=== PATIENT | male | born 1935 | race Caucasian/White ===

== ENCOUNTER 2016-11-27 08:00 | Outpatient (CLI) | payer MEDICARE, OTHER | END 2016-11-27 08:01 | DX: E87.6 Hypokalemia (principal) ==

== ENCOUNTER 2017-05-26 06:59 | Emergency (ER) | payer MEDICARE, OTHER ==
--- NOTE | 2017-05-26 07:04 | ED Physician Documentation ---
PD HPI CHEST PAIN - Stated complaint Stated Complaint: HEART RACING - History obtained from History obtained from: Patient, Family (spouse) - History of Present Illness Timing - onset: Last night (about 1:30 AM) Timing - onset during: Sleep Timing - duration: Hours Timing - details: Abrupt onset, Still present, Waxing and waning Quality: Aching, Other (burning feeling. Also noted BP to be high, whereas it is usually 120s-140s in the mornings.) Location: Substernal Radiation: Neck, Back Improved by: Antacids (took licorice which would help for short time). No: Rest Worsened by: No: Inspiration, Movement, Position Associated symptoms: Feeling faint / dizzy. No: Shortness of air, Diaphoresis, Nausea Similar symptoms before: Diagnosis (had CAD with stents in 2001, with normal exercise tolerance (treadmill, and weight training).) Recently seen: Not recently seen Review of Systems Constitutional: denies: Fever, Chills Nose: denies: Rhinorrhea / runny nose, Congestion Throat: denies: Sore throat Cardiac: reports: Palpitations (occasional extra beats). denies: Chest pain / pressure, Pedal edema, Calf pain Respiratory: reports: Dyspnea (minimal dyspnea with aerobic exercise the past few months, but does about 20 minutes at 3 MPH rate on treadmill and does weight strengthening.). denies: Cough GI: denies: Abdominal Pain, Nausea, Vomiting, Diarrhea : denies: Dysuria Skin: denies: Rash Musculoskeletal: denies: Extremity swelling Neurologic: denies: Generalized weakness, Near syncope Endocrine: denies: Weight loss Immunocompromised: denies: Immunocompromised PD PAST MEDICAL HISTORY - Past Medical History Cardiovascular: Hypertension, Coronary artery disease Respiratory: None Neuro: None Endocrine/Autoimmune: None GI: GERD, Hiatal hernia : Benign prostate hypertrophy, Frequency HEENT: None Psych: None Musculoskeletal: Chronic back pain Derm: None - Past Surgical History Past Surgical History: Yes General: Appendectomy, Colonoscopy Cardiovascular: Coronary stent HEENT: Tonsil/Adenoidectomy - Present Medications Home Medications: Ambulatory Orders Medication Instructions Recorded Confirmed Aspirin [Aspir 81] 81 mg PO DAILY 05/02/13 12/14/15 Red Yeast Rice 600 mg PO DAILY 05/02/13 12/14/15 Melatonin/Pyridoxine [Melatonin 3 1 each PO HS 08/08/13 12/14/15 mg Tablet] Multivitamin [Multivitamins] 1 each PO DAILY 08/08/13 12/14/15 Niacin 500 mg PO DAILY 08/22/13 12/14/15 Selenium 50 mcg PO DAILY 08/22/13 12/14/15 Zinc [Zinc Chelated] 50 mg PO DAILY 08/22/13 12/14/15 ALPRAZolam [Xanax] 0.25 mg PO .PRN PRN 09/01/13 09/01/13 Hydrochlorothiazide 12.5 mg PO DAILY 09/01/13 12/14/15 Lisinopril [Prinivil] 20 mg PO DAILY #30 tablet 07/17/14 12/14/15 Nitroglycerin [Nitrostat] 0.4 mg SL Q5MIN PRN #1 bottle 07/17/14 12/14/15 - Allergies Allergies/Adverse Reactions: Allergies Allergy/AdvReac Type Severity Reaction Status Date / Time atorvastatin calcium * Allergy Mild MUSCLE PAIN Verified 05/26/17 07:08 [From Lipitor] - Social History Does the pt smoke?: No Smoking Status: Never smoker Does the pt drink ETOH?: Yes Does the pt have substance abuse?: No - POLST Patient has POLST: No PD ED PE NORMAL - Vitals Vital signs reviewed: Yes - General General: Alert 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, No acute distress, Well developed/nourished - HEENT HEENT: Pharynx benign - Neck Neck: Supple, no meningeal sign, No adenopathy - Cardiac Cardiac: RRR, No murmur - Respiratory Respiratory: No respiratory distress, Clear bilaterally - Abdomen Abdomen: Soft, Non tender - Back Back: No CVA TTP - Derm Derm: Normal color, Warm and dry - Extremities Extremities: No tenderness to palpate, Normal ROM s pain, No edema, No calf tenderness / cord - Neuro Neuro: Alert 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, No motor deficit, Normal speech - Psych Psych: Normal mood, Normal affect Results - Vitals Vitals: Vital Signs - 24 hr 05/26/17 05/26/17 05/26/17 07:05 07:21 07:42 Temperature 36.5 C Heart Rate 85 75 Respiratory 15 18 Rate Blood Pressure 186/94 H 155/99 H Blood Pressure 186/94 H [Left] Blood Pressure 177/85 H [Right] O2 Saturation 100 100 05/26/17 05/26/17 08:16 09:02 Temperature Heart Rate 81 74 Respiratory 17 16 Rate Blood Pressure 139/88 H 158/69 H Blood Pressure [Left] Blood Pressure [Right] O2 Saturation 99 98 Oxygen O2 Source Room air - EKG (time done) 07:09 Rate: Rate (enter#) (81) Rhythm: NSR, Other (occasional PVCs) [place]: Normal Intervals: Normal [place] QRS: Normal Ischemia: Normal ST segments. No: ST elevation c/w ischemia, ST depression - Labs Labs: Laboratory Tests 05/26/17 05/26/17 05/26/17 07:34 07:34 07:34 WBC 3.9 L RBC 4.45 L Hgb 13.6 L Hct 38.5 L MCV 86.7 MCH 30.6 MCHC 35.3 RDW 13.2 Plt Count 156 MPV 6.2 L Neut # 2.5 Lymph # 0.8 L [place] # 0.5 Eos # 0.1 Baso # 0.0 Absolute Nucleated RBC 0.00 Nucleated RBCs 0.0 Sodium 131 L Potassium 3.6 Chloride 94 L Carbon Dioxide 29 Anion Gap 8.0 BUN 15 Creatinine 1.0 Estimated GFR (MDRD) 72 L Glucose 117 H Calcium 9.1 Magnesium 2.0 Total Bilirubin 1.3 H AST 22 ALT 17 Alkaline Phosphatase 64 Troponin I < 0.04 Total Protein 6.8 Albumin 4.1 Globulin 2.7 Albumin/Globulin Ratio 1.5 Lipase 33 PD MEDICAL DECISION MAKING - ED course Complexity details: reviewed results (normal labs 6 hours after onset of discomfort. Got better with GI cocktail. ), re-evaluated patient (He is feeling better with the GI cocktail. EKG and troponin are negative. His other blood tests are good. His blood pressure remains slightly high today but he says his trend is good overall with blood pressure 120s-140s even this past week. As such we would not treat this likely stress response high blood pressure but see how it does over the next week. He is understanding of that concept. He is discharged in improved condition.), considered differential, d/w patient Departure - Departure Disposition: 01 Home, Self Care Clinical Impression: Chest discomfort, Elevated blood pressure reading Clinical Impression: (Ruled Out): Myocardial infarction Condition: Stable Record reviewed to determine appropriate education?: Yes Instructions: ED Chest Pain Atypical Unkn Cause Follow-Up: Jocelynn Perez MD [Primary Care Provider] - Comments: Continue usual medications. Add antacid such as Maalox or Mylanta as needed. Watch her blood pressure over the next several days but do not take it too often. If the elevation remains as a trend, then follow-up with your primary care regarding potential further treatment. It is likely more reactive to the situation today. Recheck if worsening symptoms. Discharge Date/Time: 05/26/17 09:02
[2017-05-26] MEDS ORDERED: MAG HYDROX/AL HYDROX/SIMETH 30 ML UDC PO STA (07:21)
[2017-05-26] MEDS ORDERED: LIDOCAINE VISCOUS 2% 15 ML UDC MM STA (07:21)
[2017-05-26] MEDS ORDERED: FAMOTIDINE 20 MG TABLET PO STA (07:21)
[2017-05-26] MEDS ORDERED: FAMOTIDINE 20 MG TABLET ONE (07:37)
[2017-05-26] MEDS ORDERED: MAG HYDROX/AL HYDROX/SIMETH 30 ML UDC ONE (07:38)
[2017-05-26] MEDS ORDERED: LIDOCAINE VISCOUS 2% 15 ML UDC MM ONE (07:38)
[2017-05-26 07:41] LABS: BASOPHILS % (AUTO) 0.7 %; EOSINOPHILS # (AUTO) 0.1 10^3/uL (0.0-0.7); EOSINOPHILS % (AUTO) 1.7 %; HCT - HEMATOCRIT 38.5 % (42.0-52.0); HGB - HEMOGLOBIN 13.6 g/dL (14.0-18.0); LYMPHOCYTES # (AUTO) 0.8 10^3/uL (1.5-3.5); LYMPHOCYTES % (AUTO) 20.9 %; MEAN CORPUSCULAR HEMOGLOBIN 30.6 pg (27.0-31.0); MEAN CORPUSCULAR HGB CONC 35.3 g/dL (32.0-36.0); MEAN CORPUSCULAR VOLUME 86.7 fL (80.0-94.0); MEAN PLATELET VOLUME 6.2 fL (7.4-11.4); MONOCYTES # (AUTO) 0.5 10^3/uL (0.0-1.0); MONOCYTES % (AUTO) 13.2 %; NEUTROPHILS # (AUTO) 2.5 10^3/uL (1.5-6.6); NEUTROPHILS % (AUTO) 63.5 %; RED BLOOD COUNT 4.45 10^6/uL (4.70-6.10); RED CELL DISTRIBUTION WIDTH 13.2 % (12.0-15.0); UNCORRECTED WHITE BLOOD COUNT 3.9 x10^3/uL; WHITE BLOOD COUNT 3.9 x10^3/uL (4.8-10.8)
[2017-05-26 07:53] LABS: ALBUMIN/GLOBULIN RATIO 1.5 (1.0-2.2); BILIRUBIN,TOTAL 1.3 mg/dL (0.2-1.0); CALCIUM 9.1 mg/dL (8.5-10.3); POTASSIUM 3.6 mmol/L (3.5-5.0); TOTAL PROTEIN 6.8 g/dL (6.7-8.2)
[2017-05-26 09:03] VITALS: BP 158/69
== END 2017-05-26 09:02 | disposition home or self-care (01) ==
LOC: ED 06:59
DX: R07.9 Chest pain, unspecified (principal); I10 Essential (primary) hypertension; I25.10 Atherosclerotic heart disease of native coronary artery without angina pectoris; K21.9 Gastro-esophageal reflux disease without esophagitis; N40.0 Benign prostatic hyperplasia without lower urinary tract symptoms; Z79.82 Long term (current) use of aspirin
CPT/HCPCS: 36415; 80053; 83690; 83735; 84484; 85025; 93005; 99283; 99284; A9270

== ENCOUNTER 2017-06-15 14:50 | Outpatient (CLI) | payer MEDICARE, OTHER ==
--- NOTE | 2017-06-15 15:47 | CT Report ---
CT CHEST WITHOUT CONTRAST: 06/15/2017 CLINICAL INDICATION: Cough. TECHNIQUE: Axial CT images of the chest were obtained without intravenous contrast. COMPARISON: 12/15/2015 FINDINGS: The heart and great vessels demonstrate mild atherosclerotic calcification. No hilar or m ediastinal lymphadenopathy is present. The lungs demonstrate mild biapical scarring. Minimal basila r atelectasis persists. No new consolidation, effusion, or pneumothorax is evident. Osseous structu res demonstrate degenerative changes. Limited evaluation of upper abdominal structures demonstrates normal adrenal glands. Small hypodensity in the lateral right lobe of the liver is stable. IMPRESSION: BIAPICAL SCARRING AND MILD ATELECTASIS. NO EVIDENCE OF NEW CONSOLIDATION, EFFUSION, OR PNEUMOTHORAX. In accordance with CT protocol optimization, one or more of the following dose reduction techniques w ere utilized for this exam: automated exposure control, adjustment of mA and/or KV based on patient size, or use of iterative reconstructive technique. JOB #: [id number] EXT JOB #:[id number]
== END 2017-06-15 14:51 | disposition home or self-care (01) ==
LOC: DI 14:50
PROVIDERS: ATTEND Internal Medicine
DX: R05 Cough (principal); J98.11 Atelectasis
CPT/HCPCS: 71250

== ENCOUNTER 2017-07-22 16:33 | Inpatient (IN) | payer MEDICARE, OTHER ==
--- NOTE | 2017-07-22 17:18 | ED Physician Documentation ---
PD HPI ABD PAIN - Stated complaint Stated Complaint: STOMACH PX - Chief complaint Chief Complaint: Abd Pain - History obtained from History obtained from: Patient - History of Present Illness Timing - onset: How many hours ago (1) Timing - duration: Hours (1) Timing - details: Abrupt onset (while mowing the lawn, onset about an hour ago.) Quality: Aching, Sharp, Pain Location: Epigastric Radiation: Upper back Improved by: No: Laying still, Position Worsened by: No: Breathing, Position, Palpation Associated symptoms: Nausea. No: Fever, Vomiting, Diarrhea, Constipation Similar symptoms before: Has not had sx before Recently seen: Not recently seen Review of Systems Constitutional: denies: Fever, Chills Nose: denies: Rhinorrhea / runny nose, Congestion Throat: denies: Sore throat Cardiac: denies: Chest pain / pressure, Palpitations Respiratory: denies: Cough GI: reports: Abdominal Pain, Nausea. denies: Vomiting, Diarrhea : denies: Dysuria, Frequency Skin: denies: Rash, Lesions Neurologic: reports: Generalized weakness. denies: Focal weakness, Numbness, Near syncope, Altered mental status, Headache Endocrine: denies: Easy bruising / bleeding Immunocompromised: denies: Immunocompromised PD PAST MEDICAL HISTORY - Past Medical History Cardiovascular: Hypertension, Coronary artery disease Respiratory: None Neuro: None Endocrine/Autoimmune: None GI: GERD, Hiatal hernia : Benign prostate hypertrophy, Frequency HEENT: None Psych: None Musculoskeletal: Chronic back pain Derm: None - Past Surgical History Past Surgical History: Yes General: Appendectomy, Colonoscopy Cardiovascular: Coronary stent HEENT: Tonsil/Adenoidectomy - Present Medications Home Medications: Ambulatory Orders Medication Instructions Recorded Confirmed Aspirin [Aspir 81] 81 mg PO DAILY 05/02/13 07/22/17 Red Yeast Rice 600 mg PO DAILY 05/02/13 07/22/17 Melatonin/Pyridoxine [Melatonin 3 1 each PO HS 08/08/13 07/22/17 mg Tablet] Multivitamin [Multivitamins] 1 each PO DAILY 08/08/13 07/22/17 Niacin 500 mg PO DAILY 08/22/13 07/22/17 Selenium 50 mcg PO DAILY 08/22/13 07/22/17 Zinc [Zinc Chelated] 50 mg PO DAILY 08/22/13 07/22/17 ALPRAZolam [Xanax] 0.25 mg PO .PRN PRN 09/01/13 07/22/17 Hydrochlorothiazide 12.5 mg PO DAILY 09/01/13 07/22/17 Lisinopril [Prinivil] 20 mg PO DAILY #30 tablet 07/17/14 07/22/17 Nitroglycerin [Nitrostat] 0.4 mg SL Q5MIN PRN #1 bottle 07/17/14 07/22/17 - Allergies Allergies/Adverse Reactions: Allergies Allergy/AdvReac Type Severity Reaction Status Date / Time atorvastatin calcium * Allergy Mild MUSCLE PAIN Verified 05/26/17 07:08 [From Lipitor] - Social History Does the pt smoke?: No Smoking Status: Never smoker Does the pt drink ETOH?: Yes Does the pt have substance abuse?: No - Family History Family history: reports: Non contributory. denies: Aortic aneursym, Aortic dissection - POLST Patient has POLST: No PD ED PE NORMAL - Vitals Vital signs reviewed: Yes - General General: Alert 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, Well developed/nourished, Other (in significant pain, with some pallor. No diaphoresis. Otherwise vigorous appearing gentleman for age. ) - HEENT HEENT: Moist mucous membranes, Pharynx benign - Neck Neck: Supple, no meningeal sign, No adenopathy - Cardiac Cardiac: RRR, No murmur - Respiratory Respiratory: Clear bilaterally - Abdomen Abdomen: Normal bowel sounds, Soft, Non distended, No organomegaly, Other (some tenderness epigastric area but no guarding nor percussion tenderness. No masses. ) - Male Male : Deferred - Rectal Rectal: Deferred - Back Back: No CVA TTP, No spinal TTP - Derm Derm: Warm and dry, No rash. 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 No: ST elevation c/w ischemia, ST depression, T wave inversion - Labs Labs: Laboratory Tests 07/22/17 07/22/17 07/22/17 17:05 17:05 17:05 WBC 7.4 RBC 4.66 L Hgb 14.7 Hct 41.0 L MCV 88.0 MCH 31.5 H MCHC 35.8 RDW 13.8 Plt Count 177 MPV 6.7 L Neut # 5.8 Lymph # 0.8 L [place] # 0.7 Eos # 0.0 Baso # 0.0 Absolute Nucleated RBC 0.00 Nucleated RBC % 0.0 Sodium 128 L Potassium 2.9 L Chloride 91 L Carbon Dioxide 27 Anion Gap 10.0 BUN 13 Creatinine 0.9 Estimated GFR (MDRD) 81 L Glucose 144 H Calcium 9.1 Magnesium 2.0 Total Bilirubin 0.9 AST 26 ALT 17 Alkaline Phosphatase 65 Troponin I < 0.04 Total Protein 7.1 Albumin 4.3 Globulin 2.8 Albumin/Globulin Ratio 1.5 Lipase 29 - Rads (name of study) abd CT Radiology: Prelim report reviewed (normal aorta, no stones, no free fluid/air. ) PD MEDICAL DECISION MAKING - ED course Complexity details: reviewed results (No signs of aortic dissection/aneurysm, which was highest concern for me. And no kidney stones, free air, free fluid. Also normal labs (lipase, hgb).), re-evaluated patient (pain improved but not completely gone. It did not improve with GI cocktail but with IV pain meds. I am concerned aobut the severity of the pain without obvious cause and did not really have significant abd tenderness. Concern for cardiac cause, as would be concerning for AMI if location was just slightly higher, but can have AMI presentation with epigastric location. ), considered differential, d/w patient, d/w compensation consultant (hospitalist) Departure - Departure Disposition: ED Place in Observation Clinical Impression: Epigastric abdominal pain, Chest pain, rule out acute myocardial infarction, Hypokalemia Condition: Stable Record reviewed to determine appropriate education?: Yes Discharge Date/Time: 07/22/17 20:34
[2017-07-22] MEDS ORDERED: ONDANSETRON 4 MG/2 ML VIAL IVP STA (17:28)
[2017-07-22] MEDS ORDERED: HYDROmorphone 1 MG/ML CARPUJECT IVP STA (17:28)
[2017-07-22] MEDS ORDERED: SODIUM CHLORIDE 0.9% 500 ML IV ONE (17:28)
[2017-07-22] MEDS ORDERED: LIDOCAINE VISCOUS 2% 15 ML UDC MM STA (17:29)
[2017-07-22] MEDS ORDERED: MAG HYDROX/AL HYDROX/SIMETH 30 ML UDC PO STA (17:29)
[2017-07-22 17:35] LABS: BASOPHILS % (AUTO) 0.2 %; EOSINOPHILS % (AUTO) 0.6 %; HGB - HEMOGLOBIN 14.7 g/dL (14.0-18.0); LYMPHOCYTES # (AUTO) 0.8 10^3/uL (1.5-3.5); LYMPHOCYTES % (AUTO) 10.9 %; MEAN CORPUSCULAR HEMOGLOBIN 31.5 pg (27.0-31.0); MEAN CORPUSCULAR HGB CONC 35.8 g/dL (32.0-36.0); MEAN PLATELET VOLUME 6.7 fL (7.4-11.4); MONOCYTES # (AUTO) 0.7 10^3/uL (0.0-1.0); MONOCYTES % (AUTO) 9.3 %; NEUTROPHILS # (AUTO) 5.8 10^3/uL (1.5-6.6); RED BLOOD COUNT 4.66 10^6/uL (4.70-6.10); RED CELL DISTRIBUTION WIDTH 13.8 % (12.0-15.0); UNCORRECTED WHITE BLOOD COUNT 7.4 x10^3/uL; WHITE BLOOD COUNT 7.4 x10^3/uL (4.8-10.8)
[2017-07-22] MEDS ORDERED: ONDANSETRON 4 MG/2 ML VIAL ONE (17:40)
[2017-07-22] MEDS ORDERED: HYDROmorphone 1 MG/ML SYRINGE ONE (17:40)
[2017-07-22 17:45] LABS: ALBUMIN/GLOBULIN RATIO 1.5 (1.0-2.2); BILIRUBIN,TOTAL 0.9 mg/dL (0.2-1.0); CALCIUM 9.1 mg/dL (8.5-10.3); CREATININE 0.9 mg/dL (0.6-1.2); POTASSIUM 2.9 mmol/L (3.5-5.0); TOTAL PROTEIN 7.1 g/dL (6.7-8.2)
[2017-07-22] MEDS ORDERED: IOPAMIDOL-300 100 ML VIAL ONE (17:45)
[2017-07-22] MEDS ORDERED: LIDOCAINE VISCOUS 2% 15 ML UDC MM ONE (18:22)
[2017-07-22] MEDS ORDERED: MAG HYDROX/AL HYDROX/SIMETH 30 ML UDC ONE (18:22)
--- NOTE | 2017-07-22 18:42 | CT Preliminary Report ---
Exam: CT Abdomen/Pelvis W/ IMPRESSION: Negative contrast enhanced CT of the abdomen and pelvis. No acute solid or hollow viscus organ abnormalities to account for the patient's presentation. [facility] SITE ID: [id number]
--- NOTE | 2017-07-22 18:44 | CT Report ---
EXAM: CT ABDOMEN AND PELVIS EXAM DATE: 07/22/2017 05:59 PM. CLINICAL HISTORY: Abdominal pain. COMPARISONS: None. TECHNIQUE: Routine helical CT imaging was performed through the abdomen and pelvis. IV contrast: 80 c c [id number]. Enteric contrast: No. Reconstructions: Coronal and sagittal. In accordance with CT protocol optimization, one or more of the following dose reduction techniques w ere utilized for this exam: automated exposure control, adjustment of mA and/or KV based on patient s ize, or use of iterative reconstructive technique. FINDINGS: Lung Bases: No acute infiltrate. Liver: Normal. No masses. Gallbladder/Bile Ducts: The gallbladder is distended. No significant bile duct dilatation. Spleen: Normal. Pancreas: Normal. Adrenal Glands: Normal. Kidneys: Normal. No masses or hydronephrosis. Peritoneal Cavity/Bowel: Normal. No free fluid, free air or adenopathy. No masses or acute inflammato ry process. No evidence of appendicitis. Pelvic Organs: Normal. The bladder and visualized pelvic organs are within normal limits. Vasculature: No aneurysms or other significant abnormality. Bones: There is lumbar spine degenerative disease. Other: None. IMPRESSION: Negative contrast enhanced CT of the abdomen and pelvis. No acute solid or hollow viscus organ abnormalities to account for the patient's presentation. [facility] Referring Provider Line: [phone] SITE ID: [id number]
[2017-07-22] MEDS ORDERED: POTASSIUM BICARB 25 MEQ TABLET PO STA (19:12)
[2017-07-22] MEDS ORDERED: ASPIRIN 325 MG TABLET PO STA (19:12)
[2017-07-22] MEDS ORDERED: POTASSIUM BICARB 25 MEQ TABLET PO ONE (19:27)
[2017-07-22] MEDS ORDERED: ASPIRIN 325 MG TABLET PO ONE (19:27)
[2017-07-22] MEDS ORDERED: NITROGLYCERIN SL 0.4 MG TABLET SL PRN (19:53)
[2017-07-22] MEDS ORDERED: ONDANSETRON 4 MG/2 ML VIAL IVP PRN (19:57)
[2017-07-22] MEDS ORDERED: MORPHINE 2 MG/ML SYRINGE IVP PRN (19:57)
[2017-07-22] MEDS ORDERED: SODIUM CHLORIDE FLUSH 0.9% 10 ML SYRINGE IVP PRN (19:57)
[2017-07-22] MEDS ORDERED: hydrALAZINE INJ 20 MG/ML VIAL IVP PRN (20:17)
[2017-07-22] MEDS ORDERED: POTASSIUM CHLORIDE 20 MEQ TABLET PO SCH (20:30)
[2017-07-22] MEDS ORDERED: ATORVASTATIN 40 MG TABLET PO SCH (21:00)
[2017-07-22] MEDS ORDERED: METOPROLOL TARTRATE 25 MG TABLET PO SCH (21:00)
[2017-07-22] MEDS: SODIUM CHLORIDE 0.9% 1,000 ML IV SCH (21:32)
[2017-07-22] MEDS: SODIUM CHLORIDE FLUSH 0.9% 10 ML SYRINGE IVP SCH (21:35)
--- NOTE | 2017-07-22 22:00 | HISTORY & PHYSICAL EXAMINATION ---
DATE OF ADMISSION: 07/22/2017 CODE STATUS: DO NOT RESUSCITATE. PRIMARY CARE PHYSICIAN: Jocelynn Perez M.D. EXAMINATION LIMITATIONS: None. SOURCE OF INFORMATION: The patient. All records were reviewed. CHIEF COMPLAINT: Epigastric pain. The patient does have an advanced directive. HISTORY OF PRESENT ILLNESS: The patient, an 81-year-old white male, began having upper back pain that radiated to the epigastric region around 2 p.m. today while mowing the lawn. He went into the house and took Alprazolam 0.25 mg p.o. x1 and Prilosec 20 mg 1 tab p.o. x1, but the pain did not go away. He called his son-in-law who brought him into the ER. DRUG ALLERGIES: NONE. HOME MEDICATIONS 1. Alprazolam 0.25 mg 1 tab p.o. every day p.r.n. anxiety. 2. Melatonin-pyridoxine 1 tab p.o. at bedtime. 3. Multivitamin 1 tab p.o. every day. 4. Zinc 50 mg 1 tab p.o. every day. 5. Niacin 500 mg 1 tab p.o. every day. 6. Red yeast 600 mg 1 tab p.o. every day. 7. Selenium 50 mg 1 tab p.o. every day. 8. Testosterone cream. 9. Prilosec 20 mg 1 tab p.o. every day. 10. Hydrochlorothiazide 12.5 mg 1 tab p.o. every day. 11. Lisinopril 20 mg 1 tab p.o. every day. 12. Sublingual nitroglycerin 0.4 every 5 minutes p.r.n. chest pain. 13. Potassium chloride. 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 PAST SURGICAL HISTORY: Tonsillectomy, appendectomy, left inguinal hernia repair , TURP of the prostate, lower back surgery, Zenker's diverticulum repair, colonoscopy in November of 2012 showing a benign rectal polyp. FAMILY HISTORY: Father: Diabetes mellitus and prostate cancer. Maternal uncle: A hemorrhagic CVA. Mother: Dementia. One daughter had congenital vascular heart anomaly. SOCIAL HISTORY: He is . He has 3 children. 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 He never smoked. He drinks alcohol socially. He uses no recreational drugs. He lives at home with his . REVIEW OF SYSTEMS RESPIRATORY: Some shortness of breath. HEART: No palpitations, no chest pain. He had pain that radiated from the back to the epigastric region. ABDOMEN: No constipation, no diarrhea. No bloating, no nausea, no vomiting. Epigastric pain. GENITOURINARY: No burning urine, no frequency. HEAD: No headaches. EYES: Blurred vision secondary to right cataract. EARS: Tinnitus and decreased hearing, for which he uses hearing aids. NOSE: Runny nose. THROAT: No pain or redness. MUSCULOSKELETAL: No proximal muscle weakness at present. No back pain. JOINTS: No joint pain. NEUROLOGICAL: No aphasia. No limb weakness. Weakness and fatigue is yes and fever is no. PHYSICAL EXAMINATION VITAL SIGNS: Temperature of 36.4 degrees Celsius, pulse of 84, respiratory rate of 18, blood pressure of 182/103, O2 saturation of 100% on room air. GENERAL: Alert and cooperative. HEAD, EYES, EARS, NOSE AND THROAT: Head is atraumatic, normocephalic. Eyes are PERRLA, EOMI. NECK: Supple. No JVD, no bruits, no thyroid enlargement. No adenopathy. HEART: RRR, S1 and 2, without murmurs, or gallops. LUNGS: Clear to auscultation. ABDOMEN: Positive for bowel sounds, soft, nontender. No rebound, no guarding. EXTREMITIES: Warm. No edema, +2 pedal pulses. He has 5/5 muscle strength in upper and lower extremities. NEUROLOGIC: He is oriented x3, follows commands, moves all 4 extremities. Cranial nerves 2-12 are intact. LABORATORY DATA: His sodium is 128, potassium was 2.9, chloride is 91, bicarbonate 27, BUN 13, creatinine is 0.9, glucose is 144. White blood cells are 7.4, hemoglobin is 14.7, hematocrit is 41, platelets are 177,000. Glomerular filtration rate is 81, AST is 26, ALT is 17, alkaline phosphatase is 65. Troponin less than 0.04. Lipase is 29. EKG shows normal sinus rhythm with a prolonged CT. Abdominal CT was negative. No acute solid or hollow viscus organ abnormalities. ASSESSMENT AND PLAN 1. Chest pain, ruling out myocardial infarction. He will be on aspirin, Niacin, sublingual nitroglycerin p.r.n. chest pain., morphine sulfate p.r.n. chest pain , and Metoprolol tartrate. He will not receive a statin, because it causes muscle myopathy. 2. Epigastric pain will be treated with intravenous Protonix. 3. Hyponatremia will be treated with intravenous 0.9 normal saline. 4. Hypokalemia will be treated with potassium chloride. 5. Hypertension will be treated with hydralazine (p.r.n. systolic blood pressure greater than 160), lisinopril, hydrochlorothiazide and Metoprolol tartrate. 6. Hyperlipidemia- Niacin The patient will be placed in observation on telemetry. He will get an echocardiogram. We will get troponin levels every 6 hours x2, a CBC, a CMP, and magnesium in the morning, and he will get an EKG in a.m. He will receive Lovenox subcutaneously for DVT prophylaxis and he will be on IV Protonix to prevent stress ulcer. He will be on acetaminophen for p.r.n. pain or fever, and he will be on Xanax for p.r.n. anxiety. His anticipated length of stay will be less than 2 days. JOB #: [id number] EXT JOB #:[id number]
[2017-07-22] MEDS ORDERED: FAMOTIDINE 20 MG TABLET PO SCH (23:00)
[2017-07-22] MEDS ORDERED: SUCRALFATE 1 GM/10 ML UDC PO SCH (23:20)
[2017-07-23] MEDS: SODIUM CHLORIDE FLUSH 0.9% 10 ML SYRINGE IVP SCH ×3 (06:28→20:20)
[2017-07-23] MEDS ORDERED: PANTOPRAZOLE 40 MG VIAL IVP SCH (07:00)
[2017-07-23 08:13] LABS: ALBUMIN/GLOBULIN RATIO 1.5 (1.0-2.2); BILIRUBIN,TOTAL 1.7 mg/dL (0.2-1.0); CALCIUM 8.5 mg/dL (8.5-10.3); CREATININE 0.8 mg/dL (0.6-1.2); MAGNESIUM 1.7 mg/dL (1.7-2.8); POTASSIUM 3.5 mmol/L (3.5-5.0); TOTAL PROTEIN 5.7 g/dL (6.7-8.2)
[2017-07-23 08:22] LABS: BASOPHILS % (AUTO) 0.1 %; EOSINOPHILS % (AUTO) 0.1 %; HCT - HEMATOCRIT 37.1 % (42.0-52.0); LYMPHOCYTES # (AUTO) 0.5 10^3/uL (1.5-3.5); LYMPHOCYTES % (AUTO) 3.8 %; MEAN CORPUSCULAR HEMOGLOBIN 30.8 pg (27.0-31.0); MEAN CORPUSCULAR HGB CONC 35.1 g/dL (32.0-36.0); MEAN CORPUSCULAR VOLUME 87.7 fL (80.0-94.0); MEAN PLATELET VOLUME 6.9 fL (7.4-11.4); MONOCYTES # (AUTO) 1.5 10^3/uL (0.0-1.0); MONOCYTES % (AUTO) 11.5 %; NEUTROPHILS # (AUTO) 10.8 10^3/uL (1.5-6.6); NEUTROPHILS % (AUTO) 84.5 %; RED BLOOD COUNT 4.23 10^6/uL (4.70-6.10); RED CELL DISTRIBUTION WIDTH 13.5 % (12.0-15.0); UNCORRECTED WHITE BLOOD COUNT 12.8 x10^3/uL; WHITE BLOOD COUNT 12.8 x10^3/uL (4.8-10.8)
--- NOTE | 2017-07-23 08:53 | XRAY Report ---
TWO-VIEW CHEST: 07/23/2017 CLINICAL INDICATION: Chest pain. FINDINGS: Frontal and lateral views of the chest are compared to previous CT of 06/15/2017. The car diac silhouette is within normal limits. Biapical scarring is stable. No new infiltrate, effusion, or pneumothorax is present. IMPRESSION: STABLE BIAPICAL SCARRING. NO EVIDENCE OF ACUTE CARDIOPULMONARY DISEASE. JOB #: [id number] EXT JOB #:[id number]
[2017-07-23] MEDS ORDERED: ALPRAZolam 0.25 MG TABLET PO PRN ×2 (09:00→16:48)
[2017-07-23] MEDS ORDERED: hydroCHLOROthiazide 25 MG TABLET PO SCH (09:00)
[2017-07-23] MEDS ORDERED: LISINOPRIL 20 MG TABLET PO SCH (09:00)
--- NOTE | 2017-07-23 10:33 | PROVIDER PROGRESS NOTE ---
Subjective - Prog Note Date Prog Note Date: 07/23/17 Prog Note Time: 10:27 - Subjective Pt reports feeling: Improved (still has pain RuQ with palpation uses a treadmill 20-30 mins ~ 4x/week with no similar pain. Was mowing and got pain across the middle of his back. never had "anything like it". sat down, it moved to the front (epigastric area). Persisted ~ 2 hrs in ED Took a suppository yesterday "in case it was gas/constipation", normalBM,no melena, no hematochezia , no hematemeiss had a glas of wine yesterdday; not a heavy drinker.) Subjective: talked with patient at 7:15pm inquiring what Dr Lynne advised him He indicated cholecystectomy (likely laparascopic) planned for tomorrow Current Medications - Current Medications Current Medications: Active Medications Generic Name Dose Route Start Last Admin Trade Name Freq PRN Reason Stop Dose Admin Acetaminophen 650 mg 07/22/17 19:57 Tylenol PO Q4HR PRN Pain 1 to 4 Alprazolam 0.25 mg 07/23/17 09:00 Xanax PO QID PRN Anxiety Aspirin 81 mg 07/23/17 09:00 Ecotrin PO DAILY MAYRA Enoxaparin Sodium 40 mg 07/23/17 09:00 Lovenox SUBQ DAILY MAYRA Sodium Chloride 1,000 mls @ 70 mls/hr 07/22/17 20:00 07/22/17 21:32 Normal Saline 0.9% IV 70 mls/hr .[id number] MAYRA Administration Lisinopril 20 mg 07/23/17 09:00 Zestril PO DAILY MAYRA Metoprolol Tartrate 25 mg 07/22/17 21:00 07/22/17 21:33 Lopressor PO 07/24/17 17:01 25 mg QID MAYRA Administration Metoprolol Tartrate 100 mg 07/25/17 09:00 Lopressor PO BID MAYRA Morphine Sulfate 2 mg 07/22/17 19:57 Morphine IVP Q5M PRN Chest pain Multivitamins 1 tab 07/23/17 08:00 Theragran PO DAILYWM MAYRA Niacin 500 mg 07/23/17 21:00 Niaspan PO QPM MAYRA Nitroglycerin 0.4 mg 07/22/17 19:53 Nitrostat SL Q5MIN PRN Chest Pain Ondansetron HCl 4 mg 07/22/17 19:57 Zofran Inj IVP Q6HR PRN Nausea / Vomiting Pantoprazole Sodium 40 mg 07/23/17 07:00 07/23/17 06:27 Protonix IVP 40 mg QDAC MAYRA Administration Polyethylene Glycol 17 gm 07/23/17 09:00 Miralax PO DAILY MAYRA Sodium Chloride 10 ml 07/22/17 19:57 Normal Saline Flush 0.9% IVP PRN PRN NEEDED PER PROVIDER ORDERS Sodium Chloride 10 ml 07/22/17 22:00 07/23/17 06:28 Normal Saline Flush 0.9% IVP 10 ml Q8HR MAYRA Administration Aspirin [Aspir 81] 81 mg PO DAILY 05/02/13 Red Yeast Rice 600 mg PO DAILY 05/02/13 Melatonin/Pyridoxine [Melatonin 3 mg Tablet] 1 each PO HS 08/08/13 Multivitamin [Multivitamins] 1 each PO DAILY 08/08/13 Niacin 500 mg PO DAILY 08/22/13 Selenium 50 mcg PO DAILY 08/22/13 Zinc [Zinc Chelated] 50 mg PO DAILY 08/22/13 ALPRAZolam [Xanax] 0.25 mg PO .PRN PRN 09/01/13 Hydrochlorothiazide 12.5 mg PO DAILY 09/01/13 Objective - Vital Signs/Intake & Output Vital Signs: Vital Signs x48h Temp Pulse Resp BP Pulse Ox 07/23/17 07:55 37.0 C 86 19 123/63 96 07/23/17 03:13 36.6 C 79 16 135/71 H 100 Intake & Output: Intake & Output 07/20/17 07/21/17 07/22/17 07/23/17 23:59 23:59 23:59 23:59 Intake Total 300 200 Output Total 550 450 Balance -250 -250 - Objective General Appearance: positive: No acute distress, Other (awake, alert , looks younger than age was bothered that we were not feeding him this morning) Eyes Bilateral: positive: Normal inspection Respiratory: positive: No respiratory distress, Breath sounds nml Cardiovascular: positive: Regular rate & rhythm, No murmur Abdomen: positive: No distention, Other (quiet bowel sounds, not distended RUQ pain only with deep palpation, he had some mild Gallegos's with ultrasound probe no guarding, no RBT, no epigastric tenderness) Skin: positive: Warm, Dry Extremities: positive: No pedal edema - Lab Results Fish Bones: 07/23/17 07:38 07/23/17 07:38 Other Labs: Lab Results x24hrs 07/23/17 07/23/17 07/23/17 Range/Units 07:38 07:38 07:38 WBC 12.8 H (4.8-10.8) x10^3/uL RBC 4.23 L (4.70-6.10) 10^6/uL Hgb 13.0 L (14.0-18.0) g/dL Hct 37.1 L (42.0-52.0) % MCV 87.7 (80.0-94.0) fL MCH 30.8 (27.0-31.0) pg MCHC 35.1 (32.0-36.0) g/dL RDW 13.5 (12.0-15.0) % Plt Count 147 (130-450) 10^3/uL MPV 6.9 L (7.4-11.4) fL Neut # 10.8 H (1.5-6.6) 10^3/uL Lymph # 0.5 L (1.5-3.5) 10^3/uL [place] # 1.5 H (0.0-1.0) 10^3/uL Eos # 0.0 (0.0-0.7) 10^3/uL Baso # 0.0 (0.0-0.1) 10^3/uL Absolute Nucleated RBC 0.00 x10^3/uL Nucleated RBC % 0.0 /100WBC Sodium 127 L (135-145) mmol/L Potassium 3.5 (3.5-5.0) mmol/L Chloride 95 L (101-111) mmol/L Carbon Dioxide 24 (21-32) mmol/L Anion Gap 8.0 (6-13) BUN 12 (6-20) mg/dL Creatinine 0.8 (0.6-1.2) mg/dL Estimated GFR (MDRD) 93 (>89) Glucose 164 H (70-100) mg/dL Calcium 8.5 (8.5-10.3) mg/dL Magnesium 1.7 (1.7-2.8) mg/dL Total Bilirubin 1.7 H (0.2-1.0) mg/dL AST 24 (10-42) IU/L ALT 15 (10-60) IU/L Alkaline Phosphatase 51 (42-121) IU/L Troponin I < 0.04 (<0.49) ng/mL Total Protein 5.7 L (6.7-8.2) g/dL Albumin 3.4 (3.2-5.5) g/dL Globulin 2.3 (2.1-4.2) g/dL Albumin/Globulin Ratio 1.5 (1.0-2.2) 07/23/17 Range/Units 01:03 WBC (4.8-10.8) x10^3/uL RBC (4.70-6.10) 10^6/uL Hgb (14.0-18.0) g/dL Hct (42.0-52.0) % MCV (80.0-94.0) fL MCH (27.0-31.0) pg MCHC (32.0-36.0) g/dL RDW (12.0-15.0) % Plt Count (130-450) 10^3/uL MPV (7.4-11.4) fL Neut # (1.5-6.6) 10^3/uL Lymph # (1.5-3.5) 10^3/uL [place] # (0.0-1.0) 10^3/uL Eos # (0.0-0.7) 10^3/uL Baso # (0.0-0.1) 10^3/uL Absolute Nucleated RBC x10^3/uL Nucleated RBC % /100WBC Sodium (135-145) mmol/L Potassium (3.5-5.0) mmol/L Chloride (101-111) mmol/L Carbon Dioxide (21-32) mmol/L Anion Gap (6-13) BUN (6-20) mg/dL Creatinine (0.6-1.2) mg/dL Estimated GFR (MDRD) (>89) Glucose (70-100) mg/dL Calcium (8.5-10.3) mg/dL Magnesium (1.7-2.8) mg/dL Total Bilirubin (0.2-1.0) mg/dL AST (10-42) IU/L ALT (10-60) IU/L Alkaline Phosphatase (42-121) IU/L Troponin I < 0.04 (<0.49) ng/mL Total Protein (6.7-8.2) g/dL Albumin (3.2-5.5) g/dL Globulin (2.1-4.2) g/dL Albumin/Globulin Ratio (1.0-2.2) Assessment/Plan - Problem List (1) Epigastric abdominal pain Impression: ACS ruled out Troponins negative, no acute ischemic changes on EKG (0744 EKG unchanged from earlier EKG in ED walks on treadmill regularly w/o similar lipase negative, pain not c/w pancreatitis suspicious for early gallbladder diease; RUQ pain and distended GB on CT scan with increasing Tbili and increasing WBC -fractionate bili (add direct): pending>>>>Dbili 0.;02 -RUQ ultrasound, may need HIDA (nuc medicine down today) could have had transient choledocholithiasis (although no elevation in alk phos) Will consult surgeon pending results of above No indication for IV protonix Addendum 12p; ultrasound suggestive of acalculous choleystitis no symptoms suggestive of ascending cholangitis, but will start zosyn given leukocytosis surgical consult will give clears for now (2) Coronary artery disease Impression: history of CAD s/p stents, denies LA , on ASA he does not recall what lead to the cardiac cath at the time of the 2 individual stents (denies LA continue aCEI, ASA, ot on statin due to rported myalgia put on high dose BB here, but will d/c as not ACS, His HR is reasonable currently stop high dose beta srikanth d/c tele; has ruled out, and no change in EKG ro ED (1st degree AVB, nl axis, Flat T's III, F unchanged Addendum 7a;15 pm cardiac risk assessment for surgery Patient to have janey Stephenson Re: cardiac risk has known CAD, s/p stents , has been taking ASA regularly, exercies 20-30 minutes on treadmill ~ 4x / week w/o anginal symptoms easily over 4 METs continue ASA (not clear why RN held it this am / RN aware to give this evening Not on beta srikanth at home, not adding preop (no indication,and worse outcome if add preop there is data for better outcome w/ perioperative statin, but RCRI risk sore is intraperitoneal surgery (but laparascopic) will score this as Yes on RCRI risk score (jamel if have to convert to open surgery) + Hx of ischemic heart diseae (stented) no chf no cAD no treatment w/ insulin 0.9 % risk of major cardiac event (3) Hypertension Impression: elevated bP on presentation resolved may have been due to pain contiknue home ACEI no indication for acute lowering of BP prn with hydralazine/ no end organ damage (literature notes SE from acutely lowering BP in hosptial if no end organ damage outweights benefit, jamel w/ hydralazine (4) Hyponatremia Impression: likely r/t home thiazide holding hctz planned to send urine/serum osmos, but had already received saline urine spot urine for sodium ordered but not yet sent (i suspect elevated on thiazide rechecking serum NA now (8pm, to be sure its going in the right direction w/ the NS infusion (night x-cover will f/u on result) (5) Hypokalemia Impression: likey r/t thiazide diuretic HCTZ held got 60 meq po k, and repeat 3.5 will add 20 meq kcl to IVF
[2017-07-23] MEDS: MULTIVITAMIN TABLET PO SCH (11:01)
[2017-07-23] MEDS: POLYETHYLENE GLYCOL 3350 17 GM PACKET PO SCH (11:01)
[2017-07-23] MEDS: ENOXAPARIN 40 MG/0.4 ML SYRINGE SUBQ SCH (11:01)
[2017-07-23] MEDS: ASPIRIN EC 81 MG TABLET PO SCH ×2 (11:01→19:46)
--- NOTE | 2017-07-23 11:07 | Ultrasound Report ---
RIGHT UPPER QUADRANT ULTRASOUND: 07/23/2017 CLINICAL INDICATION: Epigastric pain. TECHNIQUE: Real-time scanning was performed with tour sales representative static images obtained. FINDINGS: The liver measures 16 cm. No solid hepatic lesion or intrahepatic biliary dilatation is s een. The common bile duct measures 5 mm. The gallbladder demonstrates asymmetric wall thickening an d pericholecystic fluid, suggestive of acalculous cholecystitis. No shadowing gallstone is identifie d. The right kidney measures 10.9 cm, and appears unremarkable. IMPRESSION: ASYMMETRIC GALLBLADDER WALL THICKENING AND PERICHOLECYSTIC FLUID, SUGGESTIVE OF ACALCULO US CHOLECYSTITIS. NO CHOLELITHIASIS OR BILIARY DILATATION. JOB #: [id number] EXT JOB #:[id number]
[2017-07-23] MEDS: PIPERACILLIN/TAZOBACTAM 3.375 GM in SODIUM CHLORIDE 0.9% MINIBAG 100 ML IV SCH ×2 (12:05→18:03)
[2017-07-23] MEDS: SODIUM CHLORIDE 0.9% 1,000 ML IV SCH (13:24)
[2017-07-23] MEDS: NS W/20 MEQ KCL 1,000 ML IV SCH (19:51)
[2017-07-23] MEDS: ACETAMINOPHEN 325 MG TABLET PO PRN (21:15)
[2017-07-23] MEDS: NIACIN ER 500 MG TABLET PO SCH (21:15)
[2017-07-24] MEDS: ACETAMINOPHEN 325 MG TABLET PO PRN (00:05)
[2017-07-24] MEDS: PIPERACILLIN/TAZOBACTAM 3.375 GM in SODIUM CHLORIDE 0.9% MINIBAG 100 ML IV SCH ×3 (00:06→12:08)
[2017-07-24] MEDS: SODIUM CHLORIDE FLUSH 0.9% 10 ML SYRINGE IVP SCH ×4 (05:13→22:19)
[2017-07-24 05:43] LABS: BASOPHILS % (AUTO) 0.1 %; HCT - HEMATOCRIT 37.7 % (42.0-52.0); HGB - HEMOGLOBIN 12.9 g/dL (14.0-18.0); LYMPHOCYTES # (AUTO) 0.6 10^3/uL (1.5-3.5); LYMPHOCYTES % (AUTO) 2.6 %; MEAN CORPUSCULAR HEMOGLOBIN 30.8 pg (27.0-31.0); MEAN CORPUSCULAR HGB CONC 34.4 g/dL (32.0-36.0); MEAN CORPUSCULAR VOLUME 89.5 fL (80.0-94.0); MEAN PLATELET VOLUME 6.8 fL (7.4-11.4); MONOCYTES # (AUTO) 1.7 10^3/uL (0.0-1.0); MONOCYTES % (AUTO) 7.5 %; NEUTROPHILS # (AUTO) 20.1 10^3/uL (1.5-6.6); NEUTROPHILS % (AUTO) 89.8 %; RED BLOOD COUNT 4.21 10^6/uL (4.70-6.10); RED CELL DISTRIBUTION WIDTH 13.5 % (12.0-15.0); UNCORRECTED WHITE BLOOD COUNT 22.4 x10^3/uL; WHITE BLOOD COUNT 22.4 x10^3/uL (4.8-10.8)
[2017-07-24 05:53] LABS: CALCIUM 8.2 mg/dL (8.5-10.3); CREATININE 0.8 mg/dL (0.6-1.2); POTASSIUM 3.3 mmol/L (3.5-5.0)
[2017-07-24 06:26] LABS: PLATELET ESTIMATE, MANUAL DECREASED (<130,000) (NORMAL); PLATELET MORPHOLOGY NORMAL APPEARANCE (NORMAL)
[2017-07-24] MEDS: ENOXAPARIN 40 MG/0.4 ML SYRINGE SUBQ SCH (07:27)
[2017-07-24] MEDS: LISINOPRIL 20 MG TABLET PO SCH (07:27)
[2017-07-24] MEDS: POLYETHYLENE GLYCOL 3350 17 GM PACKET PO SCH (07:28)
[2017-07-24] MEDS ORDERED: POTASSIUM CHLOR 10 MEQ/100 ML 10 MEQ/100 ML BAG IV ONE ×2 (09:05→10:51)
[2017-07-24] MEDS: ASPIRIN EC 81 MG TABLET PO SCH (10:19)
[2017-07-24] MEDS: MULTIVITAMIN TABLET PO SCH (10:19)
[2017-07-24] MEDS: ALPRAZolam 0.25 MG TABLET PO PRN (10:29)
[2017-07-24] MEDS ORDERED: BISACODYL 10 MG SUPP PR ONE (10:59)
[2017-07-24] MEDS: NS W/20 MEQ KCL 1,000 ML IV SCH (11:29)
--- NOTE | 2017-07-24 14:59 | PROVIDER PROGRESS NOTE ---
Objective - Vital Signs/Intake & Output Vital Signs: Vital Signs x48h Temp Pulse Resp BP Pulse Ox 07/24/17 07:33 36.4 C L 93 18 135/84 H 97 Intake & Output: Intake & Output 07/21/17 07/22/17 07/23/17 07/24/17 23:59 23:59 23:59 23:59 Intake Total 900.824 0599.75 Output Total 300 750 Balance 615.000 928.75 - Lab Results Fish Bones: 07/24/17 05:03 07/24/17 05:03 Other Labs: Lab Results x24hrs 07/24/17 07/24/17 07/24/17 Range/Units 05:03 05:03 00:25 WBC 22.4 H (4.8-10.8) x10^3/uL RBC 4.21 L (4.70-6.10) 10^6/uL Hgb 12.9 L (14.0-18.0) g/dL Hct 37.7 L (42.0-52.0) % MCV 89.5 (80.0-94.0) fL MCH 30.8 (27.0-31.0) pg MCHC 34.4 (32.0-36.0) g/dL RDW 13.5 (12.0-15.0) % Plt Count 128 L (130-450) 10^3/uL MPV 6.8 L (7.4-11.4) fL Neut # 20.1 H (1.5-6.6) 10^3/uL Lymph # 0.6 L (1.5-3.5) 10^3/uL [place] # 1.7 H (0.0-1.0) 10^3/uL Eos # 0.0 (0.0-0.7) 10^3/uL Baso # 0.0 (0.0-0.1) 10^3/uL Absolute Nucleated RBC 0.01 x10^3/uL Nucleated RBC % 0.0 /100WBC Manual Slide Review Indicated Platelet Estimate DECREASED (<130,000) (NORMAL) Platelet Morphology NORMAL APPEARANCE (NORMAL) RBC Morph Micro Appear NORMAL APPEARANCE (NORMAL) Sodium 130 L (135-145) mmol/L Potassium 3.3 L (3.5-5.0) mmol/L Chloride 100 L (101-111) mmol/L Carbon Dioxide 24 (21-32) mmol/L Anion Gap 6.0 (6-13) BUN 13 (6-20) mg/dL Creatinine 0.8 (0.6-1.2) mg/dL Estimated GFR (MDRD) 93 (>89) Glucose 107 H (70-100) mg/dL Calcium 8.2 L (8.5-10.3) mg/dL Urine Sodium 72.0 mmol/L 07/23/17 Range/Units 19:58 WBC (4.8-10.8) x10^3/uL RBC (4.70-6.10) 10^6/uL Hgb (14.0-18.0) g/dL Hct (42.0-52.0) % MCV (80.0-94.0) fL MCH (27.0-31.0) pg MCHC (32.0-36.0) g/dL RDW (12.0-15.0) % Plt Count (130-450) 10^3/uL MPV (7.4-11.4) fL Neut # (1.5-6.6) 10^3/uL Lymph # (1.5-3.5) 10^3/uL [place] # (0.0-1.0) 10^3/uL Eos # (0.0-0.7) 10^3/uL Baso # (0.0-0.1) 10^3/uL Absolute Nucleated RBC x10^3/uL Nucleated RBC % /100WBC Manual Slide Review Platelet Estimate (NORMAL) Platelet Morphology (NORMAL) RBC Morph Micro Appear (NORMAL) Sodium 127 L (135-145) mmol/L Potassium (3.5-5.0) mmol/L Chloride (101-111) mmol/L Carbon Dioxide (21-32) mmol/L Anion Gap (6-13) BUN (6-20) mg/dL Creatinine (0.6-1.2) mg/dL Estimated GFR (MDRD) (>89) Glucose (70-100) mg/dL Calcium (8.5-10.3) mg/dL Urine Sodium mmol/L Assessment/Plan - Problem List (1) Epigastric abdominal pain Impression: (1) Epigastric abdominal pain Impression: Addendum 12p; ultrasound suggestive of acalculous choleystitis Pt is NPO, will have surgery on today afternoon will follow up post-operation pain control no symptoms suggestive of ascending cholangitis, but will start zosyn given leukocytosis surgical consult will give clears for now (2) Coronary artery disease Impression: pt denies chest pain, SOB, stable, cardiac risk assessment for surgery Patient to have lap ankit Seema Re: cardiac risk has known CAD, s/p stents , has been taking ASA regularly, exercies 20-30 minutes on treadmill ~ 4x / week w/o anginal symptoms easily over 4 METs continue ASA (not clear why RN held it this am / RN aware to give this evening Not on beta srikanth at home, not adding preop (no indication,and worse outcome if add preop there is data for better outcome w/ perioperative statin, but RCRI risk sore is intraperitoneal surgery (but laparascopic) will score this as Yes on RCRI risk score (jamel if have to convert to open surgery) + Hx of ischemic heart diseae (stented) no chf no cAD no treatment w/ insulin 0.9 % risk of major cardiac event (3) Hypertension Impression: stable, closely monitor elevated bP on presentation resolved may have been due to pain contiknue home ACEI no indication for acute lowering of BP prn with hydralazine/ no end organ damage (literature notes SE from acutely lowering BP in hosptial if no end organ damage outweights benefit, jamel w/ hydralazine (4) Hyponatremia Impression: improved, continue to hold HCTZ daily lab test, closely monitor likely r/t home thiazide holding hctz planned to send urine/serum osmos, but had already received saline urine spot urine for sodium ordered but not yet sent (i suspect elevated on thiazide rechecking serum NA now (8pm, to be sure its going in the right direction w/ the NS infusion (night x-cover will f/u on result) (5) Hypokalemia Impression: still lower K= 3.3, replacement of potassium daily lab monitor likey r/t thiazide diuretic HCTZ held got 60 meq po k, and repeat 3.5 will add 20 meq kcl to IVF
--- NOTE | 2017-07-24 15:06 | PROVIDER PROGRESS NOTE ---
Subjective - Prog Note Date Prog Note Date: 07/24/17 - Subjective Pt reports feeling: Improved Subjective: pt state he feel better, denies any chest pain, SOB, abdominal pain, nausea, vomiting. Current Medications - Current Medications Current Medications: Active Medications Acetaminophen (Tylenol) 650 mg PO Q4HR PRN PRN Reason: Pain 1 to 4 Last Admin: 07/24/17 00:05 Dose: 325 mg Alprazolam (Xanax) 0.25 mg PO QID PRN PRN Reason: Anxiety Last Admin: 07/24/17 10:29 Dose: 0.125 mg Aspirin (Ecotrin) 81 mg PO DAILY [facility] Last Admin: 07/24/17 10:19 Dose: Not Given Enoxaparin Sodium (Lovenox) 40 mg SUBQ DAILY [facility] Last Admin: 07/24/17 07:27 Dose: Not Given Piperacillin Sod/Tazobactam (Sod 3.375 gm/ Sodium Chloride) 100 mls @ 200 mls/ hr IV Q6H [facility] Last Infusion: 07/24/17 12:45 Dose: Infused Potassium Chloride/Sodium Chloride (Normal Saline 0.9% W/20 Meq Kcl) 1,000 mls @ 75 mls/hr IV .[id number] [facility] Last Infusion: 07/24/17 12:45 Dose: 75 mls/hr Lisinopril (Zestril) 20 mg PO DAILY [facility] Last Admin: 07/24/17 07:27 Dose: Not Given Morphine Sulfate (Morphine) 2 mg IVP Q5M PRN PRN Reason: Chest pain Multivitamins (Theragran) 1 tab PO DAILYWM [facility] Last Admin: 07/24/17 10:19 Dose: Not Given Niacin (Niaspan) 500 mg PO QPM [facility] Last Admin: 07/23/17 21:15 Dose: Not Given Nitroglycerin (Nitrostat) 0.4 mg SL Q5MIN PRN PRN Reason: Chest Pain Ondansetron HCl (Zofran Inj) 4 mg IVP Q6HR PRN PRN Reason: Nausea / Vomiting Polyethylene Glycol (Miralax) 17 gm PO DAILY [facility] Last Admin: 07/24/17 07:28 Dose: Not Given Sodium Chloride (Normal Saline Flush 0.9%) 10 ml IVP PRN PRN PRN Reason: NEEDED PER PROVIDER ORDERS Sodium Chloride (Normal Saline Flush 0.9%) 10 ml IVP Q8HR MAYRA Last Admin: 07/24/17 07:28 Dose: Not Given Aspirin [Aspir 81] 81 mg PO DAILY 05/02/13 Red Yeast Rice 600 mg PO DAILY 05/02/13 Melatonin/Pyridoxine [Melatonin 3 mg Tablet] 1 each PO HS 08/08/13 Multivitamin [Multivitamins] 1 each PO DAILY 08/08/13 Niacin 500 mg PO DAILY 08/22/13 Selenium 50 mcg PO DAILY 08/22/13 Zinc [Zinc Chelated] 50 mg PO DAILY 08/22/13 ALPRAZolam [Xanax] 0.125 mg PO .PRN PRN 09/01/13 Hydrochlorothiazide 12.5 mg PO DAILY 09/01/13 Objective - Vital Signs/Intake & Output Reviewed Vital Signs: Yes Vital Signs: Vital Signs x48h Temp Pulse Resp BP Pulse Ox 07/24/17 07:33 36.4 C L 93 18 135/84 H 97 Intake & Output: Intake & Output 07/21/17 07/22/17 07/23/17 07/24/17 23:59 23:59 23:59 23:59 Intake Total 744.268 8609.75 Output Total 300 750 Balance 615.000 928.75 - Objective General Appearance: positive: No acute distress, Alert. negative: Lethargic Eyes Bilateral: positive: Normal inspection, PERRL, EOMI, No lid inflammation, Conjunctivae nml ENT: positive: ENT inspection nml, Pharynx nml, No signs of dehydration. negative: Purulent nasal drainage, Pharyngeal erythema, Oral lesions Neck: positive: Nml inspection, Thyroid nml, Trachea midline. negative: Thyromegaly, Lymphadenopathy (R), Lymphadenopathy (L), Stiff neck, Carotid bruit , Swelling/bruising, Tracheal deviation Respiratory: positive: Chest non-tender, No respiratory distress, Breath sounds nml. negative: Wheezes, Rales, Rhonchi Cardiovascular: positive: Regular rate & rhythm, No murmur, No gallop. negative : Irregularly irregular, Extrasystoles, Tachycardia, Bradycardia, Systolic murmur, Diastolic murmur Peripheral Pulses: 2+ Radial (R), 2+ Radial (L), 2+ Dorsalis pedis (R), 2+ Dorsalis pedis (L) Abdomen: positive: Non-tender, No organomegaly, Nml bowel sounds, No distention. negative: Tenderness, Guarding, Rebound Back: positive: Nml inspection. negative: CVA tenderness (R), CVA tenderness (L ) Skin: positive: Color nml, No rash, Warm, Dry. negative: Cyanosis, Diaphoresis , Pallor, Skin rash Extremities: positive: Non-tender, Full ROM, Nml appearance. negative: Pedal edema, Calf tenderness, Joint swelling, Rylie's sign/cords Neurologic/Psychiatric: positive: Oriented x3, Motor nml, Sensation nml, Mood/ affect nml. negative: Sensory loss, Facial droop, Slurred/abnml speech, Depressed mood/affect - Lab Results Fish Bones: 07/24/17 05:03 07/24/17 05:03 Other Labs: Lab Results x24hrs 07/24/17 07/24/17 07/24/17 Range/Units 05:03 05:03 00:25 WBC 22.4 H (4.8-10.8) x10^3/uL RBC 4.21 L (4.70-6.10) 10^6/uL Hgb 12.9 L (14.0-18.0) g/dL Hct 37.7 L (42.0-52.0) % MCV 89.5 (80.0-94.0) fL MCH 30.8 (27.0-31.0) pg MCHC 34.4 (32.0-36.0) g/dL RDW 13.5 (12.0-15.0) % Plt Count 128 L (130-450) 10^3/uL MPV 6.8 L (7.4-11.4) fL Neut # 20.1 H (1.5-6.6) 10^3/uL Lymph # 0.6 L (1.5-3.5) 10^3/uL [place] # 1.7 H (0.0-1.0) 10^3/uL Eos # 0.0 (0.0-0.7) 10^3/uL Baso # 0.0 (0.0-0.1) 10^3/uL Absolute Nucleated RBC 0.01 x10^3/uL Nucleated RBC % 0.0 /100WBC Manual Slide Review Indicated Platelet Estimate DECREASED (<130,000) (NORMAL) Platelet Morphology NORMAL APPEARANCE (NORMAL) RBC Morph Micro Appear NORMAL APPEARANCE (NORMAL) Sodium 130 L (135-145) mmol/L Potassium 3.3 L (3.5-5.0) mmol/L Chloride 100 L (101-111) mmol/L Carbon Dioxide 24 (21-32) mmol/L Anion Gap 6.0 (6-13) BUN 13 (6-20) mg/dL Creatinine 0.8 (0.6-1.2) mg/dL Estimated GFR (MDRD) 93 (>89) Glucose 107 H (70-100) mg/dL Calcium 8.2 L (8.5-10.3) mg/dL Urine Sodium 72.0 mmol/L 07/23/17 Range/Units 19:58 WBC (4.8-10.8) x10^3/uL RBC (4.70-6.10) 10^6/uL Hgb (14.0-18.0) g/dL Hct (42.0-52.0) % MCV (80.0-94.0) fL MCH (27.0-31.0) pg MCHC (32.0-36.0) g/dL RDW (12.0-15.0) % Plt Count (130-450) 10^3/uL MPV (7.4-11.4) fL Neut # (1.5-6.6) 10^3/uL Lymph # (1.5-3.5) 10^3/uL [place] # (0.0-1.0) 10^3/uL Eos # (0.0-0.7) 10^3/uL Baso # (0.0-0.1) 10^3/uL Absolute Nucleated RBC x10^3/uL Nucleated RBC % /100WBC Manual Slide Review Platelet Estimate (NORMAL) Platelet Morphology (NORMAL) RBC Morph Micro Appear (NORMAL) Sodium 127 L (135-145) mmol/L Potassium (3.5-5.0) mmol/L Chloride (101-111) mmol/L Carbon Dioxide (21-32) mmol/L Anion Gap (6-13) BUN (6-20) mg/dL Creatinine (0.6-1.2) mg/dL Estimated GFR (MDRD) (>89) Glucose (70-100) mg/dL Calcium (8.5-10.3) mg/dL Urine Sodium mmol/L Assessment/Plan - Problem List (1) Epigastric abdominal pain Impression: (1) Epigastric abdominal pain Impression: (1) Epigastric abdominal pain Impression: Addendum 12p; ultrasound suggestive of acalculous choleystitis Pt is NPO, will have surgery on today afternoon will follow up post-operation pain control no symptoms suggestive of ascending cholangitis, but will start zosyn given leukocytosis surgical consult will give clears for now (2) Coronary artery disease Impression: pt denies chest pain, SOB, stable, cardiac risk assessment for surgery Patient to have lap ankit Seema Re: cardiac risk has known CAD, s/p stents , has been taking ASA regularly, exercies 20-30 minutes on treadmill ~ 4x / week w/o anginal symptoms easily over 4 METs continue ASA (not clear why RN held it this am / RN aware to give this evening Not on beta srikanth at home, not adding preop (no indication,and worse outcome if add preop there is data for better outcome w/ perioperative statin, but RCRI risk sore is intraperitoneal surgery (but laparascopic) will score this as Yes on RCRI risk score (jamel if have to convert to open surgery) + Hx of ischemic heart diseae (stented) no chf no cAD no treatment w/ insulin 0.9 % risk of major cardiac event (3) Hypertension Impression: stable, closely monitor elevated bP on presentation resolved may have been due to pain contiknue home ACEI no indication for acute lowering of BP prn with hydralazine/ no end organ damage (literature notes SE from acutely lowering BP in hosptial if no end organ damage outweights benefit, jamel w/ hydralazine (4) Hyponatremia Impression: improved, continue to hold HCTZ daily lab test, closely monitor likely r/t home thiazide holding hctz planned to send urine/serum osmos, but had already received saline urine spot urine for sodium ordered but not yet sent (i suspect elevated on thiazide rechecking serum NA now (8pm, to be sure its going in the right direction w/ the NS infusion (night x-cover will f/u on result) (5) Hypokalemia Impression: still lower K= 3.3, replacement of potassium daily lab monitor likey r/t thiazide diuretic HCTZ held got 60 meq po k, and repeat 3.5 will add 20 meq kcl to IVF
[2017-07-24] MEDS ORDERED: LACTATED RINGERS 1,000 ML IV ONE ×3 (16:32→17:21)
[2017-07-24] MEDS ORDERED: BUPIVACAINE 0.25%-EPI 1:200000 PF 30 ML VIAL SUBQ ONE (16:52)
[2017-07-24] MEDS ORDERED: MIDAZOLAM 2 MG/2 ML VIAL IVP ONE (17:00)
[2017-07-24] MEDS ORDERED: SODIUM CHLORIDE 0.9% 10 ML VIAL IV ONE (17:00)
[2017-07-24] MEDS ORDERED: GLYCOPYRROLATE 1 MG/5 ML VIAL IVP ONE (17:00)
[2017-07-24] MEDS ORDERED: SUCCINYLCHOLINE 200 MG/10 ML VIAL IVP ONE (17:00)
[2017-07-24] MEDS ORDERED: ONDANSETRON 4 MG/2 ML VIAL IVP ONE (17:00)
[2017-07-24] MEDS ORDERED: ROCURONIUM 50 MG/5 ML VIAL IVP ONE (17:00)
[2017-07-24] MEDS ORDERED: ceFAZolin 1 GM VIAL IV ONE (17:00)
[2017-07-24] MEDS ORDERED: fentaNYL 100 MCG/2 ML VIAL IVP ONE (17:00)
[2017-07-24] MEDS ORDERED: LIDOCAINE-MPF 2% 5 ML VIAL IM ONE (17:00)
[2017-07-24] MEDS ORDERED: ACETAMINOPHEN 1,000 MG/100 ML 100 ML IV ONE (17:00)
[2017-07-24] MEDS ORDERED: PHENYLEPHRINE 50 MG/5 ML VIAL IV ONE (17:00)
[2017-07-24] MEDS ORDERED: DEXAMETHASONE 4 MG/ML VIAL IVP ONE (17:00)
[2017-07-24] MEDS ORDERED: PROPOFOL 200 MG/20 ML VIAL IVP ONE (17:00)
[2017-07-24] MEDS ORDERED: PIPERACILLIN/TAZOBACTAM 3.375 GM in SODIUM CHLORIDE 0.9% MINIBAG 100 ML IV ONE (18:00)
[2017-07-24] MEDS ORDERED: SODIUM CHLORIDE FLUSH 0.9% 10 ML SYRINGE IVP PRN (18:40)
[2017-07-24] MEDS ORDERED: ONDANSETRON 4 MG/2 ML VIAL IVP PRN (18:40)
--- NOTE | 2017-07-24 18:51 | OPERATIVE REPORT ---
Operative Report - General Admit Date: 07/23/17 Procedure Date: 07/24/17 Planned Procedure: Laparoscopic cholecystectomy, possible open cholecystectomy, possible intra Pre-Op Diagnosis: Acalculous cholecystitis Procedure Performed: Laparoscopic cholecystectomy Post Op Diagnosis: Gangrenous cholecystitis - Procedure Note Primary Surgeon: Jeferson Nelson MD Anesthesia Provider: Jamison German Anesthesia Technique: General ET tube, Local (30 mL 1/2% marcaine) IV Fluids (mL): 1,000 Estimated Blood Loss (mL): 50 Complications: None. - Other Other Information/Narrative: OPERATIVE DESCRIPTION/REPORT: After verbal and written informed consent was obtained detailing the risks of infection, bleeding with all of its risks including transfusion, common bile duct injury, and the patient was brought to the operative suite and placed in the supine position on the operating room table. Monitoring devices were applied along with TEDs and pneumatic compressive stockings. Care was taken to avoid pressure points. Prophylactic antibiotics were given. An adequate level of general endotracheal anesthesia was established by Jamison German. The abdomen was then prepped with ChloraPrep and draped in a sterile fashion. A "time in" then confirmed that the paitient was identified with 3 identifiers (name, birthdate and medical record number), the history and physical was in the chart, the signed consent confirming the procedure was in the chart, the patient was in the correct position, the aforementioned prophylactic measures were in place or given, we had the correct personel and equipment to complete the procedure and that anesthesia, surgery and nursing were given an opportunity to express any concerns. The initial incision was at the umbilicus and dissection to the linea alba was completed using blunt dissection. The linea alba was grasped with a Tahmina and incised. In a similar manner the peritoneum was grasped and incised using Metzenbaum scissors. In this location, a 12 mm blunt tipped, balloon tipped port was placed and the balloon was inflated to keep the port in position. The abdominal cavity was insufflated with carbon dioxide to steady-state pressure of 15 mmHg. Three additional 5 mm ports were placed in standard location for laparoscopic cholecystectomy (subxiphoid and 2 right subcostal) under direct vision of the 30 degree laparoscope and without incident. The patient was then placed in reverse Trendelenburg position and was rotated slightly to their left. The gallbladder was covered with the omentum. When the omentum was reflected back a distended tense gangrenous gallbladder was encountered. The gallbladder could not be grasped without decompressing it. A laparoscopic needle was inserted into gallbladder and 50 mL of dark almost black bile was removed. This was sent for cultures (aerobic and anaerobic) as well as gram stain. The gallbladder fundus was grasped with an atraumatic grasper. Multiple adhesions had to be taken down by blunt and sharp dissection along with electrocautery. Eventually, we identified the infundibulum, and this was then grasped and retracted inferior and laterally. Dissection was then begun in the angle of Calot. The cystic duct and (slightly medially and posteriorly) cystic artery were clearly identified. The critical view was obtained. Two clips proximally and one clip distally were used to control both the cystic duct and cystic artery. The clips were carefully placed to avoid occluding the juncture with the common bile duct. Both the cystic duct and then the cystic artery were then transected with laparoscopic rocky. The gallbladder was then removed from its fossa in a retrograde fashion using electrocautery. This was particularly difficult due to the necrotic nature of the gallbladder wall. With the 30 degree 5 mm scope in the subxiphoid position, the gallbladder was placed in an EndoCatch bag to be extracted through the 12 mm port site. I irrigated the right upper quadrant with 3 liters of warm sterile saline, and the area was aspirated dry. I inspected the gallbladder fossa and there was no bleeding or bile leak. Clips on the cystic duct and cystic artery appeared to be secure. I briefly visually explored the abdomen. There was no other evidence of overt pathology. I injected the port sites at the peritoneal, fascial, and skin levels under direct vision with 0.5% Marcaine. All ports and the EndoCatch containing the gallbladder were removed. Following gallbladder removal, the remaining carbon dioxide was expelled from the abdomen. The fascia at the umbilicus was reapproximated using a [id number] 0 Vicryl suture. The skin at each port site was approximated using a subcuticular 4-0 Monocryl. The surgical count of instruments, needles and sponges was reported as correct twice. Mastisol, Steri-Strips and sterile surgical dressings were applied. The patient was then awakened from anesthesia, extubated, and having tolerated the procedure well, was transported to the recovery room. No complications were encountered. A "time out" confirmed the operation performed , the fluids given, the estimated blood loss and anesthesia, surgery and nursing were given an opportunity to express any concerns. I then discussed the operative findings, the patient's condition, the expected postoperative course and show the photographs to the patient's and family.
[2017-07-24] MEDS: ACETAMINOPHEN 1,000 MG/100 ML 100 ML IV SCH (19:12)
[2017-07-24] MEDS: NIACIN ER 500 MG TABLET PO SCH (20:25)
[2017-07-24] MEDS: KETOROLAC 15 MG/ML VIAL IVP PRN (20:36)
[2017-07-24] MEDS: D5NS W/20 MEQ KCL 1,000 ML IV SCH (22:20)
[2017-07-25] MEDS: ACETAMINOPHEN 1,000 MG/100 ML 100 ML IV SCH ×4 (00:33→18:47)
[2017-07-25] MEDS: PIPERACILLIN/TAZOBACTAM 3.375 GM in SODIUM CHLORIDE 0.9% MINIBAG 100 ML IV SCH ×4 (01:00→18:48)
--- NOTE | 2017-07-25 01:59 | CONSULTATION NOTE ---
DATE OF CONSULTATION: 07/24/2017 00:00:00 REQUESTING PROVIDER: I am called on consultation on this very pleasant 81-year-old male by Dee Stevenson to evaluate this patient for possible acalculous cholecystitis. The patient came in through [facility] emergency department on the July with the thought that he was having chest pain and a cardiac event was ruled out. The pain started when he was mowing the lawn. He subsequent to this went to the house and the pain wa s described as a lancinating very sharp pain, actually a little bit on the right side of his abdomen in the epigastric area going through from his back to his front. It was the worse pain that he has ev er experienced. When the pain did not go away, he came into the emergency department. The patient daniel s not recall what he ate prior to this. He has not had this pain previously. It was not associated wi th nausea and vomiting, constipation or diarrhea. ALLERGIES: NONE. MEDICATIONS: 1. Alprazolam 0.25 mg 1 tab p.o. every day as needed for anxiety. 2. Melatonin Pyridoxine 1 tab p.o. at nighttime. 3. Multivitamins daily. 4. Zinc 50 mg 1 tablet daily. 5. Niacin 500 mg tablet 1 p.o. daily. 6. Red yeast 600 mg 1 tab p.o. daily. 7. Selenium 50 mg 1 tab daily. 8. Testosterone cream as needed. 9. Prilosec 20 mg 1 tab daily. 10. Hydrochlorothiazide 12.5 mg 1 tab daily. 11. Lisinopril 20 mg 1 tab daily. 12. Sublingual nitroglycerin 0.4 mg every 5 as needed for chest pain. 123. Potassium chloride daily. PAST MEDICAL AND SURGICAL HISTORY: 1. Coronary artery disease with two stent placements, the first one I believe was in 2002 and the las t one was in 2013. 2. Anxiety. 3. Gastroesophageal reflux disease. 4. Hypertension. 5. Low testosterone. 6. History of syncopal episodes. 7. Right cataract that requires treatment. 8. 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 9. Tonsillectomy. 10. Appendectomy. 11. Left inguinal herniorrhaphy. 12. TURP. 13. Lower back surgery. 14. Zenker's diverticulectomy. 15. Colonoscopy in November 2012 showing benign rectal polyp. FAMILY HISTORY: Father had diabetes mellitus and prostate cancer. Maternal uncle had a hemorrhagic CV A. Mother with dementia. One daughter had a congenital vascular cardiac abnormalities. SOCIAL HISTORY: He is with 3 children. 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 Tobacco never. Alcohol sociall y. Recreational drugs, never. He lives at home with his . REVIEW OF SYSTEMS: CONSTITUTIONAL: He denies any current weight loss. HEENT: He denies any improvement or decrease in his hearing or vision. RESPIRATORY: He denies productive cough and he does have some shortness of breath. CARDIAC: He denies chest pain or pressure. GASTROINTESTINAL: Please see above. GENITOURINARY: He denies any dysuria. MUSCULOSKELETAL: He states that he is weaker every single day. NEUROLOGIC: There are no focal deficits. PHYSICAL EXAMINATION: GENERAL: This is an 81-year-old male who is evaluated in room 2203 at [facility] Med[facility]. He is alert and oriented to person, place and time. He asks and answers que stions well. His mood and affect appear appropriate. VITAL SIGNS: Please refer to nursing note. HEENT: He is normocephalic, atraumatic. Sclerae not injected, anicteric. His mucous membranes are pin k and slightly dry. NECK: Supple without mass or bruits. HEART: Regular rate and rhythm without rub, murmur or gallop. LUNGS: Clear to auscultation bilaterally anterolaterally. ABDOMEN: Mildly tender at the gallbladder in the right upper quadrant. He has normoactive bowel soun ds and no palpable hepatosplenomegaly. GENITOURINARY: Deferred. RECTAL: Deferred. EXTREMITIES: Show no clubbing, cyanosis, or edema. GAIT: Not evaluated. NEUROLOGIC: Again, he is alert and oriented to person, place and time. His mood and affect appropriat e and he has no focal deficits. LABORATORY: Abnormalities on labs, BMP abnormalities include a sodium 130, potassium 3.3, and chlorid e of 100. Calcium of 8.2 and glucose of 107. Abnormalities on today's hemoglobin and hematocrit inclu de a WBC 22.4, RBC of 4.21, hemoglobin of 12.9, hematocrit of 37.7, platelet count of 128, MCV of 6.8 , neutrophil is 20.1, lymphocytes 0.6 and monocytes are 1.7. Abdominal ultrasound done on 06/25/[address] Stapleton is read as asymmetric gallbladder wall thicken ing and pericholecystic fluid suggestive of acalculous cholecystitis with no cholelithiasis or biliar y dilatation. ASSESSMENT: An 81-year-old male with his first episode of what sounds like intractable biliary colic due to acute calculous cholecystitis. PLAN: Laparoscopic cholecystectomy, possible open cholecystectomy, possible common bile duct explorat ion, possible intraoperative cholangiogram. The indications, procedure, alternatives and possible com plications including but not limited to infection, bleeding with all its risks, bile duct injury, and were fully explained to the patient. All questions were answered. Verbal and written consent w as obtained. The patient in preparation for this will be kept n.p.o. In addition, will receive IV ant ibiotics for prophylaxis against surgical infection. During the operation I would like to have to Pranay odynes placed for prophylaxis against deep venous thrombosis. I have asked them to let us know if the re is any way we can make his stay here at [facility] more comfortable, to please let us know. Verbal consent was obtained. JOB #: [id number] EXT JOB #:[id number]
[2017-07-25 05:57] LABS: BASOPHILS % (AUTO) 0.1 %; HGB - HEMOGLOBIN 12.2 g/dL (14.0-18.0); LYMPHOCYTES # (AUTO) 0.5 10^3/uL (1.5-3.5); LYMPHOCYTES % (AUTO) 2.8 %; MEAN CORPUSCULAR HEMOGLOBIN 31.4 pg (27.0-31.0); MEAN CORPUSCULAR HGB CONC 34.7 g/dL (32.0-36.0); MEAN CORPUSCULAR VOLUME 90.3 fL (80.0-94.0); MEAN PLATELET VOLUME 7.1 fL (7.4-11.4); MONOCYTES # (AUTO) 0.9 10^3/uL (0.0-1.0); MONOCYTES % (AUTO) 5.1 %; NEUTROPHILS # (AUTO) 15.4 10^3/uL (1.5-6.6); RED BLOOD COUNT 3.88 10^6/uL (4.70-6.10); RED CELL DISTRIBUTION WIDTH 13.6 % (12.0-15.0); UNCORRECTED WHITE BLOOD COUNT 16.8 x10^3/uL; WHITE BLOOD COUNT 16.8 x10^3/uL (4.8-10.8)
[2017-07-25 06:06] LABS: ALBUMIN/GLOBULIN RATIO 1.1 (1.0-2.2); BILIRUBIN,TOTAL 1.3 mg/dL (0.2-1.0); POTASSIUM 3.8 mmol/L (3.5-5.0); TOTAL PROTEIN 5.5 g/dL (6.7-8.2)
[2017-07-25] MEDS: SODIUM CHLORIDE FLUSH 0.9% 10 ML SYRINGE IVP SCH ×6 (07:45→21:39)
[2017-07-25] MEDS ORDERED: METOPROLOL TARTRATE 50 MG TABLET PO SCH (09:00)
[2017-07-25] MEDS: ASPIRIN EC 81 MG TABLET PO SCH (09:09)
[2017-07-25] MEDS: LISINOPRIL 20 MG TABLET PO SCH (09:10)
[2017-07-25] MEDS: MULTIVITAMIN TABLET PO SCH (09:10)
[2017-07-25] MEDS: KETOROLAC 15 MG/ML VIAL IVP PRN ×2 (09:10→14:03)
[2017-07-25] MEDS: ENOXAPARIN 40 MG/0.4 ML SYRINGE SUBQ SCH (09:10)
[2017-07-25] MEDS: POLYETHYLENE GLYCOL 3350 17 GM PACKET PO SCH (09:16)
[2017-07-25] MEDS: D5NS W/20 MEQ KCL 1,000 ML IV SCH ×2 (09:44→21:42)
[2017-07-25] MEDS: ACETAMINOPHEN 325 MG TABLET PO PRN (14:01)
[2017-07-25] MEDS ORDERED: BISACODYL 10 MG SUPP PR PRN (15:08)
--- NOTE | 2017-07-25 17:34 | PROVIDER PROGRESS NOTE ---
Subjective - Prog Note Date Prog Note Date: 07/25/17 - Subjective Pt reports feeling: Improved Subjective: pt state he feel much better, no chest pain, no SOB. The pain is good controlled at surgery site. Pt is status post of cholecystectomy in one day. Current Medications - Current Medications Current Medications: Active Medications Acetaminophen (Tylenol) 650 mg PO Q4HR PRN PRN Reason: Pain 1 to 4 Last Admin: 07/25/17 14:01 Dose: 650 mg Alprazolam (Xanax) 0.25 mg PO QID PRN PRN Reason: Anxiety Last Admin: 07/24/17 10:29 Dose: 0.125 mg Aspirin (Ecotrin) 81 mg PO DAILY [facility] Last Admin: 07/25/17 09:09 Dose: 81 mg Bisacodyl (Dulcolax Supp) 10 mg LA ONCE PRN PRN Reason: Constipation Stop: 07/27/17 15:07 Enoxaparin Sodium (Lovenox) 40 mg SUBQ DAILY [facility] Last Admin: 07/25/17 09:10 Dose: 40 mg Potassium Chloride/Dextrose/Sod Cl () 1,000 mls @ 100 mls/hr IV .Q10H [facility] Last Admin: 07/25/17 09:44 Dose: 100 mls/hr Acetaminophen (Ofirmev) 100 mls @ 400 mls/hr IV Q6H [facility] Last Admin: 07/25/17 14:06 Dose: Not Given Piperacillin Sod/Tazobactam (Sod 3.375 gm/ Sodium Chloride) 100 mls @ 200 mls/ hr IV Q6HR [facility] Last Infusion: 07/25/17 14:20 Dose: Infused Ketorolac Tromethamine (Toradol Inj) 15 mg IVP Q6H PRN PRN Reason: PAIN Stop: 07/29/17 18:39 Last Admin: 07/25/17 14:03 Dose: 15 mg Lisinopril (Zestril) 20 mg PO DAILY [facility] Last Admin: 07/25/17 09:10 Dose: 20 mg Morphine Sulfate (Morphine) 2 mg IVP Q5M PRN PRN Reason: Chest pain Multivitamins (Theragran) 1 tab PO DAILYWM [facility] Last Admin: 07/25/17 09:10 Dose: 1 tab Niacin (Niaspan) 500 mg PO QPM [facility] Last Admin: 07/24/17 20:25 Dose: 500 mg Nitroglycerin (Nitrostat) 0.4 mg SL Q5MIN PRN PRN Reason: Chest Pain Ondansetron HCl (Zofran Inj) 4 mg IVP Q6HR PRN PRN Reason: Nausea / Vomiting Ondansetron HCl (Zofran Inj) 4 mg IVP Q6H PRN PRN Reason: Nausea / Vomiting Polyethylene Glycol (Miralax) 17 gm PO DAILY [facility] Last Admin: 07/25/17 09:16 Dose: 17 gm Sodium Chloride (Normal Saline Flush 0.9%) 10 ml IVP PRN PRN PRN Reason: NEEDED PER PROVIDER ORDERS Sodium Chloride (Normal Saline Flush 0.9%) 10 ml IVP Q8HR [facility] Last Admin: 07/25/17 14:06 Dose: Not Given Sodium Chloride (Normal Saline Flush 0.9%) 10 ml IVP Q8HR [facility] Last Admin: 07/25/17 14:06 Dose: Not Given Sodium Chloride (Normal Saline Flush 0.9%) 10 ml IVP PRN PRN PRN Reason: NEEDED PER PROVIDER ORDERS Aspirin [Aspir 81] 81 mg PO DAILY 05/02/13 Red Yeast Rice 600 mg PO DAILY 05/02/13 Melatonin/Pyridoxine [Melatonin 3 mg Tablet] 1 each PO HS 08/08/13 Multivitamin [Multivitamins] 1 each PO DAILY 08/08/13 Niacin 500 mg PO DAILY 08/22/13 Selenium 50 mcg PO DAILY 08/22/13 Zinc [Zinc Chelated] 50 mg PO DAILY 08/22/13 ALPRAZolam [Xanax] 0.125 mg PO .PRN PRN 09/01/13 Hydrochlorothiazide 12.5 mg PO DAILY 09/01/13 Objective - Vital Signs/Intake & Output Vital Signs: Vital Signs x48h Temp Pulse Resp BP Pulse Ox 07/25/17 15:42 36.7 C 81 20 135/77 H 100 Intake & Output: Intake & Output 07/22/17 07/23/17 07/24/17 07/25/17 23:59 23:59 23:59 23:59 Intake Total 514.139 7396.75 3401.25 Output Total 837 580 0689 Balance 557.850 7636.75 1301.25 - Objective General Appearance: positive: No acute distress, Alert. negative: Lethargic Eyes Bilateral: positive: Normal inspection, PERRL, EOMI, No lid inflammation, Conjunctivae nml ENT: positive: ENT inspection nml, Pharynx nml, No signs of dehydration. negative: Purulent nasal drainage, Pharyngeal erythema, Oral lesions Neck: positive: Nml inspection, Thyroid nml, Trachea midline. negative: Thyromegaly, Lymphadenopathy (R), Lymphadenopathy (L), Stiff neck, Carotid bruit , Swelling/bruising, Tracheal deviation Respiratory: positive: Chest non-tender, No respiratory distress, Breath sounds nml. negative: Wheezes, Rales, Rhonchi Cardiovascular: positive: Regular rate & rhythm, No murmur, No gallop. negative : Irregularly irregular, Extrasystoles, Tachycardia, Bradycardia, Systolic murmur, Diastolic murmur Peripheral Pulses: 2+ Radial (R), 2+ Radial (L), 2+ Dorsalis pedis (R), 2+ Dorsalis pedis (L) Abdomen: positive: Non-tender, Nml bowel sounds, No distention, Other (dressing intact in surgery site). negative: Tenderness, Guarding, Rebound Back: positive: Nml inspection. negative: CVA tenderness (R), CVA tenderness (L ) Skin: positive: Color nml, No rash, Warm, Dry. negative: Cyanosis, Diaphoresis , Pallor, Skin rash Extremities: positive: Non-tender, Full ROM, Nml appearance. negative: Calf tenderness, Rylie's sign/cords Neurologic/Psychiatric: positive: Oriented x3, Motor nml, Sensation nml, Mood/ affect nml. negative: Sensory loss, Facial droop, Slurred/abnml speech, Depressed mood/affect - Lab Results Fish Bones: 07/25/17 04:57 07/25/17 04:57 Other Labs: Lab Results x24hrs 07/25/17 07/25/17 Range/Units 04:57 04:57 WBC 16.8 H (4.8-10.8) x10^3/uL RBC 3.88 L (4.70-6.10) 10^6/uL Hgb 12.2 L (14.0-18.0) g/dL Hct 35.0 L (42.0-52.0) % MCV 90.3 (80.0-94.0) fL MCH 31.4 H (27.0-31.0) pg MCHC 34.7 (32.0-36.0) g/dL RDW 13.6 (12.0-15.0) % Plt Count 125 L (130-450) 10^3/uL MPV 7.1 L (7.4-11.4) fL Neut # 15.4 H (1.5-6.6) 10^3/uL Lymph # 0.5 L (1.5-3.5) 10^3/uL [place] # 0.9 (0.0-1.0) 10^3/uL Eos # 0.0 (0.0-0.7) 10^3/uL Baso # 0.0 (0.0-0.1) 10^3/uL Absolute Nucleated RBC 0.00 x10^3/uL Nucleated RBC % 0.0 /100WBC Sodium 131 L (135-145) mmol/L Potassium 3.8 (3.5-5.0) mmol/L Chloride 99 L (101-111) mmol/L Carbon Dioxide 23 (21-32) mmol/L Anion Gap 9.0 (6-13) BUN 18 (6-20) mg/dL Creatinine 1.0 (0.6-1.2) mg/dL Estimated GFR (MDRD) 72 L (>89) Glucose 146 H (70-100) mg/dL Calcium 8.0 L (8.5-10.3) mg/dL Total Bilirubin 1.3 H (0.2-1.0) mg/dL AST 35 (10-42) IU/L ALT 21 (10-60) IU/L Alkaline Phosphatase 47 (42-121) IU/L Total Protein 5.5 L (6.7-8.2) g/dL Albumin 2.9 L (3.2-5.5) g/dL Globulin 2.6 (2.1-4.2) g/dL Albumin/Globulin Ratio 1.1 (1.0-2.2) Assessment/Plan - Problem List (1) Epigastric abdominal pain Impression: (1) Epigastric abdominal pain Impression: status post cholecystectomy day one. pt state the pain is good controlled. normal color and output of urine continue antibiotics, follow up surgeon Addendum 12p; ultrasound suggestive of acalculous choleystitis Pt is NPO, will have surgery on today afternoon will follow up post-operation pain control no symptoms suggestive of ascending cholangitis, but will start zosyn given leukocytosis surgical consult will give clears for now (2) Coronary artery disease Impression: pt denies chest pain, SOB, stable, continue tele, vital monitor cardiac risk assessment for surgery Patient to have lap ankit Seema Re: cardiac risk has known CAD, s/p stents , has been taking ASA regularly, exercies 20-30 minutes on treadmill ~ 4x / week w/o anginal symptoms easily over 4 METs continue ASA (not clear why RN held it this am / RN aware to give this evening Not on beta srikanth at home, not adding preop (no indication,and worse outcome if add preop there is data for better outcome w/ perioperative statin, but RCRI risk sore is intraperitoneal surgery (but laparascopic) will score this as Yes on RCRI risk score (jamel if have to convert to open surgery) + Hx of ischemic heart diseae (stented) no chf no cAD no treatment w/ insulin 0.9 % risk of major cardiac event (3) Hypertension Impression: stable, closely monitor with vital elevated bP on presentation resolved may have been due to pain contiknue home ACEI no indication for acute lowering of BP prn with hydralazine/ no end organ damage (literature notes SE from acutely lowering BP in hosptial if no end organ damage outweights benefit, jamel w/ hydralazine (4) Hyponatremia Impression: improved, continue mild IVF improved, continue to hold HCTZ daily lab test, closely monitor likely r/t home thiazide holding hctz planned to send urine/serum osmos, but had already received saline urine spot urine for sodium ordered but not yet sent (i suspect elevated on thiazide rechecking serum NA now (8pm, to be sure its going in the right direction w/ the NS infusion (night x-cover will f/u on result) (5) Hypokalemia Impression: resolved still lower K= 3.3, replacement of potassium daily lab monitor
[2017-07-25] MEDS ORDERED: TAMSULOSIN 0.4 MG CAPSULE PO STA (18:07)
[2017-07-25] MEDS: NIACIN ER 500 MG TABLET PO SCH (21:39)
[2017-07-26] MEDS: PIPERACILLIN/TAZOBACTAM 3.375 GM in SODIUM CHLORIDE 0.9% MINIBAG 100 ML IV SCH ×3 (00:10→11:58)
[2017-07-26] MEDS: ALPRAZolam 0.25 MG TABLET PO PRN (00:36)
[2017-07-26] MEDS: ACETAMINOPHEN 1,000 MG/100 ML 100 ML IV SCH ×3 (01:29→12:50)
[2017-07-26] MEDS: KETOROLAC 15 MG/ML VIAL IVP PRN ×2 (03:49→12:03)
[2017-07-26] MEDS: SODIUM CHLORIDE FLUSH 0.9% 10 ML SYRINGE IVP SCH ×4 (05:39→13:38)
[2017-07-26 05:44] LABS: BASOPHILS % (AUTO) 0.1 %; EOSINOPHILS % (AUTO) 0.5 %; HCT - HEMATOCRIT 34.7 % (42.0-52.0); HGB - HEMOGLOBIN 12.1 g/dL (14.0-18.0); LYMPHOCYTES # (AUTO) 0.6 10^3/uL (1.5-3.5); LYMPHOCYTES % (AUTO) 5.9 %; MEAN CORPUSCULAR HEMOGLOBIN 31.4 pg (27.0-31.0); MEAN CORPUSCULAR VOLUME 89.9 fL (80.0-94.0); MEAN PLATELET VOLUME 6.8 fL (7.4-11.4); MONOCYTES # (AUTO) 0.8 10^3/uL (0.0-1.0); MONOCYTES % (AUTO) 8.6 %; NEUTROPHILS # (AUTO) 8.2 10^3/uL (1.5-6.6); NEUTROPHILS % (AUTO) 84.9 %; RED BLOOD COUNT 3.86 10^6/uL (4.70-6.10); UNCORRECTED WHITE BLOOD COUNT 9.7 x10^3/uL; WHITE BLOOD COUNT 9.7 x10^3/uL (4.8-10.8)
[2017-07-26 05:59] LABS: BILIRUBIN,TOTAL 0.9 mg/dL (0.2-1.0); CALCIUM 7.9 mg/dL (8.5-10.3); MAGNESIUM 1.9 mg/dL (1.7-2.8); POTASSIUM 3.2 mmol/L (3.5-5.0); TOTAL PROTEIN 5.9 g/dL (6.7-8.2)
[2017-07-26 07:53] VITALS: BP 147/82
[2017-07-26] MEDS: D5NS W/20 MEQ KCL 1,000 ML IV SCH ×2 (07:56→10:43)
[2017-07-26] MEDS: ASPIRIN EC 81 MG TABLET PO SCH (08:47)
[2017-07-26] MEDS: LISINOPRIL 20 MG TABLET PO SCH (08:47)
[2017-07-26] MEDS: MULTIVITAMIN TABLET PO SCH (08:47)
[2017-07-26] MEDS: ENOXAPARIN 40 MG/0.4 ML SYRINGE SUBQ SCH (08:48)
[2017-07-26] MEDS: POLYETHYLENE GLYCOL 3350 17 GM PACKET PO SCH (08:51)
[2017-07-26] MEDS ORDERED: POTASSIUM CHLORIDE 20 MEQ TABLET PO ONE (09:00)
[2017-07-26] MEDS ORDERED: CALCIUM GLUCONATE 1,000 MG in SODIUM CHLORIDE 0.9% 50 ML IV ONE (09:00)
[2017-07-26] MEDS ORDERED: TAMSULOSIN 0.4 MG CAPSULE PO SCH (10:00)
[2017-07-26] MEDS ORDERED: POTASSIUM CHLOR 10 MEQ/100 ML 10 MEQ/100 ML BAG IV ONE (12:04)
--- NOTE | 2017-07-26 12:19 | PROVIDER PROGRESS NOTE ---
Subjective - General Admit Date: 07/23/17 Procedure Date: 07/24/17 Post Op Days: 2 - Review of Systems Wound/Incisions: positive: Dressing dry and intact General: positive: Other (Some slight burning in chest and abdomen after eating - NOT pressure or pain.) HEENT: positive: No symptoms Pulmonary: positive: No symptoms Cardiovascular: positive: No symptoms Gastrointestinal: positive: Abdominal pain (Incisional.) Genitourinary: positive: No symptoms (Was able to urinate better with the aid of Flomax. Would like a prescription for Flomax.) Musculoskeletal: positive: No symptoms Skin: positive: No symptoms Psychiatric: positive: No symptoms Objective - Patient Data Reviewed Vital Signs: Yes Vital Signs: Vital Signs x48h Temp Pulse Resp BP Pulse Ox 07/26/17 07:52 36.5 C 85 18 147/82 H 99 Intake & Output: Intake and Output Totals x24h 07/24/17 07/25/17 07/26/17 23:59 23:59 23:59 Intake Total 2078.75 5137.25 1930 Output Total 750 2375 900 Balance 1328.75 2762.25 1030 - Lab Results Lab Results: 07/26/17 05:31 07/26/17 05:31 Other Lab Results: Lab Results x24hrs 07/26/17 07/26/17 Range/Units 05:31 05:31 WBC 9.7 (4.8-10.8) x10^3/uL RBC 3.86 L (4.70-6.10) 10^6/uL Hgb 12.1 L (14.0-18.0) g/dL Hct 34.7 L (42.0-52.0) % MCV 89.9 (80.0-94.0) fL MCH 31.4 H (27.0-31.0) pg MCHC 35.0 (32.0-36.0) g/dL RDW 14.0 (12.0-15.0) % Plt Count 153 (130-450) 10^3/uL MPV 6.8 L (7.4-11.4) fL Neut # 8.2 H (1.5-6.6) 10^3/uL Lymph # 0.6 L (1.5-3.5) 10^3/uL [place] # 0.8 (0.0-1.0) 10^3/uL Eos # 0.0 (0.0-0.7) 10^3/uL Baso # 0.0 (0.0-0.1) 10^3/uL Absolute Nucleated RBC 0.00 x10^3/uL Nucleated RBC % 0.0 /100WBC Sodium 132 L (135-145) mmol/L Potassium 3.2 L (3.5-5.0) mmol/L Chloride 102 (101-111) mmol/L Carbon Dioxide 23 (21-32) mmol/L Anion Gap 7.0 (6-13) BUN 14 (6-20) mg/dL Creatinine 1.0 (0.6-1.2) mg/dL Estimated GFR (MDRD) 72 L (>89) Glucose 114 H (70-100) mg/dL Calcium 7.9 L (8.5-10.3) mg/dL Magnesium 1.9 (1.7-2.8) mg/dL Total Bilirubin 0.9 (0.2-1.0) mg/dL AST 25 (10-42) IU/L ALT 21 (10-60) IU/L Alkaline Phosphatase 44 (42-121) IU/L Total Protein 5.9 L (6.7-8.2) g/dL Albumin 3.0 L (3.2-5.5) g/dL Globulin 2.9 (2.1-4.2) g/dL Albumin/Globulin Ratio 1.0 (1.0-2.2) - Current Medications Current Medications: Current Medications Generic Name Dose Route Start Last Admin Trade Name Rodrigueq PRN Reason Stop Dose Admin Acetaminophen 650 mg 07/22/17 19:57 07/25/17 14:01 Tylenol PO 650 mg Q4HR PRN Administration Pain 1 to 4 Alprazolam 0.25 mg 07/24/17 10:01 07/26/17 00:36 Xanax PO 0.125 mg QID PRN Administration Anxiety Aspirin 81 mg 07/23/17 09:00 07/26/17 08:47 Ecotrin PO 81 mg DAILY MAYRA Administration Enoxaparin Sodium 40 mg 07/23/17 09:00 07/26/17 08:48 Lovenox SUBQ 40 mg DAILY MAYRA Administration Potassium Chloride/Dextrose/Sod Cl 1,000 mls @ 100 mls/hr 07/24/17 19:00 09/30 10:43 IV Not Given .Q10H MAYRA Acetaminophen 100 mls @ 400 mls/hr 07/24/17 19:00 07/26/17 06:51 Ofirmev IV Not Given Q6H MAYRA Piperacillin Sod/Tazobactam 100 mls @ 200 mls/hr 07/25/17 00:00 07/26/17 11: 58 Sod 3.375 gm/ Sodium Chloride IV 200 mls/hr Q6HR MAYRA Administration Ketorolac Tromethamine 15 mg 07/24/17 18:40 07/26/17 12:03 Toradol Inj IVP 07/29/17 18:39 15 mg Q6H PRN Administration PAIN Lisinopril 20 mg 07/23/17 19:38 07/26/17 08:47 Zestril PO 20 mg DAILY MAYRA Administration Multivitamins 1 tab 07/23/17 08:00 07/26/17 08:47 Theragran PO 1 tab DAILYWM MAYRA Administration Niacin 500 mg 07/23/17 21:00 07/25/17 21:39 Niaspan PO 500 mg QPM MAYRA Administration Polyethylene Glycol 17 gm 07/23/17 09:00 07/26/17 08:51 Miralax PO Not Given DAILY [facility] Sodium Chloride 10 ml 07/22/17 22:00 07/26/17 05:39 Normal Saline Flush 0.9% IVP Not Given Q8HR MAYRA Sodium Chloride 10 ml 07/24/17 22:00 07/26/17 05:39 Normal Saline Flush 0.9% IVP Not Given Q8HR [facility] Tamsulosin HCl 0.4 mg 07/26/17 10:00 07/26/17 09:52 Flomax PO 0.4 mg DAILY MAYRA Administration - Physical Exam Wound/Incisions: positive: Dressing dry and intact, Other (Some ecchymosis.) General Appearance: positive: No acute distress Eyes Bilateral: positive: No lid inflammation, Conjunctivae nml, No scleral icterus Neck: positive: Trachea midline Respiratory: positive: Chest non-tender, No respiratory distress, Breath sounds nml Cardiovascular: positive: Regular rate & rhythm Abdomen: positive: Tenderness (Incisional and improving.) Skin: positive: Color nml Extremities: positive: Non-tender, Nml appearance Neurologic/Psychiatric: positive: Oriented x3 Impression/Plan - Problem List Problem List: D2 s/p laparoscopic cholecystectomy for gangrenous cholecystitis with cultures positive for Enterococcus faecalis. Patient doing well and improving. Tolerating general diet. Pain controlled. Biggest issue is currently his challenges with urination. This predated his surgery and he was to see a urologist prior to his 's diagnosis of MAIC. I explained that he should keep this appointment as urinating has now been elevated to his #1 problem. I will send him home with a prescription for Flomax. He is to see me in 1 week for a postoperative visit. No indication of ongoing infection - no need for antibioitics at this time. Discharge home today. Prescription for oral pain medications to go home with patient.
--- NOTE | 2017-07-26 12:29 | Discharge Plan ---
Discharge Plan Disposition: Home, Self Care Condition: Good Prescriptions: Ketorolac [Toradol] 10 mg PO Q6H #20 tablet Tamsulosin [Flomax] 0.4 mg PO DAILY #30 capsule Diet: Regular Activity Restrictions: No lifting >15 pounds for 6 weeks. Shower Restrictions: No Driving Restrictions: Yes (Until seen by me in clinic.) Weight Bearing: Full Weight Instruction Topics: Cholecystectomy Laparoscopic, Cholecystectomy Laparoscopic Dc No Smoking: If you smoke, Please STOP! Call for help. Follow-up with: Jocelynn Perez MD [Primary Care Provider] - Jeferson Nelson MD [Provider Admit Priv/Credential] -
--- NOTE | 2017-07-26 13:41 | PROVIDER PROGRESS NOTE ---
Subjective - Prog Note Date Prog Note Date: 07/26/17 - Subjective Pt reports feeling: Improved Subjective: pt state he feel very good and is ready to be D/C to home Current Medications - Current Medications Current Medications: Active Medications Acetaminophen (Tylenol) 650 mg PO Q4HR PRN PRN Reason: Pain 1 to 4 Last Admin: 07/25/17 14:01 Dose: 650 mg Alprazolam (Xanax) 0.25 mg PO QID PRN PRN Reason: Anxiety Last Admin: 07/26/17 00:36 Dose: 0.125 mg Aspirin (Ecotrin) 81 mg PO DAILY [facility] Last Admin: 07/26/17 08:47 Dose: 81 mg Bisacodyl (Dulcolax Supp) 10 mg DE ONCE PRN PRN Reason: Constipation Stop: 07/27/17 15:07 Enoxaparin Sodium (Lovenox) 40 mg SUBQ DAILY [facility] Last Admin: 07/26/17 08:48 Dose: 40 mg Potassium Chloride/Dextrose/Sod Cl () 1,000 mls @ 100 mls/hr IV .Q10H [facility] Last Admin: 07/26/17 10:43 Dose: Not Given Acetaminophen (Ofirmev) 100 mls @ 400 mls/hr IV Q6H [facility] Last Infusion: 07/26/17 13:05 Dose: Infused Piperacillin Sod/Tazobactam (Sod 3.375 gm/ Sodium Chloride) 100 mls @ 200 mls/ hr IV Q6HR [facility] Last Infusion: 07/26/17 12:30 Dose: Infused Ketorolac Tromethamine (Toradol Inj) 15 mg IVP Q6H PRN PRN Reason: PAIN Stop: 07/29/17 18:39 Last Admin: 07/26/17 12:03 Dose: 15 mg Lisinopril (Zestril) 20 mg PO DAILY [facility] Last Admin: 07/26/17 08:47 Dose: 20 mg Morphine Sulfate (Morphine) 2 mg IVP Q5M PRN PRN Reason: Chest pain Multivitamins (Theragran) 1 tab PO DAILYWM [facility] Last Admin: 07/26/17 08:47 Dose: 1 tab Niacin (Niaspan) 500 mg PO QPM [facility] Last Admin: 07/25/17 21:39 Dose: 500 mg Nitroglycerin (Nitrostat) 0.4 mg SL Q5MIN PRN PRN Reason: Chest Pain Ondansetron HCl (Zofran Inj) 4 mg IVP Q6HR PRN PRN Reason: Nausea / Vomiting Ondansetron HCl (Zofran Inj) 4 mg IVP Q6H PRN PRN Reason: Nausea / Vomiting Polyethylene Glycol (Miralax) 17 gm PO DAILY [facility] Last Admin: 07/26/17 08:51 Dose: Not Given Sodium Chloride (Normal Saline Flush 0.9%) 10 ml IVP PRN PRN PRN Reason: NEEDED PER PROVIDER ORDERS Sodium Chloride (Normal Saline Flush 0.9%) 10 ml IVP Q8HR [facility] Last Admin: 07/26/17 13:37 Dose: Not Given Sodium Chloride (Normal Saline Flush 0.9%) 10 ml IVP Q8HR [facility] Last Admin: 07/26/17 13:38 Dose: Not Given Sodium Chloride (Normal Saline Flush 0.9%) 10 ml IVP PRN PRN PRN Reason: NEEDED PER PROVIDER ORDERS Tamsulosin HCl (Flomax) 0.4 mg PO DAILY [facility] Last Admin: 07/26/17 09:52 Dose: 0.4 mg Aspirin [Aspir 81] 81 mg PO DAILY 05/02/13 Red Yeast Rice 600 mg PO DAILY 05/02/13 Melatonin/Pyridoxine [Melatonin 3 mg Tablet] 1 each PO HS 08/08/13 Multivitamin [Multivitamins] 1 each PO DAILY 08/08/13 Niacin 500 mg PO DAILY 08/22/13 Selenium 50 mcg PO DAILY 08/22/13 Zinc [Zinc Chelated] 50 mg PO DAILY 08/22/13 ALPRAZolam [Xanax] 0.125 mg PO .PRN PRN 09/01/13 Hydrochlorothiazide 12.5 mg PO DAILY 09/01/13 Objective - Vital Signs/Intake & Output Reviewed Vital Signs: Yes Vital Signs: Vital Signs x48h Temp Pulse Resp BP Pulse Ox 07/26/17 07:52 36.5 C 85 18 147/82 H 99 Intake & Output: Intake & Output 07/23/17 07/24/17 07/25/17 07/26/17 23:59 23:59 23:59 23:59 Intake Total 708.050 5304.75 5137.25 2330 Output Total 846 659 4913 1200 Balance 211.117 1384.75 2762.25 1130 - Objective General Appearance: positive: No acute distress, Alert. negative: Lethargic Eyes Bilateral: positive: Normal inspection, PERRL, EOMI, No lid inflammation, Conjunctivae nml ENT: positive: ENT inspection nml, Pharynx nml, No signs of dehydration. negative: Purulent nasal drainage, Pharyngeal erythema, Oral lesions Neck: positive: Nml inspection, Thyroid nml, No JVD, Trachea midline. negative : Thyromegaly, Lymphadenopathy (R), Lymphadenopathy (L), Stiff neck, Carotid bruit, Swelling/bruising, Tracheal deviation Respiratory: positive: Chest non-tender, No respiratory distress, Breath sounds nml. negative: Wheezes, Rales, Rhonchi Cardiovascular: positive: Regular rate & rhythm, No murmur, No gallop. negative : Irregularly irregular, Extrasystoles, Tachycardia, Bradycardia, Systolic murmur, Diastolic murmur Peripheral Pulses: 2+ Radial (R), 2+ Radial (L), 2+ Dorsalis pedis (R), 2+ Dorsalis pedis (L) Abdomen: positive: Non-tender, Nml bowel sounds, No distention. negative: Tenderness, Guarding, Rebound Back: positive: Nml inspection. negative: CVA tenderness (R), CVA tenderness (L ) Skin: positive: Color nml, No rash, Warm, Dry. negative: Cyanosis, Diaphoresis , Pallor, Skin rash Extremities: positive: Non-tender, Full ROM, Nml appearance. negative: Calf tenderness, Rylie's sign/cords Neurologic/Psychiatric: positive: Oriented x3, Motor nml, Sensation nml, Mood/ affect nml. negative: Sensory loss, Facial droop, Slurred/abnml speech, Depressed mood/affect - Lab Results Fish Bones: 07/26/17 05:31 07/26/17 05:31 Other Labs: Lab Results x24hrs 07/26/17 07/26/17 Range/Units 05:31 05:31 WBC 9.7 (4.8-10.8) x10^3/uL RBC 3.86 L (4.70-6.10) 10^6/uL Hgb 12.1 L (14.0-18.0) g/dL Hct 34.7 L (42.0-52.0) % MCV 89.9 (80.0-94.0) fL MCH 31.4 H (27.0-31.0) pg MCHC 35.0 (32.0-36.0) g/dL RDW 14.0 (12.0-15.0) % Plt Count 153 (130-450) 10^3/uL MPV 6.8 L (7.4-11.4) fL Neut # 8.2 H (1.5-6.6) 10^3/uL Lymph # 0.6 L (1.5-3.5) 10^3/uL [place] # 0.8 (0.0-1.0) 10^3/uL Eos # 0.0 (0.0-0.7) 10^3/uL Baso # 0.0 (0.0-0.1) 10^3/uL Absolute Nucleated RBC 0.00 x10^3/uL Nucleated RBC % 0.0 /100WBC Sodium 132 L (135-145) mmol/L Potassium 3.2 L (3.5-5.0) mmol/L Chloride 102 (101-111) mmol/L Carbon Dioxide 23 (21-32) mmol/L Anion Gap 7.0 (6-13) BUN 14 (6-20) mg/dL Creatinine 1.0 (0.6-1.2) mg/dL Estimated GFR (MDRD) 72 L (>89) Glucose 114 H (70-100) mg/dL Calcium 7.9 L (8.5-10.3) mg/dL Magnesium 1.9 (1.7-2.8) mg/dL Total Bilirubin 0.9 (0.2-1.0) mg/dL AST 25 (10-42) IU/L ALT 21 (10-60) IU/L Alkaline Phosphatase 44 (42-121) IU/L Total Protein 5.9 L (6.7-8.2) g/dL Albumin 3.0 L (3.2-5.5) g/dL Globulin 2.9 (2.1-4.2) g/dL Albumin/Globulin Ratio 1.0 (1.0-2.2) Assessment/Plan - Problem List (1) Epigastric abdominal pain Impression: (1) Epigastric abdominal pain Impression: no pain reported, WBC is down to normal, pt state he is ready to be D/C. will discuss with surgeon and plan to D/C status post cholecystectomy day one. pt state the pain is good controlled. normal color and output of urine continue antibiotics, follow up surgeon Addendum 12p; ultrasound suggestive of acalculous choleystitis Pt is NPO, will have surgery on today afternoon will follow up post-operation pain control no symptoms suggestive of ascending cholangitis, but will start zosyn given leukocytosis surgical consult will give clears for now (2) Coronary artery disease Impression: stable pt denies chest pain, SOB, stable, continue tele, vital monitor cardiac risk assessment for surgery Patient to have lap ankit Seema Re: cardiac risk has known CAD, s/p stents , has been taking ASA regularly, exercies 20-30 minutes on treadmill ~ 4x / week w/o anginal symptoms easily over 4 METs continue ASA (not clear why RN held it this am / RN aware to give this evening Not on beta srikanth at home, not adding preop (no indication,and worse outcome if add preop there is data for better outcome w/ perioperative statin, but RCRI risk sore is intraperitoneal surgery (but laparascopic) will score this as Yes on RCRI risk score (jamel if have to convert to open surgery) + Hx of ischemic heart diseae (stented) no chf no cAD no treatment w/ insulin 0.9 % risk of major cardiac event (3) Hypertension Impression: stable, closely monitor with vital elevated bP on presentation resolved may have been due to pain contiknue home ACEI no indication for acute lowering of BP prn with hydralazine/ no end organ damage (literature notes SE from acutely lowering BP in hosptial if no end organ damage outweights benefit, jamel w/ hydralazine (4) Hyponatremia Impression: improved, continue mild IVF improved, continue to hold HCTZ daily lab test, closely monitor likely r/t home thiazide holding hctz planned to send urine/serum osmos, but had already received saline urine spot urine for sodium ordered but not yet sent (i suspect elevated on thiazide rechecking serum NA now (8pm, to be sure its going in the right direction w/ the NS infusion (night x-cover will f/u on result) (5) Hypokalemia replacement with potassium, (6) urinary retention Nurse report pt has urinary by himself. pt report he had three times of urination today, no dysuria or hematuria, no problem for urination.
--- NOTE | 2017-07-31 06:06 | DISCHARGE SUMMARY ---
DATE OF ADMISSION: 07/23/2017 DATE OF DISCHARGE: 07/26/2017 ADMISSION DIAGNOSIS: Abdominal pain. DISCHARGE DIAGNOSIS: Gangrenous cholecystitis with the cultures of the gallbladder fluid growing out Enterococcus faecium. OPERATION: On 07/24/2017, performed by myself (Leslie), consisted of a laparoscopic cholecystectomy . With the gallbladder taken out, the patient spent 2 days in the hospital at which point he was tolera ting a general diet and pain was controlled. He was able to ambulate. He had no indication of active infection and he was discharged home. He is to follow up with me in 7-10 days. He is to contact me wi th any surgical questions and/or concerns. He is not to do any heavy lifting greater than 15 pounds f or a total of 6 weeks. His diet is unrestricted. He can shower, hot tub and/or swim. JOB #: [id number] EXT JOB #:[id number]
== END 2017-07-26 14:13 | disposition home or self-care (01) | DRG 418 ==
LOC: ED 16:33 → OBS 19:58 → OBSVTOIN 07-23 13:55 → MS2 07-23 14:44
PROVIDERS: ATTEND Surgery
PROC: 0FT44ZZ Resection of Gallbladder, Percutaneous Endoscopic Approach (ICD-10-PCS; principal; 2017-07-24 14:30)
DX: R07.9 Chest pain, unspecified (principal); R10.811 Right upper quadrant abdominal tenderness; R10.13 Epigastric pain; K81.0 Acute cholecystitis; E87.1 Hypo-osmolality and hyponatremia; B95.2 Enterococcus as the cause of diseases classified elsewhere; E78.5 Hyperlipidemia, unspecified; F41.9 Anxiety disorder, unspecified; K82.8 Other specified diseases of gallbladder; E87.6 Hypokalemia; N40.1 Benign prostatic hyperplasia with lower urinary tract symptoms; R35.0 Frequency of micturition; R33.9 Retention of urine, unspecified; I10 Essential (primary) hypertension; I25.10 Atherosclerotic heart disease of native coronary artery without angina pectoris; K21.9 Gastro-esophageal reflux disease without esophagitis; Z66 Do not resuscitate; Z95.5 Presence of coronary angioplasty implant and graft; Z79.82 Long term (current) use of aspirin; Z87.19 Personal history of other diseases of the digestive system
CPT/HCPCS: 36415; 51701; 71020; 74177; 76705; 80048; 80053; 82248; 83690; 83735; 84295; 84300; 84484; 85025; 87070; 87077; 87205; 88304; 93005; 93306; 96361; 96374; 96375; 99283; 99284; 99285

== ENCOUNTER 2017-08-30 07:29 | Day surgery (SDC) | payer MEDICARE, OTHER ==
[~2017-08-30 07:29] MED LIST: BRIMONIDINE 0.2% OPHTH DROPS 5 ML ONE; TIMOLOL 0.5% OPHTH DROPS ONE
[2017-08-30] MEDS ORDERED: KETOROLAC 0.45% OPHTH DROPS ONE (07:30)
[2017-08-30] MEDS ORDERED: CYCLOPENTOLATE 1% OPHTH DROPS 2 ML ONE (07:30)
[2017-08-30] MEDS ORDERED: PROPARACAINE 0.5% OPHTH DROPS 15 ML ONE (07:30)
[2017-08-30] MEDS ORDERED: PHENYLEPHRINE 2.5% OPHTH 2 ML DROPS ONE (07:30)
[2017-08-30] MEDS ORDERED: LACTATED RINGERS 500 ML IV ONE (07:58)
[2017-08-30] MEDS ORDERED: LABETALOL 20 MG/4 ML SYRINGE IVP ONE (08:17)
[2017-08-30] MEDS ORDERED: SODIUM CHLORIDE FLUSH 0.9% 10 ML SYRINGE IVP ONE (08:19)
[2017-08-30] MEDS ORDERED: PROPARACAINE 0.5% OPHTH DROPS 15 ML RIGHTEYE ONE (08:48)
[2017-08-30] MEDS ORDERED: BRIMONIDINE 0.2% OPHTH DROPS 5 ML OPTH ONE (08:50)
[2017-08-30] MEDS ORDERED: EPINEPHrine 1 MG/ML AMP IVP ONE (08:50)
[2017-08-30] MEDS ORDERED: MIDAZOLAM 2 MG/2 ML VIAL IVP ONE (09:00)
[2017-08-30] MEDS ORDERED: BSS/LIDOCAINE/EPINEPHRINE 1 ML SYRINGE IO ONE (09:06)
[2017-08-30] MEDS ORDERED: TIMOLOL 0.5% OPHTH DROPS OPTH ONE (09:06)
[2017-08-30] MEDS ORDERED: CHONDR SULF/HYALURONATE SYRINGE IO ONE (09:06)
[2017-08-30] MEDS ORDERED: TRIAMCIN/MOXIFLOX/VANCO 1 ML VIAL IO ONE (09:06)
[2017-08-30 09:30] VITALS: BP 134/80
--- NOTE | 2017-08-30 09:59 | OPERATIVE REPORT ---
DATE OF SURGERY: 08/30/2017 00:00:00 PREOPERATIVE DIAGNOSIS: Visually significant cataract, right eye. This was his first cataract surgery . POSTOPERATIVE DIAGNOSIS: Visually significant cataract, right eye. This was his first cataract surger y. NAME OF PROCEDURE: Phacoemulsification posterior chamber intraocular lens implant, right eye. SURGEON: Kyle Aldrich MD. ANESTHESIA: Monitored anesthesia care. COMPLICATIONS: None. OPERATIVE INDICATIONS: This is an 81-year-old man with progressive vision loss in the right eye due t o 2+ nuclear sclerotic and 1+ cortical and macular cataract. Best corrected visual acuity was 20/60 w ith glare to 20/150 in the right eye. INDICATIONS FOR SURGERY: Overall decrease in vision, difficulty reading, difficulty seeing words and games scores on TV, difficulty driving in low light or at night, difficulty driving at night because of head lights from other vehicles, and difficulty with glare and bright lights in any situation. He was consented at length concerning the risks and benefits of cataract surgery, after which he express ed a desire to proceed with surgery. OPERATIVE PROCEDURE: The patient was taken to OR #3 and placed under monitored anesthesia care. A estrella gical time-out was conducted confirming the correct patient, correct procedure, and correct surgical site. He was placed under the LenSx laser and his eye docked to the laser interface. The laser perfor med the capsulotomy, lens softening, phaco wounds, and arcuate keratotomy incisions. He was then move d to the operating microscope, given topical anesthesia, and then prepped and draped in the usual pj rile fashion. The eye was entered at the 12 and 9 o'clock positions. Intracameral Shugarcaine was inj ected into the anterior chamber, followed by Viscoat. Capsulorrhexis flap created by the LenSx laser was removed from the anterior chamber. The nucleus was hydrodissected and phacoemulsified. The cortex was evacuated using automated infusion and aspiration. Provisc was injected into the capsular bag an d a 19.0 diopter intraocular lens inserted into the bag. Approximately 0.7 mL of a mixture of triamci nolone, moxifloxacin, and vancomycin was injected subconjunctivally in the superior quadrant for infe ction and inflammation prophylaxis. I/A was used to evacuate the viscoelastic materials. The eye was inflated to physiologic pressure using balanced salt solution and found to be watertight. The patient was taken from the operating room in good condition and given postoperative instructions. JOB #: [id number] EXT JOB #:[id number]
== END 2017-08-30 07:30 | disposition home or self-care (01) ==
LOC: SDS 07:29
PROVIDERS: ATTEND Ophthalmology
PROC: 08RJ3JZ Replacement of Right Lens with Synthetic Substitute, Percutaneous Approach (ICD-10-PCS; principal; 2017-08-30 08:30)
DX: H25.811 Combined forms of age-related cataract, right eye (principal); I25.10 Atherosclerotic heart disease of native coronary artery without angina pectoris; I10 Essential (primary) hypertension; Z79.82 Long term (current) use of aspirin
CPT/HCPCS: 66984; A9270; J3490; V2632

== ENCOUNTER 2017-10-22 08:37 | Outpatient (CLI) | payer MEDICARE, OTHER | END 2017-10-22 08:38 | disposition critical access hospital (66) | LOC: EMS 08:37 | PROVIDERS: ATTEND Surgery | DX: R55 Syncope and collapse (principal) | CPT/HCPCS: A0425; A0427 ==

== ENCOUNTER 2017-10-22 09:06 | Emergency (ER) | payer MEDICARE, OTHER ==
--- NOTE | 2017-10-22 09:26 | ED Physician Documentation ---
PD HPI SYNCOPE - Stated complaint Stated Complaint: NEAR SYNCOPE - Chief complaint Chief Complaint: Neuro - History obtained from History obtained from: Patient - History of Present Illness Witnessed: Witnessed Timing - onset: Today (felt lightheaded and generally weak. Did not pass out entirely.) Duration: Minutes Preceding symptoms: Light headed, Generalized weakness. No: Headache, Chest pain, Palpitations Contributing factors: Recent med change (he had stopped his new diuretic (had been changed from HCTZ to clorthalidone and took it once today and felt lightheaded an hour later). Had been off the other one for a week. He had been drinking lots of water (4 liter bottles or more daily).) Injury occurred: No: Fell Similar symptoms before: No diagnosis (has had near syncope and lightheaded often, commonly with new medications. He does not like changing meds.) Recently seen: Clinic (last week) Review of Systems Constitutional: denies: Fever, Chills Nose: denies: Rhinorrhea / runny nose Throat: denies: Sore throat Cardiac: denies: Chest pain / pressure, Palpitations Respiratory: denies: Dyspnea, Cough GI: denies: Vomiting, Diarrhea : denies: Dysuria Skin: denies: Rash Musculoskeletal: reports: Extremity swelling (mild). denies: Neck pain Neurologic: reports: Generalized weakness. denies: Focal weakness, Numbness Psychiatric: reports: Anxiety. denies: Depressed Endocrine: denies: Weight loss PD PAST MEDICAL HISTORY - Past Medical History Past Medical History: Yes Cardiovascular: Hypertension, Coronary artery disease Respiratory: None Neuro: None Endocrine/Autoimmune: None GI: GERD, Hiatal hernia : Benign prostate hypertrophy, Frequency HEENT: None Psych: None Musculoskeletal: Chronic back pain Derm: None - Past Surgical History Past Surgical History: Yes General: Cholecystectomy, Appendectomy, Colonoscopy Cardiovascular: Coronary stent HEENT: Tonsil/Adenoidectomy - Present Medications Home Medications: Ambulatory Orders Medication Instructions Recorded Confirmed Aspirin [Aspir 81] 81 mg PO DAILY 05/02/13 10/22/17 Red Yeast Rice 600 mg PO DAILY 05/02/13 10/22/17 Melatonin/Pyridoxine [Melatonin 3 1 each PO HS 08/08/13 10/22/17 mg Tablet] Multivitamin [Multivitamins] 1 each PO DAILY 08/08/13 10/22/17 Niacin 500 mg PO DAILY 08/22/13 10/22/17 Selenium 50 mcg PO DAILY 08/22/13 10/22/17 Zinc [Zinc Chelated] 50 mg PO DAILY 08/22/13 10/22/17 ALPRAZolam [Xanax] 0.125 mg PO .PRN PRN 09/01/13 10/22/17 Lisinopril [Prinivil] 20 mg PO DAILY #30 tablet 07/17/14 10/22/17 Nitroglycerin [Nitrostat] 0.4 mg SL Q5MIN PRN #1 bottle 07/17/14 10/22/17 Ketorolac [Toradol] 10 mg PO Q6H #20 tablet 07/26/17 10/22/17 Tamsulosin [Flomax] 0.4 mg PO DAILY #30 capsule 07/26/17 10/22/17 Chlorthalidone 25 mg PO DAILY 10/22/17 10/22/17 Meclizine [Antivert] 25 mg PO Q6H PRN #20 tablet 10/22/17 Potassium Chloride 10 meq PO DAILY #15 tablet.er 10/22/17 hydroCHLOROthiazide 25 mg PO DAILY #30 tablet 10/22/17 [Hydrochlorothiazide] - Allergies Allergies/Adverse Reactions: Allergies Allergy/AdvReac Type Severity Reaction Status Date / Time atorvastatin calcium * Allergy Mild MUSCLE PAIN Verified 05/26/17 07:08 [From Lipitor] - Social History Does the pt smoke?: No Smoking Status: Never smoker Does the pt drink ETOH?: Yes Does the pt have substance abuse?: No - Immunizations Immunizations are current?: Yes - POLST Patient has POLST: No PD ED PE NORMAL - Vitals Vital signs reviewed: Yes - General General: Alert 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, No acute distress, Well developed/nourished - HEENT HEENT: Atraumatic, Pharynx benign - Neck Neck: Supple, no meningeal sign, No adenopathy - Cardiac Cardiac: RRR, No murmur - Respiratory Respiratory: Clear bilaterally - Abdomen Abdomen: Soft, Non tender - Back Back: No CVA TTP - Derm Derm: Normal color, Warm and dry - Extremities Extremities: No deformity, No tenderness to palpate, No calf tenderness / cord, Other (1+ edema in the ankles) - Neuro Neuro: Alert 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, No motor deficit, Normal speech Eye Opening: Spontaneous Motor: Obeys Commands Verbal: Oriented GCS Score: 15 - Psych Psych: Normal mood. No: Normal affect (somewhat anxious) Results - Vitals Vitals: Oxygen O2 Source Room air - EKG (time done) 09:21 Rate: Rate (enter#) (70) Rhythm: NSR [place]: Normal Intervals: Normal MD QRS: Normal Ischemia: No: ST elevation c/w ischemia, ST depression Computer interpretation: Agree with computer - Labs Labs: Laboratory Tests 10/22/17 10/22/17 10/22/17 10:08 10:08 10:08 WBC 4.2 L RBC 4.59 L Hgb 13.9 L Hct 38.5 L MCV 84.0 MCH 30.3 MCHC 36.1 H RDW 13.5 Plt Count 151 MPV 6.3 L Neut # 3.0 Lymph # 0.6 L [place] # 0.6 Eos # 0.0 Baso # 0.0 Absolute Nucleated RBC 0.00 Nucleated RBC % 0.0 Sodium 125 L Potassium 3.0 L Chloride 87 L Carbon Dioxide 23 Anion Gap 15.0 H BUN 10 Creatinine 0.8 Estimated GFR (MDRD) 93 Glucose 124 H Calcium 8.9 Magnesium 1.9 Total Bilirubin 0.9 AST 24 ALT 19 Alkaline Phosphatase 65 Troponin I < 0.04 Total Protein 7.0 Albumin 3.9 Globulin 3.1 Albumin/Globulin Ratio 1.3 Lipase 57 H PD MEDICAL DECISION MAKING - ED course Complexity details: reviewed old records (previous low sodium, with this a bit lower than usualy. Low K as well. Has been off diuretic for a week, so presume the low sodium may be from excess free fluid. ), reviewed results, considered differential, d/w patient, d/w family Departure - Departure Disposition: 01 Home, Self Care Clinical Impression: Near syncope, Generalized weakness Condition: Stable Record reviewed to determine appropriate education?: Yes Instructions: ED Near Syncope Unkn Follow-Up: Jocelynn Perez MD [Primary Care Provider] - Prescriptions: hydroCHLOROthiazide [Hydrochlorothiazide] 25 mg PO DAILY #30 tablet Meclizine [Antivert] 25 mg PO Q6H PRN #20 tablet PRN Reason: Vertigo Potassium Chloride 10 meq PO DAILY #15 tablet.er Comments: Resume your hydrochlorothiazide daily. Hold the chlorthalidone new water pill. I do not see a potassium supplement on your medicine list but would you do have please take twice the amount for a week. I wrote a prescription separately in case you do not have any more at home. If you do have true vertigo, use meclizine every 8 hours as needed. Your potassium level is low and so it needs extra supplementing for the next week or so. Your sodium level is low and so decrease the amount of regular water that you drink daily by about a quarter of the amount. Follow-up with Dr. Perez later this week, call today for an appointment. Discharge Date/Time: 10/22/17 12:57
[2017-10-22] MEDS ORDERED: MECLIZINE 12.5 MG TABLET PO STA (09:59)
[2017-10-22 10:14] LABS: BASOPHILS % (AUTO) 0.2 %; HGB - HEMOGLOBIN 13.9 g/dL (14.0-18.0); LYMPHOCYTES # (AUTO) 0.6 10^3/uL (1.5-3.5); LYMPHOCYTES % (AUTO) 14.5 %; MEAN CORPUSCULAR HEMOGLOBIN 30.3 pg (27.0-31.0); MEAN CORPUSCULAR HGB CONC 36.1 g/dL (32.0-36.0); MEAN PLATELET VOLUME 6.3 fL (7.4-11.4); MONOCYTES # (AUTO) 0.6 10^3/uL (0.0-1.0); MONOCYTES % (AUTO) 14.8 %; NEUTROPHILS % (AUTO) 70.5 %; PLT - PLATELET COUNT 151 10^3/uL (130-450); RED BLOOD COUNT 4.59 10^6/uL (4.70-6.10); RED CELL DISTRIBUTION WIDTH 13.5 % (12.0-15.0); WHITE BLOOD COUNT 4.2 x10^3/uL (4.8-10.8)
[2017-10-22 10:31] LABS: ALBUMIN 3.9 g/dL (3.2-5.5); ALBUMIN/GLOBULIN RATIO 1.3 (1.0-2.2); BILIRUBIN,TOTAL 0.9 mg/dL (0.2-1.0); CALCIUM 8.9 mg/dL (8.5-10.3); CREATININE 0.8 mg/dL (0.6-1.2); MAGNESIUM 1.9 mg/dL (1.7-2.8)
[2017-10-22] MEDS ORDERED: SODIUM CHLORIDE 0.9% 500 ML IV ONE (11:20)
[2017-10-22] MEDS ORDERED: POTASSIUM BICARB 25 MEQ TABLET PO STA (11:20)
[2017-10-22 12:56] VITALS: BP 170/105
== END 2017-10-22 12:57 | disposition home or self-care (01) ==
LOC: EDUNIT# → ED 09:06
DX: R55 Syncope and collapse (principal); R53.1 Weakness; I10 Essential (primary) hypertension; I25.10 Atherosclerotic heart disease of native coronary artery without angina pectoris; Z95.5 Presence of coronary angioplasty implant and graft; Z79.82 Long term (current) use of aspirin
CPT/HCPCS: 36415; 80053; 83690; 83735; 84484; 85025; 93005; 96360; 99284; 99285; A9270

== ENCOUNTER 2018-05-21 07:32 | Outpatient (CLI) | payer MEDICARE, OTHER ==
[2018-05-21 11:59] LABS: CHOL/HDL RATIO 2.4 (<5.0); CHOLESTEROL 180 mg/dL; HDL CHOLESTEROL 74 mg/dL; LDL CHOLESTEROL,CALCULATED 92 mg/dL; LDL/HDL RATIO 1.2 (<3.6); VLDL CHOLESTEROL 14 mg/dL
== END 2018-05-21 07:33 | disposition home or self-care (01) ==
LOC: LAB.F 07:32
PROVIDERS: ATTEND Internal Medicine Cardiovascular Disease
DX: I25.10 Atherosclerotic heart disease of native coronary artery without angina pectoris (principal)
CPT/HCPCS: 36415; 80061; 83721

== ENCOUNTER 2019-01-07 13:12 | Outpatient (CLI) | payer MEDICARE, OTHER ==
--- NOTE | 2019-01-07 14:24 | XRAY Report ---
Reason: COUGHING AFTER LIQUIDS Procedure Date: 01/07/2019 Accession Number: [id number] / [id number] Procedure: FL - Modified Barium Swallow W/SP CPT Code: FULL RESULT: EXAM: MODIFIED BARIUM SWALLOW EXAM DATE: 01/07/2019 01:56 PM. CLINICAL HISTORY: Coughing after liquids. COMPARISON: None. TECHNIQUE: Under the direction of speech pathology, patient swallowed various consistencies of barium under lateral fluoroscopic observation of the neck. Fluoroscopy Time: 1 minute 27 seconds. Number of Images: 79. FINDINGS: Swallowing Mechanism: Normal oral phase and swallowing reflex. Airway Protection: Tracheal penetration and silent aspiration is noted with thin consistency as well as solid food. Pharynx: Normal. No significant vallecular or piriform sinus contrast pooling. Other: A persistent less than 1 cm focus of contrast posterior to the lower cervical esophagus likely corresponds to patient's history of "repaired" Zenker's diverticulum. IMPRESSION: Aspiration as described. RADIA
== END 2019-01-07 13:13 | disposition home or self-care (01) ==
LOC: DI 13:12
PROVIDERS: ATTEND Internal Medicine
DX: K11.7 Disturbances of salivary secretion (principal); R05 Cough
CPT/HCPCS: 74230

== ENCOUNTER 2019-03-03 08:57 | Day surgery (SDC) | payer MEDICARE, OTHER ==
[2019-03-03] MEDS ORDERED: LACTATED RINGERS 1,000 ML IV ONE (09:40)
[2019-03-03] MEDS ORDERED: fentaNYL 100 MCG/2 ML VIAL IVP ONE (09:48)
[2019-03-03] MEDS ORDERED: MIDAZOLAM 2 MG/2 ML VIAL IVP ONE (09:48)
[2019-03-03 10:33] VITALS: BP 136/79
== END 2019-03-03 08:58 | disposition home or self-care (01) ==
LOC: SDS 08:57
PROVIDERS: ATTEND Surgery
PROC: 0DJD8ZZ Inspection of Lower Intestinal Tract, Via Natural or Artificial Opening Endoscopic (ICD-10-PCS; principal; 2019-03-03 10:30)
DX: Z12.11 Encounter for screening for malignant neoplasm of colon (principal); K64.8 Other hemorrhoids; K57.30 Diverticulosis of large intestine without perforation or abscess without bleeding; Z86.010 Personal history of colon polyps; I10 Essential (primary) hypertension; K21.9 Gastro-esophageal reflux disease without esophagitis; Z95.5 Presence of coronary angioplasty implant and graft
CPT/HCPCS: G0105; J7120

== ENCOUNTER 2019-09-29 13:08 | Outpatient (CLI) | payer MEDICARE, OTHER ==
--- NOTE | 2019-09-30 11:07 | Ultrasound Report ---
Reason: RT GROIN PX, TESTICULAR PX Procedure Date: 09/29/2019 Accession Number: [id number] / [id number] Procedure: US - Testicle CPT Code: Final Report FULL RESULT: EXAM: SCROTAL ULTRASOUND EXAM DATE: 09/29/2019 02:08 PM. CLINICAL HISTORY: RT GROIN PX, TESTICULAR PX. COMPARISON: ABDOMEN LIMITED 07/23/2017 9:46 AM. TECHNIQUE: Real-time scanning was performed with static images obtained. Color-flow images were utilized. FINDINGS: Right: Testis: 3.4 x 1.6 x 1.8 cm. Normal size , heterogeneous. No mass, calcification, or abnormal blood flow. Epididymis: 1.4 x 0.9 x 1 cm. 0.9 x 0.3 x 0.6 cm cyst Normal size and echotexture. No mass or abnormal blood flow. Hydrocele: None. Varicocele: None. Left: Testis: 3.4 x 1.9 x 2 cm. Normal size heterogeneous. No mass, calcification, or abnormal blood flow. Epididymis: 2 x 0.7 x 1.5 cm. 0.2 cm cyst Normal size and echotexture. No mass or abnormal blood flow. Hydrocele: None. Varicocele: Yes Right inguinal region there is a 0.9 x 0.3 x 1.4 cm fluid collection IMPRESSION: 1. Normal bilateral testes. 2. Bilateral epididymal cysts. 3. Left varicocele. 4. 1.4 cm fluid collection in the right inguinal area. Consider further evaluation with a inguinal ultrasound for rule out hernia RADIA
== END 2019-09-29 13:09 | disposition home or self-care (01) ==
LOC: DI 13:08
PROVIDERS: ATTEND Internal Medicine
DX: N50.3 Cyst of epididymis (principal); I86.1 Scrotal varices
CPT/HCPCS: 76870

== ENCOUNTER 2019-10-29 11:16 | Outpatient (CLI) | payer MEDICARE, OTHER | END 2019-10-29 11:17 | disposition home or self-care (01) | LOC: DI 11:16 | PROVIDERS: ATTEND Internal Medicine | DX: Z53.9 Procedure and treatment not carried out, unspecified reason (principal) ==

== ENCOUNTER 2019-10-31 13:06 | Outpatient (CLI) | payer MEDICARE, OTHER ==
--- NOTE | 2019-11-01 16:59 | XRAY Report ---
Reason: LOW BACK PAIN Procedure Date: 10/31/2019 Accession Number: [id number] / [id number] Procedure: XRS - Lumbar Spine 2 View CPT Code: Final Report FULL RESULT: EXAM: LUMBOSACRAL SPINE RADIOGRAPHY EXAM DATE: 10/31/2019 01:44 PM HISTORY: LOW BACK PAIN TECHNIQUE: AP, lateral and lateral lumbosacral 3 view exam COMPARISON: SACRUM/COCCYX 10/31/2019 1:38 PM FINDINGS: Moderate convex right scoliosis centered at L2-L3. Straightening of the normal lordosis. No apparent compression fracture. There is diffuse degenerative disk disease, moderate at T12-L1 and L1-L2 and severe at L2-S1. Right lateral translation of L3 on L4 noted. Slight anterior listhesis of L5 on S1. Other: None. IMPRESSION: Limited because of scoliosis. There is moderate convex right scoliosis and multilevel moderate to severe degenerative disk disease. RADIA
--- NOTE | 2019-11-01 17:00 | XRAY Report ---
Reason: COCCYX Procedure Date: 10/31/2019 Accession Number: [id number] / [id number] Procedure: XRS - Sacrum/Coccyx CPT Code: Final Report FULL RESULT: EXAM: SACRUM AND COCCYX RADIOGRAPHY EXAM DATE: 10/31/2019 01:44 PM. HISTORY: Pain COMPARISONS: None. TECHNIQUE: 3 views. FINDINGS: Somewhat limited on the AP view secondary to overlying stool and bowel gas. Grossly intact sacral ala. No misalignment on the lateral view. Normal sacrococcygeal junction. No fracture seen. Lower lumbar spondylosis evident. IMPRESSION: No signal can abnormality of the sacrum or coccyx. RADIA
== END 2019-10-31 13:07 | disposition home or self-care (01) ==
LOC: DI.S 13:06
PROVIDERS: ATTEND Internal Medicine
DX: M51.36 Other intervertebral disc degeneration, lumbar region (principal); M51.37 Other intervertebral disc degeneration, lumbosacral region; M43.17 Spondylolisthesis, lumbosacral region; M51.35 Other intervertebral disc degeneration, thoracolumbar region; M41.9 Scoliosis, unspecified
CPT/HCPCS: 72100; 72220

== ENCOUNTER 2020-01-29 18:25 | Outpatient (CLI) | payer MEDICARE, OTHER | END 2020-01-29 18:26 | disposition critical access hospital (66) | LOC: EMS 18:25 | PROVIDERS: ATTEND Surgery | DX: R07.9 Chest pain, unspecified (principal) | CPT/HCPCS: A0425; A0427 ==

== ENCOUNTER 2020-01-29 18:54 | Emergency (ER) | payer MEDICARE, OTHER ==
--- NOTE | 2020-01-29 19:17 | XRAY Report ---
Reason: Chest Pain Procedure Date: 01/29/2020 Accession Number: [id number] / [id number] Procedure: XR - Chest 1 View X-Ray CPT Code: 76848 Final Report FULL RESULT: EXAM: CHEST RADIOGRAPHY EXAM DATE: 01/29/2020 07:11 PM. CLINICAL HISTORY: Chest Pain. COMPARISON: CHEST 2 VIEW PA/LAT 07/23/2017 8:24 AM. TECHNIQUE: 1 view. FINDINGS: Lungs/Pleura: Biapical scarring is present. No dense consolidation. No large effusion or pneumothorax. No pulmonary edema. Mediastinum: Heart and mediastinal contours are unremarkable. Other: None. IMPRESSION: No acute radiographic pulmonary abnormalities. RADIA
[2020-01-29 19:18] LABS: BASOPHILS % (AUTO) 0.5 %; EOSINOPHILS # (AUTO) 0.1 10^3/uL (0.0-0.7); EOSINOPHILS % (AUTO) 1.7 %; HGB - HEMOGLOBIN 13.5 g/dL (14.0-18.0); LYMPHOCYTES % (AUTO) 17.6 %; MEAN CORPUSCULAR HEMOGLOBIN 33.5 pg (27.0-31.0); MEAN CORPUSCULAR HGB CONC 36.9 g/dL (32.0-36.0); MEAN CORPUSCULAR VOLUME 90.8 fL (80.0-94.0); MEAN PLATELET VOLUME 8.3 fL (7.4-11.4); MONOCYTES # (AUTO) 0.9 10^3/uL (0.0-1.0); MONOCYTES % (AUTO) 15.8 %; NEUTROPHILS # (AUTO) 3.7 10^3/uL (1.5-6.6); NEUTROPHILS % (AUTO) 64.1 %; PLT - PLATELET COUNT 149 10^3/uL (130-450); RED BLOOD COUNT 4.03 10^6/uL (4.70-6.10); RED CELL DISTRIBUTION WIDTH 12.6 % (12.0-15.0); WHITE BLOOD COUNT 5.8 x10^3/uL (4.8-10.8)
[2020-01-29 19:28] LABS: ALBUMIN 3.7 g/dL (3.2-5.5); ALBUMIN/GLOBULIN RATIO 1.3 (1.0-2.2); BILIRUBIN,TOTAL 1.3 mg/dL (0.2-1.0); CALCIUM 8.8 mg/dL (8.5-10.3); CREATININE 0.8 mg/dL (0.6-1.2); TOTAL PROTEIN 6.5 g/dL (6.7-8.2)
[2020-01-29] MEDS ORDERED: ALPRAZolam 0.25 MG TABLET PO STA (19:45)
--- NOTE | 2020-01-29 19:54 | ED Physician Documentation ---
PD HPI CHEST PAIN - Stated complaint Stated Complaint: CP - Chief complaint Chief Complaint: Cardiac - Additional information Additional information: Patient comes emergency department complaining of 2 episodes of chest pain today. He states that the first 1 occurred around noon while he was at rest. The patient states that it was a substernal pain that went across both sides of his chest. He had a pain in his right shoulder, but patient states his right shoulder is been hurting him prior to the episode of chest pain, especially when he lays on it at night. Patient denies any shortness of breath. No diaphoresis. He states that he felt a slight bit of nausea. States the episode in total lasted about 5 minutes and was improved by meditating, which the patient frequently does. After meditating for a few minutes, the pain subsided. Patient states that he had a second episode of same sort of pain around 1730 today which also lasted about 5 minutes at the worst. He states he did try taking 1 of his nitroglycerin, but it did not really seem to help. Patient does note that his nitroglycerin is about 12 years old so he is not sure if it still effective. He states that the pain subsided on its own after a total of 15 min utes. Patient states that he has not had any chest pain or shortness of breath with exertion or other physical activity recently. He has a history of coronary artery disease and had a stent placed in 2001 and another one in around 2013. He states that he sees his representative personal service once every 6 months and that his representative personal service has felt he is doing well. However, the patient does note that the representative personal service did recommend that perhaps the patient should have a follow-up stress test on his next visit. Patient denies any history of hypertension or diabetes. He states his only other medical problem is anxiety, for which he takes Xanax. He does also have chronic sciatica, For which he takes topical cannabis. Patient denies any recent lower extremity edema. He denies any new pain or enlargement of his calves. Patient has not had any fevers or chills recently. No cough. No other complaints at this time. He states he feels normal now. Review of Systems Ten Systems: 10 systems reviewed and negative Constitutional: reports: Reviewed and negative Eyes: reports: Reviewed and negative Ears: reports: Reviewed and negative Nose: reports: Reviewed and negative Throat: reports: Reviewed and negative Cardiac: reports: Chest pain / pressure Respiratory: reports: Reviewed and negative GI: reports: Nausea : reports: Reviewed and negative Skin: reports: Reviewed and negative Musculoskeletal: reports: Reviewed and negative Neurologic: reports: Reviewed and negative Psychiatric: reports: Reviewed and negative Endocrine: reports: Reviewed and negative Immunocompromised: reports: Reviewed and negative PD PAST MEDICAL HISTORY - Past Medical History Past Medical History: Yes Cardiovascular: Hypertension, Coronary artery disease Respiratory: None Endocrine/Autoimmune: None GI: GERD, Hiatal hernia, Colon polyps : Benign prostate hypertrophy, Frequency HEENT: None Psych: None Musculoskeletal: Chronic back pain Derm: None - Past Surgical History Past Surgical History: Yes General: Cholecystectomy, Appendectomy, Colonoscopy Cardiovascular: Coronary stent HEENT: Tonsil/Adenoidectomy - Present Medications Home Medications: Ambulatory Orders Medication Instructions Recorded Confirmed Aspirin [Aspir 81] 81 mg PO DAILY 05/02/13 10/22/17 Red Yeast Rice 600 mg PO DAILY 05/02/13 10/22/17 Melatonin/Pyridoxine [Melatonin 3 1 each PO HS 08/08/13 10/22/17 mg Tablet] Multivitamin [Multivitamins] 1 each PO DAILY 08/08/13 10/22/17 Niacin 500 mg PO DAILY 08/22/13 10/22/17 Selenium 50 mcg PO DAILY 08/22/13 10/22/17 Zinc [Zinc Chelated] 50 mg PO DAILY 08/22/13 10/22/17 ALPRAZolam [Xanax] 0.125 mg PO .PRN PRN 09/01/13 10/22/17 Nitroglycerin [Nitrostat] 0.4 mg SL Q5MIN PRN #1 bottle 07/17/14 10/22/17 lisinopriL [Prinivil] 20 mg PO DAILY #30 tablet 07/17/14 10/22/17 Ketorolac [Toradol] 10 mg PO Q6H #20 tablet 07/26/17 10/22/17 Tamsulosin [Flomax] 0.4 mg PO DAILY #30 capsule 07/26/17 10/22/17 Chlorthalidone 25 mg PO DAILY 10/22/17 10/22/17 Meclizine [Antivert] 25 mg PO Q6H PRN #20 tablet 10/22/17 Potassium Chloride 10 meq PO DAILY #15 tablet.er 10/22/17 hydroCHLOROthiazide 25 mg PO DAILY #30 tablet 10/22/17 [Hydrochlorothiazide] Nitroglycerin [Nitrostat] 0.4 mg SL Q5MIN PRN #20 tab.subl 01/29/20 - Allergies Allergies/Adverse Reactions: Allergies Allergy/AdvReac Type Severity Reaction Status Date / Time atorvastatin calcium * Allergy Mild MUSCLE PAIN Verified 01/29/20 19:01 [From Lipitor] - Social History Does the pt smoke?: No Smoking Status: Never smoker Does the pt drink ETOH?: Yes Does the pt have substance abuse?: No - Immunizations Immunizations are current?: Yes - POLST Patient has POLST: No PD ED PE NORMAL - Vitals Vital signs reviewed: Yes - General General: Alert 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, No acute distress, Well developed/nourished - HEENT HEENT: Atraumatic, PERRL, EOMI, Moist mucous membranes - Neck Neck: Supple, no meningeal sign - Cardiac Cardiac: RRR, No murmur, Strong equal pulses - Respiratory Respiratory: No respiratory distress, Clear bilaterally - Abdomen Abdomen: Soft, Non tender, Non distended - Derm Derm: Normal color, Warm and dry, No rash - Extremities Extremities: No deformity, No tenderness to palpate, No edema, No calf tenderness / cord - Neuro Neuro: Alert 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, uc architect 2-12 intact, No motor deficit, Normal speech, Other (Grossly normal) - Psych Psych: Normal mood, Normal affect Results - Vitals Vitals: Vital Signs - 24 hr 01/29/20 01/29/20 01/29/20 19:01 19:16 20:07 Temperature 36.6 C Heart Rate 86 79 74 Respiratory 16 16 15 Rate Blood Pressure 117/74 115/74 O2 Saturation 99 100 100 01/29/20 01/29/20 21:13 22:30 Temperature 36.3 C L Heart Rate 82 77 Respiratory 15 13 Rate Blood Pressure 118/84 H 136/92 H O2 Saturation 99 100 Oxygen O2 Source Room air - EKG (time done) 1900 Rate: Rate (enter#) (84) Rhythm: NSR [place]: Normal Intervals: Prolonged UT QRS: Normal Ischemia: Normal ST segments, Non specific changes Compare to prior EKG: Old EKG unavailable Computer interpretation: Agree with computer - Labs Labs: Laboratory Tests 04/01/29/20 01/29/20 19:09 19:09 19:09 WBC 5.8 RBC 4.03 L Hgb 13.5 L Hct 36.6 L MCV 90.8 MCH 33.5 H MCHC 36.9 H RDW 12.6 Plt Count 149 MPV 8.3 Neut # (Auto) 3.7 Lymph # (Auto) 1.0 L [place] # (Auto) 0.9 Eos # (Auto) 0.1 Baso # (Auto) 0.0 Absolute Nucleated RBC 0.00 Nucleated RBC % 0.0 Sodium 130 L Potassium 2.9 L Chloride 92 L Carbon Dioxide 29 Anion Gap 9.0 BUN 16 Creatinine 0.8 Estimated GFR (MDRD) 92 Glucose 110 H Calcium 8.8 Total Bilirubin 1.3 H AST 29 ALT 21 Alkaline Phosphatase 53 Troponin I High Sens 5.6 Total Protein 6.5 L Albumin 3.7 Globulin 2.8 Albumin/Globulin Ratio 1.3 Lipase 37 01/29/20 21:36 WBC RBC Hgb Hct MCV MCH MCHC RDW Plt Count MPV Neut # (Auto) Lymph # (Auto) [place] # (Auto) Eos # (Auto) Baso # (Auto) Absolute Nucleated RBC Nucleated RBC % Sodium Potassium Chloride Carbon Dioxide Anion Gap BUN Creatinine Estimated GFR (MDRD) Glucose Calcium Total Bilirubin AST ALT Alkaline Phosphatase Troponin I High Sens 6.2 Total Protein Albumin Globulin Albumin/Globulin Ratio Lipase - Rads (name of study) Chest x-ray Radiology: Final report received, EMP read indepedently, See rad report (Nega tive chest x-ray.) PD MEDICAL DECISION MAKING - ED course Complexity details: reviewed old records, reviewed results, re-evaluated pat ient, considered differential, d/w patient ED course: Patient was asymptomatic in the emergency department, but did have the history of coronary artery disease. As such, I feel he should be worked up for this, along with other potential causes of his chest pain. To this end, EKG, chest x- ray, and labs were obtained. Patient reported feeling somewhat anxious, and was given his normal dose of Xanax in the emergency department. Patient's work-up was negative, including a repeat troponin. The patient reported feeling much better after the Xanax. We discussed that the patient does have a history of coronary artery disease, and may be having angina. However, there are also other potential causes of the chest pain. I have advised the patient that he will need to follow-up with his primary care physician or cardiology, whomever he Is able to see soonest, and should have a stress test and follow-up. I have re-prescribed nitroglycerin for the patient, which he may take as needed according to instructions if he has further episodes of chest pain. We have also discussed the usual indications for return. Departure - Departure Disposition: 01 Home, Self Care Clinical Impression: Anxiety Chest pain Qualifiers: Chest pain type: unspecified Qualified Code(s): R07.9 - Chest pain, unspecified Condition: Stable Instructions: ED Chest Pain Atypical Unkn Cause Prescriptions: Nitroglycerin [Nitrostat] 0.4 mg SL Q5MIN PRN #20 tab.subl PRN Reason: Chest Pain Comments: Your labs, EKG, and chest x-ray all look good. Your repeat cardiac labs did not change significantly in the interval. Given your history of coronary artery disease, it is important that you follow-up with your primary doctor and representative personal service to discuss whether further testing, such as stress test, should be done. Please call tomorrow, first thing, to schedule this follow-up. If you have another episode of the chest pain you experienced today, you may take the nitroglycerin, as directed. If you develop worsening chest pain that does not resolve with the nitroglycerin, especially if associated with shortness of breath, nausea, and facial sweating, please return to the emergency department right away. Discharge Date/Time: 01/29/20 22:50
[2020-01-29] MEDS ORDERED: POTASSIUM CHLORIDE 20 MEQ TABLET PO STA (20:02)
[2020-01-29 22:31] VITALS: BP 136/92
== END 2020-01-29 22:50 | disposition home or self-care (01) ==
LOC: EDUNIT# → ED 18:54
DX: R07.9 Chest pain, unspecified (principal); F41.9 Anxiety disorder, unspecified; I25.10 Atherosclerotic heart disease of native coronary artery without angina pectoris; K21.9 Gastro-esophageal reflux disease without esophagitis; K44.9 Diaphragmatic hernia without obstruction or gangrene; G89.29 Other chronic pain; M54.9 Dorsalgia, unspecified; Z79.82 Long term (current) use of aspirin; Z95.5 Presence of coronary angioplasty implant and graft
CPT/HCPCS: 36415; 71045; 80053; 83690; 84484; 85025; 93005; 99284; A9270

== ENCOUNTER 2020-03-09 01:00 | Outpatient (CLI) | payer MEDICARE, OTHER | END 2020-03-09 01:01 | disposition critical access hospital (66) | LOC: EMS 01:00 | PROVIDERS: ATTEND Surgery | DX: M25.551 Pain in right hip (principal); S01.411A Laceration without foreign body of right cheek and temporomandibular area, initial encounter; W01.190A Fall on same level from slipping, tripping and stumbling with subsequent striking against furniture, initial encounter; Y92.003 Bedroom of unspecified non-institutional (private) residence as the place of occurrence of the external cause | CPT/HCPCS: A0425; A0427 ==

== ENCOUNTER 2020-03-09 02:14 | Inpatient (IN) | payer MEDICARE, OTHER ==
--- NOTE | 2020-03-09 02:13 | ED Physician Documentation ---
PD HPI LOWER EXT INJURY - Stated complaint Stated Complaint: GLF, RIGHT HIP PAIN - History obtained from History obtained from: Patient, EMS - History of Present Illness PD HPI LOW EXT INJURY LOCATION: Right, Hip Type of injury: Fall Where injury occurred: Home Timing - onset: How many minutes ago (approximately 30-40 minutes [employer] REMOVAL) Timing - details: Abrupt onset Pain level max: 8 Pain level now: 5 Improved by: Rest, Immobilization, Meds (IV fentanyl 100mcg en route by medics with improvement) Worsened by: Moving, Palpating Associated symptoms: No: Weakness, Numbness, Tingling, Swelling, Discolored Contributing factors: No: Anticoagulated, Prior ortho surgery Similar symptoms before: Has not had sx before Recently seen: Not recently seen - Additional information Additional information: tripped and fell on the way from bedroom to bathroom tonight, c/o sudden onset right hip pain when he fell. He also struck his face on furniture but denies MCNAMARA and denies LOC. He also denies neck pain. Review of Systems Constitutional: reports: Reviewed and negative Eyes: reports: Reviewed and negative Ears: reports: Reviewed and negative Nose: reports: Reviewed and negative Throat: reports: Reviewed and negative Cardiac: reports: Reviewed and negative Respiratory: reports: Reviewed and negative GI: reports: Reviewed and negative : denies: Dysuria, Frequency Skin: reports: Reviewed and negative Musculoskeletal: reports: Joint pain (right hip). denies: Neck pain, Back pain Neurologic: reports: Head injury. denies: Generalized weakness, Focal weakness, Numbness, Near syncope, Syncope, Altered mental status, Headache, LOC PD PAST MEDICAL HISTORY - Past Medical History Past Medical History: Yes Cardiovascular: Hypertension, Coronary artery disease : Benign prostate hypertrophy - Past Surgical History Past Surgical History: Yes General: Cholecystectomy, Appendectomy Cardiovascular: Coronary stent - Present Medications Home Medications: Ambulatory Orders Medication Instructions Recorded Confirmed Aspirin [Aspir 81] 81 mg PO DAILY 05/02/13 03/09/20 Red Yeast Rice 600 mg PO DAILY 05/02/13 03/09/20 Melatonin/Pyridoxine [Melatonin 3 1 each PO HS 08/08/13 03/09/20 mg Tablet] Multivitamin [Multivitamins] 1 each PO DAILY 08/08/13 03/09/20 Niacin 500 mg PO DAILY 11/08/13 05/26/20 Selenium 50 mcg PO DAILY 08/22/13 03/09/20 Zinc [Zinc Chelated] 50 mg PO DAILY 08/22/13 03/09/20 Tamsulosin [Flomax] 0.4 mg PO DAILY #30 capsule 07/26/17 03/09/20 Potassium Chloride 10 meq PO DAILY #15 tablet.er 10/22/17 03/09/20 hydroCHLOROthiazide 25 mg PO DAILY #30 tablet 10/22/17 03/09/20 [Hydrochlorothiazide] ALPRAZolam [Alprazolam] 0.125 mg PO DAILY PRN 03/09/20 03/09/20 buPROPion [Wellbutrin Xl] 150 mg PO DAILY 03/09/20 03/09/20 - Allergies Allergies/Adverse Reactions: Allergies Allergy/AdvReac Type Severity Reaction Status Date / Time atorvastatin calcium * Allergy Mild MUSCLE PAIN Verified 03/09/20 02:30 [From Lipitor] - Living Situation Living Situation: reports: With spouse/s.o. Living Arrangement: reports: At home - Social History Does the pt smoke?: No PD ED PE NORMAL - Vitals Vital signs reviewed: Yes - General General: Alert 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, No acute distress (NAD at rest but painful distress with movement involving RLE), Well developed/nourished - HEENT HEENT: PERRL, EOMI, Moist mucous membranes - Neck Neck: No bony TTP - Cardiac Cardiac: RRR, No murmur, No gallop, No rub - Respiratory Respiratory: No respiratory distress, Clear bilaterally - Abdomen Abdomen: Soft, Non tender - Derm Derm: Normal color (except small echymosis on right side of face as noted), Warm and dry - Extremities Extremities: Other (RLE is foreshortened, externally rotated. LTS intact and brisk capillary refill in right toes, strong right DP pulse) - Neuro Neuro: Alert 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, crystal syrup maker 2-12 intact, Normal speech Eye Opening: Spontaneous Motor: Obeys Commands Verbal: Oriented GCS Score: 15 PD ED PE EXPANDED - HEENT HEENT Visual: 1 - bruising (small (2-3 mm length) linear skin tear) - Extremities Extremities: Tenderness, Limited ROM, Right hip Results - Vitals Vitals: Vital Signs - 24 hr 03/09/20 03/09/20 02:15 02:53 Temperature 36.7 C Heart Rate 81 87 Respiratory 18 16 Rate Blood Pressure 140/89 H 160/84 H O2 Saturation 100 99 Oxygen O2 Source Room air - Labs Labs: Laboratory Tests 03/09/20 03/09/20 03/09/20 02:46 02:46 02:46 WBC 6.5 RBC 3.77 L Hgb 12.4 L Hct 34.4 L MCV 91.2 MCH 32.9 H MCHC 36.0 RDW 12.6 Plt Count 137 MPV 8.5 Neut # (Auto) 4.5 Lymph # (Auto) 0.8 L Gilliam # (Auto) 0.8 Eos # (Auto) 0.4 Baso # (Auto) 0.0 Absolute Nucleated RBC 0.00 Nucleated RBC % 0.0 PT 13.1 H INR 1.2 Sodium 131 L Potassium 3.0 L Chloride 93 L Carbon Dioxide 26 Anion Gap 12.0 BUN 19 Creatinine 0.8 Estimated GFR (MDRD) 92 Glucose 159 H Calcium 8.8 Magnesium Urine Color Urine Clarity Urine pH Ur Specific [place] Urine Protein Urine Glucose (UA) Urine Ketones Urine Occult Blood Urine Nitrite Urine Bilirubin Urine Urobilinogen Ur Leukocyte Esterase Ur Microscopic Review Urine Culture Comments 03/09/20 03/09/20 02:46 03:16 WBC RBC Hgb Hct MCV MCH MCHC RDW Plt Count MPV Neut # (Auto) Lymph # (Auto) Gilliam # (Auto) Eos # (Auto) Baso # (Auto) Absolute Nucleated RBC Nucleated RBC % PT INR Sodium Potassium Chloride Carbon Dioxide Anion Gap BUN Creatinine Estimated GFR (MDRD) Glucose Calcium Magnesium 2.1 Urine Color YELLOW Urine Clarity CLEAR Urine pH 7.5 Ur Specific [place] 1.015 Urine Protein NEGATIVE Urine Glucose (UA) NEGATIVE Urine Ketones NEGATIVE Urine Occult Blood NEGATIVE Urine Nitrite NEGATIVE Urine Bilirubin NEGATIVE Urine Urobilinogen 1 (NORMAL) Ur Leukocyte Esterase NEGATIVE Ur Microscopic Review NOT INDICATED Urine Culture Comments NOT INDICATED - Rads (name of study) right hip w/pelvis xrays Radiology: Prelim report reviewed, See rad report cxr Radiology: Prelim report reviewed, See rad report PD MEDICAL DECISION MAKING - ED course Complexity details: reviewed results, re-evaluated patient, considered differential, d/w patient ED course: D/W Dr. Mir, recommends admission to hospitalist service w/ ortho consult. D/W Dr. Bansal, will admit to hospitalist service. Departure - Departure Disposition: [facility] DC/Xfer Clinical Impression: Hip fracture, right Qualifiers: Encounter type: initial encounter Fracture type: closed Qualified Code(s): S72.001A - Fracture of unspecified part of neck of right femur, initial encounter for closed fracture Condition: Stable Discharge Date/Time: 03/09/20 04:50
[2020-03-09] MEDS ORDERED: SODIUM CHLORIDE 0.9% 1,000 ML IV STA (02:36)
--- NOTE | 2020-03-09 03:02 | XRAY Report ---
Reason: fall, pain, deformity Procedure Date: 03/09/2020 Accession Number: [id number] / [id number] Procedure: XR - Hip w/Pelvis 2-3V RT CPT Code: Final Report FULL RESULT: EXAM: RIGHT HIP RADIOGRAPHY EXAM DATE: 03/09/2020 02:52 AM. CLINICAL HISTORY: Fall, right hip pain, deformity. COMPARISON: LUMBAR SPINE 2 VIEW 10/31/2019 1:49 PM ABDOMEN/PELVIS W/ 07/22/2017 5:58 PM. TECHNIQUE: AP pelvis and 2 views right hip. FINDINGS: Bones: Moderately displaced and comminuted intertrochanteric right proximal femur fracture. No other fracture seen. Joints: Normal. No dislocation. The hip joint space is preserved. Soft Tissues: Normal. No soft tissue swelling. IMPRESSION: Moderately displaced and comminuted intertrochanteric right proximal femur fracture. RADIA
[2020-03-09 03:03] LABS: CALCIUM 8.8 mg/dL (8.5-10.3); CREATININE 0.8 mg/dL (0.6-1.2)
--- NOTE | 2020-03-09 03:05 | XRAY Report ---
Reason: chest pain Procedure Date: 03/09/2020 Accession Number: [id number] / [id number] Procedure: XR - Chest 1 View X-Ray CPT Code: 35297 Final Report FULL RESULT: EXAM: CHEST RADIOGRAPHY EXAM DATE: 03/09/2020 02:54 AM. CLINICAL HISTORY: Chest pain. COMPARISON: CHEST 1 VIEW 01/29/2020 6:52 PM CHEST W/O 06/15/2017 3:11 PM. TECHNIQUE: 1 view. FINDINGS: Lungs/Pleura: No focal opacities evident with exception of mild biapical scarring. No pleural effusion. No pneumothorax. Mediastinum: Within exam limitations, the cardiomediastinal contour is normal. Other: None. IMPRESSION: Stable negative single view chest. RADIA
[2020-03-09 03:16] LABS: BASOPHILS % (AUTO) 0.3 %; EOSINOPHILS # (AUTO) 0.4 10^3/uL (0.0-0.7); EOSINOPHILS % (AUTO) 6.4 %; HGB - HEMOGLOBIN 12.4 g/dL (14.0-18.0); LYMPHOCYTES # (AUTO) 0.8 10^3/uL (1.5-3.5); LYMPHOCYTES % (AUTO) 11.5 %; MEAN CORPUSCULAR HEMOGLOBIN 32.9 pg (27.0-31.0); MEAN CORPUSCULAR VOLUME 91.2 fL (80.0-94.0); MEAN PLATELET VOLUME 8.5 fL (7.4-11.4); MONOCYTES # (AUTO) 0.8 10^3/uL (0.0-1.0); NEUTROPHILS # (AUTO) 4.5 10^3/uL (1.5-6.6); NEUTROPHILS % (AUTO) 68.9 %; PLT - PLATELET COUNT 137 10^3/uL (130-450); RED BLOOD COUNT 3.77 10^6/uL (4.70-6.10); RED CELL DISTRIBUTION WIDTH 12.6 % (12.0-15.0); WHITE BLOOD COUNT 6.5 x10^3/uL (4.8-10.8)
[2020-03-09] MEDS ORDERED: fentaNYL 100 MCG/2 ML VIAL IVP STA ×2 (03:16→04:42)
[2020-03-09 03:19] LABS: BILIRUBIN,URINE NEGATIVE (NEGATIVE); GLUCOSE, URINE (UA) NEGATIVE (NEGATIVE); KETONES,URINE (UA) NEGATIVE (NEGATIVE); LEUKOCYTE ESTERASE, URINE NEGATIVE (NEGATIVE); NITRITE,URINE NEGATIVE (NEGATIVE); OCCULT BLOOD,URINE NEGATIVE (NEGATIVE); PH,URINE 7.5 PH (5.0-7.5); PROTEIN,URINE NEGATIVE (NEGATIVE); UROBILINOGEN,URINE 1 (NORMAL) E.U./dL (NORMAL)
[2020-03-09 03:22] LABS: CLARITY,URINE CLEAR (CLEAR)
[2020-03-09] MEDS ORDERED: SODIUM CHLORIDE FLUSH 0.9% 10 ML SYRINGE IVP PRN ×2 (03:47→15:53)
[2020-03-09] MEDS ORDERED: HYDROcod/ACETAM 5/325 MG TABLET PO PRN (03:47)
[2020-03-09] MEDS ORDERED: SODIUM CHLORIDE 0.9% 1,000 ML IV SCH (04:00)
--- NOTE | 2020-03-09 04:08 | HISTORY & PHYSICAL EXAMINATION ---
Chief Complaint - Chief Complaint Chief Complaint: s/p mechanical fall History of Present Illness - Admitted From Admitted From:: [facility] ED - History Obtained From Records Reviewed: yes History obtained from: patient - History of Present Illness HPI Comment/Other: Patient is an 84-year-old male who presented to the ED via EMS after a mechan ical fall at home this morning. He was getting out of bed to go to the bathroom when his right leg suddenly gave out under him causing him to fall. He hit his head but does not remember if he blacked out. The fall was not witnessed. Normally he gets around using a cane. He recently had an operation to relieve a pinch of the sciatic nerve. This was done at [facility] in [facility] on February 11, 2020. He returned to [facility] 2 weeks ago. This was the second back surgery done there. His leg has been giving out the past couple of days.In the ED he had a CT scanning of the hip and pelvis which showed a moderately displaced and comminuted intertrochanteric right proximal femur fracture. As a result he was presented for admission for further treatment. Dr. Mir with the orthopedic service was consulted and will see the patient later this morning. He was given 100 mcg of fentanyl by EMS and an additional 50 mcg in the ED. Currently he rates his pain 4 out of 10. He denies any chest pain, dyspnea, abdominal pain, nausea, vomiting, fever or chills. History - Past Medical History Cardiovascular: reports: Hypertension, Coronary artery disease Respiratory: reports: None Endocrine/Autoimmune: reports: None GI: reports: GERD : reports: Benign prostate hypertrophy HEENT: reports: Other (cataract (right)) Psych: reports: Anxiety Musculoskeletal: reports: Chronic back pain Derm: reports: None MRSA Hx?: No - Past Surgical History General: reports: Cholecystectomy, Appendectomy Ortho: reports: Other (lower back surgery) Cardiovascular: reports: Coronary stent HEENT: reports: Tonsil/Adenoidectomy Other past surgical history: TURP, Zenker's diverticulum repair, colonoscopy in 2013 showing benign rectal polyp, left inguinal hernia repair - Family & Social History Family History: Father: Cancer (prostate), Diabetes, Type 2 Family History Comment/Other: mother: dementia. maternal uncle: a hermorrhagic CVA. one daughter: a congenital heart anomaly Living arrangement: At home Living Situation: With spouse/s.o. Social History Notes: He is . Has 3 children. 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 He never smoked. He drinks alcohol socially. He does not use any recreational substances. He lives at home with his . - POLST Patient has POLST: No POLST Status: Full Code Meds/Allgy - Home Medications Home Medications: Ambulatory Orders Medication Instructions Recorded Confirmed Aspirin [Aspir 81] 81 mg PO DAILY 05/02/13 03/09/20 Red Yeast Rice 600 mg PO DAILY 05/02/13 03/09/20 Melatonin/Pyridoxine [Melatonin 3 1 each PO HS 08/08/13 03/09/20 mg Tablet] Multivitamin [Multivitamins] 1 each PO DAILY 08/08/13 03/09/20 Niacin 500 mg PO DAILY 08/22/13 03/09/20 Selenium 50 mcg PO DAILY 08/22/13 03/09/20 Zinc [Zinc Chelated] 50 mg PO DAILY 08/22/13 03/09/20 Tamsulosin [Flomax] 0.4 mg PO DAILY #30 capsule 07/26/17 03/09/20 Potassium Chloride 10 meq PO DAILY #15 tablet.er 10/22/17 03/09/20 hydroCHLOROthiazide 25 mg PO DAILY #30 tablet 10/22/17 03/09/20 [Hydrochlorothiazide] ALPRAZolam [Alprazolam] 0.125 mg PO DAILY PRN 03/09/20 03/09/20 buPROPion [Wellbutrin Xl] 150 mg PO DAILY 03/09/20 03/09/20 - Allergies Allergies/Adverse Reactions: Allergies Allergy/AdvReac Type Severity Reaction Status Date / Time atorvastatin calcium * Allergy Mild MUSCLE PAIN Verified 03/09/20 02:30 [From Lipitor] Review of Systems - Constitutional Constitutional: denies: Fatigue, Fever, Chills - Eyes Eyes: denies: Pain - Ears, Nose & Throat Ears, Nose & Throat: reports: Hearing aids - Cardiovascular Cariovascular: denies: Irregular heart rate, Palpitations, Chest pain, Edema - Respiratory Respiratory: denies: Cough, Sputum production, Wheezing, SOB at rest - Gastrointestinal Gastrointestinal: denies: Abdominal pain, Abdominal distention, Nausea, Vomiting - Genitourinary Genitourinary: denies: Dysuria, Frequency, Urgency, Hematuria - Musculoskeletal Musculoskeletal: reports: Back pain - Integumentary Integumentary: denies: Rash, Pruritis, Lesions - Neurological Neurological: denies: Focal weakness, Dizziness - Psychiatric Psychiatric: reports: Anxiety. denies: Depression - Endocrine Endocrine: denies: Polyuria, Polydypsia - Hematologic/Lymphatic Hematologic/Lymphatic: denies: Anemia, Bruising, Petechiae Prior Level of Functionality: Patient is independent of activities of daily living. She gets around with a cane. Exam - Vital Signs Vital Signs: Vital Signs x48h Temp Pulse Resp BP Pulse Ox 03/09/20 03:56 36.5 C 91 18 173/88 H 98 03/09/20 02:53 87 16 160/84 H 99 03/09/20 02:15 36.7 C 81 18 140/89 H 100 - Physical Exam General Appearance: positive: Alert, Moderate distress, Other (small hematoma on right jaw) Eyes Bilateral: positive: PERRL, EOMI ENT: positive: No signs of dehydration Neck: positive: No JVD, Trachea midline Respiratory: positive: Chest non-tender, No respiratory distress, Breath sounds nml. negative: Wheezes, Rales, Rhonchi Cardiovascular: positive: Regular rate & rhythm Abdomen: positive: Non-tender, No organomegaly, Nml bowel sounds, No distention. negative: Guarding, Rebound Skin: positive: Other (small hematoma on right jaw) Extremities: positive: No pedal edema, Other (painful right hip) Neurologic/Psychiatric: positive: Oriented x3, Mood/affect nml Conclusion/Plan - Problem List (1) Hip fracture, right Conclusion/Plan: It is a moderately displaced and comminuted intertrochanteric right proximal femur fracture. Patient has already received a total of 150 mcg of fentanyl between EMS and the ED. Dilaudid ordered IV as needed. [place] ordered as needed for moderate pain. Patient is n.p.o. except for meds. IV hydration with normal saline and [address] Mir with orthopedic surgery has been consulted. Chest x-ray was unremarkable. 12-lead EKG pending. In light of the fact that patient recently had back surgery within the past month and there has not been no change in his medical status he is optimized for surgery. Qualifiers: Encounter type: initial encounter Fracture type: closed Qualified Code(s): S72.001A - Fracture of unspecified part of neck of right femur, initial encounter for closed fracture (2) History of coronary artery disease Conclusion/Plan: Patient takes a baby aspirin daily, Niacin and Red Yeast Rice (3) Anxiety Conclusion/Plan: Alprazolam 0.125 mg p.o. daily (4) Hypertension Conclusion/Plan: Patient takes HCTZ (5) BPH (benign prostatic hyperplasia) Conclusion/Plan: On tamsulosin (6) Hypokalemia Conclusion/Plan: Will replace and recheck. We will also check magnesium level - Lab Results Fish Bones: 03/09/20 02:46 03/09/20 02:46 Core Measures - Anticipated LOS I expect patient to be DC'd or transferred within 96 hours.: Yes - DVT/VTE - Prophylaxis VTE/DVT Device ordered at admit?: Yes
[2020-03-09] MEDS ORDERED: POTASSIUM CHLORIDE 20 MEQ TABLET PO STA (04:28)
[2020-03-09 04:39] LABS: INR 1.2 (0.8-1.2); PT - PROTHROMBIN TIME 13.1 secs (9.9-12.6)
--- NOTE | 2020-03-09 04:52 | CT Report ---
Reason: s/p fall. Hit head Procedure Date: 03/09/2020 Accession Number: [id number] / [id number] Procedure: CT - HEAD WO CPT Code: Final Report FULL RESULT: EXAM: CT HEAD EXAM DATE: 03/09/2020 04:36 AM. CLINICAL HISTORY: Head pain, fall. COMPARISON: HEAD 04/01/2007 1:56 PM. TECHNIQUE: Multiaxial CT images were obtained from the foramen magnum to the vertex. Reformats: Sagittal and coronal. IV contrast: None. In accordance with CT protocol optimization, one or more of the following dose reduction techniques were utilized for this exam: automated exposure control, adjustment of mA and/or KV based on patient size, or use of iterative reconstructive technique. FINDINGS: Parenchyma: No intraparenchymal hemorrhage. No evidence of mass, midline shift, or CT findings of acute infarction. Hooper-white differentiation is distinct. Moderate diffuse chronic microangiopathic white matter changes are evident, progressed compared to the prior CT. Extraaxial Spaces: Normal for age. No subdural or epidural collections identified. Ventricles: The ventricles and cortical sulci are moderately enlarged, consistent with age-related tissue loss. These findings have also progressed compared to the prior CT. Sinuses and orbits: Postsurgical changes from a cataract extraction are noted in the right globe. A few tiny mucous retention cysts are noted in the maxillary sinuses. The mastoid sinuses are clear. Bones: No evidence of fracture or calvarial defect. Other: Extensive intracranial atherosclerosis is present. IMPRESSION: 1. Progressed cerebral volume loss and chronic microvascular ischemic changes compared to the brain CT from 04/01/2007. 2. Otherwise, no acute intracranial process identified. RADIA
--- NOTE | 2020-03-09 04:55 | CT Report ---
Reason: fall Procedure Date: 03/09/2020 Accession Number: [id number] / [id number] Procedure: CT - CERVICAL SPINE WO CPT Code: Final Report FULL RESULT: EXAM: CT CERVICAL SPINE WITHOUT CONTRAST DATE: 03/09/2020 04:36 AM. HISTORY: Pain after injury. COMPARISONS: None. TECHNIQUE: Thin-section axial images were acquired of the cervical spine without contrast. Post-processing: Coronal and sagittal reformats. Other: None. In accordance with CT protocol optimization, one or more of the following dose reduction techniques were utilized for this exam: automated exposure control, adjustment of mA and/or KV based on patient size, or use of iterative reconstructive technique. FINDINGS: Alignment: There is about 2 mm degenerative spondylolisthesis at C5-C6 and C7-T1. No scoliosis. Bones: Osteopenia. No acute fracture seen in the cervical spine. Interspace Levels/Facets: Multilevel degenerative disk disease, especially C3-C7. Multilevel degenerative joint disease in the facet joints. There is uncovertebral joint spurring at several levels with foraminal stenosis. Other: No prevertebral soft tissue swelling. Bilateral carotid artery calcifications. Biapical scarring is noted. IMPRESSION: 1. No acute fracture or dislocation seen. 2. Multilevel degenerative disk disease and degenerative joint disease. 3. Bilateral carotid artery calcifications. RADIA
[2020-03-09] MEDS: POTASSIUM CHLOR 10 MEQ/100 ML 10 MEQ/100 ML BAG IV SCH ×4 (05:17→08:49)
[2020-03-09] MEDS: HYDROmorphone 0.5 MG/0.5 ML SYRINGE IVP PRN ×3 (07:37→12:38)
--- NOTE | 2020-03-09 08:34 | ANESTHESIA ---
Pre-Anesthesia VS, & Labs - Diagnosis right hip fracture - Procedure right hip nailing Vital Signs: Temp Pulse Resp BP Pulse Ox 36.8 C 87 18 116/68 98 03/09/20 07:50 03/09/20 07:50 03/09/20 07:50 03/09/20 07:50 03/09/20 07:50 Height 5 ft 8 in Weight (kg) 69 kg Body Mass Index 23.1 - NPO >8 hours - Lab Results Current Lab Results: Laboratory Tests 03/09/20 02:46: Magnesium 2.1 03/09/20 02:46: PT 13.1 H, INR 1.2 03/09/20 02:46: Sodium 131 L, Potassium 3.0 L, Chloride 93 L, Carbon Dioxide 26, Anion Gap 12.0, BUN 19, Creatinine 0.8, Estimated GFR (MDRD) 92, Glucose 159 H, Calcium 8.8 03/09/20 02:46: WBC 6.5, RBC 3.77 L, Hgb 12.4 L, Hct 34.4 L, MCV 91.2, MCH 32.9 H, MCHC 36.0, RDW 12.6, Plt Count 137, MPV 8.5, Neut # (Auto) 4.5, Lymph # (Auto) 0.8 L, [place] # (Auto) 0.8, Eos # (Auto) 0.4, Baso # (Auto) 0.0, Absolute Nucleated RBC 0.00, Nucleated RBC % 0.0 Fish Bones: 03/09/20 02:46 03/09/20 02:46 Home Medications and Allergies Home Medications: Ambulatory Orders ALPRAZolam [Alprazolam] 0.125 mg PO DAILY PRN 03/09/20 buPROPion [Wellbutrin Xl] 150 mg PO DAILY 03/09/20 Active Medications Hydrocodone Bitart/Acetaminophen ([place] 5/325) 1 tab PO Q4HR PRN PRN Reason: Pain 5 to 7 Hydromorphone HCl (Dilaudid Inj Syringe) 0.5 mg IVP Q2H PRN PRN Reason: Pain 8 to 10 Last Admin: 03/09/20 07:37 Dose: 0.5 mg Sodium Chloride (Normal Saline 0.9%) 1,000 mls @ 150 mls/hr IV .Q6H40M STA Stop: 03/09/20 09:15 Last Infusion: 03/09/20 05:15 Dose: 100 mls/hr Sodium Chloride (Normal Saline 0.9%) 1,000 mls @ 100 mls/hr IV .Q10H MAYRA Potassium Chloride (Potassium Chloride) 10 meq in 100 mls @ 100 mls/hr IV Q1H MAYRA Stop: 03/09/20 08:59 Last Admin: 03/09/20 07:37 Dose: 90 mls/hr Sodium Chloride (Normal Saline Flush 0.9%) 10 ml IVP PRN PRN PRN Reason: NEEDED PER PROVIDER ORDERS Sodium Chloride (Normal Saline Flush 0.9%) 10 ml IVP 0100,0900,1700 MAYRA Aspirin [Aspir 81] 81 mg PO DAILY 05/02/13 Red Yeast Rice 600 mg PO DAILY 05/02/13 Melatonin/Pyridoxine [Melatonin 3 mg Tablet] 1 each PO HS 08/08/13 Multivitamin [Multivitamins] 1 each PO DAILY 08/08/13 Niacin 500 mg PO DAILY 08/22/13 Selenium 50 mcg PO DAILY 08/22/13 Zinc [Zinc Chelated] 50 mg PO DAILY 08/22/13 ALPRAZolam [Alprazolam] 0.125 mg PO DAILY PRN 03/09/20 buPROPion [Wellbutrin Xl] 150 mg PO DAILY 03/09/20 Allergies/Adverse Reactions: Allergies Allergy/AdvReac Type Severity Reaction Status Date / Time atorvastatin calcium * Allergy Mild MUSCLE PAIN Verified 03/09/20 02:30 [From Lipitor] Anes History & Medical History - Anesthetic History Anesthesia Complications: reports: No previous complications Family history of Anesthesia Complications: Denies Family history of Malignant Hyperthermia: Denies - Medical History Cardiovascular: reports: Hypertension, Coronary artery disease (two coronary stents) Pulmonary: reports: None Gastrointestinal: reports: GERD Urinary: reports: Benign prostate hypertrophy Neuro: reports: None Musculoskeletal: reports: Chronic back pain Endocrine/Autoimmune: reports: None Blood Disorders: reports: None Skin: reports: None Smoking Status: Never smoker Psychosocial: reports: Depression, Anxiety - Surgical History General: Cholecystectomy, Appendectomy Eyes Ears Nose Throat (EENT): Tonsil/Adenoidectomy Cardiothoracic: Coronary stent Orthopedic: Other (lower back surgery) Other Past Surgical History: TURP, Zenker's diverticulum repair, colonoscopy in 2013 showing benign rectal polyp, left inguinal hernia repair Exam General: Alert, Oriented x3, Cooperative, No acute distress Dental: WNL Mouth Openin Fingerbreadth Mallampati classification: III Thyromental Distance: less than 4 cm Respiratory: Lungs clear, Normal breath sounds, No respiratory distress, No accessory muscle use Cardiovascular: Regular rate, Normal S1, Normal S2, Other (murmur) Abdomen: Normal bowel sounds, Soft, No tenderness, No hepatospenomegaly, No masses Extremities: No clubbing, No cyanosis, No edema, Normal pulses, No tenderness/swelling Neurological: Normal gait, Normal speech, Strength at 5/5 X4 ext, Normal tone, Sensation intact, Cranial nerves 3-12 NL, Reflexes 2+ Mental/Cognitive Status: Alert/Oriented X3, Normal for patient Cognitive Status: Within normal limits Plan Anesthesia Type: General, Fascia Iliaca Block Regional Block: Per Surgeon's request for Post Op pain control Consent for Procedure(s) Verified and Reviewed: Yes Code Status: Attempt Resuscitation ASA classification: 3-Severe systemic disease Is this case an emergency?: Yes
[2020-03-09] MEDS ORDERED: SODIUM CHLORIDE FLUSH 0.9% 10 ML SYRINGE IVP SCH (09:00)
--- NOTE | 2020-03-09 09:04 | PHARMACY PROGRESS NOTE ---
- Best Possible Medication History Admit Date and Time: 03/09/20 0347 Processed by: Nursing Medication History completed: Yes As the person ultimately responsible for medication therapy, providers are able to order a medication from an existing home medication list in [facility] via the "Reconcile Routine" prior to Confirmation of that medication by home support worker. Such practice is discouraged except when the physician, in their clinical judgment, deems that a medical need exists for a medication without regard to previous use.
[2020-03-09] MEDS ORDERED: ONDANSETRON 4 MG/2 ML VIAL IVP PRN ×2 (11:23→15:53)
--- NOTE | 2020-03-09 11:49 | PROVIDER PROGRESS NOTE ---
Subjective - Prog Note Date Prog Note Date: 03/09/20 Prog Note Time: 11:46 - Subjective Pt reports feeling: Worse (GLF this AM while heading to bathroom. Had re ent spine surgery (02/10). No other injury. No prior hip fracture) Objective - Vital Signs/Intake & Output Vital Signs: Vital Signs x48h Temp Pulse Pulse Resp BP BP Pulse Ox 03/09/20 11:24 36.6 C 85 18 137/71 H 99 03/09/20 07:50 36.8 C 87 18 116/68 98 03/09/20 07:43 36.4 C L 94 16 96 03/09/20 05:05 36.4 C L 94 18 139/79 H 97 03/09/20 04:49 36.7 C 88 18 145/77 H 98 03/09/20 04:15 92 16 135/72 H 98 03/09/20 03:56 36.5 C 91 18 173/88 H 98 Intake & Output: Intake & Output 03/06/20 03/07/20 03/08/20 03/09/20 23:59 23:59 23:59 23:59 Intake Total 772.5 Output Total 600 Balance 172.5 - Lab Results Fish Bones: 03/09/20 02:46 03/09/20 02:46 Other Labs: Lab Results x24hrs 03/09/20 03/09/20 03/09/20 Range/Units 03:16 02:46 02:46 WBC (4.8-10.8) x10^3/uL RBC (4.70-6.10) 10^6/uL Hgb (14.0-18.0) g/dL Hct (42.0-52.0) % MCV (80.0-94.0) fL MCH (27.0-31.0) pg MCHC (32.0-36.0) g/dL RDW (12.0-15.0) % Plt Count (130-450) 10^3/uL MPV (7.4-11.4) fL Neut # (Auto) (1.5-6.6) 10^3/uL Lymph # (Auto) (1.5-3.5) 10^3/uL [place] # (Auto) (0.0-1.0) 10^3/uL Eos # (Auto) (0.0-0.7) 10^3/uL Baso # (Auto) (0.0-0.1) 10^3/uL Absolute Nucleated RBC x10^3/uL Nucleated RBC % /100WBC PT 13.1 H (9.9-12.6) secs INR 1.2 (0.8-1.2) Sodium (135-145) mmol/L Potassium (3.5-5.0) mmol/L Chloride (101-111) mmol/L Carbon Dioxide (21-32) mmol/L Anion Gap (6-13) BUN (6-20) mg/dL Creatinine (0.6-1.2) mg/dL Estimated GFR (MDRD) (>89) Glucose (70-100) mg/dL Calcium (8.5-10.3) mg/dL Magnesium 2.1 (1.7-2.8) mg/dL Urine Color YELLOW Urine Clarity CLEAR (CLEAR) Urine pH 7.5 (5.0-7.5) PH Ur Specific [place] 1.015 (1.002-1.030) Urine Protein NEGATIVE (NEGATIVE) mg/dL Urine Glucose (UA) NEGATIVE (NEGATIVE) mg/dL Urine Ketones NEGATIVE (NEGATIVE) mg/dL Urine Occult Blood NEGATIVE (NEGATIVE) Urine Nitrite NEGATIVE (NEGATIVE) Urine Bilirubin NEGATIVE (NEGATIVE) Urine Urobilinogen 1 (NORMAL) (NORMAL) E.U./dL Ur Leukocyte Esterase NEGATIVE (NEGATIVE) Ur Microscopic Review NOT INDICATED Urine Culture Comments NOT INDICATED 03/09/20 03/09/20 Range/Units 02:46 02:46 WBC 6.5 (4.8-10.8) x10^3/uL RBC 3.77 L (4.70-6.10) 10^6/uL Hgb 12.4 L (14.0-18.0) g/dL Hct 34.4 L (42.0-52.0) % MCV 91.2 (80.0-94.0) fL MCH 32.9 H (27.0-31.0) pg MCHC 36.0 (32.0-36.0) g/dL RDW 12.6 (12.0-15.0) % Plt Count 137 (130-450) 10^3/uL MPV 8.5 (7.4-11.4) fL Neut # (Auto) 4.5 (1.5-6.6) 10^3/uL Lymph # (Auto) 0.8 L (1.5-3.5) 10^3/uL [place] # (Auto) 0.8 (0.0-1.0) 10^3/uL Eos # (Auto) 0.4 (0.0-0.7) 10^3/uL Baso # (Auto) 0.0 (0.0-0.1) 10^3/uL Absolute Nucleated RBC 0.00 x10^3/uL Nucleated RBC % 0.0 /100WBC PT (9.9-12.6) secs INR (0.8-1.2) Sodium 131 L (135-145) mmol/L Potassium 3.0 L (3.5-5.0) mmol/L Chloride 93 L (101-111) mmol/L Carbon Dioxide 26 (21-32) mmol/L Anion Gap 12.0 (6-13) BUN 19 (6-20) mg/dL Creatinine 0.8 (0.6-1.2) mg/dL Estimated GFR (MDRD) 92 (>89) Glucose 159 H (70-100) mg/dL Calcium 8.8 (8.5-10.3) mg/dL Magnesium (1.7-2.8) mg/dL Urine Color Urine Clarity (CLEAR) Urine pH (5.0-7.5) PH Ur Specific [place] (1.002-1.030) Urine Protein (NEGATIVE) mg/dL Urine Glucose (UA) (NEGATIVE) mg/dL Urine Ketones (NEGATIVE) mg/dL Urine Occult Blood (NEGATIVE) Urine Nitrite (NEGATIVE) Urine Bilirubin (NEGATIVE) Urine Urobilinogen (NORMAL) E.U./dL Ur Leukocyte Esterase (NEGATIVE) Ur Microscopic Review Urine Culture Comments - Diagnostic Imaging Diagnostic Imaging Comments: XR show Cominuted IT hip fracture. Large less trochancter fragment seen. Joint reduced Assessment/Plan - Problem List (1) Closed right hip fracture Impression: Stable Plan: To OR later today for IM nailing of hip fracture. Risk and benefits explained. Consent signed. Leg marked. Qualifiers: Encounter type: initial encounter Qualified Code(s): S72.001A - Fracture of unspecified part of neck of right femur, initial encounter for closed fracture
[2020-03-09] MEDS ORDERED: DEXTROSE 5%-0.9% NACL 1,000 ML IV SCH (12:00)
--- NOTE | 2020-03-09 12:07 | CONSULTATION NOTE ---
DATE OF SERVICE: 03/09/2020 Physician: Les Mir MD REFERRING PHYSICIAN: Alexey Craft MD, of the Emergency Room Department. 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 His recent medical history is significant for a spine surgery done in the [place], [place] region for sciatica. He had recovered [facility], and was back at his primary residence up here, [facility], when this acciden t occurred. The patient states that at about 2 in the morning, he was getting up to go to the [facility], walking with his cane, when he lost his balance and fell onto his right side. He noted immediate pain and deformity in the extremity. He was unable to stand or weight bear. He was taken to the em ergency room by ambulance, where x-ray showed his mildly comminuted and displaced intertrochanteric h ip fracture. Patient was subsequently admitted for medical evaluation and stabilization. Once clear ed, we will plan on proceeding with surgical fixation of this fracture. PHYSICAL EXAMINATION: Patient's right leg shows an obvious shortening and external rotation of his l eg. He has painful motion at his hip. He also has some lateral tenderness on palpation around the h ip. Patient moves his toes without any problems. Sensation appeared to be intact. Good capillary f illing noted. DIAGNOSTIC DATA: X-rays taken of the right hip show an intertrochanteric hip fracture with a large a vulsion off his lesser trochanter. ASSESSMENT 1. Closed displaced right intertrochanteric hip fracture. 2. Status post recent spine surgery for sciatica. PLAN: The plan will be to take patient to surgery later this morning and proceed with surgical fixat ion of this fracture. This will likely be a long Intertan intramedullary nailing of his fracture. T he risks and benefits of surgery were explained to patient and his . They appear to understand a nd wish us to proceed with surgery as planned. His leg has been marked. Some of the potential compl ications were mentioned, including anesthesia risk, blood loss, nerve damage, malunion, nonunion, new fractures, blood clots, etc. Again, they appear to understand these risks and wish to proceed with surgery as planned. Patient will stay n.p.o. We will plan then on proceeding with surgery later thi s morning or early afternoon. TD: 03/09/2020 11:48
[2020-03-09] MEDS ORDERED: ROPIVACAINE 0.5% PF 20 ML AMPULE ONE (12:23)
[2020-03-09] MEDS ORDERED: ROPIVACAINE 0.2% PF 20ML VIAL ONE (12:24)
[2020-03-09] MEDS ORDERED: ceFAZolin 2 GM in SODIUM CHLORIDE 0.9% 100ML 100 ML IV SCH (12:30)
[2020-03-09] MEDS ORDERED: LACTATED RINGERS 1,000 ML IV ONE (13:44)
--- NOTE | 2020-03-09 15:52 | OPERATIVE REPORT ---
Operative Report - General Admit Date: 03/09/20 Procedure Date: 03/09/20 Planned Procedure: Long interTan IM nailing of right hip fracture Pre-Op Diagnosis: Closed, comminuted right intertrochanteric hip fracture Procedure Performed: Closed reduction and locked IM nailing of right hip fracture Post Op Diagnosis: Same - Procedure Note Primary Surgeon: Ismael Mir MD Anesthesia Provider: Bethel Rizzo CRNA Anesthesia Technique: Spinal IV Fluids (mL): 1,000 Estimated Blood Loss (mL): 350 Complications: None
[2020-03-09] MEDS ORDERED: PROCHLORPERAZINE 10 MG/2 ML VIAL IVP PRN (15:53)
[2020-03-09] MEDS ORDERED: ACETAMINOPHEN 325 MG TABLET PO PRN (15:53)
[2020-03-09] MEDS: SODIUM CHLORIDE 0.9% 1,000 ML IV SCH (17:26)
[2020-03-09] MEDS: SODIUM CHLORIDE FLUSH 0.9% 10 ML SYRINGE IVP SCH ×2 (17:26→23:37)
[2020-03-09] MEDS: ASPIRIN 325 MG TABLET PO SCH (17:48)
--- NOTE | 2020-03-09 20:47 | XRAY Report ---
Reason: fx right hip Procedure Date: 03/09/2020 Accession Number: [id number] / [id number] Procedure: FL - OR C-Arm Procedure CPT Code: Final Report FULL RESULT: EXAM: RIGHT/LEFT ANKLE RADIOGRAPHY EXAM DATE: 03/09/2020 01:33 PM. CLINICAL HISTORY: Fx right hip. COMPARISON: None. TECHNIQUE: 3 views. FINDINGS AND IMPRESSION: Fluoroscopic images demonstrating intramedullary christa and right femoral neck fixation of proximal femur fracture. Well-positioned hardware on all images. Refer to operative notes for detailed findings. RADIA
[2020-03-09] MEDS: ceFAZolin 2 GM in SODIUM CHLORIDE 0.9% 100ML 100 ML IV SCH (21:58)
[2020-03-09] MEDS: BENZOCAINE/MENTHOL LOZENGE MM PRN ×2 (21:59→23:53)
[2020-03-09] MEDS: oxyCODONE 5 MG TABLET PO PRN (22:32)
[2020-03-09] MEDS: DOCUSATE SODIUM 100 MG CAPSULE PO PRN (22:39)
[2020-03-10] MEDS: MORPHINE 2 MG/ML CARPUJECT IVP PRN ×2 (02:06→05:48)
[2020-03-10] MEDS: BENZOCAINE/MENTHOL LOZENGE MM PRN ×2 (02:13→05:49)
[2020-03-10] MEDS: SODIUM CHLORIDE 0.9% 1,000 ML IV SCH ×2 (03:21→13:59)
[2020-03-10 05:25] LABS: BASOPHILS % (AUTO) 0.2 %; EOSINOPHILS % (AUTO) 0.1 %; HGB - HEMOGLOBIN 8.4 g/dL (14.0-18.0); LYMPHOCYTES # (AUTO) 0.6 10^3/uL (1.5-3.5); MEAN CORPUSCULAR HEMOGLOBIN 32.4 pg (27.0-31.0); MEAN CORPUSCULAR HGB CONC 34.7 g/dL (32.0-36.0); MEAN CORPUSCULAR VOLUME 93.4 fL (80.0-94.0); MEAN PLATELET VOLUME 8.9 fL (7.4-11.4); MONOCYTES # (AUTO) 1.1 10^3/uL (0.0-1.0); MONOCYTES % (AUTO) 11.4 %; NEUTROPHILS # (AUTO) 7.8 10^3/uL (1.5-6.6); NEUTROPHILS % (AUTO) 81.9 %; PLT - PLATELET COUNT 113 10^3/uL (130-450); RED BLOOD COUNT 2.59 10^6/uL (4.70-6.10); RED CELL DISTRIBUTION WIDTH 12.8 % (12.0-15.0); WHITE BLOOD COUNT 9.6 x10^3/uL (4.8-10.8)
[2020-03-10 05:31] LABS: CALCIUM 7.7 mg/dL (8.5-10.3); CREATININE 0.8 mg/dL (0.6-1.2)
[2020-03-10] MEDS: ceFAZolin 2 GM in SODIUM CHLORIDE 0.9% 100ML 100 ML IV SCH (05:51)
--- NOTE | 2020-03-10 07:54 | OPERATIVE REPORT ---
DATE OF SERVICE: 03/09/2020 Physician: Les Mir MD PREOPERATIVE DIAGNOSIS: Closed comminuted right intertrochanteric hip fracture. POSTOPERATIVE DIAGNOSIS: Closed comminuted right intertrochanteric hip fracture. PROCEDURE PERFORMED: Closed reduction and locked intramedullary nailing of right hip fracture. SURGEON: Les Mir MD ANESTHESIA: Spinal. DESCRIPTION OF PROCEDURE: The patient was taken to the operating room on the afternoon of 03/09/2020 , where he had been placed under a spinal anesthetic in the induction room. After adequate anesthesi a was obtained, he was then positioned supine onto the [place] fracture table. The unfractured left ext remity was then flexed and widely abducted and held with a well leg xavier. The fractured right extr emity was then placed in axial traction. We were able to internally rotate the leg about 30-35 degre es and, with gentle manipulation, we obtained a good reduction of the fracture as evidenced by AP and lateral projections at the hip with fluoroscopy. Satisfied with this, we then prepped and draped th e lateral aspect of the proximal and distal thigh in the usual fashion for our procedure. Making obl ique skin incision proximal to the tip of the greater trochanter, we dissected down to the tip of the greater trochanter through our incision. This is where we placed the threaded-tip of our guidewire. Fluoroscopic view showed that we were at the tip of the greater trochanter. We then proceeded to ins ert this guide pin with power down through the proximal femur and down the femoral shaft, just past t he level of the lesser trochanter. Satisfied with the guide pin location and depth in both AP and la teral projection, we then proceeded to ream over our inserted pin with a cannulated 16 mm channel howard sterling. After we prepared the proximal femur down to just past the level of the lesser trochanter, we r emoved the reamer and our guide pin. We then followed with the ball-tip guide passed through our pre pared proximal femur down the femoral shaft, down to the level of the knee. Fluoroscopic view in AP and lateral projection confirmed the intraosseous location of our ball-tip gu prabhjot. It was extended down to the level of the superior pole of the patella, down by the knee. The d irect measuring guide indicated that we would need a nail that was a 40 cm in length. With this inse rted ball-tip guide in place, we then proceeded to sequentially ream the femoral shaft, starting firs t with a 9 mm flexible reamer. This was done in 1 mm increments until we reached 11 mm. We finished our reaming with the 11.5 mm reamer. It was in the 11 and 11.5 mm reamers that we were noticing a s ignificant amount of chatter as we were reaming the femoral canal. We then selected for our nail, a right 10 mm diameter x40 cm length with 125-degree proximal angle. This nail was then applied on our insertion guide. We then proceeded to insert this over our ball-tip guide, crossing the fracture an d going down toward the distal femur near the distal femoral metaphysis. This was inserted manually until the alignment of our proximal hole and our nail was essentially in alignment with the central a xis of the femoral neck hip. Once this was in place, we then inserted our oval drill sleeve into the distal end of our insertion guide. This was advanced through a small incision in the proximal later al aspect of the thigh. Once this was in place, we then inserted our pin guide inside the oval sleev e. We then proceeded to drill with power the threaded-tip guidewire through the proximal femur, femo ral neck, and into the femoral head to within about 3 mm of the subchondral bone in the femoral head. Fluoroscopic views in AP and lateral projection showed satisfactory position and depth of our guide p in in both AP and lateral projections. Satisfied with this, we used the direct measuring guide and d etermined that we would use an 11 x 110 mm subtrochanteric hip lag screw. We then took the pin guide out of our oval sleeve and proceeded to use the cannulated reamer to prepare the proximal femur up t o the length of our guide pin through the femoral neck and into the femoral head. The reamer was rem xin, and we then inserted the selected subtrochanteric hip lag screw in place. This was checked in fluoroscopic views in AP and lateral projection, which showed a good level of penetration of the hip lag screw, and it would seem to be in good position and our femoral neck and head. Satisfied with th is, we then removed our insertion apparatus. We then locked the proximal set screw in our nail using the hinged screw medical delivery driver, driving until it was snug and then backing off 90 degrees. We then removed the insertion apparatus with the ball-tipped screwdriver. Once this was removed, we then directed o ur attention distally. Abducting the leg approximately 30 degrees allowed us to obtain better views both AP and lateral proj ection of the distal thigh, so we could visualize the distal locking screws of our nail. With gentle manipulation of the leg and the C-arm, we were able to eventually obtain nearly perfect circles in t he distal hole of our nail. Once this was satisfactorily obtained, we then proceeded to make a small incision overlying our distal hole in our IM nail. This was followed by visual guides, so we could drill our 4.0 mm drill through the lateral and medial femoral cortex, making sure that we passed thro ugh the distal holes in our nail. This was confirmed fluoroscopically in AP and lateral projection o nce our drill was in place. Satisfied with this, the direct measuring instrument determined our scre w lengths. We used a 42.5 x 5 mm diameter distal locking screw in our static hole and a 45 x 5 mm sc rew in our distal oval hole in our nail. We then removed our drill bit in each case and proceeded to manually insert the selected distal locking screw using fluoroscopic guidance to assure that we lock ed both the lateral and medial femoral cortices with each of our screws. Fluoroscopic views at the end of our distal locking confirmed satisfactory placement and location of our distal locking screws. Satisfied with this, we then obtained permanent x-rays, both distally and proximally of our femur, showing satisfactory placement of hardware and satisfactory reduction of he r hip fracture. We then irrigated all the wounds thoroughly with saline. We closed the proximal wou nd with 1 stitch of 0 Vicryl to approximate the fascia daquan layer, followed by buried simple stitches of 2-0 Vicryl to approximate the proximal 2 incisions. Finally, skin bairon used to approximate th e skin edges of all our wounds. We then washed the wounds and applied Xeroform gauze, 4 x 4's and Te gaderm to dress all the wounds. The patient was then transferred off the fracture table onto his bed and taken to the recovery room in satisfactory condition. ESTIMATED BLOOD LOSS: 350 mL. REPLACEMENT: 1000 mL crystalloid. INTRAOPERATIVE COMPLICATIONS: None. PLAN: The patient will be advanced in physical therapy as tolerated. May go weightbearing as tolera eve on his right lower extremity with walker ambulation as tolerated. TD: 03/09/2020 16:16
[2020-03-10] MEDS: ASPIRIN 325 MG TABLET PO SCH ×2 (08:38→17:24)
[2020-03-10] MEDS: SODIUM CHLORIDE FLUSH 0.9% 10 ML SYRINGE IVP SCH ×2 (08:38→17:24)
[2020-03-10] MEDS ORDERED: ALPRAZolam 0.25 MG TABLET PO PRN (09:56)
[2020-03-10] MEDS: buPROPion XL 150 MG TABLET PO SCH (10:28)
[2020-03-10] MEDS: TAMSULOSIN 0.4 MG CAPSULE PO SCH (10:29)
[2020-03-10] MEDS: POTASSIUM CHLORIDE 10 MEQ CAPSULE PO SCH (10:32)
[2020-03-10] MEDS: MULTIVITAMIN TABLET PO SCH (10:32)
--- NOTE | 2020-03-10 10:53 | PROVIDER PROGRESS NOTE ---
Subjective - Prog Note Date Prog Note Date: 03/10/20 Prog Note Time: 10:51 - Subjective Pt reports feeling: Improved (No complaints. Usual post op pain) Objective - Vital Signs/Intake & Output Vital Signs: Vital Signs x48h Temp Pulse Resp BP Pulse Ox 03/10/20 08:29 36.6 C 93 18 110/59 L 96 03/10/20 05:38 36.3 C L 91 18 102/53 L 96 Intake & Output: Intake & Output 03/07/20 03/08/20 03/09/20 03/10/20 23:59 23:59 23:59 23:59 Intake Total 1910.0 1620 Output Total 600 300 Balance 1310.0 1320 - Lab Results Fish Bones: 03/10/20 04:25 03/10/20 04:25 Other Labs: Lab Results x24hrs 03/10/20 03/10/20 03/09/20 Range/Units 04:25 04:25 16:46 WBC 9.6 (4.8-10.8) x10^3/uL RBC 2.59 L (4.70-6.10) 10^6/uL Hgb 8.4 L (14.0-18.0) g/dL Hct 24.2 L (42.0-52.0) % MCV 93.4 (80.0-94.0) fL MCH 32.4 H (27.0-31.0) pg MCHC 34.7 (32.0-36.0) g/dL RDW 12.8 (12.0-15.0) % Plt Count 113 L (130-450) 10^3/uL MPV 8.9 (7.4-11.4) fL Neut # (Auto) 7.8 H (1.5-6.6) 10^3/uL Lymph # (Auto) 0.6 L (1.5-3.5) 10^3/uL [place] # (Auto) 1.1 H (0.0-1.0) 10^3/uL Eos # (Auto) 0.0 (0.0-0.7) 10^3/uL Baso # (Auto) 0.0 (0.0-0.1) 10^3/uL Absolute Nucleated RBC 0.00 x10^3/uL Nucleated RBC % 0.0 /100WBC Sodium 131 L (135-145) mmol/L Potassium 3.6 (3.5-5.0) mmol/L Chloride 97 L (101-111) mmol/L Carbon Dioxide 24 (21-32) mmol/L Anion Gap 10.0 (6-13) BUN 15 (6-20) mg/dL Creatinine 0.8 (0.6-1.2) mg/dL Estimated GFR (MDRD) 92 (>89) Glucose 135 H (70-100) mg/dL Calcium 7.7 L (8.5-10.3) mg/dL Blood Type A POSITIVE Blood Type Recheck Antibody Screen NEGATIVE 03/09/20 Range/Units 02:46 WBC (4.8-10.8) x10^3/uL RBC (4.70-6.10) 10^6/uL Hgb (14.0-18.0) g/dL Hct (42.0-52.0) % MCV (80.0-94.0) fL MCH (27.0-31.0) pg MCHC (32.0-36.0) g/dL RDW (12.0-15.0) % Plt Count (130-450) 10^3/uL MPV (7.4-11.4) fL Neut # (Auto) (1.5-6.6) 10^3/uL Lymph # (Auto) (1.5-3.5) 10^3/uL [place] # (Auto) (0.0-1.0) 10^3/uL Eos # (Auto) (0.0-0.7) 10^3/uL Baso # (Auto) (0.0-0.1) 10^3/uL Absolute Nucleated RBC x10^3/uL Nucleated RBC % /100WBC Sodium (135-145) mmol/L Potassium (3.5-5.0) mmol/L Chloride (101-111) mmol/L Carbon Dioxide (21-32) mmol/L Anion Gap (6-13) BUN (6-20) mg/dL Creatinine (0.6-1.2) mg/dL Estimated GFR (MDRD) (>89) Glucose (70-100) mg/dL Calcium (8.5-10.3) mg/dL Blood Type Blood Type Recheck A POSITIVE Antibody Screen - Other Results/Comments Other Results/Comments: EXAM:Dressing intact. Moves toes well. Sensation intact. Good cap filling. Mild pain with hip motion Assessment/Plan - Problem List (1) Closed right hip fracture Impression: Stable post op PLAN: Mobilize as tolerated. Since he is not SOB or dizzy, will see how he does in PT today and recheck Hct in AM and determine whether to transfuse or not. Qualifiers: Encounter type: initial encounter Qualified Code(s): S72.001A - Fracture of unspecified part of neck of right femur, initial encounter for closed fracture
[2020-03-10] MEDS: oxyCODONE 5 MG TABLET PO PRN (11:07)
[2020-03-10] MEDS: NIACIN ER 500 MG TABLET PO SCH (11:16)
--- NOTE | 2020-03-10 14:00 | PROVIDER PROGRESS NOTE ---
Subjective - Prog Note Date Prog Note Date: 03/10/20 Prog Note Time: 14:04 - Subjective Pt reports feeling: Improved Subjective: Pain in the hip is much better. However, lightheaded and woozy with standing up. No chest pain, no palpitations, no shortness of breath. No fevers. Problem with urinary retention. Current Medications - Current Medications Current Medications: Active Medications Acetaminophen (Tylenol) 650 - 975 mg PO Q4HR PRN PRN Reason: PAIN Alprazolam (Xanax) 0.125 mg PO DAILY PRN PRN Reason: Anxiety Last Admin: 03/10/20 10:28 Dose: 0.125 mg Aspirin (Vidya) 325 mg PO BIDWM [facility] Last Admin: 03/10/20 08:38 Dose: 325 mg Bupropion HCl (Wellbutrin Xl) 150 mg PO DAILY [facility] Last Admin: 03/10/20 10:28 Dose: 150 mg Docusate Sodium (Colace 100mg Capsule) 100 mg PO BID PRN PRN Reason: Constipation Last Admin: 03/09/20 22:39 Dose: 100 mg Sodium Chloride (Normal Saline 0.9%) 1,000 mls @ 100 mls/hr IV .Q10H [facility] Last Admin: 03/10/20 13:59 Dose: 100 mls/hr Ketorolac Tromethamine (Toradol Inj (15mg)) 15 mg IVP Q6HR PRN PRN Reason: PAIN Stop: 03/15/20 13:53 Morphine Sulfate (Morphine (Carpuject)) 2 mg IVP Q2HR PRN PRN Reason: PAIN Last Admin: 03/10/20 05:48 Dose: 2 mg Multivitamins (Theragran) 1 tab PO DAILY [facility] Last Admin: 03/10/20 10:32 Dose: 1 tab Niacin (Niaspan) 500 mg PO DAILY [facility] Last Admin: 03/10/20 11:16 Dose: 500 mg Ondansetron HCl (Zofran Inj) 4 mg IVP Q6HR PRN PRN Reason: Nausea / Vomiting Last Admin: 03/09/20 18:59 Dose: 4 mg Oxycodone HCl (Roxicodone) 5 mg PO Q4HR PRN PRN Reason: PAIN Last Admin: 03/10/20 11:07 Dose: 5 mg Potassium Chloride (Micro-K) 10 meq PO DAILY [facility] Last Admin: 03/10/20 10:32 Dose: 10 meq Prochlorperazine Edisylate (Compazine Inj) 10 mg IVP Q6HR PRN PRN Reason: Nausea / Vomiting Senna (Senokot) 17.2 mg PO Q12H PRN PRN Reason: Constipation Sodium Chloride (Normal Saline Flush 0.9%) 10 ml IVP 0100,0900,1700 [facility] Last Admin: 03/10/20 08:38 Dose: 10 ml Sodium Chloride (Normal Saline Flush 0.9%) 10 ml IVP PRN PRN PRN Reason: NEEDED PER PROVIDER ORDERS Tamsulosin HCl (Flomax) 0.4 mg PO DAILY [facility] Last Admin: 03/10/20 10:29 Dose: 0.4 mg Throat Lozenges (Cepacol) 1 lozenge MM Q2H PRN PRN Reason: Throat pain Last Admin: 03/10/20 05:49 Dose: 1 lozenge Aspirin [Aspir 81] 81 mg PO DAILY 05/02/13 Red Yeast Rice 600 mg PO DAILY 05/02/13 Melatonin/Pyridoxine [Melatonin 3 mg Tablet] 1 each PO HS 08/08/13 Multivitamin [Multivitamins] 1 each PO DAILY 08/08/13 Niacin 500 mg PO DAILY 08/22/13 Selenium 50 mcg PO DAILY 08/22/13 Zinc [Zinc Chelated] 50 mg PO DAILY 08/22/13 ALPRAZolam [Alprazolam] 0.125 mg PO DAILY PRN 03/09/20 buPROPion [Wellbutrin Xl] 150 mg PO DAILY 03/09/20 Objective - Vital Signs/Intake & Output Reviewed Vital Signs: Yes Vital Signs: Vital Signs x48h Temp Pulse Pulse Pulse Pulse Resp BP 03/10/20 11:40 103 H 101 H 96 132/66 H 03/10/20 08:29 36.6 C 93 18 BP BP BP Pulse Ox Pulse Ox Pulse Ox 03/10/20 11:40 119/61 113/89 H 96 94 03/10/20 08:29 110/59 L 96 Intake & Output: Intake & Output 03/07/20 03/08/20 03/09/20 03/10/20 23:59 23:59 23:59 23:59 Intake Total 1910.0 1740 Output Total 600 300 Balance 1310.0 1440 - Objective General Appearance: positive: No acute distress, Other (more confused today. Needs to be oriented at times and has called to help cue him) Eyes Bilateral: positive: PERRL ENT: positive: Other (right cheek hematoma, 1 cm, present on admission) Neck: positive: No JVD. negative: Stiff neck Respiratory: positive: Chest non-tender, No respiratory distress, Rhonchi (that clear w cough). negative: Wheezes, Rales Cardiovascular: positive: Regular rate & rhythm. negative: Gallop/S4 Abdomen: positive: Non-tender, No organomegaly, Nml bowel sounds, No distention Skin: positive: Warm, Dry Extremities: positive: No pedal edema, Other (right hip covered w bandage) Neurologic/Psychiatric: positive: CN's nml (2-12), Motor nml, Disoriented to place, Disoriented to time - Lab Results Fish Bones: 03/10/20 04:25 03/10/20 04:25 Other Labs: Lab Results x24hrs 03/10/20 03/10/20 03/09/20 Range/Units 04:25 04:25 16:46 WBC 9.6 (4.8-10.8) x10^3/uL RBC 2.59 L (4.70-6.10) 10^6/uL Hgb 8.4 L (14.0-18.0) g/dL Hct 24.2 L (42.0-52.0) % MCV 93.4 (80.0-94.0) fL MCH 32.4 H (27.0-31.0) pg MCHC 34.7 (32.0-36.0) g/dL RDW 12.8 (12.0-15.0) % Plt Count 113 L (130-450) 10^3/uL MPV 8.9 (7.4-11.4) fL Neut # (Auto) 7.8 H (1.5-6.6) 10^3/uL Lymph # (Auto) 0.6 L (1.5-3.5) 10^3/uL Parker # (Auto) 1.1 H (0.0-1.0) 10^3/uL Eos # (Auto) 0.0 (0.0-0.7) 10^3/uL Baso # (Auto) 0.0 (0.0-0.1) 10^3/uL Absolute Nucleated RBC 0.00 x10^3/uL Nucleated RBC % 0.0 /100WBC Sodium 131 L (135-145) mmol/L Potassium 3.6 (3.5-5.0) mmol/L Chloride 97 L (101-111) mmol/L Carbon Dioxide 24 (21-32) mmol/L Anion Gap 10.0 (6-13) BUN 15 (6-20) mg/dL Creatinine 0.8 (0.6-1.2) mg/dL Estimated GFR (MDRD) 92 (>89) Glucose 135 H (70-100) mg/dL Calcium 7.7 L (8.5-10.3) mg/dL Blood Type A POSITIVE Blood Type Recheck Antibody Screen NEGATIVE 03/09/20 Range/Units 02:46 WBC (4.8-10.8) x10^3/uL RBC (4.70-6.10) 10^6/uL Hgb (14.0-18.0) g/dL Hct (42.0-52.0) % MCV (80.0-94.0) fL MCH (27.0-31.0) pg MCHC (32.0-36.0) g/dL RDW (12.0-15.0) % Plt Count (130-450) 10^3/uL MPV (7.4-11.4) fL Neut # (Auto) (1.5-6.6) 10^3/uL Lymph # (Auto) (1.5-3.5) 10^3/uL Parker # (Auto) (0.0-1.0) 10^3/uL Eos # (Auto) (0.0-0.7) 10^3/uL Baso # (Auto) (0.0-0.1) 10^3/uL Absolute Nucleated RBC x10^3/uL Nucleated RBC % /100WBC Sodium (135-145) mmol/L Potassium (3.5-5.0) mmol/L Chloride (101-111) mmol/L Carbon Dioxide (21-32) mmol/L Anion Gap (6-13) BUN (6-20) mg/dL Creatinine (0.6-1.2) mg/dL Estimated GFR (MDRD) (>89) Glucose (70-100) mg/dL Calcium (8.5-10.3) mg/dL Blood Type Blood Type Recheck A POSITIVE Antibody Screen ABX Reporting Has patient been on IV antibiotics over the past 48 hours?: No Assessment/Plan - Problem List (1) Acute blood loss as cause of postoperative anemia Impression: Hemoglobin was 12.4 on admission and is dropped to 8.4. When he got up to work with physical therapy he did "get woozy". Heart rate 101, blood pressure 119/61, O2 sat 95% but these were not orthostatic checks. Plan: Check orthostatic blood pressure If he is orthostatic will transfuse 1 unit (2) Delirium not superimposed on dementia Impression: This raisa elderly gentleman who is usually very oriented. No history of dementia. He is received anesthesia, and opiates today. Even he states that the opiates seem to be very potent and affected his ability to focus and concentrate and he acknowledges some confusion. Assessment/plan: We will keep oxycodone on the medication list but add Toradol. We resumed his alprazolam but may have to reconsider that. (3) Closed right hip fracture Impression: Moderately displaced and comminuted intertrochanteric right proximal femur fracture. POD #1 Nursing feels that 5 mg of oxycodone is a little bit too strong for him. As such we will also order ketorolac as needed prior to working with physical therapy and hold off on use of oxycodone. He also still request to be transferred for rehab to facility in [place]. Social work is working closely with him. Apparently his children own nursing homes and rehab facility in [place] and he would prefer to get there. Plan is for discharge on postop day 3 with transfer to the facility of his choice. Qualifiers: Encounter type: initial encounter Fracture type: closed Qualified Code(s): S72.001A - Fracture of unspecified part of neck of right femur, initial encounter for closed fracture (4) History of coronary artery disease Conclusion/Plan: Patient takes a baby aspirin daily, Niacin and Red Yeast Rice (5) Anxiety Conclusion/Plan: Alprazolam 0.125 mg p.o. daily resumed. All medications were looked at today and reconciled in those that were appropriate were resumed including the alprazolam. (6) Hypertension Conclusion/Plan: Patient takes HCTZ (7) BPH (benign prostatic hyperplasia) Conclusion/Plan: On tamsulosin And in spite of this he continues to have urinary retention. He will urinate 150 cc but retained 400 cc after post void. They were unsuccessful at getting a Lynch in the emergency room, difficult to place. Straight cath there is also problematic. We will add finasteride but that will take months to really take effect. Stop maintenance IVF (8) Hypokalemia Conclusion/Plan: lHe was 3.0 on admission and after replacement is 3.6. We will continue to follow. Magnesium was 2.1 and normal. Did not need supplementation
[2020-03-10] MEDS: DOCUSATE SODIUM 100 MG CAPSULE PO PRN (14:43)
[2020-03-10] MEDS: polyethylene glycoL 3350 17 GM PACKET PO SCH (14:43)
[2020-03-10] MEDS: KETOROLAC 15 MG/ML VIAL IVP PRN ×2 (14:49→20:15)
--- NOTE | 2020-03-10 21:08 | XRAY Report ---
Reason: Postop fall. Procedure Date: 03/10/2020 Accession Number: [id number] / [id number] Procedure: XR - Hip w/Pelvis 2-3V RT CPT Code: Final Report FULL RESULT: EXAM: RIGHT HIP RADIOGRAPHY EXAM DATE: 03/10/2020 08:19 PM. CLINICAL HISTORY: Postop fall. COMPARISON: HIP W/PELVIS 2-3V RT 03/09/2020 2:19 AM. TECHNIQUE: 2 views. FINDINGS: Bones: Status post repair of the right intertrochanteric fracture with an intramedullary nail in the right femur and an interlocking dynamic hip screw. Joints: No dislocations. Soft Tissues: Normal. No soft tissue swelling. IMPRESSION: 1. Status post repair of the right intertrochanteric fracture. RADIA
[2020-03-11] MEDS: KETOROLAC 15 MG/ML VIAL IVP PRN ×2 (01:49→16:49)
[2020-03-11] MEDS: SODIUM CHLORIDE FLUSH 0.9% 10 ML SYRINGE IVP SCH ×3 (01:49→16:49)
[2020-03-11 05:28] LABS: BASOPHILS % (AUTO) 0.3 %; EOSINOPHILS # (AUTO) 0.2 10^3/uL (0.0-0.7); EOSINOPHILS % (AUTO) 3.3 %; LYMPHOCYTES # (AUTO) 0.9 10^3/uL (1.5-3.5); LYMPHOCYTES % (AUTO) 12.9 %; MEAN CORPUSCULAR VOLUME 94.3 fL (80.0-94.0); MEAN PLATELET VOLUME 8.6 fL (7.4-11.4); MONOCYTES % (AUTO) 14.3 %; NEUTROPHILS % (AUTO) 68.6 %; PLT - PLATELET COUNT 86 10^3/uL (130-450); RED BLOOD COUNT 2.09 10^6/uL (4.70-6.10); RED CELL DISTRIBUTION WIDTH 12.9 % (12.0-15.0); WHITE BLOOD COUNT 7.2 x10^3/uL (4.8-10.8)
[2020-03-11 05:31] LABS: CALCIUM 7.8 mg/dL (8.5-10.3); CREATININE 0.9 mg/dL (0.6-1.2)
[2020-03-11 05:40] LABS: HGB - HEMOGLOBIN 6.9 g/dL (14.0-18.0)
[2020-03-11] MEDS: TAMSULOSIN 0.4 MG CAPSULE PO SCH (08:35)
[2020-03-11] MEDS: DOCUSATE SODIUM 100 MG CAPSULE PO PRN ×2 (08:35→19:51)
[2020-03-11] MEDS: ASPIRIN 325 MG TABLET PO SCH ×2 (08:35→16:49)
[2020-03-11] MEDS: POTASSIUM CHLORIDE 10 MEQ CAPSULE PO SCH (08:35)
[2020-03-11] MEDS: polyethylene glycoL 3350 17 GM PACKET PO SCH (08:35)
[2020-03-11] MEDS: MULTIVITAMIN TABLET PO SCH (08:35)
[2020-03-11] MEDS: buPROPion XL 150 MG TABLET PO SCH (08:35)
[2020-03-11] MEDS: NIACIN ER 500 MG TABLET PO SCH (08:35)
[2020-03-11] MEDS: SENNA 8.6 MG TABLET PO PRN ×2 (08:36→19:51)
[2020-03-11] MEDS ORDERED: ASPIRIN EC 81 MG TABLET PO SCH (09:00)
--- NOTE | 2020-03-11 10:56 | PROVIDER PROGRESS NOTE ---
Subjective - Prog Note Date Prog Note Date: 03/11/20 Prog Note Time: 10:54 - Subjective Pt reports feeling: Improved (No new complaints. Was a bit woozy in PT yesterday and last night had a fall at the bedside. Doing ok now.) Objective - Vital Signs/Intake & Output Vital Signs: Vital Signs x48h Temp Pulse Pulse Resp BP BP BP 03/11/20 10:26 36.9 C 102 H 18 119/61 03/11/20 08:18 36.5 C 107 H 18 100/56 L 03/11/20 07:24 36.5 C 107 H 16 100/56 L 03/11/20 07:05 36.8 C 108 H 16 114/62 03/11/20 05:30 37.1 C 107 H 18 124/63 Pulse Ox 03/11/20 10:26 03/11/20 08:18 97 03/11/20 07:24 03/11/20 07:05 03/11/20 05:30 94 Intake & Output: Intake & Output 03/08/20 03/09/20 03/10/20 03/11/20 23:59 23:59 23:59 23:59 Intake Total 1910.0 3086.667 660 Output Total 600 650 150 Balance 1310.0 2436.667 510 - Lab Results Fish Bones: 03/11/20 05:05 03/11/20 05:05 Other Labs: Lab Results x24hrs 03/11/20 03/11/20 03/09/20 Range/Units 05:05 05:05 16:46 WBC 7.2 (4.8-10.8) x10^3/uL RBC 2.09 L (4.70-6.10) 10^6/uL Hgb 6.9 L* (14.0-18.0) g/dL Hct 19.7 L* (42.0-52.0) % MCV 94.3 H (80.0-94.0) fL MCH 33.0 H (27.0-31.0) pg MCHC 35.0 (32.0-36.0) g/dL RDW 12.9 (12.0-15.0) % Plt Count 86 L (130-450) 10^3/uL MPV 8.6 (7.4-11.4) fL Neut # (Auto) 5.0 (1.5-6.6) 10^3/uL Lymph # (Auto) 0.9 L (1.5-3.5) 10^3/uL Charles # (Auto) 1.0 (0.0-1.0) 10^3/uL Eos # (Auto) 0.2 (0.0-0.7) 10^3/uL Baso # (Auto) 0.0 (0.0-0.1) 10^3/uL Absolute Nucleated RBC 0.00 x10^3/uL Nucleated RBC % 0.0 /100WBC Sodium 131 L (135-145) mmol/L Potassium 3.5 (3.5-5.0) mmol/L Chloride 101 (101-111) mmol/L Carbon Dioxide 24 (21-32) mmol/L Anion Gap 6.0 (6-13) BUN 18 (6-20) mg/dL Creatinine 0.9 (0.6-1.2) mg/dL Estimated GFR (MDRD) 80 L (>89) Glucose 123 H (70-100) mg/dL Calcium 7.8 L (8.5-10.3) mg/dL Blood Type A POSITIVE Antibody Screen NEGATIVE Crossmatch IS Only See Detail - Diagnostic Imaging Diagnostic Imaging Comments: XR showed no interval change - Other Results/Comments Other Results/Comments: EXAM: Dressing intact. No pain with right hip motion. Moves toes well. Sensation intact. Good cap filling. Assessment/Plan - Problem List (1) Closed right hip fracture Impression: Stable post op PLAN: With his current blood count and his plan to transfer down to [place] for the balance of his post op rehab, Will transfuse 2 units of PRBC's and repea t Hct in Am. Continue PT as tolerated. Upon transfer to SNF he should be followed up with by his orthopedist in OR in 10-14 days for woound check, skin staple removal , and new set of hip XR> His rehab should include walker ambulation - WBAT on the right. Qualifiers: Encounter type: subsequent encounter Fracture healing: with routine healing Qualified Code(s): S72.001D - Fracture of unspecified part of neck of right femur, subsequent encounter for closed fracture with routine healing
[2020-03-11] MEDS: MORPHINE 2 MG/ML CARPUJECT IVP PRN ×2 (12:53→17:22)
[2020-03-11] MEDS ORDERED: ROCURONIUM 50 MG/5 ML VIAL IVP ONE (13:47)
[2020-03-11] MEDS ORDERED: PHENYLEPHRINE 10 MG/ML VIAL IV ONE (13:47)
[2020-03-11] MEDS ORDERED: ePHEDrine 50 MG/ML VIAL IVP ONE (13:47)
[2020-03-11] MEDS ORDERED: PROPOFOL 200 MG/20 ML VIAL IVP ONE (13:47)
[2020-03-11] MEDS ORDERED: ONDANSETRON 4 MG/2 ML VIAL IVP ONE (13:47)
[2020-03-11] MEDS ORDERED: ACETAMINOPHEN 1,000 MG/100 ML 100 ML IV ONE (13:51)
[2020-03-11] MEDS ORDERED: LIDOCAINE-MPF 2% 5 ML VIAL IM ONE (13:51)
[2020-03-11] MEDS ORDERED: DEXAMETHASONE 4 MG/ML VIAL IVP ONE (13:51)
--- NOTE | 2020-03-11 15:46 | PROVIDER PROGRESS NOTE ---
Subjective - Prog Note Date Prog Note Date: 03/11/20 Prog Note Time: 15:48 - Subjective Pt reports feeling: No change Subjective: He got up to stand last night to go to the bathroom. Slid to the floor and landed on his right side. Seen by stock patcher, and film of the leg shows surgical site intact and no movement of metal wear. Dr. Mir is aware. The patient denies chest pain, he is just really tired. No shortness of breath. No abdominal pain. Urinary obstructive symptoms come and go. No worse than yesterday. Current Medications - Current Medications Current Medications: Active Medications Acetaminophen (Tylenol) 650 - 975 mg PO Q4HR PRN PRN Reason: PAIN Alprazolam (Xanax) 0.125 mg PO DAILY PRN PRN Reason: Anxiety Last Admin: 03/10/20 10:28 Dose: 0.125 mg Aspirin (Vidya) 325 mg PO BIDWM [facility] Last Admin: 03/11/20 08:35 Dose: 325 mg Bupropion HCl (Wellbutrin Xl) 150 mg PO DAILY [facility] Last Admin: 03/11/20 08:35 Dose: 150 mg Calcium Carbonate/Glycine (Tums) 500 mg PO BID [facility] Cholecalciferol (Vitamin D3) 50 mcg PO DAILY [facility] Docusate Sodium (Colace 100mg Capsule) 100 mg PO BID PRN PRN Reason: Constipation Last Admin: 03/11/20 08:35 Dose: 100 mg Ketorolac Tromethamine (Toradol Inj (15mg)) 15 mg IVP Q6HR PRN PRN Reason: PAIN Stop: 03/15/20 13:53 Last Admin: 03/11/20 01:49 Dose: 15 mg Morphine Sulfate (Morphine (Carpuject)) 2 mg IVP Q2HR PRN PRN Reason: PAIN Last Admin: 03/11/20 12:53 Dose: 2 mg Multivitamins (Theragran) 1 tab PO DAILY [facility] Last Admin: 03/11/20 08:35 Dose: 1 tab Niacin (Niaspan) 500 mg PO DAILY [facility] Last Admin: 03/11/20 08:35 Dose: 500 mg Ondansetron HCl (Zofran Inj) 4 mg IVP Q6HR PRN PRN Reason: Nausea / Vomiting Last Admin: 03/09/20 18:59 Dose: 4 mg Oxycodone HCl (Roxicodone) 5 mg PO Q4HR PRN PRN Reason: PAIN Last Admin: 03/10/20 11:07 Dose: 5 mg Polyethylene Glycol (Miralax) 17 gm PO DAILY [facility] Last Admin: 03/11/20 08:35 Dose: 17 gm Potassium Chloride (Micro-K) 10 meq PO DAILY [facility] Last Admin: 03/11/20 08:35 Dose: 10 meq Prochlorperazine Edisylate (Compazine Inj) 10 mg IVP Q6HR PRN PRN Reason: Nausea / Vomiting Senna (Senokot) 17.2 mg PO Q12H PRN PRN Reason: Constipation Last Admin: 03/11/20 08:36 Dose: 17.2 mg Sodium Chloride (Normal Saline Flush 0.9%) 10 ml IVP 0100,0900,1700 [facility] Last Admin: 03/11/20 08:36 Dose: 10 ml Sodium Chloride (Normal Saline Flush 0.9%) 10 ml IVP PRN PRN PRN Reason: NEEDED PER PROVIDER ORDERS Last Admin: 03/11/20 01:49 Dose: 10 ml Tamsulosin HCl (Flomax) 0.4 mg PO DAILY [facility] Last Admin: 03/11/20 08:35 Dose: 0.4 mg Throat Lozenges (Cepacol) 1 lozenge MM Q2H PRN PRN Reason: Throat pain Last Admin: 03/10/20 05:49 Dose: 1 lozenge RX: Aspirin [Aspir 81] 81 mg PO DAILY 05/02/13 RX: Red Yeast Rice 600 mg PO DAILY 05/02/13 RX: Melatonin/Pyridoxine [Melatonin 3 mg Tablet] 1 each PO 08/08/13 RX: Multivitamin [Multivitamins] 1 each PO DAILY 08/08/13 RX: Niacin 500 mg PO DAILY 08/22/13 RX: Selenium 50 mcg PO DAILY 08/22/13 RX: Zinc [Zinc Chelated] 50 mg PO DAILY 08/22/13 ALPRAZolam [Alprazolam] 0.125 mg PO DAILY PRN 03/09/20 buPROPion [Wellbutrin Xl] 150 mg PO DAILY 03/09/20 Objective - Vital Signs/Intake & Output Reviewed Vital Signs: Yes Vital Signs: Vital Signs x48h Temp Pulse Pulse Resp BP BP BP 03/11/20 12:03 36.3 C L 103 H 20 122/66 03/11/20 10:26 36.9 C 102 H 18 119/61 03/11/20 08:18 36.5 C 107 H 18 100/56 L Pulse Ox 03/11/20 12:03 97 03/11/20 10:26 03/11/20 08:18 97 Intake & Output: Intake & Output 03/08/20 03/09/20 03/10/20 03/11/20 23:59 23:59 23:59 23:59 Intake Total 1910.0 3086.667 900 Output Total 600 650 350 Balance 1310.0 2436.667 550 - Objective General Appearance: positive: No acute distress, Lethargic Eyes Bilateral: positive: PERRL ENT: positive: Pharynx nml, Other (right cheek bruise is fading a bit) Neck: positive: Thyroid nml. negative: Stiff neck Respiratory: positive: Chest non-tender. negative: Wheezes, Rales, Rhonchi Cardiovascular: positive: Regular rate & rhythm. negative: Gallop/S4, Friction rub Abdomen: positive: Non-tender, No organomegaly, Nml bowel sounds, No distention Skin: positive: Warm, Dry, Pallor Extremities: positive: Full ROM, No pedal edema Neurologic/Psychiatric: positive: Oriented x3, CN's nml (2-12), Motor nml - Lab Results Fish Bones: 03/11/20 05:05 03/11/20 05:05 Other Labs: Lab Results x24hrs 03/11/20 03/11/20 03/09/20 Range/Units 05:05 05:05 16:46 WBC 7.2 (4.8-10.8) x10^3/uL RBC 2.09 L (4.70-6.10) 10^6/uL Hgb 6.9 L* (14.0-18.0) g/dL Hct 19.7 L* (42.0-52.0) % MCV 94.3 H (80.0-94.0) fL MCH 33.0 H (27.0-31.0) pg MCHC 35.0 (32.0-36.0) g/dL RDW 12.9 (12.0-15.0) % Plt Count 86 L (130-450) 10^3/uL MPV 8.6 (7.4-11.4) fL Neut # (Auto) 5.0 (1.5-6.6) 10^3/uL Lymph # (Auto) 0.9 L (1.5-3.5) 10^3/uL Dougherty # (Auto) 1.0 (0.0-1.0) 10^3/uL Eos # (Auto) 0.2 (0.0-0.7) 10^3/uL Baso # (Auto) 0.0 (0.0-0.1) 10^3/uL Absolute Nucleated RBC 0.00 x10^3/uL Nucleated RBC % 0.0 /100WBC Sodium 131 L (135-145) mmol/L Potassium 3.5 (3.5-5.0) mmol/L Chloride 101 (101-111) mmol/L Carbon Dioxide 24 (21-32) mmol/L Anion Gap 6.0 (6-13) BUN 18 (6-20) mg/dL Creatinine 0.9 (0.6-1.2) mg/dL Estimated GFR (MDRD) 80 L (>89) Glucose 123 H (70-100) mg/dL Calcium 7.8 L (8.5-10.3) mg/dL Blood Type A POSITIVE Antibody Screen NEGATIVE Crossmatch IS Only See Detail ABX Reporting Has patient been on IV antibiotics over the past 48 hours?: No Assessment/Plan - Problem List (1) Fall during current hospitalization Impression: He tried to get out of bed last night. And pretty much the same thing that happened at home happened here with his leg giving out from them. He says he did not trip far but just lost his balance, leg gave out from underneath him, and he slid to the floor and landed on his right side. This was last night. Seen by stock patcher. Film obtained and orthotic in place. Orthopedics is seen him this morning and joint is stable. Because he complains of being woozy and lightheaded every time he gets up, orthopedics would like more than 1 unit transfused. Qualifiers: Encounter type: subsequent encounter Qualified Code(s): W19.XXXD - Unspecified fall, subsequent encounter; Y92.239 - Unspecified place in hospital as the place of occurrence of the external cause (2) Acute blood loss as cause of postoperative anemia Impression: Hemoglobin was 12.4 on admission and is dropped to 8.4. When he got up to work with physical therapy he did "get woozy". Heart rate 101, blood pressure 119/61, O2 sat 95% but these were not orthostatic checks. Then last night, he became woozy, and slipped to the floor again. This morning his blood pressure is 100/56. Slightly tachycardic. Pressure bandage on his leg is dry. There is no evidence of excessive bleeding. He does not have bloody stool. No epigastric or abdominal pain. At this time we are still thinking it is associated with his surgery. But we will keep a close eye on him to make sure he is not having a source of bleeding from somewhere else such as got. Plan: Already receiving 1 unit. Will order a second unit at the request of orthopedics.I am also noting that he has thrombocytopenia with platelets of 84,000 which is new. He is not on heparin or Lovenox. He is not on Plavix. We will continue to monitor. (2) Delirium not superimposed on dementia resolved Impression: This raisa elderly gentleman who is usually very oriented. No history of dementia. He is received anesthesia, and opiates today. Even he states that the opiates seem to be very potent and affected his ability to focus and concentrate and he acknowledges some confusion. Assessment/plan: We will keep oxycodone on the medication list but add Toradol. We resumed his alprazolam but may have to reconsider that. (3) Closed right hip fracture Impression: Moderately displaced and comminuted intertrochanteric right proximal femur fracture. POD #2 Nursing feels that 5 mg of oxycodone is a little bit too strong for him. As such we ordered ketorolac as needed prior to working with physical therapy and hold off on use of oxycodone. Plan is still for discharge tomorrow on postop day 3. We have made arrangements for private ambulance to transfer him to the rehab facility in [place]. Social work is been on the phone to discuss this with his family and they definitely want this to happen. Qualifiers: Encounter type: initial encounter Fracture type: closed Qualified Code(s): S72.001A - Fracture of unspecified part of neck of right femur, initial encounter for closed fracture (4) History of coronary artery disease Conclusion/Plan: Patient takes a baby aspirin daily, Niacin and Red Yeast Rice (5) Anxiety Conclusion/Plan: Alprazolam 0.125 mg p.o. daily resumed. All medications were looked at today and reconciled in those that were appropriate were resumed including the alprazolam. (6) Hypertension Conclusion/Plan: Patient takes HCTZ (7) BPH (benign prostatic hyperplasia) Conclusion/Plan: On tamsulosin And in spite of this he continues to have urinary retention. He will urinate 150 cc but retained 400 cc after post void. They were unsuccessful at getting a Lynch in the emergency room, difficult to place. Straight cath there is also problematic. We will add finasteride but that will take months to really take effect. Stop maintenance IVF (8) Hypokalemia Conclusion/Plan: He was 3.0 on admission and after replacement is 3.6. We will continue to follow. Magnesium was 2.1 and normal. Did not need supplementation
[2020-03-11] MEDS: CHOLECALCIFEROL 25 MCG TABLET PO SCH (16:50)
[2020-03-11] MEDS: CALCIUM CARBONATE CHEW 500 MG TABLET PO SCH (21:09)
[2020-03-12] MEDS: KETOROLAC 15 MG/ML VIAL IVP PRN (01:00)
[2020-03-12] MEDS: SODIUM CHLORIDE FLUSH 0.9% 10 ML SYRINGE IVP SCH ×2 (01:04→08:50)
[2020-03-12 05:02] LABS: BASOPHILS % (AUTO) 0.5 %; EOSINOPHILS # (AUTO) 0.5 10^3/uL (0.0-0.7); EOSINOPHILS % (AUTO) 6.9 %; LYMPHOCYTES # (AUTO) 0.9 10^3/uL (1.5-3.5); LYMPHOCYTES % (AUTO) 13.4 %; MEAN CORPUSCULAR HEMOGLOBIN 32.1 pg (27.0-31.0); MEAN CORPUSCULAR HGB CONC 35.4 g/dL (32.0-36.0); MEAN CORPUSCULAR VOLUME 90.8 fL (80.0-94.0); MEAN PLATELET VOLUME 8.6 fL (7.4-11.4); MONOCYTES # (AUTO) 0.9 10^3/uL (0.0-1.0); MONOCYTES % (AUTO) 13.6 %; NEUTROPHILS # (AUTO) 4.3 10^3/uL (1.5-6.6); PLT - PLATELET COUNT 91 10^3/uL (130-450); RED BLOOD COUNT 2.49 10^6/uL (4.70-6.10); RED CELL DISTRIBUTION WIDTH 13.6 % (12.0-15.0); WHITE BLOOD COUNT 6.6 x10^3/uL (4.8-10.8)
[2020-03-12 05:12] LABS: CREATININE 0.8 mg/dL (0.6-1.2)
[2020-03-12] MEDS: NIACIN ER 500 MG TABLET PO SCH (08:46)
[2020-03-12] MEDS: SENNA 8.6 MG TABLET PO SCH ×2 (08:46→08:59)
[2020-03-12] MEDS: TAMSULOSIN 0.4 MG CAPSULE PO SCH (08:46)
[2020-03-12] MEDS: MULTIVITAMIN TABLET PO SCH (08:46)
[2020-03-12] MEDS: ASPIRIN 325 MG TABLET PO SCH (08:47)
[2020-03-12] MEDS: DOCUSATE SODIUM 100 MG CAPSULE PO PRN (08:48)
[2020-03-12] MEDS: POTASSIUM CHLORIDE 10 MEQ CAPSULE PO SCH (08:48)
[2020-03-12] MEDS: buPROPion XL 150 MG TABLET PO SCH (08:48)
[2020-03-12] MEDS: polyethylene glycoL 3350 17 GM PACKET PO SCH ×2 (08:49→08:59)
[2020-03-12] MEDS: CALCIUM CARBONATE CHEW 500 MG TABLET PO SCH (08:50)
[2020-03-12] MEDS: CHOLECALCIFEROL 25 MCG TABLET PO SCH (08:50)
[2020-03-12] MEDS ORDERED: DOCUSATE SODIUM 250 MG CAPSULE PO SCH (09:00)
[2020-03-12] MEDS ORDERED: BISACODYL 10 MG SUPP PR ONE (09:30)
--- NOTE | 2020-03-12 10:44 | Discharge Plan ---
"Discharge Plan for SNF / HAL - Discharge Plan And Transition Orders Problem Reviewed?: Yes Disposition: 03 SNF DC/Xfer Condition: Stable Allergies and Adverse Reactions: Allergies Allergy/AdvReac Type Severity Reaction Status Date / Time atorvastatin calcium * Allergy Mild MUSCLE PAIN Verified 03/09/20 02:30 [From Lipitor] Health Concerns: This unfortunate gentleman fell at home and broke his right hip. He recently underwent back surgery February 10 in [facility] and did rehab in your facility. He was discharged to home and is been doing well at home until he fell. He underwent an uneventful right hip repair. Postoperatively he did require 2 units of packed cells because hemoglobin fell to 6.9. After 2 units hemoglobin is 8. He continues to complain of dizziness and wooziness when he s tands up. Blood pressure is 147/88 today with a pulse of 96. He is afebrile. He is requested that rehabilitation be at your facility again and asked that she is being transferred to your facility. In the immediate postoperative setting he did have delirium due to use of opiates for pain control. We stopped giving him opiates and transition him to Toradol and delirium resolved. Plan of Treatment: 1. To see orthopedics in 10 to 15 days. Orthopedic care will need to be arranged at your end. Wound would be reviewed and bairon removed at that visit. 2. He will need to have physical rehabilitation for right hip fracture, status post repair. Care Goals: To return to independent status, fully ambulatory, and live independently in his home. Assessment: Patient and family have requested transfer to [facility] in [place], [place]. They will follow through with rehab, recommendations, and will see their primary care provider in follow-up when they return. - SNF / PENITENTIARY Transition Orders Admit to (Facility): [facility] Discharge Diagnosis: 1. Closed right hip fracture with moderately displaced and comminuted intratrochanteric proximal right femur fracture. Status post closed reduction and locked intramedullary nailing of right hip fracture March [address] Les Mir 2. Fall at home and during current hospitalization. Repeat films done after fall and hospitalization are negative. 3. Acute blood loss anemia as a cause of postoperative anemia, status post 2 units of packed cells 4. Delirium not superimposed on dementia, resolved 5. History of coronary artery disease 6. Anxiety disorder 7. Hypertension 8. Benign prostatic hypertrophy with lower urinary tract symptoms 9. Hypokalemia, resolved Medicare Certification Statement: I certify that [facility] prison care is medically necessary on a continuing basis for any of the conditions for which she/he is receiving care during hospitalization. Notify PCP of admission and forward orders to primary provider for signature. Weight on admission and: Weekly Other Notification Orders: Call PCP immediately if patient develops dyspnea, chest pain/tightness or edema. House Bowel Program: Yes Additional Bowel Program Orders: If no BM after 2 days, nurse may give M.O.M. 30ml PO PRN and/or ducolax Supp 1 DC and/or ANIL 250mg P.O., and/or senna 1-2 tabs PO. On day 3 nurse may give repeat above order until residents constipation is resolved. Annual Influenza Vaccine (between Jun 15 and January 12): Yes Two-step PPD per [facility] [id number] or approved exception documents: Yes Lab Tests or X-ray Orders: CBC and BMP 03/15/2020 to follow up on anemia and low K. Plain film right hip for follow-up of orthotic/bone in 10 to 15 days when bairon are removed. Orthopedics to review. Medication Orders: PLEASE REFER TO THE DISCHARGE MEDICATION LIST. Insulin Orders?: No - Medications New Prescriptions: Cholecalciferol [Vitamin D3] 800 unit PO DAILY #1 capsule - Diet Type: Geriatric Texture: Regular Liquids: Thin May have monthly special meal: Yes - Therapies | Activity Therapy: Evaluation | Treat if indicated: PT, OT Rehabilitation Potential: Maximize functional status, Return to independent living Activity: Wt Bearing as Tolerated Weight Bearing: Weightbearing as tolerated right lower extremity Assistance Devices: Walker Additional Instructions: Keep wound clean and dry. Dressing may be changed at discretion of institutional policy. Please report changes of redness, heat, drainage, increased pain to institutional provider if occurs"
[2020-03-12] MEDS: MORPHINE 2 MG/ML CARPUJECT IVP PRN (11:39)
[2020-03-12 12:15] VITALS: BP 144/76
--- NOTE | 2020-03-12 19:04 | DISCHARGE SUMMARY ---
"Discharge Summary Admit Date: 03/09/20 Discharge Date: 03/12/20 Discharging Provider: Dolly Murray MD Primary Care Provider: Jocelynn Perez MD Code Status: Attempt Resuscitation Condition at Discharge: Stable Discharge Disposition: 03 SNF DC/Xfer Discharge Facility Name: [facility] [place], [place] - DIAGNOSES Discharge Diagnoses with Status of Each Condition: 1. Closed right hip fracture with moderately displaced and comminuted intratrochanteric proximal right femur fracture. Status post closed reduction a nd locked intramedullary nailing of right hip fracture March [address] Les Mir 2. Fall at home and during current hospitalization. Repeat films done after fall and hospitalization are negative. 3. Acute blood loss anemia as a cause of postoperative anemia, status post 2 units of packed cells 4. Delirium not superimposed on dementia, resolved 5. History of coronary artery disease 6. Anxiety disorder 7. Hypertension 8. Benign prostatic hypertrophy with lower urinary tract symptoms 9. Hypokalemia, resolved - CONSULTS | PROCEDURES Consultations: Les Mir MD Orthopedics Procedures: 1. Closed reduction and locked intramedullary nailing of right hip fracture March 09 2. transfusion of 2 units of packed cells 3. hip and pelvis x-ray on admission showing moderately displaced and comminuted intratrochanteric right proximal femur fracture. 4. Repeat hip and pelvis x-ray after sliding to the floor while in hospital sh owing status post repair of right intratrochanteric fracture and no dislocations. Everything in place. 5. Chest x-ray stable negative single view chest. 6. Head CT progression of cerebral volume loss and chronic microvascular ischemic changes compared to a head CT from March 2017. Extensive intracranial atherosclerosis. No acute intracranial process. 7. Cervical spine CT no acute fracture or dislocation. Multilevel degenerative disc disease and degenerative joint disease. Bilateral artery calcifications. - HOSPITAL COURSE Hospital Course: Our concern is that there is something going on with the right leg. He has had 2 back surgeries with the most recent one February 10. His right leg gives out from underneath him and that is the reason he fell at his home. He underwent an uncomplicated surgery. Postoperatively dropped his hemoglobin to 6.9. His admitting hemoglobin was 12.4. After 2 units his hemoglobin increased to 8.0. White cell count has been normal. Vital signs were normal. He did decrease his blood pressure to 103 systolic but rebounded. On his second postoperative day he attempted to get out of bed, right leg again gave out from underneath him and he slid to the floor. Bandage is dry, there is no excessive bleeding. Plain film shows no dislocation of the intramedullary nailing. Orthopedics reviewed the films. His main problem in the postoperative setting, besides the anemia, was delirium. He would get confused at night. He is not noted to have dementia and may be due to his age and postoperative status. He appears to have senescent brain changes on CT compatible with age and vascular circulation deficit. During the day he was easily cued. He had no symptoms of his history of coronary artery disease. Anxiety disorder was controlled by me attaining his usual home meds. Blood pressure was on the low side. He did have problems with urinary retention and Lynch was not able to be placed after several attempts in the ER or on the floor. Post void residuals were occasionally high. He did have mild hypokalemia that resolved with 1 dose of supplementation. During his stay admission platelets were 137, and then subsequently decreased to 113 then 86 and 191 on the day of discharge. He is not on Plavix, nor was he on Lovenox or heparin while here. For completeness sake this should be followed up by his primary care provider or a provider in the outpatient setting. At discharge temperature was 36.8 pulse was 105 blood pressure 113/54 respirations 14 and unlabored and is 98% on room air. He is a 5 foot 8 inch elderly gentleman at 69 kg. Sleepy, but cooperative. Knows where he is, why he is here, and apologetic that he gets confused at night. He is such a pleasant gentleman and we have reassured him that this is a normal problem in many patients in the postoperative setting or even just being in the hospital. His right cheek has a resolving hematoma where he landed on his right face on admission. Neck is supple no JVD. Lungs have occasional coarse upper airway sounds that clear with a good cough. He does not have crackles rhonchi wheezing or labored respiration. PMI is normally placed. Regular rate and rhythm. Abdomen is soft, nontender, normal bowel sounds. The right lateral hip is covered in a bandage that is dry, white. Clean. Left leg normal. No edema. He is able to get out of bed with a moderate assist and using hand pull. He still needs a moderate assist to stand pivot but he gets dizzy when standing up. It takes a bit for him to transfer and use his feet to walk. He was able to ambulate 8 feet with wide steps and needed a fair amount of cueing and using a walker. He says that the pain was tolerable in his leg. It is definitely there but not agonizing. He would benefit from continued physical therapy. He is transferred in stable condition to the [facility] [place], [place]. His children own the rehab facility there and he wishes to be transferred by private ambulance there and we have made those arrangements. Greater than 30 minutes was spent coordinating discharge. Wound orders and follow-up orders were placed in the intermediate facility order set. - ALLERGIES Allergies/Adverse Reactions: Allergies Allergy/AdvReac Type Severity Reaction Status Date / Time atorvastatin calcium * Allergy Mild MUSCLE PAIN Verified 03/09/20 02:30 [From Lipitor] - MEDICATIONS Home Medications: Ambulatory Orders Medication Instructions Recorded Confirmed Red Yeast Rice 600 mg PO DAILY 05/02/13 03/09/20 Melatonin/Pyridoxine [Melatonin 3 1 each PO HS 08/08/13 03/09/20 mg Tablet] Selenium 50 mcg PO DAILY 08/22/13 03/09/20 Zinc [Zinc Chelated] 50 mg PO DAILY 08/22/13 03/09/20 ALPRAZolam [Alprazolam] 0.125 mg PO DAILY PRN #3 03/12/20 03/09/20 Acetaminophen [Tylenol] 650 - 975 mg PO Q4HR PRN tablet 03/12/20 Aspirin [Vidya] 325 mg PO BIDWM tablet 03/12/20 Calcium Carbonate [Tums (Calcium 500 mg PO BID tablet 03/12/20 Carbonate 500mg)] Cholecalciferol [Vitamin D3] 800 unit PO DAILY #1 capsule 03/12/20 Multivitamin [Multivitamins] 1 each PO DAILY #0 03/12/20 03/09/20 Niacin 500 mg PO DAILY #0 03/12/20 03/09/20 Potassium Chloride 10 meq PO DAILY #15 tablet.er 03/12/20 03/09/20 Tamsulosin [Flomax] 0.4 mg PO DAILY #30 capsule 03/12/20 03/09/20 buPROPion [Wellbutrin Xl] 150 mg PO DAILY #0 03/12/20 03/09/20 oxyCODONE [Roxicodone] 5 mg PO Q4HR PRN tablet 03/12/20 - LABS Result Diagrams: 03/12/20 04:35 03/12/20 04:35"
== END 2020-03-12 14:10 | DRG 481 ==
LOC: EDUNIT# → ED 02:14 → MS3 03:47 → MS2 03-10 19:53
PROVIDERS: ADMIT Internal Medicine; ATTEND Specialist
PROC: 0QH636Z Insertion of Intramedullary Internal Fixation Device into Right Upper Femur, Percutaneous Approach (ICD-10-PCS; principal; 2020-03-09 14:15)
PROC: 30233N1 Transfusion of Nonautologous Red Blood Cells into Peripheral Vein, Percutaneous Approach (ICD-10-PCS; 2020-03-11)
DX: S72.001A Fracture of unspecified part of neck of right femur, initial encounter for closed fracture (principal); S01.411A Laceration without foreign body of right cheek and temporomandibular area, initial encounter; M80.051A Age-related osteoporosis with current pathological fracture, right femur, initial encounter for fracture; D62 Acute posthemorrhagic anemia; F05 Delirium due to known physiological condition; S00.83XA Contusion of other part of head, initial encounter; N40.0 Benign prostatic hyperplasia without lower urinary tract symptoms; W01.190A Fall on same level from slipping, tripping and stumbling with subsequent striking against furniture, initial encounter; Y92.003 Bedroom of unspecified non-institutional (private) residence as the place of occurrence of the external cause; I10 Essential (primary) hypertension; E87.6 Hypokalemia; N40.1 Benign prostatic hyperplasia with lower urinary tract symptoms; R33.8 Other retention of urine; I25.10 Atherosclerotic heart disease of native coronary artery without angina pectoris; F41.9 Anxiety disorder, unspecified; M50.31 Other cervical disc degeneration, high cervical region; M47.812 Spondylosis without myelopathy or radiculopathy, cervical region; M48.02 Spinal stenosis, cervical region; H91.90 Unspecified hearing loss, unspecified ear; Z79.82 Long term (current) use of aspirin; Z98.890 Other specified postprocedural states; Z91.81 History of falling; Z95.5 Presence of coronary angioplasty implant and graft
CPT/HCPCS: 36415; 70450; 71045; 72125; 73502; 80048; 81003; 83735; 85025; 85610; 86850; 86900; 86901; 86920; 93005; 96374; 97112; 97162; 97166; 97530; 99285; A9270; J0131; J1170; J2795; J7120; P9016; 81001; 87086

== ENCOUNTER 2020-08-22 13:24 | Outpatient (CLI) | payer MEDICARE, OTHER | END 2020-08-22 13:25 | disposition critical access hospital (66) | LOC: EMS 13:24 | PROVIDERS: ATTEND Surgery | DX: R47.9 Unspecified speech disturbances (principal) | CPT/HCPCS: A0425; A0429 ==

== ENCOUNTER 2020-08-22 13:51 | Observation (INO) | payer MEDICARE, OTHER ==
--- NOTE | 2020-08-22 14:03 | ED Physician Documentation ---
PD HPI FOCAL NEURO - Stated complaint Stated Complaint: DIFFICULTY SPEAKING - History obtained from History obtained from: Patient, EMS - History of Present Illness Timing - onset: Today Timing - duration: Hours (1) Timing - details: Abrupt onset Severity of deficit: Moderate Weakness: No: Face, Arm, Hand, Leg, Foot, Right, Left Numbness: No: Face, Arm, Hand, Leg, Foot, Right, Left Associated symptoms: No: Headache, Nausea / vomiting, Seizure, Syncope, Fall, Head injury, Chest pain, Neck pain, Back pain, Fever Contributing factors: negative: Anticoagulated Baseline status: positive: A&OX3, ambulatory, indep Recently seen: Not recently seen - Additional information Additional information: 84-year-old male presents to the emergency department stating that he had diffic ulty with word finding and expressing the words today. This lasted for about an hour. He states he woke up from a nap around 1245 and noticed he was having difficulty speaking. He thinks he fell asleep around noon. Has not had similar symptoms in the past. No other focal neurological deficits. No numbness or weakness. No facial droop. Currently symptoms have resolved. took ASA today Review of Systems Ten Systems: 10 systems reviewed and negative Constitutional: denies: Fever, Chills Nose: denies: Rhinorrhea / runny nose, Congestion GI: denies: Vomiting, Diarrhea Skin: denies: Rash Musculoskeletal: denies: Neck pain, Back pain Neurologic: denies: Headache PD PAST MEDICAL HISTORY - Past Medical History Cardiovascular: Hypertension, Coronary artery disease Respiratory: None Neuro: None Endocrine/Autoimmune: None GI: GERD : Benign prostate hypertrophy HEENT: Other (cataract (right)) Psych: Anxiety Musculoskeletal: Chronic back pain Derm: None - Past Surgical History Past Surgical History: Yes General: Cholecystectomy, Appendectomy Ortho: Other Cardiovascular: Coronary stent HEENT: Tonsil/Adenoidectomy - Present Medications Home Medications: Ambulatory Orders Medication Instructions Recorded Confirmed Melatonin/Pyridoxine [Melatonin 3 1 each PO HS 08/08/13 08/22/20 mg Tablet] Selenium 50 mcg PO DAILY 08/22/13 08/22/20 Zinc [Zinc Chelated] 50 mg PO DAILY 08/22/13 08/22/20 Acetaminophen [Tylenol] 650 - 975 mg PO Q4HR PRN tablet 03/12/20 08/22/20 Calcium Carbonate [Tums (Calcium 500 mg PO BID tablet 03/12/20 08/22/20 Carbonate 500mg)] Cholecalciferol [Vitamin D3] 800 unit PO DAILY #1 capsule 03/12/20 08/22/20 Multivitamin [Multivitamins] 1 each PO DAILY #0 03/12/20 08/22/20 Niacin 500 mg PO DAILY #0 03/12/20 08/22/20 Potassium Chloride 10 meq PO DAILY #15 tablet.er 03/12/20 03/09/20 Tamsulosin [Flomax] 0.4 mg PO DAILY #30 capsule 03/12/20 08/22/20 ALPRAZolam [Alprazolam] 0.125 mg PO BID 08/22/20 08/22/20 Aspirin [Aspirin EC] 81 mg PO DAILY 08/22/20 08/22/20 Carbidopa/Levodopa/Entacapone 1 each PO BID 08/22/20 08/22/20 [Carbidopa-Levodopa 100 mg-Enta] - Allergies Allergies/Adverse Reactions: Allergies Allergy/AdvReac Type Severity Reaction Status Date / Time atorvastatin calcium * Allergy Mild MUSCLE PAIN Verified 03/09/20 02:30 [From Lipitor] - Social History Does the pt smoke?: No Smoking Status: Never smoker Does the pt drink ETOH?: Yes Does the pt have substance abuse?: No - Immunizations Immunizations are current?: Yes - POLST Patient has POLST: No POLST Status: Full Code PD ED PE NORMAL - Vitals Vital signs reviewed: Yes - General General: Alert 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, No acute distress, Well developed/nourished - HEENT HEENT: PERRL, Moist mucous membranes - Neck Neck: Supple, no meningeal sign - Cardiac Cardiac: RRR, Strong equal pulses - Respiratory Respiratory: No respiratory distress, Clear bilaterally - Abdomen Abdomen: Soft, Non tender, Non distended - Derm Derm: Warm and dry - Extremities Extremities: No edema, No calf tenderness / cord - Neuro Neuro: Alert 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, 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, No motor deficit, No sensory deficit, Normal speech Eye Opening: Spontaneous Motor: Obeys Commands Verbal: Oriented GCS Score: 15 - Psych Psych: Normal mood, Normal affect NIHSS - Time Time: 13:55 - Level of Consciousness Level of consciousness: (0) Alert, Keenly responsive LOC Questions: (0) Answers both Q's correct LOC Commands: (0) Performs both correctly - Gaze Best Gaze: (0) Normal - Visual Visual: (0) No loss - Facial Palsy Facial Palsy: (0) Normal, symmetrical movement - Motor Arms (both separate) Motor Arm (right): (0) No drift Motor Arm (left): (0) No drift - Motor Legs (both separate) Motor Leg (right): (0) No drift Motor Leg (left): (0) No drift - Limb Ataxia Limb Ataxia: (0) Absent - Sensory Sensory: (0) Normal - Best Language Best Language: (0) No aphasia - Dysarthria Dysarthria: (0) Normal - Extinction and Inattention (formally neg Extinction and inattention: (0) No abnormality - Total Score/Results Total Score/Result: 0 Results - Vitals Vitals: Vital Signs - 24 hr 08/22/20 08/22/20 13:53 14:36 Temperature 36.7 C 37 C Heart Rate 79 80 Respiratory 18 17 Rate Blood Pressure 155/99 H 177/99 H O2 Saturation 100 100 Oxygen O2 Source Room air - EKG (time done) 1417 Rate: Rate (enter#) Rhythm: NSR [place]: Normal Intervals: Prolonged [place] QRS: Normal Ischemia: Normal ST segments - Labs Labs: Laboratory Tests 08/22/20 08/22/20 08/22/20 14:02 14:02 14:02 WBC 5.7 RBC 4.06 L Hgb 13.2 L Hct 37.5 L MCV 92.4 MCH 32.5 H MCHC 35.2 RDW 13.0 Plt Count 138 MPV 8.8 Neut # (Auto) 3.8 Lymph # (Auto) 1.2 L Noble # (Auto) 0.7 Eos # (Auto) 0.1 Baso # (Auto) 0.0 Absolute Nucleated RBC 0.00 Nucleated RBC % 0.0 PT 13.2 H INR 1.2 Sodium 134 L Potassium 3.5 Chloride 99 L Carbon Dioxide 26 Anion Gap 9.0 BUN 16 Creatinine 0.9 Estimated GFR (MDRD) 80 L Glucose 96 Calcium 8.9 Total Bilirubin 1.3 H AST 19 ALT 13 Alkaline Phosphatase 61 Total Protein 6.9 Albumin 3.9 Globulin 3.0 Albumin/Globulin Ratio 1.3 Urine Color Urine Clarity Urine pH Ur Specific [place] Urine Protein Urine Glucose (UA) Urine Ketones Urine Occult Blood Urine Nitrite Urine Bilirubin Urine Urobilinogen Ur Leukocyte Esterase Ur Microscopic Review Urine Culture Comments 08/22/20 14:15 WBC RBC Hgb Hct MCV MCH MCHC RDW Plt Count MPV Neut # (Auto) Lymph # (Auto) Noble # (Auto) Eos # (Auto) Baso # (Auto) Absolute Nucleated RBC Nucleated RBC % PT INR Sodium Potassium Chloride Carbon Dioxide Anion Gap BUN Creatinine Estimated GFR (MDRD) Glucose Calcium Total Bilirubin AST ALT Alkaline Phosphatase Total Protein Albumin Globulin Albumin/Globulin Ratio Urine Color COLORLESS Urine Clarity CLEAR Urine pH 7.5 Ur Specific [place] 1.015 Urine Protein NEGATIVE Urine Glucose (UA) NEGATIVE Urine Ketones NEGATIVE Urine Occult Blood NEGATIVE Urine Nitrite NEGATIVE Urine Bilirubin NEGATIVE Urine Urobilinogen 0.2 (NORMAL) Ur Leukocyte Esterase NEGATIVE Ur Microscopic Review NOT INDICATED Urine Culture Comments NOT INDICATED - Rads (name of study) head CT Radiology: Prelim report reviewed, EMP read contemporaneously, See rad report CT angio head Radiology: Prelim report reviewed, EMP read contemporaneously, See rad report CT angio neck Radiology: Prelim report reviewed, EMP read contemporaneously, See rad report PD MEDICAL DECISION MAKING - ED course Complexity details: reviewed results, re-evaluated patient, considered differential, d/w patient ED course: 84-year-old male with a TIA. Symptoms fully resolved in the emergency department. No significant findings on CT angiogram of the head and neck. No significant lab abnormalities. He took aspirin prior to arrival. Will place in observation for further care. Discussed the case with Dr. Chavez, hospitalist who accepts This document was made in part using voice recognition software. While efforts are made to proofread this document, sound alike and grammatical errors may occur. Departure - Departure Disposition: ED Place in Observation Clinical Impression: TIA (transient ischemic attack) Condition: Stable
[2020-08-22 14:20] LABS: BASOPHILS % (AUTO) 0.3 %; EOSINOPHILS # (AUTO) 0.1 10^3/uL (0.0-0.7); EOSINOPHILS % (AUTO) 1.4 %; HGB - HEMOGLOBIN 13.2 g/dL (14.0-18.0); LYMPHOCYTES # (AUTO) 1.2 10^3/uL (1.5-3.5); LYMPHOCYTES % (AUTO) 20.2 %; MEAN CORPUSCULAR HEMOGLOBIN 32.5 pg (27.0-31.0); MEAN CORPUSCULAR HGB CONC 35.2 g/dL (32.0-36.0); MEAN CORPUSCULAR VOLUME 92.4 fL (80.0-94.0); MEAN PLATELET VOLUME 8.8 fL (7.4-11.4); MONOCYTES # (AUTO) 0.7 10^3/uL (0.0-1.0); NEUTROPHILS # (AUTO) 3.8 10^3/uL (1.5-6.6); NEUTROPHILS % (AUTO) 65.8 %; PLT - PLATELET COUNT 138 10^3/uL (130-450); RED BLOOD COUNT 4.06 10^6/uL (4.70-6.10); WHITE BLOOD COUNT 5.7 x10^3/uL (4.8-10.8)
[2020-08-22] MEDS ORDERED: IOVERSOL 320 100 ML VIAL IVP ONE ×2 (14:25→15:35)
--- NOTE | 2020-08-22 14:26 | CT Report ---
PROCEDURE: Head W/O Stroke Protocol INDICATIONS: aphasia TECHNIQUE: Noncontrast 4.5 mm thick angled axial sections acquired from the foramen magnum to the vertex, with c oronal reformats. For radiation dose reduction, the following was used: automated exposure control, adjustment of mA and/or kV according to patient size. COMPARISON: 03/09/2020 FINDINGS: Image quality: Excellent. CSF spaces: Basal cisterns are patent. No extra-axial fluid collections. Ventricles, cerebral sulc i, and basal cisterns are symmetric in size and morphology. Brain: No midline shift. No intracranial masses or hemorrhage. Hooper-white matter interface is norm al. There is diffuse cortical volume loss with associated ex vacuo dilatation of the bilateral ventr icles. No acute intracranial hemorrhage or evidence of transcortical infarction. Scattered bilatera l periventricular white matter hypoattenuation likely sequela from chronic small vessel ischemic dise ase. Atherosclerotic calcifications within the intracranial segments of the bilateral internal caroti d arteries are noted. Skull and face: Calvarium and visualized facial bones are intact, without suspicious lesions. Sinuses: Small bilateral maxillary sinus mucoceles. Visualized sinuses and mastoids are otherwise cl ear. IMPRESSION: 1. CT head without acute intracranial abnormalities. 2. Stable appearance of moderate age-related senescent changes and sequela of moderate chronic small vessel ischemic disease. This study fulfills neurological imaging criteria for inclusion or exclusion of acute stroke therapie s based on available published neurological imaging guidelines. Findings were discussed with Dr. Ventura of the emergency Department staff at 1424 hours PST. Reviewed by: Tuan Reid MD on 08/22/2020 1:25 PM [place] Approved by: Tuan Reid MD on 08/22/2020 1:25 PM [facility] Station ID: [id number]
[2020-08-22 14:27] LABS: INR 1.2 (0.8-1.2); PT - PROTHROMBIN TIME 13.2 secs (9.9-12.6)
--- NOTE | 2020-08-22 14:34 | CT Report ---
PROCEDURE: ANGIO HEAD W/WO INDICATIONS: aphasia CONTRAST: IV CONTRAST: Optiray 320 ml: 80 PO CONTRAST: *NO PO CONTRAST TECHNIQUE: Precontrast 4.5 mm thick angled axial sections acquired from the foramen magnum to the vertex. Afte r the administration of intravenous contrast, 1 mm thick sections acquired through the [place] of Will is. Postcontrast 4.5 mm thick sections then re-acquired from the foramen magnum to the vertex. 3-di mensional vfdqfmx-njydslwlr-iiwpadhzag (MIP) and/or volume rendering reformats were acquired of the c entral intracranial vasculature. For radiation dose reduction, the following was used: automated ex posure control, adjustment of mA and/or kV according to patient size. COMPARISON: CT head from earlier same day FINDINGS: Image quality: Excellent. Anterior circulation: There are moderate scattered atherosclerotic calcifications of the bilateral in tracranial segments of the internal carotid arteries which remain patent bilaterally. There is modera te narrowing of the cavernous and supraclinoid segment bilaterally. No evidence for occlusion or aneu rysm formation. The flow within the paired anterior cerebral arteries is normal and symmetric. The f low within the middle cerebral arteries is normal and symmetric. The anterior communicating artery i s seen. No aneurysms are seen. Posterior circulation: Visualized portions of the vertebral arteries demonstrate a left dominant sys tem which join to form a normal appearing basilar artery. The posterior cerebral arteries are patent. No aneurysms are seen. CSF spaces: Ventricles are normal in size and shape. Basal cisterns are patent. No extra-axial flu id collections. Brain: No midline shift. No intracranial bleeds or masses. No abnormal areas of enhancement. Stable age-related senescent changes and sequela of chronic small vessel ischemic disease. Hooper-white jung er interface appears intact. Skull and face: Calvarium and facial bones appear intact, without suspicious lesions. Sinuses: Small bilateral maxillary sinus mucous retention cyst. Remainder of the visualized paranasa l sinuses and mastoids are clear. 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 No evidence for high-grade stenosis or occlusion. No dissection. No aneurysm seen. Age-related senescent changes and sequela of chronic small vessel ischemic disease. Reviewed by: Tuan Reid MD on 08/22/2020 1:33 PM [facility] Approved by: Tuan Reid MD on 08/22/2020 1:33 PM [facility] Station ID: [id number]
[2020-08-22 14:35] LABS: BILIRUBIN,URINE NEGATIVE (NEGATIVE); GLUCOSE, URINE (UA) NEGATIVE (NEGATIVE); KETONES,URINE (UA) NEGATIVE (NEGATIVE); LEUKOCYTE ESTERASE, URINE NEGATIVE (NEGATIVE); NITRITE,URINE NEGATIVE (NEGATIVE); OCCULT BLOOD,URINE NEGATIVE (NEGATIVE); PH,URINE 7.5 PH (5.0-7.5); PROTEIN,URINE NEGATIVE (NEGATIVE); UROBILINOGEN,URINE 0.2 (NORMAL) E.U./dL (NORMAL)
[2020-08-22 14:38] LABS: CLARITY,URINE CLEAR (CLEAR)
[2020-08-22 14:41] LABS: ALBUMIN 3.9 g/dL (3.2-5.5); ALBUMIN/GLOBULIN RATIO 1.3 (1.0-2.2); BILIRUBIN,TOTAL 1.3 mg/dL (0.2-1.0); CALCIUM 8.9 mg/dL (8.5-10.3); CREATININE 0.9 mg/dL (0.6-1.2); TOTAL PROTEIN 6.9 g/dL (6.7-8.2)
--- NOTE | 2020-08-22 14:44 | CT Report ---
PROCEDURE: ANGIO NECK W INDICATIONS: aphasia CONTRAST: IV CONTRAST: Optiray 320 ml: 80 PO CONTRAST: *NO PO CONTRAST TECHNIQUE: After the administration of intravenous contrast, 1.5 mm axial sections acquired from the aortic arch to the [place]. Coronal 3-D maximum intensity projection (MIP) and/or volume rendering ref ormats were then performed. For radiation dose reduction, the following was used: automated exposur e control, adjustment of mA and/or kV according to patient size. COMPARISON: CT cervical spine from 03/09/2020. FINDINGS: Image quality: Excellent. Carotid system: The great vessels demonstrate a conventional anatomy as they arise from the aortic a rch. Scattered atherosclerotic calcifications of the aortic arch. The origins of the common carotid a rteries appear patent. The common carotid arteries demonstrate normal calibers and courses. There ar e atherosclerotic calcifications at the carotid bifurcation without high-grade stenosis identified. T he internal carotid arteries demonstrate normal caliber and course. Posterior circulation: The origins of the vertebral arteries appear patent. Incidental note of left dominant vertebral artery system. Scattered atherosclerotic calcifications within the vertebral arter ies without high-grade stenosis. The vertebral arteries join to form a normal appearing basilar arter y. Soft tissues: Visualized neck soft tissues demonstrate no suspicious abnormalities. The thyroid gla nd is normal in size. Bones: No suspicious bony lesions. Stable appearance of moderate multilevel cervical spondylosis thr oughout the imaged spine. No acute compression fractures. IMPRESSION: 1. Negative CT angiogram of the neck. 2. Scattered atherosclerotic calcifications of the aortic arch, extracranial carotid arteries, and ve rtebral arteries without hemodynamically significant stenosis. No evidence for occlusion, dissection, or aneurysm. 3. Stable appearance of moderate multilevel cervical spondylosis. The estimate of stenosis included in the report of the imaging study was calculated using the NASCET method Reviewed by: Tuan Reid MD on 08/22/2020 1:42 PM [facility] Approved by: Tuan Reid MD on 08/22/2020 1:42 PM [facility] Station ID: [id number]
--- NOTE | 2020-08-22 16:24 | PHARMACY PROGRESS NOTE ---
- Best Possible Medication History Admit Date and Time: 08/22/20 1446 Processed by: Pharmacy Medication History completed: Yes Patient Interview: Completed Secondary Source(s): Physician records, Pharmacy records As the person ultimately responsible for medication therapy, providers are able to order a medication from an existing home medication list in [facility] via the "Reconcile Routine" prior to Confirmation of that medication by technical support intern. Such practice is discouraged except when the physician, in their clinical judgment, deems that a medical need exists for a medication without regard to previous use.
[2020-08-22] MEDS ORDERED: ACETAMINOPHEN 325 MG TABLET PO PRN (17:06)
[2020-08-22] MEDS ORDERED: ONDANSETRON 4 MG/2 ML VIAL IVP PRN (17:06)
[2020-08-22] MEDS ORDERED: SODIUM CHLORIDE FLUSH 0.9% 10 ML SYRINGE IVP PRN (17:06)
--- NOTE | 2020-08-22 19:54 | HISTORY & PHYSICAL EXAMINATION ---
Chief Complaint - Chief Complaint Chief Complaint: Slurred speech History of Present Illness - Admitted From Admitted From:: [facility] ED - History Obtained From Records Reviewed: Yes History obtained from: Patient - History of Present Illness HPI Comment/Other: Patient is an 84-year-old male with history of hypertension, coronary artery disease, GERD, BPH, recent diagnosis of Parkinson's and recent right hip fracture status post repair and rehab who presented to the ED today with complaint of slurred speech. He woke up from a nap around 11 AM this morning and his noted that he was slurring his words so she called 911 when there was no resolution after 10 minutes. The patient reports that his symptoms resolved within an hour. He denied any weakness in any of his extremities or any other neurologic deficits. He was not experiencing any problems with his vision, headaches or difficulty swallowing. He has never experienced the symptoms before. He usually gets around using a walker and off a cane since his fracture in February 2020. He is resting in bed comfortably and denies chest pain, dyspnea, abdominal pain, nausea, vomiting, fever or chills. He is neuro exam is largely unremarkable except for some slowness and slight dysmetria with [id number] test. He is being admitted for further work-up to include an echocardiogram and possibly an MRI of the brain. History - Past Medical History Cardiovascular: reports: Hypertension, Coronary artery disease Respiratory: reports: None Neuro: reports: Parkinson's Endocrine/Autoimmune: reports: None GI: reports: GERD : reports: Benign prostate hypertrophy HEENT: reports: Other (cataract (right)) Psych: reports: Anxiety Musculoskeletal: reports: Chronic back pain Derm: reports: None MRSA Hx?: No - Past Surgical History General: reports: Cholecystectomy, Appendectomy Ortho: reports: Hip replacement (right), Other Cardiovascular: reports: Coronary stent HEENT: reports: Tonsil/Adenoidectomy - Family & Social History Family History: Father: Cancer (prostate), Diabetes, Type 2 Family History Comment/Other: mother: dementia. maternal uncle: a hermorrhagic CVA. one daughter: a congenital heart anomaly Social History Notes: He is . Has 3 children. 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 He never smoked. He drinks alcohol socially. He does not use any recreational substances. He lives at home with his . - POLST Patient has POLST: No POLST Status: Full Code Meds/Allgy - Home Medications Home Medications: Ambulatory Orders Medication Instructions Recorded Confirmed Melatonin/Pyridoxine [Melatonin 3 1 each PO HS 08/08/13 08/22/20 mg Tablet] Selenium 50 mcg PO DAILY 08/22/13 08/22/20 Zinc [Zinc Chelated] 50 mg PO DAILY 08/22/13 08/22/20 Acetaminophen [Tylenol] 650 - 975 mg PO Q4HR PRN tablet 03/12/20 08/22/20 Calcium Carbonate [Tums (Calcium 500 mg PO BID tablet 03/12/20 08/22/20 Carbonate 500mg)] Cholecalciferol [Vitamin D3] 800 unit PO DAILY #1 capsule 03/12/20 08/22/20 Multivitamin [Multivitamins] 1 each PO DAILY #0 03/12/20 08/22/20 Niacin 500 mg PO DAILY #0 03/12/20 08/22/20 Potassium Chloride 10 meq PO DAILY #15 tablet.er 03/12/20 08/22/20 Tamsulosin [Flomax] 0.4 mg PO DAILY #30 capsule 03/12/20 08/22/20 ALPRAZolam [Alprazolam] 0.125 mg PO BID 08/22/20 08/22/20 Aspirin [Aspirin EC] 81 mg PO DAILY 08/22/20 08/22/20 Carbidopa/Levodopa 25/100 [Sinemet 1 each PO BID 08/22/20 08/22/20 25 mg/100 mg] - Allergies Allergies/Adverse Reactions: Allergies Allergy/AdvReac Type Severity Reaction Status Date / Time atorvastatin calcium * Allergy Mild MUSCLE PAIN Verified 03/09/20 02:30 [From Lipitor] Review of Systems - Constitutional Constitutional: denies: Fatigue, Fever, Chills, Weakness - Eyes Eyes: denies: Pain, Blurred vision, Vision loss, Dipolpia - Ears, Nose & Throat Ears, Nose & Throat: reports: Hearing aids. denies: Ear pain - Cardiovascular Cariovascular: denies: Irregular heart rate, Palpitations, Chest pain, Edema, Lightheadedness, Syncope, Exertional dyspnea - Respiratory Respiratory: denies: Cough, Sputum production, Wheezing, SOB at rest, SOB with exertion - Gastrointestinal Gastrointestinal: denies: Abdominal pain, Abdominal distention, Constipation, Nausea, Vomiting - Genitourinary Genitourinary: denies: Dysuria, Frequency, Urgency, Hematuria - Musculoskeletal Musculoskeletal: denies: Muscle pain, Back pain - Integumentary Integumentary: denies: Rash, Pruritis, Lesions - Neurological Neurological: reports: Slurred speech. denies: Focal weakness, Headache, Dizziness, Numbness - Psychiatric Psychiatric: denies: Depression, Anxiety - Endocrine Endocrine: denies: Polyuria, Polydypsia - Hematologic/Lymphatic Hematologic/Lymphatic: denies: Anemia, Bruising, Petechiae Prior Level of Functionality: Patient is normally independent of activities of daily living. He gets around using a cane or a walker since his fall and right hip fracture in February 2020. After hospitalization and repair of type fracture he moved down to [place] in [place] and was in the rehab facility for 7 weeks. After that he stayed with his daughter and son-in-law for 3 months. He was diagnosed with Parkinson's while down there. Exam - Vital Signs Vital Signs: Vital Signs x48h Temp Pulse Pulse Resp BP BP Pulse Ox 08/22/20 16:35 36.7 C 79 18 161/90 H 100 08/22/20 15:42 37.1 C 76 19 169/99 H 100 08/22/20 15:11 37 C 79 18 177/100 H 100 08/22/20 14:36 37 C 80 17 177/99 H 100 08/22/20 13:53 36.7 C 79 18 155/99 H 100 - Physical Exam General Appearance: positive: No acute distress, Alert Eyes Bilateral: positive: PERRL, EOMI ENT: positive: No signs of dehydration Neck: positive: No JVD, Trachea midline Respiratory: positive: Chest non-tender, No respiratory distress, Breath sounds nml. negative: Wheezes, Rales, Rhonchi Cardiovascular: positive: Regular rate & rhythm, No murmur Abdomen: positive: Non-tender, No organomegaly, Nml bowel sounds, No distention. negative: Guarding, Rebound Back: positive: Nml inspection Skin: positive: Color nml, No rash, Warm, Dry Extremities: positive: Non-tender, Nml appearance, No pedal edema Neurologic/Psychiatric: positive: Oriented x3, CN's nml (2-12), Motor nml, Mood/affect nml. negative: Weakness, Facial droop, Slurred/abnml speech Conclusion/Plan - Problem List (1) TIA (transient ischemic attack) Conclusion/Plan: Patient symptoms resolved Within an hour of onset. There was no evidence of high-grade stenosis or occlusion on CT scan of the head and neck. There was no dissection or aneurysm seen. Age related senescent changes and sequelae of chronic small vessel ischemia disease noted MRI of the brain ordered for the morning. 2D echo and lipid panel ordered. Daily aspirin daily. Continue niacin 500 mg p.o. daily. Patient apparently has an allergy to atorvastatin. (2) Parkinsons disease Conclusion/Plan: Patient is on Sinemet 25 mg / 100 mg 1 tab p.o. twice daily (3) Anxiety Conclusion/Plan: She takes Xanax 0.25 mg p.o. twice daily (4) Coronary artery disease Conclusion/Plan: On a baby aspirin daily and Niacin 500 mg p.o. daily Patient is not on a beta-srikanth. (5) Hypertension Conclusion/Plan: Will allow for permissive hypertension overnight. Patient used to be on hydrochlorothiazide which he reports was discontinued while he was at rehab after his hip repair in February 2020. The reason for discontinuation is unknown. Patient will need an antihypertensive upon discharge. In light of his history of coronary artery disease, will consider a beta-srikanth and or LISBETH inhibitors (6) BPH (benign prostatic hyperplasia) Conclusion/Plan: On tamsulosin 0.4 mg p.o. daily (7) Gastroesophageal reflux disease Conclusion/Plan: Famotidine 20 mg twice daily ordered. - Lab Results Fish Bones: 08/22/20 14:02 08/22/20 14:02 Core Measures - Anticipated LOS I expect patient to be DC'd or transferred within 96 hours.: Yes - DVT/VTE - Prophylaxis VTE/DVT Device ordered at admit?: Yes
[2020-08-22] MEDS: FAMOTIDINE 20 MG TABLET PO SCH (20:49)
[2020-08-22] MEDS: CALCIUM CARBONATE CHEW 500 MG TABLET PO SCH (20:49)
[2020-08-22] MEDS: ALPRAZolam 0.25 MG TABLET PO SCH (20:49)
[2020-08-22] MEDS: CARBIDOPA/LEVODOPA 25 MG/100 MG TABLET PO SCH (20:49)
[2020-08-22] MEDS ORDERED: PYRIDOXINE PO SCH (21:00)
[2020-08-22] MEDS ORDERED: MELATONIN PO SCH (21:00)
--- NOTE | 2020-08-23 02:20 | PROVIDER PROGRESS NOTE ---
Utility Division Project Manager Note - Utility Division Project Manager Note Utility Division Project Manager Note: Around 1 AM on August 23, 2020 I was called to bedside for concern of garbled speech. On assessment, the patient is awake and alert. He is able to follow commands appropriately however his words are completely unintelligible. The rest of his neurological exam is otherwise unremarkable. I spoke to Dr. Brandy Romero with [facility] neurology. She advised to continue with the current plan of getting an MRI of the brain in the morning. And that no further imaging was needed at this very moment. We will continue to monitor the patient throughout the night for any worsening neurologic symptoms.
[2020-08-23 05:51] LABS: BASOPHILS % (AUTO) 0.5 %; EOSINOPHILS # (AUTO) 0.1 10^3/uL (0.0-0.7); EOSINOPHILS % (AUTO) 1.2 %; HGB - HEMOGLOBIN 12.7 g/dL (14.0-18.0); LYMPHOCYTES # (AUTO) 1.5 10^3/uL (1.5-3.5); LYMPHOCYTES % (AUTO) 20.3 %; MEAN CORPUSCULAR HGB CONC 34.1 g/dL (32.0-36.0); MEAN CORPUSCULAR VOLUME 93.7 fL (80.0-94.0); MEAN PLATELET VOLUME 8.7 fL (7.4-11.4); MONOCYTES # (AUTO) 0.8 10^3/uL (0.0-1.0); MONOCYTES % (AUTO) 10.8 %; NEUTROPHILS # (AUTO) 4.9 10^3/uL (1.5-6.6); NEUTROPHILS % (AUTO) 66.9 %; PLT - PLATELET COUNT 164 10^3/uL (130-450); RED BLOOD COUNT 3.97 10^6/uL (4.70-6.10); RED CELL DISTRIBUTION WIDTH 12.8 % (12.0-15.0); WHITE BLOOD COUNT 7.3 x10^3/uL (4.8-10.8)
[2020-08-23 06:06] LABS: BUN - BLOOD UREA NITROGEN 16 mg/dL (6-20); CALCIUM 8.9 mg/dL (8.5-10.3); CARBON DIOXIDE - CO2 24 mmol/L (21-32); CHLORIDE 98 mmol/L (101-111); CHOL/HDL RATIO 2.3 (<5.0); CHOLESTEROL 152 mg/dL; CREATININE 0.9 mg/dL (0.6-1.2); GLUCOSE 94 mg/dL (70-100); HDL CHOLESTEROL 66 mg/dL; LDL CHOLESTEROL,CALCULATED 71 mg/dL; LDL/HDL RATIO 1.1 (<3.6); MAGNESIUM 2.2 mg/dL (1.7-2.8); SODIUM 135 mmol/L (135-145); VLDL CHOLESTEROL 15 mg/dL
[2020-08-23] MEDS ORDERED: POTASSIUM CHLORIDE 20 MEQ TABLET PO ONE (08:00)
[2020-08-23] MEDS: CARBIDOPA/LEVODOPA 25 MG/100 MG TABLET PO SCH (08:33)
[2020-08-23] MEDS: ALPRAZolam 0.25 MG TABLET PO SCH (08:33)
[2020-08-23] MEDS ORDERED: NIACIN ER 500 MG TABLET PO SCH (09:00)
[2020-08-23] MEDS ORDERED: TAMSULOSIN 0.4 MG CAPSULE PO SCH (09:00)
[2020-08-23] MEDS ORDERED: POTASSIUM CHLORIDE 10 MEQ CAPSULE PO SCH (09:00)
[2020-08-23] MEDS ORDERED: ASPIRIN EC 81 MG TABLET PO SCH (09:00)
[2020-08-23] MEDS: CALCIUM CARBONATE CHEW 500 MG TABLET PO SCH (09:45)
[2020-08-23] MEDS: FAMOTIDINE 20 MG TABLET PO SCH ×2 (09:45→09:48)
[2020-08-23] MEDS ORDERED: BISACODYL 10 MG SUPP PR ONE (11:39)
--- NOTE | 2020-08-23 12:42 | MRI Report ---
PROCEDURE: Brain W/O INDICATIONS: TIA TECHNIQUE: Noncontrast axial T1 spin echo, axial T2 fast spin echo, sagittal and axial FLAIR, coronal T2 fast sp in echo, axial gradient echo, axial diffusion and ADC through the brain. COMPARISON: None. FINDINGS: Image quality: Excellent. CSF Spaces: Basal cisterns are patent. No extra-axial fluid collections. Ventricles are normal in size and shape. Brain: No intracranial masses or hemorrhage. Hooper/white matter interface is normal. Brainstem appe ars normal. Diffusion-weighted images demonstrate no acute ischemic insult. No chronic ischemic ins ults. Normal intravascular flow voids are present. Prominent microvascular atherosclerotic change i n the deep white matter of each hemisphere, also previously present on CT scanning 1 day ago. Skull and face: Calvarium has normal marrow signal. Orbits appear normal. Sinuses: Sinuses and mastoids are clear. IMPRESSION: No acute stroke found. Moderate microvascular atherosclerotic change in the deep white matter of each hemisphere, also seen on prior CT scanning. No acute disease. Reviewed by: Jesus Ferrer MD on 08/23/2020 12:41 PM PST Approved by: Jesus Ferrer MD on 08/23/2020 12:41 PM PST Station ID: [id number]
[2020-08-23] MEDS: SODIUM CHLORIDE FLUSH 0.9% 10 ML SYRINGE IVP SCH ×2 (14:23)
--- NOTE | 2020-08-23 14:49 | Discharge Plan ---
Discharge Plan Problem Reviewed?: Yes Disposition: Home, Self Care Condition: Fair Prescriptions: Clopidogrel [Plavix] 75 mg PO DAILY #30 tablet Diet: Low Sodium Activity Restrictions: Activity as Tolerated Shower Restrictions: No Instruction Topics: TIA Health Concerns: You were hospitalized in Observation status to evaluate slurred speech, which was a transient ischemic attack (TIA) It occurred again several hours later while here. During that time you did not have any irregular heartbeats on heart monitor. The other evaluation with Echocardiogram showed you have a strong heart muscle, blood tests showed no heart attack, brain MRI scan showed no evidence of a stroke but you have plaque buildup in many small blood vessels. You are being discharged on a new medicine to take called Plavix, in addition to your aspirin. The new prescription was electronically sent to your [facility] pharmacy in [place]. Please resume all your other prehospital medications. Please have follow-up with your Neurologist, Dr Husam Puentes, regarding this new diagnosis. Plan of Treatment: As above. Care Goals: Improvement in symptoms and stabilization are the goals. Assessment: The patient understands. Printed instructions were given to the patient for reminder. Additional Instructions or Follow Up instructions: If you have new or worsening symptoms, call your PCP for advice or come to the ER. No Smoking: If you smoke, Please STOP! Call for help. Follow-up with: Jocelynn Perez MD [Provider Admit Priv/Credential] -
[2020-08-23] MEDS ORDERED: CLOPIDOGREL 75 MG TABLET PO ONE (15:00)
--- NOTE | 2020-08-23 15:17 | DISCHARGE SUMMARY ---
Discharge Summary Admit Date: 08/22/20 Discharge Date: 08/23/20 Discharging Provider: Dr Marilee Chavez Primary Care Provider: Dr Jocelynn Perez, Dr Husam Puentes (Neurology) Code Status: Attempt Resuscitation Condition at Discharge: Fair Discharge Disposition: 01 Home, Self Care - HPI History of Present Illness: From the admission H&P of Dr Elgin Bansal: Patient is an 84-year-old male with history of hypertension, coronary artery disease, GERD, BPH, recent diagnosis of Parkinson's and recent right hip fracture status post repair and rehab, who presented to the ED today with complaint of slurred speech. He woke up from a nap around 11 AM this morning and his noted that he was slurring his words so she called 911, when there was no resolution after 10 minutes. The patient reports that his symptoms resolved within an hour. He denied any weakness in any of his extremities or any other neurologic deficits. He was not experiencing any problems with his vision, headaches or difficulty swallowing. He has never experienced the symptoms before. He usually gets around using a walker and a cane since his hip fracture in February 2020. He is resting in bed comfortably and denies chest pain, dyspnea, abdominal pain, nausea, vomiting, fever or chills. His neuro exam is largely unremarkable except for some slowness and slight dysmetria with [id number] test. He is being admitted for further work-up of TIA to include an Echocardiogram and an MRI of the brain. - HOSPITAL COURSE Hospital Course: (1) TIA (transient ischemic attack) Patient had a recurrence of slurred speech, witnessed by the [facility] Hospitalist. The covering Neurologist at [facility], Dr Romero, was contacted and case reviewed and she recommended no transfer, but to continue our work-up here. The symptoms resolved under an hour of onset. The CT head showed no stroke or bleed. His CTA of head and neck showed no evidence of high-grade stenosis or occlusion, and no dissection or aneurysm seen. There was age related senescent changes and sequelae of chronic small vessel ischemia disease noted. MRI of the brain was done that showed no stroke. The Echo showed no clot or intra-cardiac shunt. His lipid panel showed good control. He was discharged and prescribed Plavix 75 mg daily (for 21 days [facility]), in addition to his daily aspirin daily. Continue lipid management with niacin 500 mg p.o. daily. He was advised to have Neurology follow-up as an outpatient, and he reported there was an appointment soon, previously scheduled, to see his Neurologist Dr Husam Puentes, for the Parkinson's management, already. (2) Parkinsons disease Patient was kept on Sinemet 25 mg/100 mg 1 tab p.o. twice daily. (3) Anxiety He takes Xanax 0.25 mg p.o. twice daily which was continued (4) Coronary artery disease He was ket on a baby aspirin daily and Niacin 500 mg p.o. daily. Patient is not on a beta-srikanth. (5) Hypertension We allowed for permissive hypertension. Patient used to be on hydrochloroth iazide which he reports was discontinued while he was at rehab after his hip repair in February 2020. The reason for discontinuation is unknown. (6) BPH (benign prostatic hyperplasia) He was kept on tamsulosin 0.4 mg p.o. daily (7) Gastroesophageal reflux disease Famotidine 20 mg twice daily ordered. - ALLERGIES Allergies/Adverse Reactions: Allergies Allergy/AdvReac Type Severity Reaction Status Date / Time atorvastatin calcium * Allergy Mild MUSCLE PAIN Verified 03/09/20 02:30 [From Lipitor] - MEDICATIONS Home Medications: Ambulatory Orders Medication Instructions Recorded Confirmed Melatonin/Pyridoxine [Melatonin 3 1 each PO HS 08/08/13 08/22/20 mg Tablet] Selenium 50 mcg PO DAILY 08/22/13 08/22/20 Zinc [Zinc Chelated] 50 mg PO DAILY 08/22/13 08/22/20 Acetaminophen [Tylenol] 650 - 975 mg PO Q4HR PRN tablet 03/12/20 08/22/20 Calcium Carbonate [Tums (Calcium 500 mg PO BID tablet 03/12/20 08/22/20 Carbonate 500mg)] Cholecalciferol [Vitamin D3] 800 unit PO DAILY #1 capsule 03/12/20 08/22/20 Multivitamin [Multivitamins] 1 each PO DAILY #0 03/12/20 08/22/20 Niacin 500 mg PO DAILY #0 03/12/20 08/22/20 Potassium Chloride 10 meq PO DAILY #15 tablet.er 03/12/20 08/22/20 Tamsulosin [Flomax] 0.4 mg PO DAILY #30 capsule 03/12/20 08/22/20 ALPRAZolam [Alprazolam] 0.125 mg PO BID 08/22/20 08/22/20 Aspirin [Aspirin EC] 81 mg PO DAILY 08/22/20 08/22/20 Carbidopa/Levodopa 25/100 [Sinemet 1 each PO BID 08/22/20 08/22/20 25 mg/100 mg] Clopidogrel [Plavix] 75 mg PO DAILY #30 tablet 08/23/20 - PHYSICAL EXAM AT DISCHARGE General Appearance: positive: No acute distress, Alert, Other (Flat affect) Eyes Bilateral: positive: Normal inspection, EOMI ENT: positive: ENT inspection nml, No signs of dehydration Neck: positive: Nml inspection, No JVD Respiratory: positive: No respiratory distress Cardiovascular: positive: Regular rate & rhythm, No murmur Abdomen: positive: Non-tender, No distention Skin: positive: Warm, Dry Neurologic/Psychiatric: positive: Oriented x3, Motor nml, Other (Flat affect present, but no tremor or bradykinesis.) - LABS Result Diagrams: 08/23/20 05:47 08/23/20 05:47 - DIAGNOSTIC IMAGING Diagnostic Imaging Results: Final report reviewed - FOLLOW UP Follow Up: See PCP for routine hospital follow-up, and see Neurologist, Dr Husam Puentes, in previously scheduled upcoming appointment. - TIME SPENT Time Spent in Discharge (Minutes): 30
[2020-08-23 16:27] VITALS: BP 148/73
[2020-08-24] MEDS ORDERED: CLOPIDOGREL 75 MG TABLET PO SCH (09:00)
== END 2020-08-23 16:20 | disposition home or self-care (01) ==
LOC: EDUNIT# → ED 13:51 → MS2 14:46
PROVIDERS: ADMIT Internal Medicine; ATTEND Internal Medicine
DX: G45.9 Transient cerebral ischemic attack, unspecified (principal); I10 Essential (primary) hypertension; G20 Parkinson's disease; I25.10 Atherosclerotic heart disease of native coronary artery without angina pectoris; K21.9 Gastro-esophageal reflux disease without esophagitis; N40.0 Benign prostatic hyperplasia without lower urinary tract symptoms; F41.9 Anxiety disorder, unspecified; G89.29 Other chronic pain; M54.9 Dorsalgia, unspecified; Z79.82 Long term (current) use of aspirin; Z79.899 Other long term (current) drug therapy; Z95.5 Presence of coronary angioplasty implant and graft; Z74.09 Other reduced mobility; Z20.828 Contact with and (suspected) exposure to other viral communicable diseases
CPT/HCPCS: 36415; 70450; 70496; 70498; 70551; 80048; 80053; 80061; 81003; 83735; 84443; 85025; 85610; 93005; 93306; 99285; A9270; G0378; Q9967; U0004; 81001; 83721; 87086

== ENCOUNTER 2021-06-22 19:43 | Outpatient (CLI) | payer MEDICARE, OTHER | END 2021-06-22 19:44 | disposition critical access hospital (66) | LOC: EMS 19:43 | DX: R42 Dizziness and giddiness (principal); R53.1 Weakness; R53.83 Other fatigue | CPT/HCPCS: A0425; A0429 ==

== ENCOUNTER 2021-06-22 20:14 | Emergency (ER) | payer MEDICARE, OTHER ==
--- NOTE | 2021-06-22 20:31 | ED Physician Documentation ---
History of Present Illness - Stated complaint Stated Complaint: WEAKNESS - Chief complaint Chief Complaint: Neuro - Additonal information Additional information: 85-year-old male with a history of hypertension, coronary artery disease, GERD B PH and Parkinson's presents to the emergency department for evaluation of generalized weakness. He was athome, closing the door to the house as he got cold and then felt liek his legs were suddenly weak and he fell to the ground. He did not have a lapse in consciousness and he did not strike his head. He does have some minor baseline weakness in the right leg that he attributes to a femur fracture for which he did have a 5-month long rehab in 2019. There were no focal neuro deficits for EMS and his presentation here in the ED showed no focal deficits or slurred speech. negative fast exam Here in the emergency department he is very cognizant of the events. In the past when he has had TIA-like events it has been noted with slurred speech. He denies any recent illness, cough congestion, chest pain or shortness of air. Meds: Plavix 75 mg daily, testosterone 100 mg intramuscularly once weekly, Sinemet twice daily, potassium 10 mEq daily, Flomax daily Review of Systems Constitutional: denies: Fever, Chills Eyes: denies: Loss of vision Ears: reports: Reviewed and negative Nose: reports: Reviewed and negative Throat: reports: Reviewed and negative Cardiac: reports: Reviewed and negative Respiratory: reports: Reviewed and negative GI: reports: Reviewed and negative : reports: Reviewed and negative PD PAST MEDICAL HISTORY - Past Medical History Cardiovascular: Hypertension, Coronary artery disease Respiratory: None Neuro: Parkinson's Endocrine/Autoimmune: None GI: GERD : Benign prostate hypertrophy HEENT: Other (cataract (right)) Psych: Anxiety Musculoskeletal: Chronic back pain Derm: None - Past Surgical History Past Surgical History: Yes General: Cholecystectomy, Appendectomy Ortho: Hip replacement (right), Other Cardiovascular: Coronary stent HEENT: Tonsil/Adenoidectomy - Present Medications Home Medications: Ambulatory Orders Medication Instructions Recorded Confirmed Melatonin/Pyridoxine [Melatonin 3 1 each PO HS 08/08/13 08/22/20 mg Tablet] Selenium 50 mcg PO DAILY 08/22/13 08/22/20 Zinc [Zinc Chelated] 50 mg PO DAILY 08/22/13 08/22/20 Acetaminophen [Tylenol] 650 - 975 mg PO Q4HR PRN tablet 03/12/20 08/22/20 Calcium Carbonate [Tums (Calcium 500 mg PO BID tablet 03/12/20 08/22/20 Carbonate 500mg)] Cholecalciferol [Vitamin D3] 800 unit PO DAILY #1 capsule 03/12/20 08/22/20 Multivitamin [Multivitamins] 1 each PO DAILY #0 03/12/20 08/22/20 Niacin 500 mg PO DAILY #0 03/12/20 08/22/20 Potassium Chloride 10 meq PO DAILY #15 tablet.er 03/12/20 08/22/20 Tamsulosin [Flomax] 0.4 mg PO DAILY #30 capsule 03/12/20 08/22/20 ALPRAZolam [Alprazolam] 0.125 mg PO BID 08/22/20 08/22/20 Aspirin [Aspirin EC] 81 mg PO DAILY 08/22/20 08/22/20 Carbidopa/Levodopa 25/100 [Sinemet 1 each PO BID 08/22/20 08/22/20 25 mg/100 mg] Clopidogrel [Plavix] 75 mg PO DAILY #30 tablet 08/23/20 - Allergies Allergies/Adverse Reactions: Allergies Allergy/AdvReac Type Severity Reaction Status Date / Time atorvastatin calcium * Allergy Mild MUSCLE PAIN Verified 06/22/21 20:23 [From Lipitor] - Social History Does the pt smoke?: No Smoking Status: Never smoker Does the pt drink ETOH?: Yes Does the pt have substance abuse?: No - Immunizations Immunizations are current?: Yes - POLST Patient has POLST: No POLST Status: Full Code PD ED PE EXPANDED - General General: Alert, No acute distress, Well developed/nourished - Neck Neck: Supple w/out meningeal sx. No: Adenopathy - Cardiac Cardiac: Regular Rate, Murmur Present, Radial strong equal, Pedal strong equal - Respiratory Respiratory: Clear to ausultation ephraim. No: Distress, Labored - Abdomen Abdomen: Normal Bowel sounds. No: Tender to palpation - Derm Derm: Normal color, Warm and dry. No: Rash - Extremities Extremities: Normal. No: Deformity, Tenderness - Neuro Neuro: Alert and Oriented X 3, CNII-XII intact, Normal gait, Normal finger nose, Normal speech, Other (motor strength 5/5 BUE. no visual deficits. Mild weakness right leg (at baseline) after femur fracture) - GCS Eye Opening: Spontaneous Motor: Obeys Commands Verbal: Oriented Total: 15 Results - Vitals Vitals: Vital Signs - 24 hr 06/22/21 06/22/21 06/22/21 20:19 21:07 21:46 Heart Rate 79 70 81 Respiratory 15 17 18 Rate Blood Pressure 169/96 H 171/91 H 196/93 H O2 Saturation 99 99 99 Oxygen O2 Source Room air - EKG (time done) 2016 Rate: Rate (enter#) (76) Rhythm: NSR [place]: Normal Intervals: Prolonged [place], RBBB QRS: Normal Ischemia: Normal ST segments Compare to prior EKG: Changed from prior EKG (new RBBB) Computer interpretation: Agree with computer - Labs Labs: Laboratory Tests 06/22/21 06/22/21 06/22/21 20:30 20:33 20:33 WBC 4.9 RBC 4.25 L Hgb 13.6 L Hct 38.6 L MCV 90.8 MCH 32.0 H MCHC 35.2 RDW 12.7 Plt Count 175 MPV 8.2 Neut # (Auto) 3.0 Lymph # (Auto) 1.1 L [place] # (Auto) 0.7 Eos # (Auto) 0.1 Baso # (Auto) 0.0 Absolute Nucleated RBC 0.00 Nucleated RBC % 0.0 Sodium 133 L Potassium 3.4 L Chloride 98 L Carbon Dioxide 27 Anion Gap 8.0 BUN 18 Creatinine 1.0 Estimated GFR (MDRD) 71 L Glucose 111 H Calcium 9.2 Total Bilirubin 1.5 H AST 21 ALT 12 Alkaline Phosphatase 62 Troponin I High Sens Total Protein 6.9 Albumin 4.0 Globulin 2.9 Albumin/Globulin Ratio 1.4 Lipase 70 H Urine Color YELLOW Urine Clarity CLEAR Urine pH 7.0 Ur Specific [place] 1.010 Urine Protein NEGATIVE Urine Glucose (UA) NEGATIVE Urine Ketones NEGATIVE Urine Occult Blood NEGATIVE Urine Nitrite NEGATIVE Urine Bilirubin NEGATIVE Urine Urobilinogen 0.2 (NORMAL) Ur Leukocyte Esterase NEGATIVE Ur Microscopic Review NOT INDICATED Urine Culture Comments NOT INDICATED 06/22/21 20:33 WBC RBC Hgb Hct MCV MCH MCHC RDW Plt Count MPV Neut # (Auto) Lymph # (Auto) [place] # (Auto) Eos # (Auto) Baso # (Auto) Absolute Nucleated RBC Nucleated RBC % Sodium Potassium Chloride Carbon Dioxide Anion Gap BUN Creatinine Estimated GFR (MDRD) Glucose Calcium Total Bilirubin AST ALT Alkaline Phosphatase Troponin I High Sens 6.7 Total Protein Albumin Globulin Albumin/Globulin Ratio Lipase Urine Color Urine Clarity Urine pH Ur Specific [place] Urine Protein Urine Glucose (UA) Urine Ketones Urine Occult Blood Urine Nitrite Urine Bilirubin Urine Urobilinogen Ur Leukocyte Esterase Ur Microscopic Review Urine Culture Comments - Rads (name of study) CT head Radiology: Final report received (No acute intracranial process. Moderate atrophy and chronic microvascular ischemic changes) CXR Radiology: Final report received (No acute pulmonary process) PD MEDICAL DECISION MAKING - ED course Complexity details: reviewed results, considered differential, d/w patient ED course: 85-year-old male presents the emergency department after he had a sudden collapse at home in which he was closing the door to the house and felt like his legs suddenly gave out. He did not have a lapse in consciousness. He denies any chest pain or shortness of air. There were no focal deficits at the scene. He does have a history of hypertension as well as Parkinson's and previous TIA. On presentation this gentleman has no focal neuro or cerebellar deficits. Head CT was unremarkable. Screening EKG does show right bundle branch block but no ischemic changes and troponin was negative. While here in the emergency department on the monitor he has not had any arrhythmia or ectopy. Screening labs showed no worrisome abnormalities no significant anemia or worrisome electrolyte derangement. No findings of infection in the urine. This gentleman was repleted with 1 L of fluid here in the emergency department and on reevaluation was ambulating rather well using his cane at baseline. The etiology of the collapse is not clear. It may be related to his history of Parkinson's. These findings were discussed with his on the phone at length. Patient is stable for discharge home. Advise close follow-up with PCP. Emergent return precautions discussed. Departure - Departure Disposition: 01 Home, Self Care Clinical Impression: Generalized weakness, History of Parkinson's disease, Fall from ground level Condition: Stable Record reviewed to determine appropriate education?: Yes Comments: Kirill you were seen in the ED tonight after you got suddenly weak at hoem and collapsed. Today your screening labs (CBC and electrolytes) did not show any worrisome findings. Your urine showed no infection. Your chest xray was normal for age. The CT of your head did not show any worrisome findings. Here in the emergency department your vital signs have been normal. Your EKG did not show signs of having a heart attack. It is important that you always walk with yoru can or walker at home. Discussed this ED visit with your primary care provider. If at any point you have a another collapse event, if you develop chest pain or shortness of air, if you develop slurred speech or have weakness in your arms or legs and please return immediately to the ER for second look.
[2021-06-22 20:39] LABS: BILIRUBIN,URINE NEGATIVE (NEGATIVE); GLUCOSE, URINE (UA) NEGATIVE (NEGATIVE); KETONES,URINE (UA) NEGATIVE (NEGATIVE); LEUKOCYTE ESTERASE, URINE NEGATIVE (NEGATIVE); NITRITE,URINE NEGATIVE (NEGATIVE); OCCULT BLOOD,URINE NEGATIVE (NEGATIVE); PROTEIN,URINE NEGATIVE (NEGATIVE); UROBILINOGEN,URINE 0.2 (NORMAL) E.U./dL (NORMAL)
[2021-06-22 20:40] LABS: BASOPHILS % (AUTO) 0.6 %; EOSINOPHILS # (AUTO) 0.1 10^3/uL (0.0-0.7); EOSINOPHILS % (AUTO) 2.6 %; HCT - HEMATOCRIT 38.6 % (42.0-52.0); HGB - HEMOGLOBIN 13.6 g/dL (14.0-18.0); LYMPHOCYTES # (AUTO) 1.1 10^3/uL (1.5-3.5); LYMPHOCYTES % (AUTO) 21.8 %; MEAN CORPUSCULAR HGB CONC 35.2 g/dL (32.0-36.0); MEAN CORPUSCULAR VOLUME 90.8 fL (80.0-94.0); MEAN PLATELET VOLUME 8.2 fL (7.4-11.4); MONOCYTES # (AUTO) 0.7 10^3/uL (0.0-1.0); MONOCYTES % (AUTO) 13.2 %; NEUTROPHILS % (AUTO) 61.6 %; PLT - PLATELET COUNT 175 10^3/uL (130-450); RED BLOOD COUNT 4.25 10^6/uL (4.70-6.10); RED CELL DISTRIBUTION WIDTH 12.7 % (12.0-15.0); WHITE BLOOD COUNT 4.9 x10^3/uL (4.8-10.8)
[2021-06-22 20:41] LABS: CLARITY,URINE CLEAR (CLEAR)
[2021-06-22] MEDS ORDERED: SODIUM CHLORIDE 0.9% 1,000 ML IV STA (20:45)
[2021-06-22 20:53] LABS: ALBUMIN/GLOBULIN RATIO 1.4 (1.0-2.2); BILIRUBIN,TOTAL 1.5 mg/dL (0.2-1.0); CALCIUM 9.2 mg/dL (8.5-10.3); POTASSIUM 3.4 mmol/L (3.5-5.0); TOTAL PROTEIN 6.9 g/dL (6.7-8.2)
--- NOTE | 2021-06-22 21:42 | CT Report ---
PROCEDURE: HEAD WO INDICATIONS: ? near syncope TECHNIQUE: Noncontrast 4.5 mm thick angled axial sections acquired from the foramen magnum to the vertex. For r adiation dose reduction, the following was used: automated exposure control, adjustment of mA and/or kV according to patient size. COMPARISON: CT 08/22/2020 FINDINGS: Image quality: Excellent. The ventricular system and cortical sulci demonstrate atrophy, consistent for patient's stated age. There are areas of hypodensity in the periventricular and subcortical white matter. There is no acut e intra or extra-axial fluid collection. No acute hemorrhage, mass lesion or midline shift. Brainst em is unremarkable. Globes are symmetrical. Sinuses are aerated. Osseous structures are intact. IMPRESSION: 1. No acute intracranial process. 2. Moderate atrophy and chronic microvascular ischemic changes. Reviewed by: Mary Kate Mallory MD on 06/22/2021 9:40 PM PDT Approved by: Mary Kate Mallory MD on 06/22/2021 9:40 PM PDT Station ID: [id number]
--- NOTE | 2021-06-22 21:47 | XRAY Report ---
PROCEDURE: Chest 1 View X-Ray INDICATIONS: chest pain TECHNIQUE: One view of the chest was acquired. COMPARISON: Chest x-ray 01/29/2020 FINDINGS: Surgical changes and devices: None. Lungs and pleura: No pleural effusions or pneumothorax. Lungs are clear. Mediastinum: Mediastinal contours appear normal. Heart size is normal. Bones and chest wall: No suspicious bony lesions. Overlying soft tissues appear unremarkable. IMPRESSION: No acute pulmonary process. Reviewed by: Mary Kate Mallory MD on 06/22/2021 9:45 PM PDT Approved by: Mary Kate Mallory MD on 06/22/2021 9:45 PM PDT Station ID: [id number]
[2021-06-22 22:30] VITALS: BP 181/98
== END 2021-06-22 22:29 | disposition home or self-care (01) ==
LOC: EDUNIT# → ED 20:14
DX: R53.1 Weakness (principal); I10 Essential (primary) hypertension; G20 Parkinson's disease
CPT/HCPCS: 36415; 80053; 81001; 81003; 83690; 84484; 85025; 87086; 93005; 96360; 99284

== ENCOUNTER 2021-09-19 08:39 | Outpatient (CLI) | payer MEDICARE, OTHER ==
[2021-09-19] MEDS ORDERED: IOVERSOL 320 100 ML VIAL IVP ONE ×2 (08:58→11:23)
[2021-09-19 09:20] LABS: CREATININE 0.9 mg/dL (0.6-1.2)
--- NOTE | 2021-09-19 11:45 | CT Report ---
PROCEDURE: CT angiography of the chest with contrast INDICATIONS: IDIOPATHIC PARKINSONS DISEASE, WEAKNESS CONTRAST: IV CONTRAST: Optiray 320 ml: 80 PO CONTRAST: *NO PO CONTRAST TECHNIQUE: After the administration of intravenous contrast, 2 mm axial images were acquired from the pulmonary apices to the posterior costophrenic angles during the arterial phase. In addition, 1 mm lung kernel and 5 mm soft tissue kernel reconstructions were performed. 3-dimensional coronal oblique maximum int ensity projection (MIP) reformats, 8 mm axial MIP, and 5 mm coronal and sagittal MPR reformats were t hen performed through the thorax. For radiation dose reduction, the following was used: automated exp osure control, adjustment of mA and/or kV according to patient size. COMPARISON: CT examinations dated 12/15/2015 and 06/15/2017. FINDINGS: Image quality: Excellent. Pulmonary arteries: There is severe calcification of the coronary vasculature. Lungs and pleura: No evidence of pneumonia nor edema. Mild bibasilar predominant chronic interstitial pulmonary opacity is unchanged. Biapical scarring is unchanged. No pleural effusions or pneumothorax . Central and peripheral airways are patent. Mediastinum: Heart size is normal, without pericardial effusion. No mediastinal or hilar adenopathy . Thoracic there is mild diffuse dilatation of the ascending thoracic aorta with a maximal short axi s diameter of roughly 47 mm, which is slightly increased. Esophagus is normal in caliber, without hia noé hernia. Bones and chest wall: No suspicious bony lesions. Ribs and thoracic spine appear intact throughout. No axillary or supraclavicular adenopathy. The thyroid is normal in size and there are no incident al findings. Abdomen: Visualized upper abdominal solid organs appear normal in the early arterial phase of enhanc ement. IMPRESSION: 1. No pulmonary embolus. 2. 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 3. Coronary artery disease. 4. Mild pulmonary fibrosis. Reviewed by: Angelia Rios MD on 09/19/2021 11:44 AM [facility] Approved by: Angelia Rios MD on 09/19/2021 11:44 AM PST Station ID: [id number]
--- NOTE | 2021-09-19 12:26 | MRI Report ---
PROCEDURE: Brain W/O INDICATIONS: IDIOPATHIC PARKINSONS DISEASE, WEAKNESS TECHNIQUE: Noncontrast axial T1 spin echo, axial T2 fast spin echo, sagittal and axial FLAIR, coronal T2 fast sp in echo, axial gradient echo, axial diffusion and ADC through the brain. COMPARISON: None. FINDINGS: Image quality: Excellent. CSF Spaces: Basal cisterns are patent. No extra-axial fluid collections. Ventricles are normal in size and shape. Brain: No intracranial masses or hemorrhage. There is a moderate, diffuse cerebral volume loss. Ther e are severe periventricular and subcortical white matter chronic microvascular ischemic changes. Gra y/white matter interface is normal. Brainstem appears normal. Diffusion-weighted images demonstrate no acute ischemic insult. Small chronic right thalamic lacunar infarct. Normal intravascular flow vo ids are present. Skull and face: Calvarium has normal marrow signal. Orbits appear normal. Sinuses: Sinuses and mastoids are clear. IMPRESSION: 1. No acute intracranial disease process. 2. No abnormal intracranial mass or mass effect. 3. Small chronic right thalamic lacunar infarct. 4. Moderate, diffuse cerebral and loss. 5. Severe periventricular and subcortical white matter chronic microvascular ischemic changes. Reviewed by: Felisha Davis MD, PhD on 09/19/2021 12:24 PM PST Approved by: Felisha Davis MD, PhD on 09/19/2021 12:24 PM PST Station ID: [id number]
--- NOTE | 2021-09-19 15:46 | Ultrasound Report ---
PROCEDURE: Duplex Ext Veins Bilateral INDICATIONS: GAETANO DONAHUE TECHNIQUE: Real-time imaging, as well as color and pulse Doppler interrogation, were performed of the deep veins of both legs from the inguinal ligament to the popliteal fossa. COMPARISON: None FINDINGS: The deep veins are normally compressible, and free of intraluminal thrombus. Color and pu lse Doppler demonstrate normal phasic intravascular flow. There is normal augmentation response to d istal compression maneuver. IMPRESSION: No deep venous thrombosis. Reviewed by: Mary Kate Mallory MD on 09/19/2021 3:45 PM PST Approved by: Mary Kate Mallory MD on 09/19/2021 3:45 PM PST Station ID: [id number]
== END 2021-09-19 08:40 | disposition home or self-care (01) ==
LOC: DI 08:39
PROVIDERS: ATTEND Nurse Practitioner
DX: G20 Parkinson's disease (principal); R53.1 Weakness; R79.89 Other specified abnormal findings of blood chemistry; R40.4 Transient alteration of awareness; I71.2 Thoracic aortic aneurysm, without rupture; I25.10 Atherosclerotic heart disease of native coronary artery without angina pectoris; J84.10 Pulmonary fibrosis, unspecified; Z86.73 Personal history of transient ischemic attack (TIA), and cerebral infarction without residual deficits; I67.82 Cerebral ischemia
CPT/HCPCS: 36415; 70551; 71275; 82565; 93970; Q9967

== ENCOUNTER 2021-11-03 09:33 | Outpatient (CLI) | payer MEDICARE, OTHER ==
[2021-11-03 14:55] LABS: BASOPHILS % (AUTO) 0.6 %; BILIRUBIN,URINE NEGATIVE (NEGATIVE); EOSINOPHILS # (AUTO) 0.1 10^3/uL (0.0-0.7); EOSINOPHILS % (AUTO) 2.2 %; GLUCOSE, URINE (UA) NEGATIVE (NEGATIVE); HCT - HEMATOCRIT 42.4 % (42.0-52.0); HGB - HEMOGLOBIN 14.6 g/dL (14.0-18.0); KETONES,URINE (UA) NEGATIVE (NEGATIVE); LEUKOCYTE ESTERASE, URINE NEGATIVE (NEGATIVE); LYMPHOCYTES # (AUTO) 1.1 10^3/uL (1.5-3.5); MEAN CORPUSCULAR HEMOGLOBIN 31.5 pg (27.0-31.0); MEAN CORPUSCULAR HGB CONC 34.4 g/dL (32.0-36.0); MEAN CORPUSCULAR VOLUME 91.4 fL (80.0-94.0); MEAN PLATELET VOLUME 8.7 fL (7.4-11.4); MONOCYTES # (AUTO) 0.6 10^3/uL (0.0-1.0); NEUTROPHILS # (AUTO) 3.5 10^3/uL (1.5-6.6); NITRITE,URINE NEGATIVE (NEGATIVE); OCCULT BLOOD,URINE NEGATIVE (NEGATIVE); PLT - PLATELET COUNT 155 10^3/uL (130-450); PROTEIN,URINE NEGATIVE (NEGATIVE); RED BLOOD COUNT 4.64 10^6/uL (4.70-6.10); RED CELL DISTRIBUTION WIDTH 12.7 % (12.0-15.0); UROBILINOGEN,URINE 0.2 (NORMAL) E.U./dL (NORMAL); WHITE BLOOD COUNT 5.4 x10^3/uL (4.8-10.8)
[2021-11-03 14:56] LABS: CLARITY,URINE CLEAR (CLEAR)
[2021-11-03 15:42] LABS: ALBUMIN 4.4 g/dL (3.2-5.5); ALBUMIN/GLOBULIN RATIO 1.4 (1.0-2.2); ALKALINE PHOSPHATASE 64 IU/L (42-121); ALT ALANINE AMINOTRANSFERASE 21 IU/L (10-60); AST ASPARTATE AMINOTRANSFERASE 23 IU/L (10-42); BILIRUBIN,TOTAL 1.4 mg/dL (0.2-1.0); BUN - BLOOD UREA NITROGEN 16 mg/dL (6-20); CALCIUM 9.5 mg/dL (8.5-10.3); CARBON DIOXIDE - CO2 28 mmol/L (21-32); CHLORIDE 101 mmol/L (101-111); CHOL/HDL RATIO 2.2 (<5.0); CHOLESTEROL 185 mg/dL; CREATININE 0.9 mg/dL (0.6-1.2); GFR - MDRD 80 (>89); GLUCOSE 110 mg/dL (70-100); HDL CHOLESTEROL 85 mg/dL; LDL CHOLESTEROL,CALCULATED 87 mg/dL; POTASSIUM 3.7 mmol/L (3.5-5.0); SODIUM 137 mmol/L (135-145); TOTAL PROTEIN 7.6 g/dL (6.7-8.2); TRIGLYCERIDES 63 mg/dL; VLDL CHOLESTEROL 13 mg/dL
[2021-11-03 18:47] LABS: ESTIMATED AVERAGE GLUCOSE 103 mg/dL (70-100); HEMOGLOBIN A1c% 5.2 % (4.27-6.07)
== END 2021-11-03 09:34 | disposition home or self-care (01) ==
LOC: LAB.S 09:33
PROVIDERS: ATTEND Internal Medicine
DX: Z79.899 Other long term (current) drug therapy (principal); N40.0 Benign prostatic hyperplasia without lower urinary tract symptoms; Z13.6 Encounter for screening for cardiovascular disorders; I10 Essential (primary) hypertension; R73.01 Impaired fasting glucose; G20 Parkinson's disease; G45.9 Transient cerebral ischemic attack, unspecified; K21.9 Gastro-esophageal reflux disease without esophagitis; I48.91 Unspecified atrial fibrillation; I25.10 Atherosclerotic heart disease of native coronary artery without angina pectoris; R63.4 Abnormal weight loss
CPT/HCPCS: 36415; 80053; 80061; 81001; 81003; 83036; 83721; 84153; 84443; 85025; 87086

== ENCOUNTER 2021-11-12 12:14 | Outpatient (CLI) | payer MEDICARE, OTHER | END 2021-11-12 12:15 | disposition short-term general hospital (02) | LOC: EMS 12:14 | DX: R47.02 Dysphasia (principal) | CPT/HCPCS: A0425; A0429 ==

== ENCOUNTER 2021-11-17 16:19 | Outpatient (CLI) | payer MEDICARE, OTHER | END 2021-11-17 16:20 | disposition critical access hospital (66) | LOC: EMS 16:19 | DX: R11.2 Nausea with vomiting, unspecified (principal); R53.1 Weakness; R32 Unspecified urinary incontinence | CPT/HCPCS: A0425; A0427 ==

== ENCOUNTER 2021-11-17 16:52 | Emergency (ER) | payer MEDICARE, OTHER ==
[2021-11-17 17:12] VITALS: BP 158/79
[2021-11-17 17:44] LABS: BASOPHILS % (AUTO) 0.4 %; EOSINOPHILS # (AUTO) 0.1 10^3/uL (0.0-0.7); EOSINOPHILS % (AUTO) 1.1 %; HCT - HEMATOCRIT 35.9 % (42.0-52.0); HGB - HEMOGLOBIN 12.6 g/dL (14.0-18.0); LYMPHOCYTES # (AUTO) 0.6 10^3/uL (1.5-3.5); LYMPHOCYTES % (AUTO) 7.4 %; MEAN CORPUSCULAR HEMOGLOBIN 32.1 pg (27.0-31.0); MEAN CORPUSCULAR HGB CONC 35.1 g/dL (32.0-36.0); MEAN CORPUSCULAR VOLUME 91.3 fL (80.0-94.0); MEAN PLATELET VOLUME 8.5 fL (7.4-11.4); MONOCYTES # (AUTO) 0.9 10^3/uL (0.0-1.0); MONOCYTES % (AUTO) 11.6 %; NEUTROPHILS # (AUTO) 5.9 10^3/uL (1.5-6.6); NEUTROPHILS % (AUTO) 79.1 %; PLT - PLATELET COUNT 177 10^3/uL (130-450); RED BLOOD COUNT 3.93 10^6/uL (4.70-6.10); RED CELL DISTRIBUTION WIDTH 12.8 % (12.0-15.0); WHITE BLOOD COUNT 7.4 x10^3/uL (4.8-10.8)
[2021-11-17 17:56] LABS: ALBUMIN 3.8 g/dL (3.2-5.5); ALBUMIN/GLOBULIN RATIO 1.3 (1.0-2.2); ALKALINE PHOSPHATASE 61 IU/L (42-121); ALT ALANINE AMINOTRANSFERASE < 10 IU/L (10-60); AST ASPARTATE AMINOTRANSFERASE 17 IU/L (10-42); BILIRUBIN,TOTAL 0.8 mg/dL (0.2-1.0); BUN - BLOOD UREA NITROGEN 24 mg/dL (6-20); CARBON DIOXIDE - CO2 27 mmol/L (21-32); CHLORIDE 99 mmol/L (101-111); CREATININE 0.9 mg/dL (0.6-1.2); GFR - MDRD 80 (>89); GLUCOSE 124 mg/dL (70-100); LIPASE 25 U/L (22-51); POTASSIUM 3.9 mmol/L (3.5-5.0); SODIUM 135 mmol/L (135-145); TOTAL PROTEIN 6.7 g/dL (6.7-8.2)
--- NOTE | 2021-11-17 18:05 | ED Physician Documentation ---
History of Present Illness - Stated complaint Stated Complaint: N/V - Chief complaint Chief Complaint: General - Additonal information Additional information: 86-year-old male who has a history of hypertension, coronary artery disease GERD as well as Parkinson's presents to the emergency department for evaluation of acute onset nausea and vomiting. Gentleman reports that he had been at his neurologist office today for evaluation of his Parkinson's and they increased his carbidopa. At lunch he had fish and chips, coleslaw as well as a glass of wine. As he was returning to the [place] on the [facility] he began having uncontrolled nausea and vomiting. He vomited to the extent that he soiled his pants. He presented to a walk-in clinic. He was given Zofran there and EMS was summoned. By the time that he arrived here in the emergency department the nausea is improved though he is feeling generally weak. He denies any recent fevers, he is denying chest pain or shortness of air. There is no abdominal pain. Review of Systems Constitutional: denies: Fever, Chills Eyes: reports: Reviewed and negative Nose: reports: Reviewed and negative Throat: reports: Reviewed and negative Cardiac: reports: Reviewed and negative Respiratory: reports: Reviewed and negative GI: reports: Nausea, Vomiting : reports: Reviewed and negative Skin: reports: Reviewed and negative Musculoskeletal: reports: Reviewed and negative Neurologic: reports: Generalized weakness PD PAST MEDICAL HISTORY - Past Medical History Cardiovascular: Hypertension, Coronary artery disease Respiratory: None Neuro: Parkinson's Endocrine/Autoimmune: None GI: GERD : Benign prostate hypertrophy HEENT: Other (cataract (right)) Psych: Anxiety Musculoskeletal: Chronic back pain Derm: None - Past Surgical History Past Surgical History: Yes General: Cholecystectomy, Appendectomy Ortho: Hip replacement (right), Other Cardiovascular: Coronary stent HEENT: Tonsil/Adenoidectomy - Present Medications Home Medications: Ambulatory Orders Medication Instructions Recorded Confirmed Melatonin/Pyridoxine [Melatonin 3 1 each PO HS 08/08/13 08/22/20 mg Tablet] Selenium 50 mcg PO DAILY 08/22/13 08/22/20 Zinc [Zinc Chelated] 50 mg PO DAILY 08/22/13 08/22/20 Acetaminophen [Tylenol] 650 - 975 mg PO Q4HR PRN tablet 03/12/20 08/22/20 Calcium Carbonate [Tums (Calcium 500 mg PO BID tablet 03/12/20 08/22/20 Carbonate 500mg)] Cholecalciferol [Vitamin D3] 800 unit PO DAILY #1 capsule 03/12/20 08/22/20 Multivitamin [Multivitamins] 1 each PO DAILY #0 03/12/20 08/22/20 Niacin 500 mg PO DAILY #0 03/12/20 08/22/20 Potassium Chloride 10 meq PO DAILY #15 tablet.er 03/12/20 08/22/20 Tamsulosin [Flomax] 0.4 mg PO DAILY #30 capsule 03/12/20 08/22/20 ALPRAZolam [Alprazolam] 0.125 mg PO BID 08/22/20 08/22/20 Aspirin [Aspirin EC] 81 mg PO DAILY 08/22/20 08/22/20 Carbidopa/Levodopa 25/100 [Sinemet 1 each PO BID 08/22/20 08/22/20 25 mg/100 mg] Clopidogrel [Plavix] 75 mg PO DAILY #30 tablet 08/23/20 Ondansetron Odt [Zofran] 4 mg TL Q6H PRN #10 tablet 11/17/21 - Allergies Allergies/Adverse Reactions: Allergies Allergy/AdvReac Type Severity Reaction Status Date / Time atorvastatin calcium * Allergy Mild MUSCLE PAIN Verified 06/22/21 20:23 [From Lipitor] - Social History Does the pt smoke?: No Smoking Status: Never smoker Does the pt drink ETOH?: Yes Does the pt have substance abuse?: No - Immunizations Immunizations are current?: Yes - POLST Patient has POLST: No POLST Status: Full Code PD ED PE NORMAL - General General: Alert 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, No acute distress, Well developed/nourished - HEENT HEENT: Atraumatic, Moist mucous membranes - Neck Neck: Supple, no meningeal sign, No adenopathy, No JVD - Cardiac Cardiac: RRR, No murmur - Respiratory Respiratory: No respiratory distress, Clear bilaterally - Abdomen Abdomen: Normal bowel sounds, Soft, Non tender - Back Back: No CVA TTP - Derm Derm: Normal color, Warm and dry, No rash - Extremities Extremities: No deformity, No tenderness to palpate, Normal ROM s pain - Neuro Neuro: Alert 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, 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, No motor deficit Eye Opening: Spontaneous Motor: Obeys Commands Verbal: Oriented GCS Score: 15 Results - Vitals Vitals: Vital Signs - 24 hr 11/17/21 11/17/21 17:07 17:13 Temperature 36.2 C L 36.2 C L Heart Rate 78 78 Respiratory 18 20 Rate Blood Pressure 158/79 H 158/79 H O2 Saturation 100 100 Oxygen O2 Source Room air - EKG (time done) 1808 Rate: Rate (enter#) (86) Rhythm: NSR Intervals: Prolonged [place], RBBB QRS: No: Normal Ischemia: Non specific changes Compare to prior EKG: Unchanged from prior EKG Computer interpretation: Agree with computer - Labs Labs: Laboratory Tests 11/17/21 11/17/21 11/17/21 17:37 17:37 17:37 WBC 7.4 RBC 3.93 L Hgb 12.6 L Hct 35.9 L MCV 91.3 MCH 32.1 H MCHC 35.1 RDW 12.8 Plt Count 177 MPV 8.5 Neut # (Auto) 5.9 Lymph # (Auto) 0.6 L [place] # (Auto) 0.9 Eos # (Auto) 0.1 Baso # (Auto) 0.0 Absolute Nucleated RBC 0.00 Nucleated RBC % 0.0 Sodium 135 Potassium 3.9 Chloride 99 L Carbon Dioxide 27 Anion Gap 9.0 BUN 24 H Creatinine 0.9 Estimated GFR (MDRD) 80 L Glucose 124 H Calcium 9.0 Total Bilirubin 0.8 AST 17 ALT < 10 L Alkaline Phosphatase 61 Troponin I High Sens 7.1 Total Protein 6.7 Albumin 3.8 Globulin 2.9 Albumin/Globulin Ratio 1.3 Lipase 25 PD MEDICAL DECISION MAKING - ED course Complexity details: reviewed results, re-evaluated patient, considered diffe fawadtial, d/w patient ED course: 86-year-old male presents emergency department for evaluation of acute onset nausea [place]. [place]y appointment in [place]. At lunch she had eaten coleslaw as well as had fish and chips and wine. When he began vomiting uncontrollably he went to a local walk-in clinic where he was given Zofran and EMS was summoned. By the time that he arrived in the emergency department the nausea and vomiting had resolved and he was free of abdominal pain. He has no focal abdominal tenderness. Screening actionable electrolytes un remarkable. EKG non ischemic. Negative trop. Will defer advanced imaging A prescription for Zofran will be sent to the [facility] in [place]. Emergent return precautions otherwise discussed. Departure - Departure Disposition: 01 Home, Self Care Clinical Impression: Nausea and vomiting Qualifiers: Vomiting type: unspecified Qualified Code(s): R11.2 - Nausea with vomiting, unspecified Condition: Stable Record reviewed to determine appropriate education?: Yes Instructions: ED Diet Vomiting Wwo Diarrhea Prescriptions: Ondansetron Odt [Zofran] 4 mg TL Q6H PRN #10 tablet PRN Reason: Nausea / Vomiting Comments: Kyle you are seen in the emergency department today for nausea and vomiting that occurred when you [facility]. Your vomiting improved after you were given Zofran at the walk-in clinic. And here in the emergency department you are no longer vomiting and able to keep some 7-Up down. Your screening labs did not show any worrisome findings. Your EKG is unchanged from previous and your troponin is negative. Is not likely that the cause of the nausea and vomiting was due to concern with your heart. I have sent a prescription for some Zofran to the [facility] in [place]. I recommend that you take a tablet under the tongue every 8-12 hours for the next 24 to 48 hours. I recommend clear liquids this evening and tomorrow and if improving then you can slowly advance your diet. Return to the emergency department if you develop fevers, have sudden severe abdominal pain or return of uncontrolled vomiting.
== END 2021-11-17 19:27 | disposition home or self-care (01) ==
LOC: EDUNIT# → ED 16:52
DX: R11.2 Nausea with vomiting, unspecified (principal); I10 Essential (primary) hypertension; G20 Parkinson's disease
CPT/HCPCS: 36415; 80053; 83690; 84484; 85025; 93005; 99283

== ENCOUNTER 2022-02-21 15:52 | Outpatient (CLI) | payer MEDICARE, OTHER | END 2022-02-21 23:59 | disposition critical access hospital (66) | LOC: EMS 15:52 | DX: R55 Syncope and collapse (principal); R32 Unspecified urinary incontinence; R15.9 Full incontinence of feces | CPT/HCPCS: A0425; A0429 ==

== ENCOUNTER 2022-02-21 15:56 | Emergency (ER) | payer MEDICARE, OTHER ==
[2022-02-21] MEDS ORDERED: SODIUM CHLORIDE 0.9% 1,000 ML IV STA (16:06)
[2022-02-21 16:12] LABS: BASOPHILS % (AUTO) 0.4 %; EOSINOPHILS # (AUTO) 0.1 10^3/uL (0.0-0.7); EOSINOPHILS % (AUTO) 1.5 %; HCT - HEMATOCRIT 35.7 % (42.0-52.0); HGB - HEMOGLOBIN 12.4 g/dL (14.0-18.0); LYMPHOCYTES % (AUTO) 17.6 %; MEAN CORPUSCULAR HEMOGLOBIN 31.7 pg (27.0-31.0); MEAN CORPUSCULAR HGB CONC 34.7 g/dL (32.0-36.0); MEAN CORPUSCULAR VOLUME 91.3 fL (80.0-94.0); MEAN PLATELET VOLUME 8.6 fL (7.4-11.4); MONOCYTES # (AUTO) 0.6 10^3/uL (0.0-1.0); MONOCYTES % (AUTO) 11.7 %; NEUTROPHILS # (AUTO) 3.7 10^3/uL (1.5-6.6); NEUTROPHILS % (AUTO) 68.4 %; PLT - PLATELET COUNT 157 10^3/uL (130-450); RED BLOOD COUNT 3.91 10^6/uL (4.70-6.10); RED CELL DISTRIBUTION WIDTH 12.5 % (12.0-15.0); WHITE BLOOD COUNT 5.5 x10^3/uL (4.8-10.8)
[2022-02-21 16:22] LABS: ALBUMIN 3.6 g/dL (3.2-5.5); ALBUMIN/GLOBULIN RATIO 1.2 (1.0-2.2); BILIRUBIN,TOTAL 1.1 mg/dL (0.2-1.0); CREATININE 0.9 mg/dL (0.6-1.2); POTASSIUM 3.5 mmol/L (3.5-5.0); TOTAL PROTEIN 6.6 g/dL (6.7-8.2)
--- NOTE | 2022-02-21 16:22 | ED Physician Documentation ---
PD HPI SYNCOPE - Stated complaint Stated Complaint: NEAR SYNCOPE - Chief complaint Chief Complaint: Neuro - History obtained from History obtained from: Patient - History of Present Illness Witnessed: Witnessed Timing - onset: Today Duration: Seconds (2-5) Preceding symptoms: Light headed - Additional information Additional information: Patient is an 86-year-old male who had been out on his front porch today in the sun when he stood up and felt lightheaded. He apparently had incontinence of urine and stool at that time as well. No loss of consciousness. No fall. No back pain. No chest pain. No neck pain. Has a history of Parkinson's and orthostatic hypotension. He states he did not eat and drink much today. The symptoms passed fairly quickly. No seizure activity. No tongue biting. This is similar to prior episodes of near syncope and orthostatic hypotension. Review of Systems Constitutional: denies: Fever, Chills Nose: denies: Rhinorrhea / runny nose, Congestion Throat: denies: Sore throat Cardiac: denies: Chest pain / pressure, Palpitations Respiratory: denies: Dyspnea, Cough GI: denies: Nausea, Vomiting, Diarrhea, Hematemesis, Bloody / black stool Musculoskeletal: denies: Neck pain, Back pain Neurologic: denies: Headache PD PAST MEDICAL HISTORY - Past Medical History Cardiovascular: Hypertension, High cholesterol, Coronary artery disease Respiratory: None Neuro: Parkinson's Endocrine/Autoimmune: None GI: GERD : Benign prostate hypertrophy, Incontinence HEENT: Other Psych: Anxiety Musculoskeletal: Osteoporosis, Chronic back pain Derm: None - Past Surgical History Past Surgical History: Yes General: Cholecystectomy, Appendectomy Ortho: Hip replacement, Other Cardiovascular: Coronary stent HEENT: Tonsil/Adenoidectomy - Present Medications Home Medications: Ambulatory Orders Medication Instructions Recorded Confirmed Acetaminophen [Tylenol] 650 - 975 mg PO Q4HR PRN tablet 03/12/20 02/20/22 Calcium Carbonate [Tums (Calcium 500 mg PO BID tablet 03/12/20 02/20/22 Carbonate 500mg)] Potassium Chloride 10 meq PO DAILY #15 tablet.er 03/12/20 02/20/22 Tamsulosin [Flomax] 0.4 mg PO DAILY #30 capsule 03/12/20 02/20/22 ALPRAZolam [Alprazolam] 0.125 mg PO BID 08/22/20 02/20/22 Carbidopa/Levodopa 25/100 [Sinemet 1 each PO TID 08/22/20 02/20/22 25 mg/100 mg] Clopidogrel [Plavix] 75 mg PO DAILY #30 tablet 08/23/20 02/20/22 Amlodipine Besylate [Norvasc] 2.5 mg PO DAILY 02/20/22 02/20/22 - Allergies Allergies/Adverse Reactions: Allergies Allergy/AdvReac Type Severity Reaction Status Date / Time atorvastatin calcium * Allergy Mild MUSCLE PAIN Verified 02/21/22 16:04 [From Lipitor] - Social History Does the pt smoke?: No Smoking Status: Never smoker Does the pt drink ETOH?: Yes Does the pt have substance abuse?: No - Immunizations Immunizations are current?: Yes - POLST Patient has POLST: No POLST Status: Full Code PD ED PE NORMAL - Vitals Vital signs reviewed: Yes - General General: Alert 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, No acute distress - HEENT HEENT: PERRL, Moist mucous membranes, Pharynx benign - Neck Neck: Supple, no meningeal sign - Cardiac Cardiac: RRR, Strong equal pulses - Respiratory Respiratory: No respiratory distress, Clear bilaterally - Abdomen Abdomen: Soft, Non tender, Non distended - Back Back: No spinal TTP - Derm Derm: Warm and dry - Extremities Extremities: No edema, No calf tenderness / cord - Neuro Neuro: Alert 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, 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, No motor deficit, No sensory deficit, Normal speech Eye Opening: Spontaneous Motor: Obeys Commands Verbal: Oriented GCS Score: 15 - Psych Psych: Normal mood, Normal affect Results - Vitals Vitals: Vital Signs - 24 hr 02/21/22 02/21/22 02/21/22 16:04 16:38 16:48 Temperature 37.0 C Heart Rate 72 78 Heart Rate [ 76 Sitting] Heart Rate [ 80 Standing] Heart Rate [ 77 Supine] Respiratory 18 12 Rate Blood Pressure 169/98 H 152/89 H Blood Pressure 166/87 H [Sitting] Blood Pressure 152/89 H [Standing] Blood Pressure 152/88 H [Supine] O2 Saturation 100 100 02/21/22 02/21/22 02/21/22 17:08 17:30 18:00 Temperature Heart Rate 87 88 87 Heart Rate [ Sitting] Heart Rate [ Standing] Heart Rate [ Supine] Respiratory 18 15 18 Rate Blood Pressure 161/86 H 171/84 H 178/100 H Blood Pressure [Sitting] Blood Pressure [Standing] Blood Pressure [Supine] O2 Saturation 97 100 99 Oxygen O2 Source Room air - EKG (time done) 1608 Rate: Rate (enter#) (71) Rhythm: NSR [place]: Normal Intervals: Prolonged VT, RBBB - Labs Labs: Laboratory Tests 02/21/22 02/21/22 02/21/22 16:00 16:00 16:00 WBC 5.5 RBC 3.91 L Hgb 12.4 L Hct 35.7 L MCV 91.3 MCH 31.7 H MCHC 34.7 RDW 12.5 Plt Count 157 MPV 8.6 Neut # (Auto) 3.7 Lymph # (Auto) 1.0 L [place] # (Auto) 0.6 Eos # (Auto) 0.1 Baso # (Auto) 0.0 Absolute Nucleated RBC 0.00 Nucleated RBC % 0.0 Sodium 135 Potassium 3.5 Chloride 99 L Carbon Dioxide 27 Anion Gap 9.0 BUN 15 Creatinine 0.9 Estimated GFR (MDRD) 80 L Glucose 107 H Calcium 9.0 Total Bilirubin 1.1 H AST 23 ALT 11 Alkaline Phosphatase 60 Troponin I High Sens 5.5 Total Protein 6.6 L Albumin 3.6 Globulin 3.0 Albumin/Globulin Ratio 1.2 Lipase 29 - Rads (name of study) Chest x-ray Radiology: Final report received, EMP read contemporaneously, See rad report (No acute abnormality) PD MEDICAL DECISION MAKING - ED course Complexity details: reviewed results, re-evaluated patient, considered differen tial (No ST elevation PR, no aortic dissection, no PE, no tension pneumothorax, no aortic aneurysm), d/w patient ED course: 86-year-old male with what appears to be vasovagal near syncope today after sitting in the warm sun. Patient is fully asymptomatic here. Negative orthostatics. No acute findings on laboratory testing, EKG. No arrhythmias on telemetry. History not consistent with arrhythmia. We will have him follow-up with his doctor for further care. Patient counseled regarding signs and symptoms for which I believe and urgent re-evaluation would be necessary. Patient with good understanding of and agreement to plan and is comfortable going home at this time This document was made in part using voice recognition software. While efforts are made to proofread this document, sound alike and grammatical errors may occur. Departure - Departure Disposition: 01 Home, Self Care Clinical Impression: Vasovagal near syncope Condition: Good Instructions: ED Near Syncope Vasovagal Follow-Up: Jocelynn Perez MD [Primary Care Provider] - Within 1 week Comments: Your testing does not show any acute abnormalities today. Please follow-up with your doctor for further care. Return if you worsen. Discharge Date/Time: 02/21/22 18:29
--- NOTE | 2022-02-21 16:40 | XRAY Report ---
PROCEDURE: Chest 1 View X-Ray INDICATIONS: Chest Pain TECHNIQUE: One view of the chest was acquired. COMPARISON: Chest radiographs 06/22/2021 FINDINGS: Surgical changes and devices: None. Lungs and pleura: No pleural effusions or pneumothorax. Mild chronic interstitial markings. No acute consolidation. Mediastinum: Mediastinal contours appear normal. Heart size is normal. Bones and chest wall: No suspicious bony lesions. Overlying soft tissues appear unremarkable. IMPRESSION: No acute cardiopulmonary abnormality. Reviewed by: Francois Higgins MD on 02/21/2022 4:38 PM PDT Approved by: Francois Higgins MD on 02/21/2022 4:38 PM PDT Station ID: [id number]
[2022-02-21 18:03] VITALS: BP 178/100
== END 2022-02-21 18:29 | disposition home or self-care (01) ==
LOC: EDUNIT# → ED 15:56
DX: R55 Syncope and collapse (principal)
CPT/HCPCS: 36415; 80053; 83690; 84484; 85025; 93005; 96360; 99283

== ENCOUNTER 2022-02-24 06:16 | Day surgery (SDC) | payer MEDICARE, OTHER ==
[2022-02-24] MEDS ORDERED: LACTATED RINGERS 1,000 ML IV ONE ×2 (06:35→08:56)
[2022-02-24] MEDS ORDERED: CEFAZOLIN SODIUM IN 0.9 % NACL 2 GM/50 ML BAG IV ONE (06:45)
[2022-02-24] MEDS ORDERED: PROPOFOL 200 MG/20 ML VIAL IVP ONE (07:09)
[2022-02-24] MEDS ORDERED: LIDOCAINE-MPF 2% 5 ML VIAL ONE (07:09)
[2022-02-24] MEDS ORDERED: fentaNYL 100 MCG/2 ML VIAL ONE ×2 (07:09→09:29)
[2022-02-24] MEDS ORDERED: MIDAZOLAM 2 MG/2 ML VIAL ONE (07:09)
[2022-02-24] MEDS ORDERED: BUPIVACAINE 0.25% PF 10 ML VIAL ONE (07:11)
[2022-02-24] MEDS ORDERED: SEVOFLURANE 250 ML LIQUID INH ONE (07:14)
--- NOTE | 2022-02-24 07:19 | ANESTHESIA ---
Pre-Anesthesia VS, & Labs - Diagnosis right recurrent inguinal hernia - Procedure right inguinal hernia repair Vital Signs: Temp Pulse Resp BP Pulse Ox 37.0 C 74 17 152/88 H 100 02/24/22 06:30 02/24/22 06:30 02/24/22 06:30 02/24/22 06:30 02/24/22 06:30 Height: 5 ft 9 in Weight (kg): 66 kg Body Mass Index: 21.4 BMI Classification: Healthy weight - NPO >8 hours Home Medications and Allergies Home Medications: Ambulatory Orders Amlodipine Besylate [Norvasc] 2.5 mg PO DAILY 02/20/22 ALPRAZolam [Alprazolam] 0.125 mg PO BID 08/22/20 Carbidopa/Levodopa 25/100 [Sinemet 25 mg/100 mg] 1 each PO TID 08/22/20 Amlodipine Besylate [Norvasc] 2.5 mg PO DAILY 02/20/22 Allergies/Adverse Reactions: Allergies Allergy/AdvReac Type Severity Reaction Status Date / Time atorvastatin calcium * Allergy Mild MUSCLE PAIN Verified 02/24/22 07:07 [From Lipitor] Anes History & Medical History - Anesthetic History Anesthesia Complications: reports: No previous complications - Medical History Cardiovascular: reports: Hypertension, High cholesterol, Coronary artery disease Pulmonary: reports: None Gastrointestinal: reports: GERD Urinary: reports: Benign prostate hypertrophy, Incontinence Neuro: reports: Parkinson's Musculoskeletal: reports: Osteoporosis, Chronic back pain Endocrine/Autoimmune: reports: None Blood Disorders: reports: None Skin: reports: None Smoking Status: Never smoker History of Cancer?: Yes (skin on leg) - Surgical History General: reports: Cholecystectomy, Appendectomy Eyes Ears Nose Throat (EENT): reports: Tonsil/Adenoidectomy Cardiothoracic: reports: Coronary stent Orthopedic: reports: Hip replacement, Other Exam General: Alert, Oriented x3 Dental: WNL Mouth Opening: Greater than 4 Fingerbreadths Neck Mobility: Normal Mallampati classification: II Thyromental Distance: greater than 6 cm Respiratory: Lungs clear Cardiovascular: Regular rate, Normal S1, Normal S2 Plan Anesthesia Type: General Consent for Procedure(s) Verified and Reviewed: Yes Code Status: Attempt Resuscitation ASA classification: 3-Severe systemic disease Is this case an emergency?: No
[2022-02-24] MEDS ORDERED: BUPIVACAINE 0.25% PF 10 ML VIAL SUBQ ONE (08:07)
[2022-02-24] MEDS ORDERED: MORPHINE 2 MG/ML CARPUJECT IVP PRN (08:23)
[2022-02-24] MEDS ORDERED: METOCLOPRAMIDE 10 MG/2 ML VIAL IVP PRN (08:23)
[2022-02-24] MEDS ORDERED: NALOXONE 0.4 MG/ML VIAL IVP PRN (08:23)
[2022-02-24] MEDS ORDERED: ATROPINE ABBOJECT 1 MG/10 ML SYRINGE IVP PRN (08:23)
[2022-02-24] MEDS ORDERED: HYDROmorphone 0.5 MG/0.5 ML SYRINGE IVP PRN ×2 (08:23→08:53)
[2022-02-24] MEDS ORDERED: ePHEDrine 50 MG/ML VIAL IVP PRN (08:23)
[2022-02-24] MEDS ORDERED: ONDANSETRON 4 MG/2 ML VIAL IVP PRN ×2 (08:23→08:53)
[2022-02-24] MEDS ORDERED: ONDANSETRON 4 MG/2 ML VIAL ONE (08:26)
[2022-02-24] MEDS ORDERED: DEXAMETHASONE 4 MG/ML VIAL ONE (08:27)
[2022-02-24] MEDS ORDERED: HYDROcod/ACETAM 5/325 MG TABLET PO PRN (08:53)
[2022-02-24] MEDS ORDERED: LACTATED RINGERS 1,000 ML IV SCH (09:00)
--- NOTE | 2022-02-24 09:17 | OPERATIVE REPORT ---
Operative Report - General Procedure Date: 02/24/22 Planned Procedure: Recurrent right inguinal herniorrhaphy Pre-Op Diagnosis: Recurrent right inguinal hernia Procedure Performed: Recurrent indirect right inguinal herniorrhaphy with mesh Post Op Diagnosis: Recurrent direct right inguinal hernia - Procedure Note Primary Surgeon: Jeferson Nelson MD Anesthesia Provider: Makenzie Plascencia CRNA Anesthesia Technique: Local (30 mL of half percent Marcaine), MAC IV Fluids (mL): 1,200 Estimated Blood Loss (mL): 5 Drain/Tube Type: Other (None.) Indications: As above. Findings: As above. Complications: None. - Other Other Information/Narrative: After verbal and written informed consent was obtained detailing the operation, the alternatives the operation including no operation, risks of infection, bleeding requiring transfusion with its risks, nerve injury, and and after I met with the patient confirming the surgery and the site of surgery, the patient was brought to the operative suite and placed supine on the operating table. Great care was taken to avoid pressure points to prevent pressure necrosis or nerve injury. Monitoring devices were applied along with TEDs and pneumatic compression stockings (to prevent DVT). The patient received preoperative antibiotics for surgical prophylaxis. Makenzie Plascencia CRNA sedated and anesthetized the patient for the entire procedure. The patient was prepped and draped in the usual sterile manner. With the patient draped my initials were clearly visible. A "time in" then confirmed that the patient was identified with 3 identifiers (name, date, and medical record number), the history and physical was updated and in the chart, the signed consent confirming the procedure was in the chart, the patient was in the correct position, the aforementioned prophylactic measures were in place or given, we had the correct personnel and equipment to complete the procedure and that anesthesia and the surgical team were given an opportunity to express any concerns. With the agreement of everyone in the room we proceeded with the operation. After the inguinal area was injected with half percent Marcaine, anesthetizing the area, a standard inguinal incision was made and dissection was carried down to the external oblique aponeurosis using a combination of Metzenbaum scissors and Bovie electrocautery. The external oblique aponeurosis was cleared of overlying adherent tissue, and the external ring was delineated. The external oblique was incised with a scalpel and this incision was carried down to the external ring using Metzenbaum scissors. Care was taken not to injure the ilioinguinal nerve. Having exposed the inguinal canal, dense adhesions made dissection of the cord structures extraordinarily difficult. I dissected along the inferior aspect of the external oblique down to the shelving edge of Poupart's ligament and in so doing defined the direct inguinal hernia without dissection of the cord contents. I opted not to dissect the cord contents out since the adhesions were so dense that continued dissection would likely compromise the blood supply of the right testicle as well as placing the patient at risk of nerve injury. As mentioned above,the hernia was found coming from the floor the inguinal canal medial to the inferior epigastric vessels. This was dissected back to the hernia opening. The hernia was inverted back into the abdominal cavity and a large PerFix plug (Ref# [id number], Lot# [id number], use by date 2026-02-09) inserted into the hernia defect. The plug was secured to the shelving edge of Poupart's ligament inferiorly and the conjoined tendon superiorly. Due to the fact that I opted not to dissect the cord contents out the onlay patch was not used in this repair. Meticulous hemostasis was obtained using Bovie electrocautery. The incision the external oblique was approximated using 3-0 Vicryl in a running fashion thus re forming the external ring. The skin incision was approximated with 4-0 Monocryl in a subcuticular fashion. The skin was cleaned of its prep and Dermabond was applied. At this point a timeout was performed that confirmed that all counts were correct x2, the procedure that was performed, the blood loss, the IV fluids administered, the patient's condition, and any concerns of the operating team had. Having tolerated the procedure well, the patient was taken recovery room in good and stable condition. Gentle downward traction ensured the testes were well seated in the scrotum. The plan is for outpatient discharge when the patient is adequately recovered. This document was created in part using voice recognition technology. Because of the inherent limitations of the system, occasional same sounding word substitutions and grammatical errors do occur and persist despite proofreading. Please read this document for content.
[2022-02-24] MEDS: fentaNYL 100 MCG/2 ML VIAL IVP PRN ×2 (09:19→09:30)
[2022-02-24] MEDS ORDERED: HYDROcod/ACETAM 5/325 MG TABLET ONE (10:19)
--- NOTE | 2022-02-24 10:32 | ANESTHESIA POST OP EVALUATION ---
Anesthesia Post Eval - Post Anesthesia Eval Vitals: Last Vital Signs Temp 36.9 C 02/24/22 10:16 Pulse 83 02/24/22 10:16 Resp 15 02/24/22 10:16 BP 167/86 H 02/24/22 10:16 Pulse Ox 99 02/24/22 10:16 CV Function Including HR & BP: Stable Pain Control: Satisfactory Nausea & Vomiting: Negative Mental Status: Baseline Respiratory Status: Airway Patent Hydration Status: Satisfactory Anesthesia Complications: None
[2022-02-24 11:13] VITALS: BP 150/89
== END 2022-02-24 06:17 | disposition home or self-care (01) ==
LOC: SDS 06:16
PROVIDERS: ATTEND Surgery
DX: K40.91 Unilateral inguinal hernia, without obstruction or gangrene, recurrent (principal); I25.10 Atherosclerotic heart disease of native coronary artery without angina pectoris; Z95.5 Presence of coronary angioplasty implant and graft
CPT/HCPCS: 49520; A9270; C1781; J0690; J3490; J7120

== ENCOUNTER 2022-10-14 14:00 | Outpatient (CLI) | payer MEDICARE, OTHER | END 2022-10-14 14:01 | disposition critical access hospital (66) | LOC: EMS 14:00 | DX: R11.2 Nausea with vomiting, unspecified (principal) | CPT/HCPCS: A0425; A0427 ==

== ENCOUNTER 2022-10-14 14:25 | Emergency (ER) | payer MEDICARE, OTHER ==
--- NOTE | 2022-10-14 14:39 | ED Physician Documentation ---
PD HPI SYNCOPE - Stated complaint Stated Complaint: N/V - Chief complaint Chief Complaint: Neuro - History obtained from History obtained from: Patient - History of Present Illness Witnessed: Witnessed (He [place] and another couple. He felt fine prior to lunch and during lunch. He ate well and did have a glass of wine which is uncommon for him for lunch. He suddenly felt briefly lightheaded and then awoke looking up with people around him.) Timing - onset: How many minutes ago (30) Duration: Minutes (1) Preceding symptoms: Light headed. No: Headache, Chest pain, Palpitations, Abdominal pain Associated symptoms: Nausea / vomiting (he felt nauseated after awakening with episode of emesis.). 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 Seen in ER without abnormal findings.) Recently seen: Not recently seen Review of Systems Constitutional: reports: Other (He states he been feeling well recently without any viral symptoms change in fluid or food intake or change in medicines.). 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), Incontinence HEENT: Other Psych: Anxiety Musculoskeletal: Osteoporosis, Chronic back pain Derm: None - Past Surgical History Past Surgical History: Yes General: Cholecystectomy, Appendectomy Ortho: Hip replacement, Other Cardiovascular: Coronary stent HEENT: Tonsil/Adenoidectomy - Present Medications Home Medications: Ambulatory Orders Medication Instructions Recorded Confirmed Acetaminophen [Tylenol] 650 - 975 mg PO Q4HR PRN tablet 03/12/20 02/20/22 Calcium Carbonate [Tums (Calcium 500 mg PO BID tablet 03/12/20 02/24/22 Carbonate 500mg)] Potassium Chloride 10 meq PO DAILY #15 tablet.er 03/12/20 02/24/22 Tamsulosin [Flomax] 0.4 mg PO DAILY #30 capsule 03/12/20 02/20/22 ALPRAZolam [Alprazolam] 0.125 mg PO BID 08/22/20 02/24/22 Carbidopa/Levodopa 25/100 [Sinemet 1 each PO TID 08/22/20 02/24/22 25 mg/100 mg] Clopidogrel [Plavix] 75 mg PO DAILY #30 tablet 08/23/20 02/24/22 Amlodipine Besylate [Norvasc] 2.5 mg PO DAILY 02/20/22 02/24/22 Docusate Sodium 250Mg Capsule 250 mg PO DAILY #10 cap 02/24/22 [Colace 250Mg Capsule] Docusate Sodium 250Mg Capsule 250 mg PO DAILY #10 cap 02/24/22 [Colace 250Mg Capsule] HYDROcod/ACETAM 5/325 [[place] 5/325] 1 each PO Q4H #10 tablet 02/24/22 HYDROcod/ACETAM 5/325 [[place] 5/325] 1 each PO Q4H #10 tablet 02/24/22 - Allergies Allergies/Adverse Reactions: Allergies Allergy/AdvReac Type Severity Reaction Status Date / Time atorvastatin calcium * Allergy Mild MUSCLE PAIN Verified 10/14/22 14:32 [From Lipitor] - Social History Does the pt smoke?: No Smoking Status: Never smoker Does the pt drink ETOH?: Yes Does the pt have substance abuse?: No - Immunizations Immunizations are current?: Yes - POLST Patient has POLST: No POLST Status: Full Code PD ED PE NORMAL - Vitals Vital signs reviewed: Yes (normal vitals) - General General: Alert 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, No acute distress, Well developed/nourished - HEENT HEENT: Atraumatic, Pharynx benign - Neck Neck: Supple, no meningeal sign, No adenopathy - Cardiac Cardiac: RRR, No murmur - Respiratory Respiratory: Clear bilaterally - Abdomen Abdomen: Soft, Non tender - Derm Derm: Normal color, Warm and dry - Extremities Extremities: Normal ROM s pain, No edema, No calf tenderness / cord - Neuro Neuro: Alert 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, 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, No motor deficit, No sensory deficit, Normal speech Eye Opening: Spontaneous Motor: Obeys Commands Verbal: Oriented GCS Score: 15 Results - Vitals Vitals: Vital Signs - 24 hr 10/14/22 10/14/22 10/14/22 14:32 14:47 15:28 Heart Rate 77 76 81 Heart Rate [ Sitting] Heart Rate [ Standing] Heart Rate [ Supine] Respiratory 18 14 16 Rate Blood Pressure 116/71 110/88 H 128/75 Blood Pressure [Sitting] Blood Pressure [Standing] Blood Pressure [Supine] O2 Saturation 98 100 100 10/14/22 10/14/22 10/14/22 15:30 15:54 16:00 Heart Rate 83 86 Heart Rate [ 90 Sitting] Heart Rate [ 94 Standing] Heart Rate [ 87 Supine] Respiratory 16 17 Rate Blood Pressure 134/75 H 146/83 H Blood Pressure 143/78 H [Sitting] Blood Pressure 141/95 H [Standing] Blood Pressure 140/81 H [Supine] O2 Saturation 100 100 Oxygen O2 Source Room air - EKG (time done) arrival Rhythm: NSR [place]: Normal Intervals: Normal [place], RBBB Ischemia: Normal ST segments, Non specific changes. No: ST elevation c/w ischemia, ST depression Compare to prior EKG: Unchanged from prior EKG (02/21/22) - Labs Labs: Laboratory Tests 10/14/22 10/14/22 10/14/22 15:25 15:25 15:25 WBC 5.4 RBC 4.18 L Hgb 12.6 L Hct 37.7 L MCV 90.2 MCH 30.1 MCHC 33.4 RDW 12.9 Plt Count 120 L MPV 8.7 Neut # (Auto) 4.1 Lymph # (Auto) 0.7 L [place] # (Auto) 0.6 Eos # (Auto) 0.1 Baso # (Auto) 0.0 Absolute Nucleated RBC 0.00 Nucleated RBC % 0.0 Sodium 135 Potassium 3.5 Chloride 101 Carbon Dioxide 26 Anion Gap 8.0 BUN 24 H Creatinine 1.0 Estimated GFR (MDRD) 71 L Glucose 124 H Calcium 8.7 Magnesium 2.2 Total Bilirubin 0.9 AST 17 ALT < 10 L Alkaline Phosphatase 65 Troponin I High Sens 5.5 Total Protein 6.9 Albumin 4.0 Globulin 2.9 Albumin/Globulin Ratio 1.4 Lipase 29 PD Medical Decision Making - ED course Complexity details: re-evaluated patient (still feels well. ), considered differential, d/w patient Departure - Departure Disposition: 01 Home, Self Care Clinical Impression: Episode of syncope Qualifiers: Syncope type: vasovagal syncope Qualified Code(s): R55 - Syncope and collapse Condition: Stable Record reviewed to determine appropriate education?: Yes Instructions: ED Fainting Unkn Cause Comments: It is unclear the cause of your fainting episode. Presume a transient drop in blood pressure leading to the fainting as well as the nausea. Your blood pressure and heart rate and heart rhythm are good here. Your EKG and blood tests are normal without any signs of injury pattern or heart attack. Your basic blood tests including blood count and electrolytes kidney function and blood sugar are good. Continue your normal activity diet and medications. Follow-up with your primary care if further episodes of lightheadedness etc.
[2022-10-14] MEDS ORDERED: SODIUM CHLORIDE 0.9% 500 ML IV STA (15:16)
[2022-10-14 15:29] LABS: BASOPHILS % (AUTO) 0.6 %; EOSINOPHILS # (AUTO) 0.1 10^3/uL (0.0-0.7); EOSINOPHILS % (AUTO) 0.9 %; HCT - HEMATOCRIT 37.7 % (42.0-52.0); HGB - HEMOGLOBIN 12.6 g/dL (14.0-18.0); LYMPHOCYTES # (AUTO) 0.7 10^3/uL (1.5-3.5); LYMPHOCYTES % (AUTO) 12.9 %; MEAN CORPUSCULAR HEMOGLOBIN 30.1 pg (27.0-31.0); MEAN CORPUSCULAR HGB CONC 33.4 g/dL (32.0-36.0); MEAN CORPUSCULAR VOLUME 90.2 fL (80.0-94.0); MEAN PLATELET VOLUME 8.7 fL (7.4-11.4); MONOCYTES # (AUTO) 0.6 10^3/uL (0.0-1.0); MONOCYTES % (AUTO) 10.1 %; NEUTROPHILS # (AUTO) 4.1 10^3/uL (1.5-6.6); NEUTROPHILS % (AUTO) 75.1 %; PLT - PLATELET COUNT 120 10^3/uL (130-450); RED BLOOD COUNT 4.18 10^6/uL (4.70-6.10); RED CELL DISTRIBUTION WIDTH 12.9 % (12.0-15.0); WHITE BLOOD COUNT 5.4 x10^3/uL (4.8-10.8)
--- NOTE | 2022-10-14 15:33 | XRAY Report ---
PROCEDURE: Chest 1 View X-Ray INDICATIONS: Chest pain TECHNIQUE: One view of the chest was acquired. COMPARISON: None. FINDINGS: Surgical changes and devices: None. Lungs and pleura: No pleural effusions or pneumothorax. Lungs are clear. Mediastinum: Mediastinal contours appear normal. Heart size is normal. Bones and chest wall: No suspicious bony lesions. Overlying soft tissues appear unremarkable. IMPRESSION: No acute finding. Reviewed by: Doug Whaley MD on 10/14/2022 3:32 PM PST Approved by: Doug Whaley MD on 10/14/2022 3:32 PM [facility] Station ID: [id number]
[2022-10-14 15:52] LABS: ALBUMIN/GLOBULIN RATIO 1.4 (1.0-2.2); ALKALINE PHOSPHATASE 65 IU/L (42-121); ALT ALANINE AMINOTRANSFERASE < 10 IU/L (10-60); AST ASPARTATE AMINOTRANSFERASE 17 IU/L (10-42); BILIRUBIN,TOTAL 0.9 mg/dL (0.2-1.0); BUN - BLOOD UREA NITROGEN 24 mg/dL (6-20); CALCIUM 8.7 mg/dL (8.5-10.3); CARBON DIOXIDE - CO2 26 mmol/L (21-32); CHLORIDE 101 mmol/L (101-111); GFR - MDRD 71 (>89); GLUCOSE 124 mg/dL (70-100); LIPASE 29 U/L (22-51); MAGNESIUM 2.2 mg/dL (1.7-2.8); POTASSIUM 3.5 mmol/L (3.5-5.0); SODIUM 135 mmol/L (135-145); TOTAL PROTEIN 6.9 g/dL (6.7-8.2)
[2022-10-14 16:04] VITALS: BP 146/83
== END 2022-10-14 16:45 | disposition home or self-care (01) ==
LOC: ED 14:25
DX: R42 Dizziness and giddiness (principal); R55 Syncope and collapse
CPT/HCPCS: 36415; 80053; 83690; 83735; 84484; 85025; 93005; 99282; 99284

== ENCOUNTER 2023-09-10 14:26 | Outpatient (CLI) | payer MEDICARE, OTHER | END 2023-09-10 14:27 | disposition critical access hospital (66) | LOC: EMS 14:26 | DX: R55 Syncope and collapse (principal); R11.2 Nausea with vomiting, unspecified; I45.10 Unspecified right bundle-branch block | CPT/HCPCS: A0425; A0427 ==

== ENCOUNTER 2023-09-10 14:58 | Emergency (ER) | payer MEDICARE, OTHER ==
[2023-09-10] MEDS ORDERED: SODIUM CHLORIDE 0.9% 1,000 ML IV STA (15:13)
[2023-09-10] MEDS ORDERED: ONDANSETRON 4 MG/2 ML VIAL IVP STA (15:13)
[2023-09-10 15:18] VITALS: O2SAT 100
[2023-09-10 15:47] LABS: BASOPHILS % (AUTO) 0.6 %; EOSINOPHILS # (AUTO) 0.1 10^3/uL (0.0-0.7); EOSINOPHILS % (AUTO) 2.1 %; HCT - HEMATOCRIT 35.6 % (42.0-52.0); HGB - HEMOGLOBIN 12.1 g/dL (14.0-18.0); LYMPHOCYTES # (AUTO) 0.5 10^3/uL (1.5-3.5); LYMPHOCYTES % (AUTO) 10.3 %; MEAN CORPUSCULAR HEMOGLOBIN 31.6 pg (27.0-31.0); MEAN PLATELET VOLUME 8.8 fL (7.4-11.4); MONOCYTES # (AUTO) 0.7 10^3/uL (0.0-1.0); MONOCYTES % (AUTO) 12.6 %; NEUTROPHILS # (AUTO) 3.8 10^3/uL (1.5-6.6); PLT - PLATELET COUNT 166 10^3/uL (130-450); RED BLOOD COUNT 3.83 10^6/uL (4.70-6.10); RED CELL DISTRIBUTION WIDTH 12.8 % (12.0-15.0); WHITE BLOOD COUNT 5.1 x10^3/uL (4.8-10.8)
[2023-09-10 16:02] LABS: ALBUMIN/GLOBULIN RATIO 1.5 (1.0-2.2); BILIRUBIN,TOTAL 0.9 mg/dL (0.2-1.0); CALCIUM 9.3 mg/dL (8.5-10.3); POTASSIUM 3.8 mmol/L (3.5-4.5); TOTAL PROTEIN 6.7 g/dL (6.4-8.9)
[2023-09-10 16:09] LABS: TROPONIN I HIGH SENSITIVITY 4.8 ng/L (2.3-19.7)
--- NOTE | 2023-09-10 16:23 | ED Physician Documentation ---
PD HPI SYNCOPE - Stated complaint Stated Complaint: SYNCOPE - Chief complaint Chief Complaint: Neuro - History obtained from History obtained from: Patient - History of Present Illness Witnessed: Witnessed - Additional information Additional information: Patient is an 87-year-old male with a history of coronary artery disease with prior stents presenting for evaluation of a syncopal episode with nausea and vomiting today. Patient was sitting down eating a turkey sandwich for lunch when he started feeling lightheaded and had a brief syncopal episode per EMS that lasted 2 minutes. When he woke up he started feeling very nauseous and had several episodes of emesis. EMS did administer 4 mg of IV Zofran. Patient denies recently feeling ill. He still reports some ongoing nausea. Review of Systems Constitutional: denies: Fever Cardiac: denies: Chest pain / pressure Respiratory: denies: Dyspnea GI: reports: Nausea, Vomiting. denies: Abdominal Pain : denies: Dysuria Neurologic: reports: Syncope PD PAST MEDICAL HISTORY - Past Medical History Past Medical History: Yes Cardiovascular: Hypertension, High cholesterol, Coronary artery disease Respiratory: None Neuro: Parkinson's Endocrine/Autoimmune: None GI: GERD : Benign prostate hypertrophy, Incontinence HEENT: Other Psych: Anxiety Musculoskeletal: Osteoporosis, Chronic back pain Derm: None - Past Surgical History Past Surgical History: Yes General: Cholecystectomy, Appendectomy Ortho: Hip replacement, Other Cardiovascular: Coronary stent HEENT: Tonsil/Adenoidectomy - Present Medications Home Medications: Ambulatory Orders Medication Instructions Recorded Confirmed Acetaminophen [Tylenol] 650 - 975 mg PO Q4HR PRN tablet 03/12/20 02/20/22 Calcium Carbonate [Tums (Calcium 500 mg PO BID tablet 03/12/20 02/24/22 Carbonate 500mg)] Potassium Chloride 10 meq PO DAILY #15 tablet.er 03/12/20 02/24/22 Tamsulosin [Flomax] 0.4 mg PO DAILY #30 capsule 03/12/20 02/20/22 ALPRAZolam [Alprazolam] 0.125 mg PO BID 08/22/20 02/24/22 Carbidopa/Levodopa 25/100 [Sinemet 1 each PO TID 08/22/20 02/24/22 25 mg/100 mg] Clopidogrel [Plavix] 75 mg PO DAILY #30 tablet 08/23/20 02/24/22 Amlodipine Besylate [Norvasc] 2.5 mg PO DAILY 02/20/22 02/24/22 Docusate Sodium 250Mg Capsule 250 mg PO DAILY #10 cap 02/24/22 [Colace 250Mg Capsule] Docusate Sodium 250Mg Capsule 250 mg PO DAILY #10 cap 02/24/22 [Colace 250Mg Capsule] HYDROcod/ACETAM 5/325 [[place] 5/325] 1 each PO Q4H #10 tablet 02/24/22 HYDROcod/ACETAM 5/325 [[place] 5/325] 1 each PO Q4H #10 tablet 02/24/22 Ondansetron Odt [Zofran] 4 mg TL Q6H PRN #10 tablet 09/10/23 - Allergies Allergies/Adverse Reactions: Allergies Allergy/AdvReac Type Severity Reaction Status Date / Time atorvastatin calcium * Allergy Mild MUSCLE PAIN Verified 09/10/23 15:17 [From Lipitor] - Social History Does the pt smoke?: No Smoking Status: Never smoker Does the pt drink ETOH?: Yes Does the pt have substance abuse?: No - Immunizations Immunizations are current?: Yes - POLST Patient has POLST: No POLST Status: Full Code PD ED PE NORMAL - General General: Alert 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, No acute distress, Well developed/nourished - HEENT HEENT: Atraumatic, PERRL, EOMI, Moist mucous membranes, Pharynx benign - Neck Neck: Supple, no meningeal sign - Cardiac Cardiac: RRR, No murmur - Respiratory Respiratory: No respiratory distress, Clear bilaterally - Abdomen Abdomen: Normal bowel sounds, Soft, Non tender, Non distended - Derm Derm: Warm and dry - Extremities Extremities: No edema - Neuro Neuro: Alert 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, business unit director 2-12 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 Relevant findings are: Rate 76, normal sinus rhythm, PA 331, right bundle branch block - Labs Labs: Laboratory Tests 09/10/23 09/10/23 15:34 15:34 WBC 5.1 RBC 3.83 L Hgb 12.1 L Hct 35.6 L MCV 93.0 MCH 31.6 H MCHC 34.0 RDW 12.8 Plt Count 166 MPV 8.8 Neut # (Auto) 3.8 Lymph # (Auto) 0.5 L [place] # (Auto) 0.7 Eos # (Auto) 0.1 Baso # (Auto) 0.0 Absolute Nucleated RBC 0.00 Nucleated RBC % 0.0 Sodium 137 Potassium 3.8 Chloride 103 Carbon Dioxide 27 Anion Gap 7.0 BUN 23 H Creatinine 1.0 Estimated GFR (MDRD) 71 L Glucose 134 H Calcium 9.3 Total Bilirubin 0.9 AST 14 ALT 4 L Alkaline Phosphatase 67 Troponin I High Sens 4.8 Total Protein 6.7 Albumin 4.0 Globulin 2.7 Albumin/Globulin Ratio 1.5 Lipase 12 PD Medical Decision Making - ED course Complexity details: reviewed results, re-evaluated patient, d/w patient ED course: Patient is an 87-year-old male with a presenting for evaluation after syncopal episode with nausea and vomiting. On review it appears that he has had several prior visits for syncope along with associated symptoms of nausea and vomiting. Neuro exam is normal. EKG is reviewed and without acute findings. No chest pain or shortness of air. His abdominal exam is benign. CBC, chemistries, troponin were obtained and reviewed and without findings. He is feeling better here after IV fluids and Zofran. He is ambulatory here. Patient has had the symptoms in the past and this seems similar. As such I do not think he requires admission. He is also feeling much better and back to his baseline. He is counseled on need for close follow-up with his primary care as well as concerning symptoms to return for. Departure - Departure Disposition: 01 Home, Self Care Clinical Impression: Syncope Condition: Stable Instructions: ED Syncope Vasovagal Follow-Up: Jocelynn Perez MD [Primary Care Provider] - Prescriptions: Ondansetron Odt [Zofran] 4 mg TL Q6H PRN #10 tablet PRN Reason: Nausea / Vomiting Comments: You were evaluated after a fainting spell along with nausea and vomiting. Your labs are reassuring and you are feeling better here after IV fluids and antinausea medication. I have sent a prescription for antinausea medications to [facility] in [place]. I would recommend close follow-up with your primary care provider. Return to the emergency department with any worsening symptoms. Forms: PCP List Discharge Date/Time: 09/10/23 17:38
[2023-09-10 17:36] VITALS: BP 140/88
== END 2023-09-10 17:38 | disposition home or self-care (01) ==
LOC: EDUNIT# → ED 14:58
DX: R55 Syncope and collapse (principal); R11.2 Nausea with vomiting, unspecified
CPT/HCPCS: 36415; 80053; 83690; 84484; 85025; 93005; 96374; 99284

== ENCOUNTER 2023-09-13 06:53 | Day surgery (SDC) | payer MEDICARE, OTHER ==
[2023-09-13] MEDS ORDERED: PHENYLEPHRINE 2.5% OPHTH 2 ML DROPS LEFTEYE ONE (06:54)
[2023-09-13] MEDS ORDERED: LACTATED RINGERS 1,000 ML IV ONE (07:00)
[2023-09-13] MEDS ORDERED: PROPARACAINE 0.5% OPHTH DROPS 15 ML EACHEYE ONE ×2 (07:21→08:18)
[2023-09-13 07:33] VITALS: O2SAT 100
--- NOTE | 2023-09-13 07:48 | ANESTHESIA ---
Pre-Anesthesia VS, & Labs - Diagnosis left senile combined cataract - Procedure left cataract extraction with IOL Vital Signs: Temp Pulse Resp BP Pulse Ox O2 Flow Rate 36.6 C 73 14 169/99 H 100 09/13/23 07:00 09/13/23 07:00 09/13/23 07:00 09/13/23 07:00 09/13/23 07:00 Height: 5 ft 9 in Weight (kg): 65 kg Body Mass Index: 21.1 BMI Classification: Normal - NPO >8 hours Home Medications and Allergies ALPRAZolam [Alprazolam] 0.125 mg PO BID 08/22/20 Carbidopa/Levodopa 25/100 [Sinemet 25 mg/100 mg] 1 each PO TID 08/22/20 Amlodipine Besylate [Norvasc] 2.5 mg PO DAILY 02/20/22 Allergies/Adverse Reactions: Allergies Allergy/AdvReac Type Severity Reaction Status Date / Time atorvastatin calcium * Allergy Mild MUSCLE PAIN Verified 09/10/23 15:17 [From Lipitor] acetaminophen [From Vicodin] Allergy Emesis Verified 09/13/23 07:31 hydrocodone [From Vicodin] Allergy Emesis Verified 09/13/23 07:31 Anes History & Medical History - Anesthetic History Anesthesia Complications: reports: No previous complications - Medical History Cardiovascular: reports: Hypertension, Coronary artery disease Pulmonary: reports: None Gastrointestinal: reports: None Urinary: reports: Benign prostate hypertrophy Neuro: reports: Parkinson's, Other (syncope on 09/10/23, went to ER, was precipitated by nausea, given fluids and zofran, labs and EKG normal and was D/C home. Patient feel well today, in NSR on bedside monitor.) Musculoskeletal: reports: Osteoarthritis Endocrine/Autoimmune: reports: None Blood Disorders: reports: None Skin: reports: None Smoking Status: Never smoker - Surgical History General: reports: Appendectomy Eyes Ears Nose Throat (EENT): reports: Tonsil/Adenoidectomy Cardiothoracic: reports: Coronary stent Orthopedic: reports: Spine surgery, Other Exam General: Alert, Oriented x3, Cooperative Dental: WNL Mouth Opening: Greater than 4 Fingerbreadths Mallampati classification: II Respiratory: Lungs clear Cardiovascular: Regular rate Plan Anesthesia Type: MAC Consent for Procedure(s) Verified and Reviewed: Yes Code Status: Attempt Resuscitation ASA classification: 3-Severe systemic disease Is this case an emergency?: No
[2023-09-13] MEDS ORDERED: TIMOLOL 0.5% OPHTH DROPS OPTH ONE (08:13)
[2023-09-13] MEDS ORDERED: BSS/LIDOCAINE/EPINEPHRINE 1 ML SYRINGE IO ONE (08:13)
[2023-09-13] MEDS ORDERED: EPINEPHrine 1 MG/ML AMP IR ONE (08:13)
[2023-09-13] MEDS ORDERED: BRIMONIDINE 0.2% OPHTH DROPS 5 ML OPTH ONE (08:13)
[2023-09-13] MEDS ORDERED: TRIAMCIN/MOXIFLOX OPHTHALMIC 0.6 ML VIAL IO ONE (08:14)
[2023-09-13] MEDS ORDERED: fentaNYL 100 MCG/2 ML VIAL IVP ONE (08:17)
[2023-09-13] MEDS ORDERED: VANCOMYCIN OPHTH (TOPICAL) 10 MG/ML SYRINGE TOP ONE (08:18)
[2023-09-13] MEDS ORDERED: MIDAZOLAM 2 MG/2 ML VIAL IVP ONE (08:20)
[2023-09-13] MEDS ORDERED: LACTATED RINGERS 800 ML IV ONE (08:42)
[2023-09-13 09:01] VITALS: BP 168/95
--- NOTE | 2023-09-13 09:08 | OPERATIVE REPORT ---
Operative Report - Other Other Information/Narrative: Date of Surgery: 09/13/23 Preop Dx: Visually significant cataract left eye. Cataract surgery was performed in the right eye on . Postop Dx: Same Procedure: Phacoemulsification with posterior chamber intraocular lens implant left eye Surgeon: Dr. Kyle Aldrich Anesthesia: Monitored anesthesia care Complications: Iridodialysis nasally after the iris got caught in the phaco tip during nuclear phacoemulsification Operative Indications: This is a 87-year-old M with progressive vision loss in the left eye due to 2+ nuclear sclerotic and 3+ cortical cataract. Best corrected visual acuity was 20/70 with glare to 20/800 vision in the left eye. Indications for surgery were: - Overall decrease in vision - Difficulty reading - Difficulty seeing words, closed captions, or game scores on TV - Difficulty seeing street signs - Difficulty driving in low light or at night - Difficulty with glare or bright lights in any situation The patient was consented at length concerning the risks and benefits of cataract surgery after which the patient expressed a desire to proceed with surgery. Operative Procedure: The patient was taken into OR#3 and placed under monitored anesthesia care. A surgical time-out was conducted confirming correct patient, correct procedure, and correct surgical site. The patient was given topical anesthesia and then prepped and draped in the usual sterile fashion. The eye was entered at the 6 and 3 oclock positions. Intracameral Shugarcaine was injected into the anterior chamber followed by a dispersive viscoelastic. A continuous-tear curvilinear capsulorhexis was performed. The nucleus was hydrodissected and phacoemulsified. However, during phacoemulsification the nasal iris flowed into the phaco tip and pulled the iris away from it's insertion nasally causing dialysis and bleeding. The iris continued to be a problem, wanting to flow into both wounds and into the phaco and aspiration tips. A lot of mechanical break-up and elevation of the nuclear and cortical material into the anterior chamber, followed by phaco and apiration, resulted in all of the remaining lens being removed from the eye. The cortex was evacuated using automated infusion and aspiration. A cohesive viscoelastic was injected into the capsular bag and a 19.5 diopter intraocular lens was inserted into the bag. Infusion and aspiration were used to evacuate the viscoelastic materials from the eye. The wounds were hydrated and the eye inflated to physiologic pressure using balanced salt solution. Approximately 0.25ml of a mixture of triamcinolone and moxifloxacin was injected trans-sclerally into the vitreous in the inferotemporal quadrant using a 30 gauge cannula. An additional 0.25ml of a mixture of triamcinolone and moxifloxacin was injected subconjunctivally in the superior quadrant for infection and inflammation prophylaxis. Wound integrity was checked with Weck-Payton sponges. The patient was taken from the operating room in good condition, made aware of the trauma sustained to the iris, and given post-op instructions.
--- NOTE | 2023-09-13 10:32 | ANESTHESIA POST OP EVALUATION ---
Anesthesia Post Eval - Post Anesthesia Eval Vitals: Last Vital Signs Temp 36.6 C 09/13/23 08:42 Pulse 84 09/13/23 08:42 Resp 14 09/13/23 08:42 BP 168/95 H 09/13/23 08:42 Pulse Ox 100 09/13/23 08:42 O2 Flow Rate CV Function Including HR & BP: Additional Therapies Ordered (Patient had tranient chest pressure, VSS, thought it may have been because he was hungery, 12 lead EKG done with no obvious changes to me and sent to Hospitalist for formal read. After eating 2 muffins he stated he felt better and was discharged home. Patient has PCP follow up appointment next week.) Pain Control: Satisfactory Nausea & Vomiting: Negative Mental Status: Baseline Respiratory Status: Airway Patent Hydration Status: Satisfactory Anesthesia Complications: None
== END 2023-09-13 06:54 | disposition home or self-care (01) ==
LOC: SDS 06:53
PROVIDERS: ATTEND Ophthalmology
DX: H25.812 Combined forms of age-related cataract, left eye (principal); H21.532 Iridodialysis, left eye; I10 Essential (primary) hypertension; F41.9 Anxiety disorder, unspecified; G20.A1 Parkinson's disease without dyskinesia, without mention of fluctuations; Z86.73 Personal history of transient ischemic attack (TIA), and cerebral infarction without residual deficits; N40.0 Benign prostatic hyperplasia without lower urinary tract symptoms; Z98.41 Cataract extraction status, right eye; I25.10 Atherosclerotic heart disease of native coronary artery without angina pectoris
CPT/HCPCS: 66984; 93005; A9270; J7120

== ENCOUNTER 2024-04-01 20:36 | Outpatient (CLI) | payer MEDICARE, OTHER | END 2024-04-01 23:59 | disposition critical access hospital (66) | LOC: EMS 20:36 | DX: R47.81 Slurred speech (principal) | CPT/HCPCS: A0425; A0429 ==

== ENCOUNTER 2024-04-01 21:06 | Emergency (ER) | payer MEDICARE, OTHER ==
[2024-04-01 21:19] LABS: BASOPHILS % (AUTO) 0.5 %; EOSINOPHILS # (AUTO) 0.4 10^3/uL (0.0-0.7); EOSINOPHILS % (AUTO) 5.1 %; HCT - HEMATOCRIT 33.9 % (42.0-52.0); HGB - HEMOGLOBIN 11.3 g/dL (14.0-18.0); LYMPHOCYTES # (AUTO) 1.2 10^3/uL (1.5-3.5); LYMPHOCYTES % (AUTO) 15.6 %; MEAN CORPUSCULAR HEMOGLOBIN 30.9 pg (27.0-31.0); MEAN CORPUSCULAR HGB CONC 33.3 g/dL (32.0-36.0); MEAN CORPUSCULAR VOLUME 92.6 fL (80.0-94.0); MEAN PLATELET VOLUME 9.1 fL (7.4-11.4); MONOCYTES # (AUTO) 0.9 10^3/uL (0.0-1.0); MONOCYTES % (AUTO) 11.6 %; NEUTROPHILS # (AUTO) 5.2 10^3/uL (1.5-6.6); NEUTROPHILS % (AUTO) 66.9 %; PLT - PLATELET COUNT 125 10^3/uL (130-450); RED BLOOD COUNT 3.66 10^6/uL (4.70-6.10); RED CELL DISTRIBUTION WIDTH 13.2 % (12.0-15.0); WHITE BLOOD COUNT 7.7 x10^3/uL (4.8-10.8)
--- NOTE | 2024-04-01 21:22 | ED Physician Documentation ---
PD HPI FOCAL NEURO - Stated complaint Stated Complaint: CODE STROKE - Chief complaint Chief Complaint: Neuro - History obtained from History obtained from: Patient, EMS - History of Present Illness Timing - onset: How many hours ago (1) Timing - duration: Hours (1) Timing - details: Abrupt onset Severity of deficit: Mild Weakness: No: Face, Arm, Hand, Leg, Foot, Right, Left Numbness: No: Face, Arm, Hand, Leg, Foot, Right, Left Associated symptoms: No: Headache, Nausea / vomiting, Seizure, Syncope, Fall, Head injury, Chest pain, Neck pain, Back pain, Fever Baseline status: positive: A&OX3, ambulatory, indep Recently seen: Not recently seen - Additional information Additional information: Patient is an 88-year-old male who was talking to his at about 8 PM tonight when she stated that he was having word finding difficulties. This has happened to him in the past and has resolved on its own. By the time EMS arrived his symptoms had resolved. He is currently asymptomatic. He denies any trauma. Denies any weakness or numbness. No headache, nausea, vomiting no head injury, no chest pain, no shortness of breath. He states he has a history of Parkinson's he takes Sinemet but does not know what other medications he is on. Patient states that he feels like he is back to his normal baseline currently. He states that he did workout earlier today but states he "did not feel right" at that time. Never had any focal weakness, numbness, or difficulty walking. Review of Systems Constitutional: denies: Fever, Chills Respiratory: denies: Dyspnea, Cough GI: denies: Vomiting, Diarrhea Skin: denies: Rash Musculoskeletal: denies: Neck pain, Back pain Neurologic: denies: Focal weakness, Numbness, LOC PD PAST MEDICAL HISTORY - Past Medical History Past Medical History: Yes Cardiovascular: Hypertension, Coronary artery disease Respiratory: None Neuro: Parkinson's, Other (syncope on 09/10/23, went to ER, was precipitated by nausea, given fluids and zofran, labs and EKG normal and was D/C home. Patient feel well today, in NSR on bedside monitor.) Endocrine/Autoimmune: None GI: None : Benign prostate hypertrophy HEENT: Chronic vision loss Psych: Depression Musculoskeletal: Osteoarthritis Derm: None - Past Surgical History Past Surgical History: Yes General: Appendectomy Ortho: Spine surgery, Other Cardiovascular: Coronary stent HEENT: Tonsil/Adenoidectomy - Present Medications Home Medications: Ambulatory Orders Medication Instructions Recorded Confirmed Calcium Carbonate [Tums (Calcium 500 mg PO BID tablet 03/12/20 09/12/23 Carbonate 500mg)] Potassium Chloride 10 meq PO DAILY #15 tablet.er 03/12/20 09/12/23 Tamsulosin [Flomax] 0.4 mg PO DAILY #30 capsule 03/12/20 09/12/23 ALPRAZolam [Alprazolam] 0.125 mg PO BID 08/22/20 09/13/23 Carbidopa/Levodopa 25/100 [Sinemet 1 each PO TID 08/22/20 09/13/23 25 mg/100 mg] Amlodipine Besylate [Norvasc] 2.5 mg PO DAILY 02/20/22 09/12/23 Ondansetron Odt [Zofran] 4 mg TL Q6H PRN #10 tablet 09/10/23 09/12/23 - Allergies Allergies/Adverse Reactions: Allergies Allergy/AdvReac Type Severity Reaction Status Date / Time atorvastatin calcium * Allergy Mild MUSCLE PAIN Verified 09/10/23 15:17 [From Lipitor] acetaminophen [From Vicodin] Allergy Emesis Verified 09/13/23 07:31 hydrocodone [From Vicodin] Allergy Emesis Verified 09/13/23 07:31 - Social History Does the pt smoke?: No Smoking Status: Never smoker Does the pt drink ETOH?: Yes Does the pt have substance abuse?: No - Immunizations Immunizations are current?: Yes - POLST Patient has POLST: No POLST Status: Full Code PD ED PE NORMAL - Vitals Vital signs reviewed: Yes - General General: Alert 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, No acute distress - HEENT HEENT: Atraumatic, PERRL, EOMI, Moist mucous membranes, Pharynx benign - Neck Neck: Supple, no meningeal sign - Cardiac Cardiac: RRR, Strong equal pulses - Respiratory Respiratory: No respiratory distress, Clear bilaterally - Abdomen Abdomen: Soft, Non tender, Non distended - Back Back: No spinal TTP - Derm Derm: Warm and dry - Extremities Extremities: No edema - Neuro Neuro: Alert 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, creative resource manager 2-12 intact, No motor deficit, No sensory deficit, Normal speech Eye Opening: Spontaneous Motor: Obeys Commands Verbal: Oriented GCS Score: 15 - Psych Psych: Normal mood, Normal affect NIHSS - Time Time: 21:10 - Level of Consciousness Level of consciousness: (0) Alert, Keenly responsive LOC Questions: (0) Answers both Q's correct LOC Commands: (0) Performs both correctly - Gaze Best Gaze: (0) Normal - Visual Visual: (0) No loss - Facial Palsy Facial Palsy: (0) Normal, symmetrical movement - Motor Arms (both separate) Motor Arm (right): (0) No drift Motor Arm (left): (0) No drift - Motor Legs (both separate) Motor Leg (right): (0) No drift Motor Leg (left): (0) No drift - Limb Ataxia Limb Ataxia: (0) Absent - Sensory Sensory: (0) Normal - Best Language Best Language: (0) No aphasia - Dysarthria Dysarthria: (0) Normal - Extinction and Inattention (formally neg Extinction and inattention: (0) No abnormality - Total Score/Results Total Score/Result: 0 Results - Vitals Vitals: Vital Signs - 24 hr 04/01/24 04/01/24 04/01/24 21:20 22:07 22:30 Temperature 37.0 C Heart Rate 81 86 74 Respiratory 16 14 16 Rate Blood Pressure 165/92 H 169/100 H 157/89 H O2 Saturation 100 98 100 Oxygen O2 Source Room air - Labs Labs: Laboratory Tests 04/01/24 04/01/24 04/01/24 21:07 21:07 21:07 WBC 7.7 RBC 3.66 L Hgb 11.3 L Hct 33.9 L MCV 92.6 MCH 30.9 MCHC 33.3 RDW 13.2 Plt Count 125 L MPV 9.1 Neut # (Auto) 5.2 Lymph # (Auto) 1.2 L Parke # (Auto) 0.9 Eos # (Auto) 0.4 Baso # (Auto) 0.0 Absolute Nucleated RBC 0.00 Nucleated RBC % 0.0 PT 13.1 H INR 1.2 APTT 28.3 Sodium 136 Potassium 3.7 Chloride 103 Carbon Dioxide 29 Anion Gap 4.0 L BUN 21 H Creatinine 1.1 Estimated GFR (MDRD) 63 L Glucose 113 H Calcium 9.5 Total Bilirubin 0.8 AST 17 ALT 4 L Alkaline Phosphatase 66 Total Protein 6.7 Albumin 3.8 Globulin 2.9 Albumin/Globulin Ratio 1.3 Lipase 47 Urine Color Urine Clarity Urine pH Ur Specific [place] Urine Protein Urine Glucose (UA) Urine Ketones Urine Occult Blood Urine Nitrite Urine Bilirubin Urine Urobilinogen Ur Leukocyte Esterase Ur Microscopic Review Urine Culture Comments 04/01/24 21:27 WBC RBC Hgb Hct MCV MCH MCHC RDW Plt Count MPV Neut # (Auto) Lymph # (Auto) Parke # (Auto) Eos # (Auto) Baso # (Auto) Absolute Nucleated RBC Nucleated RBC % PT INR APTT Sodium Potassium Chloride Carbon Dioxide Anion Gap BUN Creatinine Estimated GFR (MDRD) Glucose Calcium Total Bilirubin AST ALT Alkaline Phosphatase Total Protein Albumin Globulin Albumin/Globulin Ratio Lipase Urine Color YELLOW Urine Clarity CLEAR Urine pH 7.0 Ur Specific [place] 1.010 Urine Protein NEGATIVE Urine Glucose (UA) NEGATIVE Urine Ketones NEGATIVE Urine Occult Blood NEGATIVE Urine Nitrite NEGATIVE Urine Bilirubin NEGATIVE Urine Urobilinogen 0.2 (NORMAL) Ur Leukocyte Esterase NEGATIVE Ur Microscopic Review NOT INDICATED Urine Culture Comments NOT INDICATED - Rads (name of study) Head CT Relevant Findings:: Final report received, See rad report Angiogram head and neck Relevant Findings:: Final report received, See rad report PD Medical Decision Making - ED course Complexity details: reviewed results, re-evaluated patient, considered differential, d/w patient, 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 His symptoms resolved prior to arrival. He remained fully asymptomatic throughout the emergency department stay. No abnormalities on head CT. No abnormalities on CT angiogram head and neck. Does not want to stay in the hospital tonight and have an MRI in the morning, I think this is reasonable and he can obtain an MRI with his doctor later this week. He is currently on a baby aspirin, will change to a full dose aspirin and have him contact his primary care provider in the morning. MRI not available tonight. Similar to prior TIA. Patient counseled regarding signs and symptoms for which I believe and urgent re-evaluation would be necessary. Patient with good understanding of and agreement to plan and is comfortable going home at this time This document was made in part using voice recognition software. While efforts are made to proofread this document, sound alike and grammatical errors may occur. Departure - Departure Disposition: 01 Home, Self Care Clinical Impression: TIA (transient ischemic attack) Condition: Good Instructions: ED Transient Ischemic Attack Follow-Up: Jocelynn Perez MD [Primary Care Provider] - Within 1 week Comments: As we discussed, you need to start on a full dose aspirin daily until you see your doctor. Your angiogram of your head and neck do not show any acute abnormality. Your CT does not show any acute abnormality. Please contact your doctor tomorrow to have an MRI scheduled. Please return if you worsen. EXAM: [id number] CT/[facility] PROCEDURE: Angio Head/Neck INDICATIONS: aphasia, resolved TECHNIQUE: After the administration of intravenous contrast, 1 mm thick sections acquired from the aortic arch through the [place] of [place]. 3-dimensional wwerdxl-jianqhyxu-tqdmnxgstg (MIP) and/or volume rendering reformats were acquired of the central intracranial vasculature and neck separately. For radiation dose reduction, the following was used: automated exposure control, adjustment of mA and/or kV according to patient size. CONTRAST: Omni 300, 80mls. COMPARISON: 08/22/2020. FINDINGS: Image quality: Diagnostic. HEAD CT: CSF Spaces: Basal cisterns are patent. No extra-axial fluid collections. Ventricles are normal in size and shape. Brain: No significant abnormality is seen for scanning technique. Skull and face: Calvarium and visualized facial bones appear intact, without suspicious lesions. Sinuses: Visualized sinuses and mastoids are clear. HEAD CT ANGIOGRAPHY: Anterior circulation: Atherosclerosis. Stable appearance of moderate stenosis involving the cavernous and supraclinoid segments of the bilateral intracranial internal carotid arteries. The flow within the paired anterior cerebral arteries is symmetric. The flow within the middle cerebral arteries is normal and symmetric. The anterior communicating artery is seen. No aneurysms are seen. Posterior circulation: Visualized portions of the vertebral arteries demonstrate normal caliber, and join to form a normal appearing basilar artery. Flow within the posterior cerebral arteries is normal and demonstrates left dominant vertebral artery system. No aneurysms are seen. NECK CT ANGIOGRAPHY: Carotid system: The great vessels demonstrate a conventional anatomy as they arise from the aortic arch. The origins of the common carotid arteries appear patent. The common carotid arteries demonstrate normal caliber and courses. The bifurcation regions are both widely patent. The internal carotid arteries demonstrate normal calibers and courses. Posterior circulation: The origins of the vertebral arteries both appear widely patent. The more superior extracranial portions of both vertebral arteries also demonstrate normal courses and calibers with left dominant vertebral artery. They join to form a normal appea ring basilar artery. Soft tissues: Visualized neck soft tissues demonstrate no suspicious abnormalities. Biapical scarring. Patulous esophagus with layering fluid. Bones: No suspicious bony lesions. Visualized cervical spine demonstrates stable alignment. Moderate multilevel cervical spondylosis. No acute compression fracture. 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 No evidence for high-grade stenosis or occlusion. No dissection or aneurysm. No significant abnormality is seen within the arteries of the neck. Patulous esophagus with layering fluid concerning for gastroesophageal reflux and risk for aspiration. Other chronic findings as above. The estimate of stenosis included in the report of the imaging study was calculated using the NASCET method EXAM: [id number] CT/HEADSP ([id number]) PROCEDURE: Head W/O Stroke Protocol INDICATIONS: aphasia, resolved TECHNIQUE: Noncontrast 4.5 mm thick angled axial sections acquired from the foramen magnum to the vertex, with coronal reformats. For radiation dose reduction, the following was used: automated exposure control, adjustment of mA and/or kV according to patient size. COMPARISON: 06/22/2021. FINDINGS: Image quality: Diagnostic. CSF spaces: Basal cisterns are patent. No extra-axial fluid collections. Ventricles are normal in size and shape. Brain: No midline shift. No intracranial masses or hemorrhage. No mass effect. Hooper-white matter interface is normal. There cerebral volume loss for age with resultant ventricular and sulcal prominence. There are periventricular and deep white matter chronic small vessel ischemic changes. Atherosclerotic calcifications are noted in the intracranial segments of the bilateral internal carotid arteries. Skull and face: Calvarium and visualized facial bones are intact, without suspicious lesions. Sinuses: Visualized sinuses and mastoids are clear. IMPRESSION: No acute intracranial pathology. Age-related senescent changes and sequela chronic small vessel ischemic disease. Findings were discussed with ordering provider on 04/01/2024 at 2126hrs PST This study fulfills neurological imaging criteria for inclusion or exclusion of acute stroke therapies based on available published neurological imaging guidelines. Forms: PCP List Discharge Date/Time: 04/01/24 23:09
[2024-04-01 21:26] LABS: ALBUMIN 3.8 g/dL (3.2-5.5); ALBUMIN/GLOBULIN RATIO 1.3 (1.0-2.2); BILIRUBIN,TOTAL 0.8 mg/dL (0.2-1.0); CALCIUM 9.5 mg/dL (8.5-10.3); CREATININE 1.1 mg/dL (0.6-1.3); POTASSIUM 3.7 mmol/L (3.5-4.5); TOTAL PROTEIN 6.7 g/dL (6.4-8.9)
--- NOTE | 2024-04-01 21:29 | CT Report ---
PROCEDURE: Head W/O Stroke Protocol INDICATIONS: aphasia, resolved TECHNIQUE: Noncontrast 4.5 mm thick angled axial sections acquired from the foramen magnum to the vertex, with c oronal reformats. For radiation dose reduction, the following was used: automated exposure control, adjustment of mA and/or kV according to patient size. COMPARISON: 06/22/2021. FINDINGS: Image quality: Diagnostic. CSF spaces: Basal cisterns are patent. No extra-axial fluid collections. Ventricles are normal in size and shape. Brain: No midline shift. No intracranial masses or hemorrhage. No mass effect. Hopoer-white matter i nterface is normal. There cerebral volume loss for age with resultant ventricular and sulcal prominen ce. There are periventricular and deep white matter chronic small vessel ischemic changes. Atheroscle rotic calcifications are noted in the intracranial segments of the bilateral internal carotid arterie s. Skull and face: Calvarium and visualized facial bones are intact, without suspicious lesions. Sinuses: Visualized sinuses and mastoids are clear. IMPRESSION: No acute intracranial pathology. Age-related senescent changes and sequela chronic small vessel ische stanley disease. Findings were discussed with ordering provider on 04/01/2024 at 2126hrs PST This study fulfills neurological imaging criteria for inclusion or exclusion of acute stroke therapie s based on available published neurological imaging guidelines. Reviewed by: Tuan Betts MD on 04/01/2024 9:28 PM PDT Approved by: Tuan Betts MD on 04/01/2024 9:28 PM PDT Station ID: [id number]
[2024-04-01] MEDS ORDERED: iohexoL-300 100 ML VIAL ONE (21:31)
[2024-04-01 21:32] LABS: INR 1.2 (0.8-1.2); PT - PROTHROMBIN TIME 13.1 secs (9.9-12.6)
[2024-04-01] MEDS: iohexoL-300 100 ML VIAL IVP ONE (21:34)
[2024-04-01 21:40] LABS: PARTIAL THROMBOPLASTIN TIME 28.3 secs (24.9-33.3)
--- NOTE | 2024-04-01 21:51 | CT Report ---
PROCEDURE: Angio Head/Neck INDICATIONS: aphasia, resolved TECHNIQUE: After the administration of intravenous contrast, 1 mm thick sections acquired from the aortic arch t hrough the [place] of [place]. 3-dimensional iwdiacw-kunhhpwls-dzgyyuynol (MIP) and/or volume renderin g reformats were acquired of the central intracranial vasculature and neck separately. For radiation dose reduction, the following was used: automated exposure control, adjustment of mA and/or kV acco rding to patient size. CONTRAST: Omni 300, 80mls. COMPARISON: 08/22/2020. FINDINGS: Image quality: Diagnostic. HEAD CT: CSF Spaces: Basal cisterns are patent. No extra-axial fluid collections. Ventricles are normal in size and shape. Brain: No significant abnormality is seen for scanning technique. Skull and face: Calvarium and visualized facial bones appear intact, without suspicious lesions. Sinuses: Visualized sinuses and mastoids are clear. HEAD CT ANGIOGRAPHY: Anterior circulation: Atherosclerosis. Stable appearance of moderate stenosis involving the cavernous and supraclinoid segments of the bilateral intracranial internal carotid arteries. The flow within t he paired anterior cerebral arteries is symmetric. The flow within the middle cerebral arteries is n ormal and symmetric. The anterior communicating artery is seen. No aneurysms are seen. Posterior circulation: Visualized portions of the vertebral arteries demonstrate normal caliber, and join to form a normal appearing basilar artery. Flow within the posterior cerebral arteries is norm al and demonstrates left dominant vertebral artery system. No aneurysms are seen. NECK CT ANGIOGRAPHY: Carotid system: The great vessels demonstrate a conventional anatomy as they arise from the aortic a rch. The origins of the common carotid arteries appear patent. The common carotid arteries demonstr ate normal caliber and courses. The bifurcation regions are both widely patent. The internal caroti d arteries demonstrate normal calibers and courses. Posterior circulation: The origins of the vertebral arteries both appear widely patent. The more gonzalez perior extracranial portions of both vertebral arteries also demonstrate normal courses and calibers with left dominant vertebral artery. They join to form a normal appearing basilar artery. Soft tissues: Visualized neck soft tissues demonstrate no suspicious abnormalities. Biapical scarri ng. Patulous esophagus with layering fluid. Bones: No suspicious bony lesions. Visualized cervical spine demonstrates stable alignment. Moderat e multilevel cervical spondylosis. No acute compression fracture. IMPRESSION: Stable appearance of atherosclerotic vascular disease with moderate stenosis of the cavernous and sup raclinoid segments of the bilateral intracranial internal carotid arteries. No evidence for high-grad e stenosis or occlusion. No dissection or aneurysm. No significant abnormality is seen within the arteries of the neck. Patulous esophagus with layering fluid concerning for gastroesophageal reflux and risk for aspiration . Other chronic findings as above. The estimate of stenosis included in the report of the imaging study was calculated using the NASCET method Reviewed by: Tuan Reid MD on 04/01/2024 9:49 PM PDT Approved by: Tuan Redi MD on 04/01/2024 9:49 PM PDT Station ID: [id number]
[2024-04-01 22:00] LABS: BILIRUBIN,URINE NEGATIVE (NEGATIVE); GLUCOSE, URINE (UA) NEGATIVE (NEGATIVE); KETONES,URINE (UA) NEGATIVE (NEGATIVE); LEUKOCYTE ESTERASE, URINE NEGATIVE (NEGATIVE); NITRITE,URINE NEGATIVE (NEGATIVE); OCCULT BLOOD,URINE NEGATIVE (NEGATIVE); PROTEIN,URINE NEGATIVE (NEGATIVE); UROBILINOGEN,URINE 0.2 (NORMAL) E.U./dL (NORMAL)
[2024-04-01 22:01] LABS: CLARITY,URINE CLEAR (CLEAR)
[2024-04-01] MEDS: ASPIRIN CHEW 81 MG TABLET PO STA (22:48)
[2024-04-01 22:53] VITALS: BP 157/89; O2SAT 100
== END 2024-04-01 23:09 | disposition home or self-care (01) ==
LOC: EDUNIT# → ED 21:06
DX: G45.9 Transient cerebral ischemic attack, unspecified (principal); G20.A1 Parkinson's disease without dyskinesia, without mention of fluctuations
CPT/HCPCS: 36415; 70450; 70496; 70498; 80053; 81003; 83690; 85025; 85610; 85730; 93005; 99283; 99284; A9270; Q9967; 81001; 87086

== ENCOUNTER 2024-04-23 10:14 | Outpatient (CLI) | payer MEDICARE, OTHER ==
--- NOTE | 2024-04-23 14:27 | MRI Report ---
PROCEDURE: Brain WO INDICATIONS: TIA TECHNIQUE: Noncontrast axial T1 spin echo, axial T2 fast spin echo, sagittal and axial FLAIR, coronal T2 fast sp in echo, axial gradient echo, axial diffusion and ADC through the brain. COMPARISON: 09/19/2021, 08/23/2020. Correlation is also made with CT examinations, 04/01/2024. FINDINGS: Image quality: Excellent. CSF Spaces: Basal cisterns are patent. No extra-axial fluid collections. Ventricles are normal in size and shape. Brain: No intracranial masses. A few scattered foci of hemosiderin deposition can be seen within nuha th cerebral hemispheres, as seen on series 10. Hooper/white matter interface is normal. Brainstem appe ars normal. Diffusion-weighted images demonstrate no acute ischemic insult. There is a stable remote infarct within the right thalamus, as on series 7 image 13. Normal intravascular flow voids are pres ent. Age-appropriate brain parenchymal volume loss and chronic small vessel ischemic change can be s een. Symmetric calcification of the basal ganglia can be seen, which is considered to be within norm al limits for age. Skull and face: Calvarium has normal marrow signal. Orbits appear normal. Incidental note is made of bilateral lens replacements. Sinuses: Moderate mucosal thickening can be seen within the right maxillary sinus. Milder mucosal thi ckening can be seen elsewhere within the paranasal sinuses. No significant abnormal fluid can be seen within the mastoid air cells. IMPRESSION: Stable intracranial study, without findings of recent infarction. Age-appropriate brain parenchymal volume loss and chronic small vessel ischemic change can be seen. Remote, stable right thalamus infarction. To the limits of this noncontrast study, no findings of masses or mass effect can be seen. Reviewed by: Lee Goodrich MD on 04/23/2024 1:25 PM [facility] Approved by: Lee Goodrich MD on 04/23/2024 1:25 PM [id number] Station ID: [id number]
== END 2024-04-23 10:15 | disposition home or self-care (01) ==
LOC: DI 10:14
PROVIDERS: ATTEND Internal Medicine
DX: G45.9 Transient cerebral ischemic attack, unspecified (principal); I10 Essential (primary) hypertension; Z86.73 Personal history of transient ischemic attack (TIA), and cerebral infarction without residual deficits

== ENCOUNTER 2024-05-07 08:00 | Outpatient (CLI) | payer MEDICARE, OTHER | END 2024-05-07 23:59 | disposition home or self-care (01) | LOC: LAB.S 08:00 | PROVIDERS: ATTEND Physician Assistant | DX: J06.9 Acute upper respiratory infection, unspecified (principal) ==

== ENCOUNTER 2024-06-05 12:45 | Outpatient (CLI) | payer MEDICARE, OTHER | END 2024-06-05 12:46 | disposition home or self-care (01) | LOC: DI 12:45 | PROVIDERS: ATTEND Internal Medicine | DX: I08.1 Rheumatic disorders of both mitral and tricuspid valves (principal); I77.810 Thoracic aortic ectasia; I10 Essential (primary) hypertension | CPT/HCPCS: 93307 ==